=== PATIENT | female | born 1940 | race Caucasian/White ===

== ENCOUNTER → 2017-05-14 | Outpatient (CLI) | payer MEDICARE, MEDICAID ==
[~2017-05-14] MED LIST: ASPI-892 PO; ASPI-983 PO; ATEN-156 PO; CALC-760 PO; CLPD75T PO; DEXL60CA5 PO; DILT240C86 PO; DLT180CCR PO; DOCU100T7 PO; FNT25TD TD; FURO20TA4 PO; FURO40TA4 PO; FURO80TA83 PO; GLYB5TAB3 PO; HCT25T PO; HYDR-3816 PO; INSASP10V SC; INSU100V5 SQ; INSU100V6 SQ; LISI-556 PO; LISI10TA2 PO; LISI20TA PO; METF-380; METO50TA2 PO; MTF500T PO; NOVALOG SQ; OMEG-12 PO; POLY17PO23 PO; POTA10CA43 PO; PROP1TAB77; RIVA15TA PO; RIVA20TA2 PO; ROSU20TA14 PO; TRAM50TA2 PO
--- NOTE | 2017-05-14 19:10 | Diagnostic Imaging Report ---
PROCEDURE: US Thyroid. TECHNIQUE: Multiple real-time grayscale images were obtained of the thyroid in various projections. INDICATION: Follow-up nodules. COMPARISON: 07/10/2015. FINDINGS: The right lobe is 5.9 x 3.3 x 3.1 cm. The left lobe is 4.5 x 1.9 x 2.1 cm. In the thyroid isthmus there is a 1.9 x 1.8 x 1.5 cm heterogeneous nodule seen. This is similar to prior exam of 07/10/2015. There are multiple other nodules in the thyroid; some are cystic, up to 1 cm in the upper right lobe and up to 0.9 cm in the upper left lobe also similar to prior exam. IMPRESSION: Stable multiple thyroid nodules and cysts. The dominant lesion in the isthmus is 1.9 cm in size, heterogeneous and is probably solid. The stability from 2014 is suggestive of benign etiology. Dictated by: Dictated on workstation # [id number]
== END ==
LOC: RAD 11:32
PROVIDERS: ATTEND Family Medicine
DX: E04.2 Nontoxic multinodular goiter (principal)
CPT/HCPCS: 76536

== ENCOUNTER → 2017-08-25 | Outpatient (CLI) | payer MEDICARE, MEDICAID | LOC: CARD 09:46 | PROVIDERS: ATTEND Nurse Practitioner Family | DX: I35.0 Nonrheumatic aortic (valve) stenosis (principal); I48.1 Persistent atrial fibrillation; I10 Essential (primary) hypertension; I25.10 Atherosclerotic heart disease of native coronary artery without angina pectoris; I65.23 Occlusion and stenosis of bilateral carotid arteries; R06.09 Other forms of dyspnea; E78.5 Hyperlipidemia, unspecified; Z95.4 Presence of other heart-valve replacement | CPT/HCPCS: 93306 ==

== ENCOUNTER 2018-10-19 07:16 | Day surgery (SDC) | payer MEDICARE, MEDICAID ==
[2018-10-19] VITALS (9 sets, daily range): BP systolic 130–160; BP diastolic 73–86
[~2018-10-19] VITALS: Ht 167.6 cm; Wt 122.5 kg
[~2018-10-19 07:16] MED LIST changes: +HYDR-34 PO; -HYDR-3816 PO; +METO50TA15 PO; -METO50TA2 PO
[2018-10-19] MEDS ORDERED: LIDOCAINE 1% INJ 20 ML 20 ML VIAL ONE (07:33)
[2018-10-19] MEDS ORDERED: NS IV 1000 ML 1,000 ML ONE ×2 (07:33→10:04)
[2018-10-19] MEDS ORDERED: HEParin (CATH LAB) 2,000 ML IV ONE (07:33)
[2018-10-19] MEDS: NS IV 1000 ML 1,000 ML IV SCH ×2 (08:02→10:09)
[2018-10-19 08:06] LABS: MEAN PLATELET VOLUME 11.2 FL (7.4-10.4); RED BLOOD COUNT 4.08 10^6/uL (4.35-5.85); RED CELL DISTRIBUTION WIDTH 14.8 % (10.0-14.5); WHITE BLOOD COUNT 8.8 10^3/uL (4.3-11.0)
[2018-10-19 08:15] LABS: INR 1.1 (0.8-1.4); PROTHROMBIN TIME PATIENT 14.7 SEC (12.2-14.7)
[2018-10-19 08:27] LABS: ALBUMIN 4.2 GM/DL (3.2-4.5); BILIRUBIN,TOTAL 1.2 MG/DL (0.1-1.0); CALCIUM 9.9 MG/DL (8.5-10.1); CREATININE SERUM 1.2 MG/DL (0.60-1.30); POTASSIUM 4.2 MMOL/L (3.6-5.0); TOTAL PROTEIN 8.1 GM/DL (6.4-8.2)
[2018-10-19] MEDS ORDERED: METO50TA15 PO (08:50)
[2018-10-19] MEDS ORDERED: ASPI-983 PO (08:51)
[2018-10-19] MEDS ORDERED: HYDR-3812 PO (08:51)
--- NOTE | 2018-10-19 08:52 | NUR ---
SPOKE TO PATIENT SHE BROUGHT ALL MEDICATION BOTTLES IN EXCEPT FOR INSULINS AND PLAVIX. SHE STATED HOW SHE TOOK THOSE MEDICATIONS. ALSO WHEN SHE TOOK HER MEDICATIONS.
--- OUTSIDE RECORDS SUMMARY | 2018-10-19 09:06 | XMS REPORT | Continuity of Care Document ---
Author Author [facility] Organization [facility] Address Unknown Phone Unavailable Allergies Active Description Code Type Severity Reaction Onset Reported/Identified Relationship to Patient Clinical Status Yes No Known Drug Allergies [id number] Drug Allergy Unknown N/A 11/18/2012 Medications There is no data. Problems Date Dx Coded Attending Type Code Diagnosis Diagnosed By 07/13/2012 Ot 250.00 DIAB ADRIANNA WO COMPL, TYPE II OR UNSPEC TY 07/13/2012 Ot 272.4 HYPERLIPIDEMIA NEC/NOS 07/13/2012 Ot 278.00 OBESITY, NOS 07/13/2012 Ot 401.9 HYPERTENSION NOS 07/13/2012 Ot 413.9 ANGINA PECTORIS NEC/NOS 07/13/2012 Ot 414.01 CORONARY ATHEROSCLEROSIS OF [place] CORON 07/13/2012 Ot 424.1 AORTIC VALVE DISORDER 07/13/2012 Ot 530.81 ESOPHAGEAL REFLUX 07/13/2012 Ot 786.09 RESPIRATORY ABNORM NEC 07/13/2012 Ot 794.30 ABN CARDIOVASC STUDY NOS 07/13/2012 Ot V17.49 FAMILY HISTORY OF OTHER CARDIOVASCULAR D 07/13/2012 Ot V43.65 KNEE JOINT REPLACEMENT STATUS 07/13/2012 Ot V58.67 LONG-TERM ( CURRENT) USE OF INSULIN 07/13/2012 Ot V58.69 OTH MED,LT, CURRENT USE 07/13/2012 Ot V85.41 BODY MASS INDEX 40.0-44.9, ADULT 11/19/2012 Ot 250.00 DIAB ADRIANNA WO COMPL, TYPE II OR UNSPEC TY 11/19/2012 Ot 272.4 HYPERLIPIDEMIA NEC/NOS 11/19/2012 Ot 278.00 OBESITY, NOS 11/19/2012 Ot 401.9 HYPERTENSION NOS 11/19/2012 Ot 414.01 CORONARY ATHEROSCLEROSIS OF [place] CORON 11/19/2012 Ot 424.1 AORTIC VALVE DISORDER 11/19/2012 Ot 427.31 ATRIAL FIBRILLATION 11/19/2012 Ot V45.81 AORTOCORONARY BYPASS 11/19/2012 Ot V58.67 LONG-TERM ( CURRENT) USE OF INSULIN 11/19/2012 Ot V85.38 BODY MASS INDEX 38.0-38.9, ADULT 09/27/2013 WILDER RIVAS BODY FORMER Ot 327.23 OBSTRUCTIVE SLEEP APNEA (ADULT) (PEDIATR 09/27/2013 WILDER RIVAS BODY FORMER Ot 327.51 PERIODIC LIMB MOVEMENT DISORDER 09/27/2013 WILDER RIVAS BODY FORMER Ot 785.0 TACHYCARDIA NOS 11/29/2013 WILDER RIVAS BODY FORMER Ot 327.23 OBSTRUCTIVE SLEEP APNEA (ADULT) (PEDIATR 11/29/2013 WILDER RIVAS BODY FORMER Ot 785.0 TACHYCARDIA NOS 03/04/2014 JORGE LEONG MD A Ot 250.00 DIAB ADRIANNA WO COMPL, TYPE II OR UNSPEC TY 03/04/2014 JORGE LEONG MD Ot 530.81 ESOPHAGEAL REFLUX 03/04/2014 JORGE LEONG MD A Ot 564.00 UNSPEC CONSTIPATION 03/04/2014 JORGE LEONG MD Ot 719.45 JOINT PAIN-PELVIS 03/04/2014 JORGE LEONG MD Ot 724.5 BACKACHE NOS 03/04/2014 JORGE LEONG MD Ot 729.1 MYALGIA AND MYOSITIS NOS 03/04/2014 JORGE LEONG MD Ot 729.5 PAIN IN LIMB 03/04/2014 JORGE LEONG MD Ot 780.79 OTH MALAISE FATIGUE 03/04/2014 JORGE LEONG MD Ot 786.05 SHORTNESS OF BREATH 07/26/2014 AMANDA DUMONT FACC, ADALBERTO FACP CCDS Ot 250.00 DIAB ADRIANNA WO COMPL, TYPE II OR UNSPEC TY 07/26/2014 ADALBERTO PATEL MD, FACC FACP CCDS Ot 272.4 HYPERLIPIDEMIA NEC/NOS 07/26/2014 AMANDA DUMONT FACC ALI FACP CCDS Ot 278.00 OBESITY, NOS 07/26/2014 ADALBERTO PATEL MD, FACC FACP CCDS Ot 401.9 HYPERTENSION NOS 07/26/2014 ADALBERTO PATEL MD, FACC FACP CCDS Ot 414.01 CORONARY ATHEROSCLEROSIS OF [place] CORON 07/26/2014 ADALBERTO PATEL MD, FACC FACP CCDS Ot 414.02 CORON ATHEROSCLEROSIS AUTOLOG VEIN BYPAS 07/26/2014 ADALBERTO PATEL MD, FACC FACP CCDS Ot 414.2 CHRONIC TOTAL OCCLUSION OF CORONARY EMELY 07/26/2014 ADALBERTO PATEL MD, FACC FACP CCDS Ot 414.4 CORONARY ATHEROSCLEROSIS DUE TO CALCIFIE 07/26/2014 AMANDA MULLENC, ALI FACP CCDS Ot 416.8 CHR PULMON HEART DIS NEC 07/26/2014 AMANDA DUMONT FACC, ALI FACP CCDS Ot 424.1 AORTIC VALVE DISORDER 07/26/2014 AMANDA DUMONT FACC, ALI FACP CCDS Ot 427.31 ATRIAL FIBRILLATION 07/26/2014 AMANDA DUMONT FACC, ALI FACP CCDS Ot 530.81 ESOPHAGEAL REFLUX 07/26/2014 AMANDA DUMONT FACC, ALI FACP CCDS Ot 780.57 UNSPECIFIED SLEEP APNEA 07/26/2014 AMANDA DUMONT FACC, ALI FACP CCDS Ot V45.81 AORTOCORONARY BYPASS 07/26/2014 AMANDA DUMONT FACC, ALI FACP CCDS Ot V58.67 LONG-TERM (CURRENT) USE OF INSULIN 07/26/2014 AMANDA DUMONT FACC, ALI FACP CCDS Ot V58.69 OTH MED,LT,CURRENT USE 07/26/2014 AMANDA DUMONT FACC, ALI FACP CCDS Ot V85.41 BODY MASS INDEX 40.0-44.9, ADULT 10/04/2014 STEVE DUMONT, DES Bay Ot 786.05 10/31/2014 Ot 786.05 10/31/2014 Ot 786.50 10/31/2014 Ot 396.3 10/31/2014 Ot 397.0 10/31/2014 Ot 413.9 10/31/2014 Ot 429.3 10/31/2014 Ot 780.4 10/31/2014 Ot 785.2 10/31/2014 Ot 786.05 10/31/2014 Ot 794.31 10/31/2014 Ot 427.31 10/31/2014 Ot 780.79 10/31/2014 Ot 785.1 10/31/2014 AMANDA DUMONT FACC, ALI FACP CCDS Ot 433.10 10/31/2014 AMANDA DUMONT FACC, ALI FACP CCDS Ot 414.00 10/31/2014 AMANDA DUMONT FACC, ALI FACP CCDS Ot 424.1 10/31/2014 AMANDA DUMONT FACC, ALI FACP CCDS Ot 427.31 10/31/2014 AMANDA DUMONT FACC, ALI FACP CCDS Ot 786.09 10/31/2014 ASTRID STUART COSMETICS MACHINE OPERATOR Ot 396.8 10/31/2014 ASTRID STUART COSMETICS MACHINE OPERATOR Ot 397.0 10/31/2014 ASTRID STUART COSMETICS MACHINE OPERATOR Ot 416.8 10/31/2014 GELLENDER DO, LILY Mohan Ot 241.0 10/31/2014 GELLENDER DO, LILY Mohan Ot 275.49 10/31/2014 GELLENDER DO, LILY Mohan Ot 712.36 10/31/2014 GELLENDER DO, LILY Mohan Ot 715.35 10/31/2014 GELLENDER DO, LILY Mohan Ot 715.36 10/31/2014 GELLENDER DO, LILY Mohan Ot 719.45 10/31/2014 GELLENDER DO, LILY Mohan Ot 719.46 10/31/2014 GELLENDER DO, LILY Mohan Ot 241.1 10/31/2014 GELLENDER DO, LILY Mohan Ot 414.00 10/31/2014 GELLENDER DO, LILY Mohan Ot 429.3 10/31/2014 GELLENDER DO, LILY Mohan Ot 786.05 10/31/2014 GELLENDER DO, LILY Mohan Ot V45.81 10/31/2014 STEVE DUMONT, DES [place] Ot 786.05 11/28/2014 GELLENDER DO, LILY Mohan Ot 285.9 11/28/2014 GELLENDER DO, LILY Mohan Ot 490 07/31/2015 GELLENDER DO, LILY Mohan Ot E04.2 08/08/2015 GELLENDER DO, LILY Mohan Ot E04.2 10/17/2015 Ot 786.05 10/17/2015 Ot 786.50 10/17/2015 Ot 396.3 10/17/2015 Ot 397.0 10/17/2015 Ot 413.9 10/17/2015 Ot 429.3 10/17/2015 Ot 780.4 10/17/2015 Ot 785.2 10/17/2015 Ot 786.05 10/17/2015 Ot 794.31 10/17/2015 Ot 427.31 10/17/2015 Ot 780.79 10/17/2015 Ot 785.1 10/17/2015 AMANDA DUMONT FACC, ALI FACP CCDS Ot 433.10 10/17/2015 AMANDA DUMONT FACC, ALI FACP CCDS Ot 414.00 10/17/2015 AMANDA DUMONT FACC, ALI FACP CCDS Ot 424.1 10/17/2015 AMANDA DUMONT FACC, ALI FACP CCDS Ot 427.31 10/17/2015 AMANDA DUMONT FACC, ALI FACP CCDS Ot 786.09 10/17/2015 ASTRID STUART COSMETICS MACHINE OPERATOR Ot 396.8 10/17/2015 ASTRID STUART COSMETICS MACHINE OPERATOR Ot 397.0 10/17/2015 ASTRID STUART COSMETICS MACHINE OPERATOR Ot 416.8 10/17/2015 GELLENDER DO, LILY A Ot 241.0 10/17/2015 GELLENDER DO, LILY A Ot 275.49 10/17/2015 GELLENDER DO, LILY A Ot 712.36 10/17/2015 GELLENDER DO, LILY A Ot 715.35 10/17/2015 GELLENDER DO, LILY A Ot 715.36 10/17/2015 GELLENDER DO, LILY A Ot 719.45 10/17/2015 GELLENDER DO, LILY A Ot 719.46 10/17/2015 GELLENDER DO, LILY A Ot 241.1 10/17/2015 GELLENDER DO, LILY A Ot 414.00 10/17/2015 GELLENDER DO, LILY A Ot 429.3 10/17/2015 GELLENDER DO, LILY A Ot 786.05 10/17/2015 GELLENDER DO, LILY A Ot V45.81 10/17/2015 DES WILSON MD Ot 786.05 10/17/2015 AMANDA DUMONT FACC, ALI FACP CCDS Ot 272.4 10/17/2015 AMANDA DUMONT FAC, ALI FACP CCDS Ot 278.01 10/17/2015 AMANDA DUMONT FACC, ALI FACP CCDS Ot 401.9 10/17/2015 AMANDA DUMONT FACC, ALI FACP CCDS Ot 414.00 10/17/2015 AMANDA DUMONT FACC, ALI FACP CCDS Ot 424.1 10/17/2015 AMANDA DUMONT FACC, ALI FACP CCDS Ot 427.31 10/17/2015 AMANDA DUMONT FACC, ALI FACP CCDS Ot 447.9 10/17/2015 AMANDA DUMONT FACC, ALI FACP CCDS Ot 780.57 10/17/2015 GELLENDER DO, LILY A Ot 285.9 10/17/2015 GELLENDER DO, LILY A Ot 490 10/17/2015 GELLENDER DO, LILY A Ot E04.2 11/06/2015 BAIMA, ASTRID L COSMETICS MACHINE OPERATOR Ot E11.9 11/06/2015 BAIMA, ASTRID L COSMETICS MACHINE OPERATOR Ot E78.5 11/06/2015 BAIMA, ASTRID L COSMETICS MACHINE OPERATOR Ot I10 11/06/2015 BAIMA, ASTRID L COSMETICS MACHINE OPERATOR Ot I25.10 11/06/2015 BAIMA, ASTRID L COSMETICS MACHINE OPERATOR Ot I35.0 11/06/2015 BAIMA, ASTRID L COSMETICS MACHINE OPERATOR Ot I77.9 11/06/2015 BAIMA, ASTRID L COSMETICS MACHINE OPERATOR Ot Z95.4 11/16/2015 BAIMA, ASTRID L COSMETICS MACHINE OPERATOR Ot E11.9 11/16/2015 BAIMA, ASTRID L COSMETICS MACHINE OPERATOR Ot E78.5 11/16/2015 BAIMA, ASTRID L COSMETICS MACHINE OPERATOR Ot I10 11/16/2015 BAIMA, ASTRID L COSMETICS MACHINE OPERATOR Ot I25.10 11/16/2015 BAIMA, ASTRID L COSMETICS MACHINE OPERATOR Ot I35.0 11/16/2015 BAIMA, ASTRID L COSMETICS MACHINE OPERATOR Ot I77.9 11/16/2015 BAIMA, ASTRID L COSMETICS MACHINE OPERATOR Ot Z95.4 05/28/2016 BAIMA, ASTRID L COSMETICS MACHINE OPERATOR Ot E78.4 OTHER HYPERLIPIDEMIA 05/28/2016 BAIMA, ASTRID L COSMETICS MACHINE OPERATOR Ot G47.33 OBSTRUCTIVE SLEEP APNEA (ADULT) (PEDIATR 05/28/2016 BAIMA, ASTRID L COSMETICS MACHINE OPERATOR Ot I10 ESSENTIAL (PRIMARY) HYPERTENSION 05/28/2016 BAIMA, ASTRID L COSMETICS MACHINE OPERATOR Ot I25.10 ATHSCL HEART DISEASE OF [place] CORONARY 05/28/2016 BAIMA, ASRTID L COSMETICS MACHINE OPERATOR Ot R06.09 OTHER FORMS OF DYSPNEA 05/28/2016 BAIMA, ASTRID L COSMETICS MACHINE OPERATOR Ot R35.0 FREQUENCY OF MICTURITION 05/28/2016 BAIMA, ASTRID L COSMETICS MACHINE OPERATOR Ot Z95.4 PRESENCE OF OTHER HEART-VALVE REPLACEMEN 06/05/2016 Ot 786.05 SHORTNESS OF BREATH 06/05/2016 Ot 786.50 CHEST PAIN NOS 06/05/2016 Ot 396.3 MITRAL/ AORTIC HANY INSUFF 06/05/2016 Ot 397.0 TRICUSPID VALVE DISEASE 06/05/2016 Ot 413.9 ANGINA PECTORIS NEC/NOS 06/05/2016 Ot 429.3 CARDIOMEGALY 06/05/2016 Ot 780.4 DIZZINESS AND GIDDINESS 06/05/2016 Ot 785.2 CARDIAC MURMURS NEC 06/05/2016 Ot 786.05 SHORTNESS OF BREATH 06/05/2016 Ot 794.31 ABNORM ELECTROCARDIOGRAM 06/05/2016 Ot 427.31 ATRIAL FIBRILLATION 06/05/2016 Ot 780.79 OTH MALAISE FATIGUE 06/05/2016 Ot 785.1 PALPITATIONS 06/05/2016 AMANDA DUMONT FACC, ALI FACP CCDS Ot 433.10 CAROTID ARTERY OCCLUSION W O CEREBRAL IN 06/05/2016 AMANDA DUMONT FACC, ALI FACP CCDS Ot 414.00 CORON ATHEROSCLER NOS TYPE VESSEL, NATIV 06/05/2016 AMANDA DUMONT FACC, ALI FACP CCDS Ot 424.1 AORTIC VALVE DISORDER 06/05/2016 AMANDA DUMONT FACC, ALI FACP CCDS Ot 427.31 ATRIAL FIBRILLATION 06/05/2016 AMANDA DUMONT FACC, ALI FACP CCDS Ot 786.09 RESPIRATORY ABNORM NEC 06/05/2016 ATSRID STUART COSMETICS MACHINE OPERATOR Ot 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 06/05/2016 ASTRID STUART COSMETICS MACHINE OPERATOR Ot 397.0 TRICUSPID VALVE DISEASE 06/05/2016 ASTRID STUART COSMETICS MACHINE OPERATOR Ot 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3 CARDIOMEGALY 06/05/2016 LILY ROJAS DO Ot 786.05 SHORTNESS OF BREATH 06/05/2016 LILY ROJAS DO Ot V45.81 AORTOCORONARY BYPASS 06/05/2016 DES WILSON MD Ot 786.05 SHORTNESS OF BREATH 06/05/2016 AMANDA DUMONT FACC, ALI FACP CCDS Ot 272.4 HYPERLIPIDEMIA NEC/NOS 06/05/2016 AMANDA DUMONT FACC, ALI FACP CCDS Ot 278.01 MORBID OBESITY 06/05/2016 AMANDA DUMONT FACC, ALI FACP CCDS Ot 401.9 HYPERTENSION NOS 06/05/2016 AMANDA DUMONT FACC, ALI FACP CCDS Ot 414.00 CORON ATHEROSCLER NOS TYPE VESSEL, NATIV 06/05/2016 AMANDA DUMONT FACC, ALI FACP CCDS Ot 424.1 AORTIC VALVE DISORDER 06/05/2016 AMANDA DUMONT FACC, ALI FACP CCDS Ot 427.31 ATRIAL FIBRILLATION 06/05/2016 AMANDA DUMONT FACC, ALI FACP CCDS Ot 447.9 ARTERIAL DISEASE NOS 06/05/2016 AMANDA DUMONT FACC, ALI FACP CCDS Ot 780.57 UNSPECIFIED SLEEP APNEA 06/05/2016 BOB FLOWERS LILY Mohan Ot 285.9 ANEMIA NOS 06/05/2016 BOB FLOWERS LILY Mohan Ot 490 BRONCHITIS NOS 06/05/2016 LILY ROJAS DO Ot E04.2 NONTOXIC MULTINODULAR GOITER 06/05/2016 ASTRID STUART COSMETICS MACHINE OPERATOR Ot E11.9 TYPE 2 DIABETES MELLITUS WITHOUT COMPLIC 06/05/2016 ASTRID STUART COSMETICS MACHINE OPERATOR Ot E78.5 HYPERLIPIDEMIA, UNSPECIFIED 06/05/2016 ASTRID STUART COSMETICS MACHINE OPERATOR Ot I10 ESSENTIAL (PRIMARY) HYPERTENSION 06/05/2016 ASTRID STUART COSMETICS MACHINE OPERATOR Ot I25.10 ATHSCL HEART DISEASE OF [place] CORONARY 06/05/2016 ASTRID STUART COSMETICS MACHINE OPERATOR Ot I35.0 NONRHEUMATIC AORTIC (VALVE) STENOSIS 06/05/2016 ASTRID STUART COSMETICS MACHINE OPERATOR Ot I77.9 DISORDER OF ARTERIES AND ARTERIOLES, UNS 06/05/2016 ASTRID STUART COSMETICS MACHINE OPERATOR Ot Z95.4 PRESENCE OF OTHER HEART-VALVE REPLACEMEN 06/05/2016 ASTRID STUART COSMETICS MACHINE OPERATOR Ot E78.4 OTHER HYPERLIPIDEMIA 06/05/2016 ASTRID STUART L COSMETICS MACHINE OPERATOR Ot G47.33 OBSTRUCTIVE SLEEP APNEA (ADULT) (PEDIATR 06/05/2016 RAHATASTRID GUILLORY COSMETICS MACHINE OPERATOR Ot I10 ESSENTIAL (PRIMARY) HYPERTENSION 06/05/2016 RAHATASTRID GUILLORY COSMETICS MACHINE OPERATOR Ot I25.10 ATHSCL HEART DISEASE OF [place] CORONARY 06/05/2016 RAHATASTRID GUILLORY COSMETICS MACHINE OPERATOR Ot R06.09 OTHER FORMS OF DYSPNEA 06/05/2016 RAHATASTRID GUILLORY L COSMETICS MACHINE OPERATOR Ot R35.0 FREQUENCY OF MICTURITION 06/05/2016 RAHATASTRID GUILLORY L COSMETICS MACHINE OPERATOR Ot Z95.4 PRESENCE OF OTHER HEART-VALVE REPLACEMEN 06/10/2016 Ot 786.05 SHORTNESS OF BREATH 06/10/2016 Ot 786.50 CHEST PAIN NOS 06/10/2016 Ot 396.3 MITRAL/ AORTIC HANY INSUFF 06/10/2016 Ot 397.0 TRICUSPID VALVE DISEASE 06/10/2016 Ot 413.9 ANGINA PECTORIS NEC/NOS 06/10/2016 Ot 429.3 CARDIOMEGALY 06/10/2016 Ot 780.4 DIZZINESS AND GIDDINESS 06/10/2016 Ot 785.2 CARDIAC MURMURS NEC 06/10/2016 Ot 786.05 SHORTNESS OF BREATH 06/10/2016 Ot 794.31 ABNORM ELECTROCARDIOGRAM 06/10/2016 Ot 427.31 ATRIAL FIBRILLATION 06/10/2016 Ot 780.79 OTH MALAISE FATIGUE 06/10/2016 Ot 785.1 PALPITATIONS 06/10/2016 AMANDA DUMONT FACC, ADALBERTO FACP CCDS Ot 433.10 CAROTID ARTERY OCCLUSION W O CEREBRAL IN 06/10/2016 AMANDA DUMONT FACC, ADALBERTO FACP CCDS Ot 414.00 CORON ATHEROSCLER NOS TYPE VESSEL, NATIV 06/10/2016 AMANDA DUMONT FACC, ADALBERTO FACP CCDS Ot 424.1 AORTIC VALVE DISORDER 06/10/2016 AMANDA DUMONT FACC, ADALBERTO FACP CCDS Ot 427.31 ATRIAL FIBRILLATION 06/10/2016 AMANDA DUMONT FACC, ADALBERTO FACP CCDS Ot 786.09 RESPIRATORY ABNORM NEC 06/10/2016 SADE ASTRID L COSMETICS MACHINE OPERATOR Ot 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 06/10/2016 SADE ASTRID L COSMETICS MACHINE OPERATOR Ot 397.0 TRICUSPID VALVE DISEASE 06/10/2016 SADE ASTRID L COSMETICS MACHINE OPERATOR Ot 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 CHR PULMON HEART DIS NEC 06/10/2016 LILY ROJAS DO Ot 241.0 NONTOX UNINODULAR GOITER 06/10/2016 [facility] DO LILY Mohan Ot 275.49 OTH DISORD/CALCIUM METABOLISM 06/10/2016 [facility] LILY Mohan Ot 712.36 CHONDROCALCIN NOS-L/LEG 06/10/2016 [facility] LILY Mohan Ot 715.35 LOC OSTEOARTH NOS-PELVIS 06/10/2016 [facility] LILY Mohan Ot 715.36 LOC OSTEOARTH NOS-L/LEG 06/10/2016 [facility] DO LILY Mohan Ot 719.45 JOINT PAIN-PELVIS 06/10/2016 [facility] DO LILY Mohan Ot 719.46 JOINT PAIN-L/LEG 06/10/2016 [facility] DO LILY Mohan Ot 241.1 NONTOX MULTINODUL GOITER 06/10/2016 [facility] DO LILY Kimberlee Ot 414.00 CORON ATHEROSCLER NOS TYPE VESSEL, NATIV 06/10/2016 [facility] DO LILY Kimberlee Ot 429.3 CARDIOMEGALY 06/10/2016 [facility] DO LILY Kimberlee Ot 786.05 SHORTNESS OF BREATH 06/10/2016 [facility] DO LILY Mohan Ot V45.81 AORTOCORONARY BYPASS 06/10/2016 STEVE DUMONT, DES [place] Ot 786.05 SHORTNESS OF BREATH 06/10/2016 AMANDA DUMONT FACC, ADALBERTO FACP CCDS Ot 272.4 HYPERLIPIDEMIA NEC/NOS 06/10/2016 AMANDA DUMONT FACC, ADALBERTO FACP CCDS Ot 278.01 MORBID OBESITY 06/10/2016 AMANDA DUMONT FACC, ADALBERTO FACP CCDS Ot 401.9 HYPERTENSION NOS 06/10/2016 AMANDA DUMONT FACC, ADALBERTO FACP CCDS Ot 414.00 CORON ATHEROSCLER NOS TYPE VESSEL, NATIV 06/10/2016 AMANDA DUMONT FACC, ADALBERTO FACP CCDS Ot 424.1 AORTIC VALVE DISORDER 06/10/2016 AMANDA DUMONT FACC, ADALBERTO FACP CCDS Ot 427.31 ATRIAL FIBRILLATION 06/10/2016 AMANDA DUMONT FACC, ALI FACP CCDS Ot 447.9 ARTERIAL DISEASE NOS 06/10/2016 AMANDA DUMONT FACC, ADALBERTO FACP CCDS Ot 780.57 UNSPECIFIED SLEEP APNEA 06/10/2016 LILY ROJAS DO Ot 285.9 ANEMIA NOS 06/10/2016 LILY ROJAS DO Ot 490 BRONCHITIS NOS 06/10/2016 LILY ROJAS DO Ot E04.2 NONTOXIC MULTINODULAR GOITER 06/10/2016 RAHATPASTORA ASTRID L COSMETICS MACHINE OPERATOR Ot E11.9 TYPE 2 DIABETES MELLITUS WITHOUT COMPLIC 06/10/2016 RAHATPASTORA ASTRID L COSMETICS MACHINE OPERATOR Ot E78.5 HYPERLIPIDEMIA, UNSPECIFIED 06/10/2016 SADE ASTRID L COSMETICS MACHINE OPERATOR Ot I10 ESSENTIAL (PRIMARY) HYPERTENSION 06/10/2016 SADE ASTRID L COSMETICS MACHINE OPERATOR Ot I25.10 ATHSCL HEART DISEASE OF [place] CORONARY 06/10/2016 RAHATPASTORA ASTRID L COSMETICS MACHINE OPERATOR Ot I35.0 NONRHEUMATIC AORTIC (VALVE) STENOSIS 06/10/2016 SADE ASTRID L COSMETICS MACHINE OPERATOR Ot I77.9 DISORDER OF ARTERIES AND ARTERIOLES, UNS 06/10/2016 SADE ASTRID L COSMETICS MACHINE OPERATOR Ot Z95.4 PRESENCE OF OTHER HEART-VALVE REPLACEMEN 06/10/2016 SHEN STUARTHER L COSMETICS MACHINE OPERATOR Ot E78.4 OTHER HYPERLIPIDEMIA 06/10/2016 SADE ASTRID L COSMETICS MACHINE OPERATOR Ot G47.33 OBSTRUCTIVE SLEEP APNEA (ADULT) (PEDIATR 06/10/2016 RAHATMA ASTRID L COSMETICS MACHINE OPERATOR Ot I10 ESSENTIAL (PRIMARY) HYPERTENSION 06/10/2016 RAHATMA ASTRID L COSMETICS MACHINE OPERATOR Ot I25.10 ATHSCL HEART DISEASE OF [place] CORONARY 06/10/2016 RAHATPASTORA ASTRID L COSMETICS MACHINE OPERATOR Ot R06.09 OTHER FORMS OF DYSPNEA 06/10/2016 SADE ASTRID L COSMETICS MACHINE OPERATOR Ot R35.0 FREQUENCY OF MICTURITION 06/10/2016 SADE ASTRID L COSMETICS MACHINE OPERATOR Ot Z95.4 PRESENCE OF OTHER HEART-VALVE REPLACEMEN 06/11/2016 AMANDA DUMONT FACC, ADALBERTO HUGGINS CCDS Ot E11.9 TYPE 2 DIABETES MELLITUS WITHOUT COMPLIC 06/11/2016 AMANDA DUMONT FACC, ADALBERTO MULLENP CCDS Ot E66.01 MORBID (SEVERE) OBESITY DUE TO EXCESS CA 06/11/2016 AMANDA DUMONT FACC, ADALBERTO FACP CCDS Ot G47.30 SLEEP APNEA, UNSPECIFIED 06/11/2016 AMANDA DUMONT FACC, ADALBERTO FACP CCDS Ot I10 ESSENTIAL (PRIMARY) HYPERTENSION 06/11/2016 ADALBERTO PATEL MD, FACC FACP CCDS Ot I25.10 ATHSCL HEART DISEASE OF [place] CORONARY 06/11/2016 ADALBERTO PATEL MD, FACC FACP CCDS Ot I25.82 CHRONIC TOTAL OCCLUSION OF CORONARY EMELY 06/11/2016 ADALBERTO PATEL MD, FACC FACP CCDS Ot I25.84 CORONARY ATHEROSCLEROSIS DUE TO CALCIFIE 06/11/2016 ADALBERTO PATEL MD, FACC FACP CCDS Ot I27.2 OTHER SECONDARY PULMONARY HYPERTENSION 06/11/2016 ADALBERTO PATEL MD, FACC FACP CCDS Ot I48.0 PAROXYSMAL ATRIAL FIBRILLATION 06/11/2016 ADALBERTO PATEL MD, FACC FACP CCDS Ot K21.9 GASTRO-ESOPHAGEAL REFLUX DISEASE WITHOUT 06/11/2016 AMANDA DUMONT FACC ALI FACP CCDS Ot R94.39 ABNORMAL RESULT OF OTHER CARDIOVASCULAR 06/11/2016 ADALBERTO PATEL MD, FACC FACP CCDS Ot 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, INI 06/11/2016 AMANDA DUMONT FACC ALI FACP CCDS Ot Z68.41 BODY MASS INDEX (BMI) 40.0-44.9, ADULT 06/11/2016 ADALBEROT PATEL MD, FACC FACP CCDS Ot Z79.01 POULTRY HATCHERY MANAGER (CURRENT) USE OF ANTICOAGULANT 06/11/2016 ADALBERTO PATEL MD, FACC FACP CCDS Ot Z79.4 POULTRY HATCHERY MANAGER (CURRENT) USE OF INSULIN 06/11/2016 AMANDA DUMONT FACC ALI FACP CCDS Ot Z79.899 OTHER POULTRY HATCHERY MANAGER (CURRENT) DRUG THERAPY 06/11/2016 AAMNDA DUMONT FACC ALI FACP CCDS Ot Z95.1 PRESENCE OF AORTOCORONARY BYPASS GRAFT 06/11/2016 ADALBERTO PATEL MD, FACC FACP CCDS Ot Z98.89 OTHER SPECIFIED POSTPROCEDURAL STATES 06/20/2016 ASTRID STUART COSMETICS MACHINE OPERATOR Ot E78.4 OTHER HYPERLIPIDEMIA 06/20/2016 ASTRID STUART COSMETICS MACHINE OPERATOR Ot G47.33 OBSTRUCTIVE SLEEP APNEA (ADULT) (PEDIATR 06/20/2016 ASTRID STUART COSMETICS MACHINE OPERATOR Ot I10 ESSENTIAL (PRIMARY) HYPERTENSION 06/20/2016 ASTRID STUART COSMETICS MACHINE OPERATOR Ot I25.10 ATHSCL HEART DISEASE OF [place] CORONARY 06/20/2016 ASTRID STUART COSMETICS MACHINE OPERATOR Ot R06.09 OTHER FORMS OF DYSPNEA 06/20/2016 ASTRID STUART COSMETICS MACHINE OPERATOR Ot R35.0 FREQUENCY OF MICTURITION 06/20/2016 ASTRID STUART COSMETICS MACHINE OPERATOR Ot Z95.4 PRESENCE OF OTHER HEART-VALVE REPLACEMEN 07/01/2016 ASTRID STUART COSMETICS MACHINE OPERATOR Ot E78.4 OTHER HYPERLIPIDEMIA 07/01/2016 ASTRID STUART COSMETICS MACHINE OPERATOR Ot G47.33 OBSTRUCTIVE SLEEP APNEA (ADULT) (PEDIATR 07/01/2016 RAHATASTRID GUILLORY L COSMETICS MACHINE OPERATOR Ot I10 ESSENTIAL (PRIMARY) HYPERTENSION 07/01/2016 ASTRID STUART COSMETICS MACHINE OPERATOR Ot I25.10 ATHSCL HEART DISEASE OF [place] CORONARY 07/01/2016 ASTRID STUART COSMETICS MACHINE OPERATOR Ot R06.09 OTHER FORMS OF DYSPNEA 07/01/2016 ASTRID STUART COSMETICS MACHINE OPERATOR Ot R35.0 FREQUENCY OF MICTURITION 07/01/2016 ASTRID STUART COSMETICS MACHINE OPERATOR Ot Z95.4 PRESENCE OF OTHER HEART-VALVE REPLACEMEN 07/24/2016 AMANDA DUMONT FACC, ADALBERTO FACP CCDS Ot E11.9 TYPE 2 DIABETES MELLITUS WITHOUT COMPLIC 07/24/2016 ADALBERTO PATEL MD, FACC FACP CCDS Ot E66.01 MORBID (SEVERE) OBESITY DUE TO EXCESS CA 07/24/2016 AMANDA DUMONT FACC, ADALBERTO FACP CCDS Ot G47.30 SLEEP APNEA, UNSPECIFIED 07/24/2016 AMANDA DUMOTN FACC, ADALBERTO FACP CCDS Ot I10 ESSENTIAL (PRIMARY) HYPERTENSION 07/24/2016 AMANDA DUMONT FACC, ADALBERTO FACP CCDS Ot I25.10 ATHSCL HEART DISEASE OF [place] CORONARY 07/24/2016 ADALBERTO PATEL MD, FACC FACP CCDS Ot I25.82 CHRONIC TOTAL OCCLUSION OF CORONARY EMELY 07/24/2016 ADALBERTO PATEL MD, FACC FACP CCDS Ot I25.84 CORONARY ATHEROSCLEROSIS DUE TO CALCIFIE 07/24/2016 ADALBERTO PATEL MD, FACC FACP CCDS Ot I27.2 OTHER SECONDARY PULMONARY HYPERTENSION 07/24/2016 ADALBERTO PATEL MD, FACC FACP CCDS Ot I48.0 PAROXYSMAL ATRIAL FIBRILLATION 07/24/2016 ADALBERTO PATEL MD, FACC FACP CCDS Ot K21.9 GASTRO-ESOPHAGEAL REFLUX DISEASE WITHOUT 07/24/2016 AMANDA DUMONT FACC, ALI FACP CCDS Ot R94.39 ABNORMAL RESULT OF OTHER CARDIOVASCULAR 07/24/2016 ADALBERTO PATEL MD, FACC FACP CCDS Ot 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, INI 07/24/2016 ADALBERTO PATEL MD, FACC FACP CCDS Ot Z68.41 BODY MASS INDEX (BMI) 40.0-44.9, ADULT 07/24/2016 ADALBERTO PATEL MD, FACC FACP CCDS Ot Z79.01 USP (CURRENT) USE OF ANTICOAGULANT 07/24/2016 ADALBERTO PATEL MD, FACC FACP CCDS Ot Z79.4 USP (CURRENT) USE OF INSULIN 07/24/2016 ADALBERTO PATEL MD, FACC FACP CCDS Ot Z79.899 OTHER POULTRY HATCHERY MANAGER (CURRENT) DRUG THERAPY 07/24/2016 ADALBERTO PATEL MD, FACC FACP CCDS Ot Z95.1 PRESENCE OF AORTOCORONARY BYPASS GRAFT 07/24/2016 ADALBERTO PATEL MD, FACC FACP CCDS Ot Z98.89 OTHER SPECIFIED POSTPROCEDURAL STATES 05/12/2017 Ot 786.05 SHORTNESS OF BREATH 05/12/2017 Ot 786.50 CHEST PAIN NOS 05/12/2017 Ot 396.3 MITRAL/ AORTIC HANY INSUFF 05/12/2017 Ot 397.0 TRICUSPID VALVE DISEASE 05/12/2017 Ot 413.9 ANGINA PECTORIS NEC/NOS 05/12/2017 Ot 429.3 CARDIOMEGALY 05/12/2017 Ot 780.4 DIZZINESS AND GIDDINESS 05/12/2017 Ot 785.2 CARDIAC MURMURS NEC 05/12/2017 Ot 786.05 SHORTNESS OF BREATH 05/12/2017 Ot 794.31 ABNORM ELECTROCARDIOGRAM 05/12/2017 Ot 427.31 ATRIAL FIBRILLATION 05/12/2017 Ot 780.79 OTH MALAISE FATIGUE 05/12/2017 Ot 785.1 PALPITATIONS 05/12/2017 ADALBERTO PATEL MD, FACC FACP CCDS Ot 433.10 CAROTID ARTERY OCCLUSION W O CEREBRAL IN 05/12/2017 ADALBERTO PATEL MD, FACC FACP CCDS Ot 414.00 CORON ATHEROSCLER NOS TYPE VESSEL, NATIV 05/12/2017 ADALBERTO PATEL MD, FACC FACP CCDS Ot 424.1 AORTIC VALVE DISORDER 05/12/2017 ADALBERTO PATEL MD, FACC FACP CCDS Ot 427.31 ATRIAL FIBRILLATION 05/12/2017 AMANDA MD FACC, ALI FACP CCDS Ot 786.09 RESPIRATORY ABNORM NEC 05/12/2017 ASTRID STUART COSMETICS MACHINE OPERATOR Ot 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 05/12/2017 RAHATASTRID GUILLORY COSMETICS MACHINE OPERATOR Ot 397.0 TRICUSPID VALVE DISEASE 05/12/2017 ASTRID STUART COSMETICS MACHINE OPERATOR Ot 416.8 CHR PULMON HEART DIS NEC 05/12/2017 BOB FLOWERS, LILY Kimberlee Ot 241.0 NONTOX UNINODULAR GOITER 05/12/2017 [facility] , LILY Mohan Ot 275.49 OTH DISORD/CALCIUM METABOLISM 05/12/2017 [facility] DO, LILY Mohan Ot 712.36 CHONDROCALCIN NOS-L/LEG 05/12/2017 [facility] DO, LILY Mohan Ot 715.35 LOC OSTEOARTH NOS-PELVIS 05/12/2017 [facility] DO, LILY Mohan Ot 715.36 LOC OSTEOARTH NOS-L/LEG 05/12/2017 [facility] DO, LILY Mohan Ot 719.45 JOINT PAIN-PELVIS 05/12/2017 [facility], LILY Mohan Ot 719.46 JOINT PAIN-L/LEG 05/12/2017 [facility] DO, LILY Mohan Ot 241.1 NONTOX MULTINODUL GOITER 05/12/2017 [facility] DO, LILY Mohan Ot 414.00 CORON ATHEROSCLER NOS TYPE VESSEL, NATIV 05/12/2017 [facility] LILY FLOWERS Ot 429.3 CARDIOMEGALY 05/12/2017 [facility] , LILY Mohan Ot 786.05 SHORTNESS OF BREATH 05/12/2017 [facility] LILY FLOWERS Ot V45.81 AORTOCORONARY BYPASS 05/12/2017 STEVE DUMONT, DES Bay Ot 786.05 SHORTNESS OF BREATH 05/12/2017 AMANDA DUMONT FACC, ADALBERTO FACP CCDS Ot 272.4 HYPERLIPIDEMIA NEC/NOS 05/12/2017 AMANDA DUMONT FACC, ALI FACP CCDS Ot 278.01 MORBID OBESITY 05/12/2017 AMANDA DUMONT FACC, ALI FACP CCDS Ot 401.9 HYPERTENSION NOS 05/12/2017 AMANDA DUMONT FACC, ADALBERTO FACP CCDS Ot 414.00 CORON ATHEROSCLER NOS TYPE VESSEL, NATIV 05/12/2017 AMANDA DUMONT FACC, ADALBERTO FACP CCDS Ot 424.1 AORTIC VALVE DISORDER 05/12/2017 AMANDA DUMONT FACC, ADALBERTO FACP CCDS Ot 427.31 ATRIAL FIBRILLATION 05/12/2017 AMANDA DUMONT [facility], ADALBERTO HUGGINS CCDS Ot 447.9 ARTERIAL DISEASE NOS 05/12/2017 AMANDA DUMONT [facility], [facility] 780.57 UNSPECIFIED SLEEP APNEA 05/12/2017 [facility] LILY Kimberlee Ot 285.9 ANEMIA NOS 05/12/2017 [facility] DO, LILY A Ot 490 BRONCHITIS NOS 05/12/2017 [facility] DO, LILY Kimberlee Ot E04.2 NONTOXIC MULTINODULAR GOITER 05/12/2017 SADE ASTRID L COSMETICS MACHINE OPERATOR Ot E11.9 TYPE 2 DIABETES MELLITUS WITHOUT COMPLIC 05/12/2017 SADE ASTRID L COSMETICS MACHINE OPERATOR Ot E78.5 HYPERLIPIDEMIA, UNSPECIFIED 05/12/2017 SADE ASTRID L COSMETICS MACHINE OPERATOR Ot I10 ESSENTIAL (PRIMARY) HYPERTENSION 05/12/2017 SADE ASTRID L COSMETICS MACHINE OPERATOR Ot I25.10 ATHSCL HEART DISEASE OF [place] CORONARY 05/12/2017 SADE ASTRID L COSMETICS MACHINE OPERATOR Ot I35.0 NONRHEUMATIC AORTIC (VALVE) STENOSIS 05/12/2017 SADE ASTRID L COSMETICS MACHINE OPERATOR Ot I77.9 DISORDER OF ARTERIES AND ARTERIOLES, UNS 05/12/2017 SADE ASTRID L COSMETICS MACHINE OPERATOR Ot Z95.4 PRESENCE OF OTHER HEART-VALVE REPLACEMEN 05/12/2017 SADE ASTRID L COSMETICS MACHINE OPERATOR Ot E78.4 OTHER HYPERLIPIDEMIA 05/12/2017 SADE ASTRID L COSMETICS MACHINE OPERATOR Ot G47.33 OBSTRUCTIVE SLEEP APNEA (ADULT) (PEDIATR 05/12/2017 SADE ASTRID L COSMETICS MACHINE OPERATOR Ot I10 ESSENTIAL (PRIMARY) HYPERTENSION 05/12/2017 SADE ASTRID L COSMETICS MACHINE OPERATOR Ot I25.10 ATHSCL HEART DISEASE OF [place] CORONARY 05/12/2017 SADE ASTRID L COSMETICS MACHINE OPERATOR Ot R06.09 OTHER FORMS OF DYSPNEA 05/12/2017 SADE ASTRID L COSMETICS MACHINE OPERATOR Ot R35.0 FREQUENCY OF MICTURITION 05/12/2017 SADE ASTRID L COSMETICS MACHINE OPERATOR Ot Z95.4 PRESENCE OF OTHER HEART-VALVE REPLACEMEN 05/15/2017 [facility] DO LILY Kimberlee Ot E04.2 NONTOXIC MULTINODULAR GOITER 06/03/2017 GELLILY NAJERA DO Ot E04.2 NONTOXIC MULTINODULAR GOITER 06/12/2017 LILY ROJAS DO Ot E04.2 NONTOXIC MULTINODULAR GOITER 09/15/2017 BAIMA, ASTRID L COSMETICS MACHINE OPERATOR Ot E78.5 HYPERLIPIDEMIA, UNSPECIFIED 09/15/2017 BAIMA, ASTRID L COSMETICS MACHINE OPERATOR Ot I10 ESSENTIAL (PRIMARY) HYPERTENSION 09/15/2017 BAIMA, ASTRID L COSMETICS MACHINE OPERATOR Ot I25.10 ATHSCL HEART DISEASE OF [place] CORONARY 09/15/2017 BAIMA, ASTRID L COSMETICS MACHINE OPERATOR Ot I35.0 NONRHEUMATIC AORTIC (VALVE) STENOSIS 09/15/2017 BAIMA, ASTRID L COSMETICS MACHINE OPERATOR Ot I48.1 PERSISTENT ATRIAL FIBRILLATION 09/15/2017 BAIMA, ASTRID L COSMETICS MACHINE OPERATOR Ot I65.23 OCCLUSION AND STENOSIS OF BILATERAL [place] 09/15/2017 BAIMA, ASTRID L COSMETICS MACHINE OPERATOR Ot R06.09 OTHER FORMS OF DYSPNEA 09/15/2017 BAIMA, ASTRID L COSMETICS MACHINE OPERATOR Ot Z95.4 PRESENCE OF OTHER HEART-VALVE REPLACEMEN 09/29/2017 BAIMA, ASTRID L COSMETICS MACHINE OPERATOR Ot E78.5 HYPERLIPIDEMIA, UNSPECIFIED 09/29/2017 BAIMA, ASTRID L COSMETICS MACHINE OPERATOR Ot I10 ESSENTIAL (PRIMARY) HYPERTENSION 09/29/2017 BAIMA, ASTRID L COSMETICS MACHINE OPERATOR Ot I25.10 ATHSCL HEART DISEASE OF [place] CORONARY 09/29/2017 BAIMA, ASTRID L COSMETICS MACHINE OPERATOR Ot I35.0 NONRHEUMATIC AORTIC (VALVE) STENOSIS 09/29/2017 BAIMA, ASTRID L COSMETICS MACHINE OPERATOR Ot I48.1 PERSISTENT ATRIAL FIBRILLATION 09/29/2017 BAIMA, ASTRID L COSMETICS MACHINE OPERATOR Ot I65.23 OCCLUSION AND STENOSIS OF BILATERAL [place] 09/29/2017 BAIMA, ASTRID L COSMETICS MACHINE OPERATOR Ot R06.09 OTHER FORMS OF DYSPNEA 09/29/2017 BAIMA, ASTRID L COSMETICS MACHINE OPERATOR Ot Z95.4 PRESENCE OF OTHER HEART-VALVE REPLACEMEN 10/15/2018 AMANDA DUMONT FACC, ADALBERTO HUGGINS CCDS Ot 433.10 CAROTID ARTERY OCCLUSION W O CEREBRAL IN 10/15/2018 AMANDA DUMONT FACC, ADALBERTO MULLENP CCDS Ot 414.00 CORON ATHEROSCLER NOS TYPE VESSEL, NATIV 10/15/2018 AMANDA DUMONT FACC, ADALBERTO MULLENP CCDS Ot 424.1 AORTIC VALVE DISORDER 10/15/2018 AMANDA DUMONT FACC, ADALBERTO MULLENP CCDS Ot 427.31 ATRIAL FIBRILLATION 10/15/2018 AMANDA DUMONT FACC, ADALBERTO FACP CCDS Ot 786.09 RESPIRATORY ABNORM NEC 10/15/2018 RAHATASTRID GUILLORY COSMETICS MACHINE OPERATOR Ot 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 10/15/2018 SADEASTRID COSMETICS MACHINE OPERATOR Ot 397.0 TRICUSPID VALVE DISEASE 10/15/2018 RAHATASTRID GUILLORY COSMETICS MACHINE OPERATOR Ot 416.8 CHR PULMON HEART DIS NEC 10/15/2018 [facility] L[facility] Moh[facility] Ot 241.0 NONTOX UNINODULAR GOITER 10/15/2018 [facility], LILY Mohan Ot 275.49 OTH DISORD/CALCIUM METABOLISM 10/15/2018 [facility], LILY Mohan Ot 712.36 CHONDROCALCIN NOS-L/LEG 10/15/2018 [facility] LOC OSTEOARTH NOS-PELVIS 10/15/2018 [facility], LILY Mohan Ot 715.36 LOC OSTEOARTH NOS-L/LEG 10/15/2018 [facility] 719.45 JOINT PAIN-PELVIS 10/15/2018 [facility], LILY Mohan Ot 719.46 JOINT PAIN-L/LEG 10/15/2018 [facility], LILY Mohan Ot 241.1 NONTOX MULTINODUL GOITER 10/15/2018 [facility], LILY Mohan Ot 414.00 CORON ATHEROSCLER NOS TYPE VESSEL, NATIV 10/15/2018 [facility] 429.3 CARDIOMEGALY 10/15/2018 [facility] 786.05 SHORTNESS OF BREATH 10/15/2018 [facility] V45.81 AORTOCORONARY BYPASS 10/15/2018 STEVE DUMONT, DES Bay Ot 786.05 SHORTNESS OF BREATH 10/15/2018 AMANDA DUMONT FACC, ADALBERTO FACP CCDS Ot 272.4 HYPERLIPIDEMIA NEC/NOS 10/15/2018 AMANDA DUMONT FACC, ADALBERTO FACP CCDS Ot 278.01 MORBID OBESITY 10/15/2018 AMANDA DUMONT FACC, ADALBERTO FACP CCDS Ot 401.9 HYPERTENSION NOS 10/15/2018 AMANDA DUMONT FACC, ADALBERTO FACP CCDS Ot 414.00 CORON ATHEROSCLER NOS TYPE VESSEL, NATIV 10/15/2018 AMANDA DUMONT FACC, ADALBERTO FACP CCDS Ot 424.1 AORTIC VALVE DISORDER 10/15/2018 AMANDA DUMONT FACC, ADALBERTO HUGGINS CCDS Ot 427.31 ATRIAL FIBRILLATION 10/15/2018 AMANDA DUMONT FACC, ADALBERTO HUGGINS CCDS Ot 447.9 ARTERIAL DISEASE NOS 10/15/2018 AMANDA DUMONT FACC, ADALBERTO HUGGINS CCDS Ot 780.57 UNSPECIFIED SLEEP APNEA 10/15/2018 GELLENDER DO, LILY A Ot 285.9 ANEMIA NOS 10/15/2018 GELLENDER DO, LILY A Ot 490 BRONCHITIS NOS 10/15/2018 GELLENDER DO, LILY A Ot E04.2 NONTOXIC MULTINODULAR GOITER 10/15/2018 ASTRID STUART L COSMETICS MACHINE OPERATOR Ot E11.9 TYPE 2 DIABETES MELLITUS WITHOUT COMPLIC 10/15/2018 ASTRID STUART L COSMETICS MACHINE OPERATOR Ot E78.5 HYPERLIPIDEMIA, UNSPECIFIED 10/15/2018 SADE ASTRID L COSMETICS MACHINE OPERATOR Ot I10 ESSENTIAL (PRIMARY) HYPERTENSION 10/15/2018 SADE ASTRID L COSMETICS MACHINE OPERATOR Ot I25.10 ATHSCL HEART DISEASE OF [place] CORONARY 10/15/2018 SADE ASTRID L COSMETICS MACHINE OPERATOR Ot I35.0 NONRHEUMATIC AORTIC (VALVE) STENOSIS 10/15/2018 SHEN STUARTHER L COSMETICS MACHINE OPERATOR Ot I77.9 DISORDER OF ARTERIES AND ARTERIOLES, UNS 10/15/2018 ASTRID STUART L COSMETICS MACHINE OPERATOR Ot Z95.4 PRESENCE OF OTHER HEART-VALVE REPLACEMEN 10/15/2018 SADE ASTRID L COSMETICS MACHINE OPERATOR Ot E78.4 OTHER HYPERLIPIDEMIA 10/15/2018 SADE ASTRID L COSMETICS MACHINE OPERATOR Ot G47.33 OBSTRUCTIVE SLEEP APNEA (ADULT) (PEDIATR 10/15/2018 SADE ASTRID L COSMETICS MACHINE OPERATOR Ot I10 ESSENTIAL (PRIMARY) HYPERTENSION 10/15/2018 SADE ASTRID L COSMETICS MACHINE OPERATOR Ot I25.10 ATHSCL HEART DISEASE OF [place] CORONARY 10/15/2018 SADE ASTRID L COSMETICS MACHINE OPERATOR Ot R06.09 OTHER FORMS OF DYSPNEA 10/15/2018 SADE ASTRID L COSMETICS MACHINE OPERATOR Ot R35.0 FREQUENCY OF MICTURITION 10/15/2018 SADE ASTRID L COSMETICS MACHINE OPERATOR Ot Z95.4 PRESENCE OF OTHER HEART-VALVE REPLACEMEN 10/15/2018 LANALENDER DO, LILY A Ot E04.2 NONTOXIC MULTINODULAR GOITER 10/15/2018 SADE ASTRID L COSMETICS MACHINE OPERATOR Ot E78.5 HYPERLIPIDEMIA, UNSPECIFIED 10/15/2018 ASTRID STUART COSMETICS MACHINE OPERATOR Ot I10 ESSENTIAL (PRIMARY) HYPERTENSION 10/15/2018 ASTRID STUART COSMETICS MACHINE OPERATOR Ot I25.10 ATHSCL HEART DISEASE OF [place] CORONARY 10/15/2018 ASTRID STUART COSMETICS MACHINE OPERATOR Ot I35.0 NONRHEUMATIC AORTIC (VALVE) STENOSIS 10/15/2018 ASTRID STUART COSMETICS MACHINE OPERATOR Ot I48.1 PERSISTENT ATRIAL FIBRILLATION 10/15/2018 ASTRID STUART COSMETICS MACHINE OPERATOR Ot I65.23 OCCLUSION AND STENOSIS OF BILATERAL [place] 10/15/2018 ASTIRD STUART COSMETICS MACHINE OPERATOR Ot R06.09 OTHER FORMS OF DYSPNEA 10/15/2018 ASTRID STUART COSMETICS MACHINE OPERATOR Ot Z95.4 PRESENCE OF OTHER HEART-VALVE REPLACEMEN 10/18/2018 AMANDA UMLLENC, ALI FACP CCDS Ot 433.10 CAROTID ARTERY OCCLUSION W O CEREBRAL IN 10/18/2018 AMANDA DUMONT FACC, ALI FACP CCDS Ot 414.00 CORON ATHEROSCLER NOS TYPE VESSEL, NATIV 10/18/2018 AMANDA DUMONT FACC, ALI FACP CCDS Ot 424.1 AORTIC VALVE DISORDER 10/18/2018 AMANDA DUMONT FACC, ALI FACP CCDS Ot 427.31 ATRIAL FIBRILLATION 10/18/2018 AMANDA DUMONT FACC, ALI FACP CCDS Ot 786.09 RESPIRATORY ABNORM NEC 10/18/2018 RAHATASTRID GUILLORY COSMETICS MACHINE OPERATOR Ot 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 10/18/2018 RAHATASTRID GUILLORY COSMETICS MACHINE OPERATOR Ot 397.0 TRICUSPID VALVE DISEASE 10/18/2018 RAHATASTRID GUILLORY COSMETICS MACHINE OPERATOR Ot 416.8 CHR PULMON HEART DIS NEC 10/18/2018 LILY ROJAS DO Ot 241.0 NONTOX UNINODULAR GOITER 10/18/2018 LILY ROJAS DO Ot 275.49 OTH DISORD/CALCIUM METABOLISM 10/18/2018 LILY ROJAS DO Ot 712.36 CHONDROCALCIN NOS-L/LEG 10/18/2018 LILY ROJAS DO Ot 715.35 LOC OSTEOARTH NOS-PELVIS 10/18/2018 LILY ROJAS DO Ot 715.36 LOC OSTEOARTH NOS-L/LEG 10/18/2018 LILY ROJAS DO Ot 719.45 JOINT PAIN-PELVIS 10/18/2018 LILY ROJAS DO Ot 719.46 JOINT PAIN-L/LEG 10/18/2018 BOB [facility]OW[facility] LILY Mohan Ot 241.1 NONTOX MULTINODUL GOITER 10/18/2018 LILY ROJAS DO Ot 414.00 CORON ATHEROSCLER NOS TYPE VESSEL, NATIV 10/18/2018 LILY ROJAS DO Ot 429.3 CARDIOMEGALY 10/18/2018 BOB FLOWERS LILY Mohan Ot 786.05 SHORTNESS OF BREATH 10/18/2018 BOB FLOWERS LILY Mohan Ot V45.81 AORTOCORONARY BYPASS 10/18/2018 STEVE DUMONT, DES Bay Ot 786.05 SHORTNESS OF BREATH 10/18/2018 AMANDA DUMONT FACC, ALI FACP CCDS Ot 272.4 HYPERLIPIDEMIA NEC/NOS 10/18/2018 AMANDA DUMONT FACC, ALI FACP CCDS Ot 278.01 MORBID OBESITY 10/18/2018 AMANDA DUMONT FACC, ALI FACP CCDS Ot 401.9 HYPERTENSION NOS 10/18/2018 AMANDA DUMONT FACC, ALI FACP CCDS Ot 414.00 CORON ATHEROSCLER NOS TYPE VESSEL, NATIV 10/18/2018 AMANDA MULLENC, ALI FACP CCDS Ot 424.1 AORTIC VALVE DISORDER 10/18/2018 AMANDA DUMONT FACC, ALI FACP CCDS Ot 427.31 ATRIAL FIBRILLATION 10/18/2018 AMANDA DUMONT FACC, ALI FACP CCDS Ot 447.9 ARTERIAL DISEASE NOS 10/18/2018 AMANDA DUMONT FACC, ALI FACP CCDS Ot 780.57 UNSPECIFIED SLEEP APNEA 10/18/2018 [facility] LILY Mohan Ot 285.9 ANEMIA NOS 10/18/2018 BOB FLOWERS LILY Mohan Ot 490 BRONCHITIS NOS 10/18/2018 BOB FLOWRES LILY Mohan Ot E04.2 NONTOXIC MULTINODULAR GOITER 10/18/2018 ASTRID STUART COSMETICS MACHINE OPERATOR Ot E11.9 TYPE 2 DIABETES MELLITUS WITHOUT COMPLIC 10/18/2018 ASTRID STUART COSMETICS MACHINE OPERATOR Ot E78.5 HYPERLIPIDEMIA, UNSPECIFIED 10/18/2018 ASTRID STUART COSMETICS MACHINE OPERATOR Ot I10 ESSENTIAL (PRIMARY) HYPERTENSION 10/18/2018 ASTRID STUART COSMETICS MACHINE OPERATOR Ot I25.10 ATHSCL HEART DISEASE OF [place] CORONARY 10/18/2018 BAIMA, ASTRID L COSMETICS MACHINE OPERATOR Ot I35.0 NONRHEUMATIC AORTIC (VALVE) STENOSIS 10/18/2018 RAHATASTRID GUILLORY L COSMETICS MACHINE OPERATOR Ot I77.9 DISORDER OF ARTERIES AND ARTERIOLES, UNS 10/18/2018 RAHATPASTORA ASTRID L COSMETICS MACHINE OPERATOR Ot Z95.4 PRESENCE OF OTHER HEART-VALVE REPLACEMEN 10/18/2018 RAHATASTRID GUILLORY L COSMETICS MACHINE OPERATOR Ot E78.4 OTHER HYPERLIPIDEMIA 10/18/2018 RAHATPASTORA ASTRID L COSMETICS MACHINE OPERATOR Ot G47.33 OBSTRUCTIVE SLEEP APNEA (ADULT) (PEDIATR 10/18/2018 RAHATPASTORA ASTRID L COSMETICS MACHINE OPERATOR Ot I10 ESSENTIAL (PRIMARY) HYPERTENSION 10/18/2018 RAHATPASTORA ASTRID L COSMETICS MACHINE OPERATOR Ot I25.10 ATHSCL HEART DISEASE OF [place] CORONARY 10/18/2018 SADE ASTRID L COSMETICS MACHINE OPERATOR Ot R06.09 OTHER FORMS OF DYSPNEA 10/18/2018 RAHATPASTORA ASTRID L COSMETICS MACHINE OPERATOR Ot R35.0 FREQUENCY OF MICTURITION 10/18/2018 SADE ASTRID L COSMETICS MACHINE OPERATOR Ot Z95.4 PRESENCE OF OTHER HEART-VALVE REPLACEMEN 10/18/2018 LILY ROJAS DO Ot E04.2 NONTOXIC MULTINODULAR GOITER 10/18/2018 RAHATPASTORA ASTRID L COSMETICS MACHINE OPERATOR Ot E78.5 HYPERLIPIDEMIA, UNSPECIFIED 10/18/2018 RAHATPASTORA ASTRID L COSMETICS MACHINE OPERATOR Ot I10 ESSENTIAL (PRIMARY) HYPERTENSION 10/18/2018 RAHATASTRID GUILLORY L COSMETICS MACHINE OPERATOR Ot I25.10 ATHSCL HEART DISEASE OF [place] CORONARY 10/18/2018 RAHATPASTORA ASTRID L COSMETICS MACHINE OPERATOR Ot I35.0 NONRHEUMATIC AORTIC (VALVE) STENOSIS 10/18/2018 SADE ASTRID L COSMETICS MACHINE OPERATOR Ot I48.1 PERSISTENT ATRIAL FIBRILLATION 10/18/2018 RAHATPASTORA ASTRID L COSMETICS MACHINE OPERATOR Ot I65.23 OCCLUSION AND STENOSIS OF BILATERAL [place]ON 10/18/2018 RAHATPASTORA ASTRID L COSMETICS MACHINE OPERATOR Ot R06.09 OTHER FORMS OF DYSPNEA 10/18/2018 SAED ASTRID L COSMETICS MACHINE OPERATOR Ot Z95.4 PRESENCE OF OTHER HEART-VALVE REPLACEMEN Procedures There is no data. Results Test Result Range Automated blood complete blood count (hemogram) panel - 06/10/16 07:16 Blood leukocytes automated count (number/volume) 11.1 10*3/uL 4.3-11.0 Blood erythrocytes automated count (number/volume) 4.08 10*6/uL 4.35-5.85 Venous blood hemoglobin measurement (mass/volume) 12.1 g/dL 11.5-16.0 Blood hematocrit (volume fraction) 37 % 35-52 Automated erythrocyte mean corpuscular volume 91 [foz_us] 80-99 Automated erythrocyte mean corpuscular hemoglobin (mass per erythrocyte) 30 pg 25-34 Automated erythrocyte mean corpuscular hemoglobin concentration measurement ( mass/volume) 32 g/dL 32-36 Automated erythrocyte distribution width ratio 14.4 % 10.0-14.5 Automated blood platelet count (count/volume) 212 10*3/uL 130-400 Automated blood platelet mean volume measurement 10.9 [foz_us] 7.4-10.4 PT panel in platelet poor plasma by coagulation assay - 06/10/16 07:16 Prothrombin time (PT) in platelet poor plasma by coagulation assay 14.3 s 12.2-14.7 INR in platelet poor plasma or blood by coagulation assay 1.1 0.8-1.4 Activated partial thromboplastin time (aPTT) in platelet poor plasma bycoagulation assay - 06/10/16 07:16 Activated partial thromboplastin time (aPTT) in platelet poor plasma bycoagulation assay 32 s 24-35 Comprehensive metabolic panel - 06/10/16 07:16 Serum or plasma sodium measurement (moles/volume) 140 mmol/L 135-145 Serum or plasma potassium measurement (moles/volume) 4.3 mmol/L 3.6-5.0 Serum or plasma chloride measurement (moles/volume) 101 mmol/L 98-107 Carbon dioxide 21 mmol/L 21-32 Serum or plasma anion gap determination (moles/volume) 18 mmol/L 5-14 Serum or plasma urea nitrogen measurement (mass/volume) 23 mg/dL 7-18 Serum or plasma creatinine measurement (mass/volume) 1.19 mg/dL 0.60-1.30 Serum or plasma urea nitrogen/creatinine mass ratio 19 NRG Serum or plasma creatinine measurement with calculation of estimated glomerular filtration rate 44 NRG Serum or plasma glucose measurement (mass/volume) 149 mg/dL 70-105 Serum or plasma calcium measurement (mass/volume) 10.1 mg/dL 8.5-10.1 Serum or plasma total bilirubin measurement (mass/volume) 1.1 mg/dL 0.1-1.0 Serum or plasma alkaline phosphatase measurement (enzymatic activity/volume) 48 U/L 40-136 Serum or plasma aspartate aminotransferase measurement (enzymatic activity/ volume) 17 U/L 5-34 Serum or plasma alanine aminotransferase measurement (enzymatic activity/volume ) 14 U/L 0-55 Serum or plasma protein measurement (mass/volume) 8.0 g/dL 6.4-8.2 Serum or plasma albumin measurement (mass/volume) 4.4 g/dL 3.2-4.5 Lipid 1996 panel - 06/10/16 07:16 Serum or plasma triglyceride measurement (mass/volume) 127 mg/dL <150 Serum or plasma cholesterol measurement (mass/volume) 116 mg/dL < 200 Serum or plasma cholesterol in HDL measurement (mass/volume) 29 mg/ dL 40-60 Cholesterol in LDL [mass/volume] in serum or plasma by direct assay 64 mg/dL 1-129 Serum or plasma cholesterol in VLDL measurement (mass/volume) 25 mg/ dL 5-40 Methicillin resistant Staphylococcus aureus (MRSA) screening culture - 07:16 Methicillin resistant Staphylococcus aureus (MRSA) screening culture NEG NRG Activated partial thromboplastin time (aPTT) in platelet poor plasma bycoagulation assay - 06/10/16 11:20 Activated partial thromboplastin time (aPTT) in platelet poor plasma bycoagulation assay 60 s 24-35 Activated partial thromboplastin time (aPTT) in platelet poor plasma bycoagulation assay - 06/10/16 12:25 Activated partial thromboplastin time (aPTT) in platelet poor plasma bycoagulation assay 36 s 24-35 Capillary blood glucose measurement by glucometer (mass/volume) - 06/10/16 14: 55 Capillary blood glucose measurement by glucometer (mass/volume) 143 mg/dL 70-110 Automated blood complete blood count (hemogram) panel - 10/19/18 07:50 Blood leukocytes automated count (number/volume) 8.8 10*3/uL 4.3-11.0 Blood erythrocytes automated count (number/volume) 4.08 10*6/uL 4.35-5.85 Venous blood hemoglobin measurement (mass/volume) 12.0 g/dL 11.5-16.0 Blood hematocrit (volume fraction) 38 % 35-52 Automated erythrocyte mean corpuscular volume 92 [foz_us] 80-99 Automated erythrocyte mean corpuscular hemoglobin (mass per erythrocyte) 29 pg 25-34 Automated erythrocyte mean corpuscular hemoglobin concentration measurement ( mass/volume) 32 g/dL 32-36 Automated erythrocyte distribution width ratio 14.8 % 10.0-14.5 Automated blood platelet count (count/volume) 200 10*3/uL 130-400 Automated blood platelet mean volume measurement 11.2 [foz_us] 7.4-10.4 PT panel in platelet poor plasma by coagulation assay - 10/19/18 07:50 Prothrombin time (PT) in platelet poor plasma by coagulation assay 14.7 s 12.2-14.7 INR in platelet poor plasma or blood by coagulation assay 1.1 0.8-1.4 Activated partial thromboplastin time (aPTT) in platelet poor plasma bycoagulation assay - 10/19/18 07:50 Activated partial thromboplastin time (aPTT) in platelet poor plasma bycoagulation assay 28 s 24-35 Comprehensive metabolic panel - 10/19/18 07:50 Serum or plasma sodium measurement (moles/volume) 139 mmol/L 135-145 Serum or plasma potassium measurement (moles/volume) 4.2 mmol/L 3.6-5.0 Serum or plasma chloride measurement (moles/volume) 102 mmol/L 98-107 Carbon dioxide 26 mmol/L 21-32 Serum or plasma anion gap determination (moles/volume) 11 mmol/L 5-14 Serum or plasma urea nitrogen measurement (mass/volume) 28 mg/dL 7-18 Serum or plasma creatinine measurement (mass/volume) 1.20 mg/dL 0.60-1.30 Serum or plasma urea nitrogen/creatinine mass ratio 23 NRG Serum or plasma creatinine measurement with calculation of estimated glomerular filtration rate 44 NRG Serum or plasma glucose measurement (mass/volume) 137 mg/dL 70-105 Serum or plasma calcium measurement (mass/volume) 9.9 mg/dL 8.5-10.1 Serum or plasma total bilirubin measurement (mass/volume) 1.2 mg/dL 0.1-1.0 Serum or plasma alkaline phosphatase measurement (enzymatic activity/volume) 49 U/L 40-136 Serum or plasma aspartate aminotransferase measurement (enzymatic activity/ volume) 17 U/L 5-34 Serum or plasma alanine aminotransferase measurement (enzymatic activity/volume ) 13 U/L 0-55 Serum or plasma protein measurement (mass/volume) 8.1 g/dL 6.4-8.2 Serum or plasma albumin measurement (mass/volume) 4.2 g/dL 3.2-4.5 CALCIUM CORRECTED 9.7 mg/dL 8.5-10.1 Lipid 1996 panel - 10/19/18 07:50 Serum or plasma triglyceride measurement (mass/volume) 138 mg/dL <150 Serum or plasma cholesterol measurement (mass/volume) 123 mg/dL < 200 Serum or plasma cholesterol in HDL measurement (mass/volume) 28 mg/ dL 40-60 Cholesterol in LDL [mass/volume] in serum or plasma by direct assay 70 mg/dL 1-129 Serum or plasma cholesterol in VLDL measurement (mass/volume) 28 mg/ dL 5-40 Encounters ACCT No. Visit Date/Time Discharge Status Pt. Type Provider Facility Loc./Unit Complaint [id number] 08/25/2017 09:46:00 08/25/2017 23:59:59 CLS Outpatient ASTRID STUART [facility] CARD CAD I25.10 [id number] 05/14/2017 11:32:00 05/14/2017 23:59:59 CLS Outpatient LLIY ROJAS DO [facility] RAD THYROID NODULE [id number] 06/10/2016 06:45:00 06/11/2016 11:40:00 DIS Outpatient AMANDA DUMONT FACC, ADALBERTO HUGGINS CCDS [facility] CATH FATIGUE,SOB, NTH [id number] 05/27/2016 07:47:00 05/27/2016 23:59:59 CLS Outpatient ASTRID STUART [facility] CARD R06.09 [id number] 10/17/2015 12:53:00 10/17/2015 23:59:59 CLS Outpatient ASTRID STUART [facility] CARD CAD,AORTIC STENOSIS [id number] 07/10/2015 11:44:00 07/10/2015 23:59:59 CLS Outpatient LILY ROJAS DO [facility] RAD THYROID NODULE [id number] 11/10/2014 10:57:00 11/10/2014 23:59:59 CLS Outpatient AMANDA DUMONT FACC, ADALBERTO HUGGINS CCDS [facility] CARD AORTIC VALVE STENOSIS, STATUS POST TVR [id number] 10/31/2014 16:05:00 10/31/2014 23:59:59 CLS Outpatient LILY ROJAS DO [facility] RAD BRONCHITIS, COUGH FOR LAST WEEK, [id number] 09/06/2014 12:54:00 09/06/2014 23:59:59 CLS Outpatient DES WILSON MD [facility] RT SOB [id number] 07/25/2014 06:59:00 07/26/2014 12:15:00 DIS Outpatient AMANDA DUMONT FACC, ADALBERTO HUGGINS CCDS [facility] CATH CAD,HLP, SINUS NODE DSYFUNCTION [id number] 05/25/2014 10:16:00 05/25/2014 23:59:59 CLS Outpatient LILY ROJAS DO [facility] RAD SOB,CAD [id number] 04/13/2014 09:38:00 04/13/2014 23:59:59 CLS Outpatient LILY ROJAS DO [facility] RAD 6 MONTH FOLLOW UP [id number] 03/13/2014 07:41:00 03/13/2014 23:59:59 CLS Outpatient ASTRID STUART [facility] CARD AORTIC VALVE STENOSIS, PULM HTN [id number] 03/06/2014 12:40:00 03/06/2014 23:59:59 CLS Outpatient LILY ROJAS DO [facility] RAD L HIP/KNEE PAIN [id number] 03/04/2014 18:04:00 03/04/2014 21:45:00 DIS Emergency JORGE LEONG MD [facility] ER SHORTNESS OF BREATH [id number] 11/28/2013 20:30:00 11/29/2013 06:55:00 DIS Outpatient WILDER RIVAS APRN [facility] SLEEP RUBIO [id number] 10/12/2013 09:42:00 10/12/2013 23:59:59 CLS Outpatient LILY ROJAS DO [facility] RAD THYROID NODULE [id number] 09/26/2013 19:45:00 09/27/2013 06:40:00 DIS Outpatient WILDER RIVAS APRN [facility] SLEEP DAYTIME SLEEPINESS, CHOKING/GASPING DURING SLEEP [id number] 08/29/2013 08:45:00 08/29/2013 23:59:59 CLS Outpatient AMANDA DUMONT FACC, ADALBERTO FACAnand CCDS [facility] CARD CAD DYSPNEA [id number] 05/12/2013 09:32:00 05/12/2013 23:59:59 CLS Outpatient AMANDA DUMONT FACC, ADALBERTO FACP CCDS [facility] RAD CAROTID ARTERY STENOSIS [id number] 10/19/2018 07:16:00 ACT Outpatient AMANDA DUMONT FACC, ALI FACP CCDS [facility] CATH SOB,CAD [id number] 10/31/2014 16:05:00 Document Registration [id number] 12/14/2012 11:13:00 Document Registration [id number] 11/18/2012 11:20:00 Document Registration [id number] 07/13/2012 10:48:00 Document Registration [id number] 07/12/2012 12:31:00 Document Registration [id number] 07/08/2012 07:39:00 Document Registration [email or web address] 07/10/2015 15:12:24 ACT Document Registration
[2018-10-19] MEDS ORDERED: MIDAZOLAM 5 MG/5 ML (VERSED) VIAL ONE (12:22)
[2018-10-19] MEDS ORDERED: fentaNYL INJECTION 100 MCG/2 ML AMP ONE (12:22)
--- NOTE | 2018-10-19 13:23 | Cardiac Procedure Note-CS/ASA ---
Pre-Procedure Note Pre-Op Procedure Note H&P Reviewed The H&P was reviewed, patient examined and no changes noted. Date H&P Reviewed: Oct 19, 2018 Time H&P Reviewed: 12:30 Conscious Sedation Pre-Proced Time 12:30 ASA Score 3 For ASA 3 and 4: Consider anesthesia and medical clearance. Also, for patients with a history of failed moderate sedation consider anesthesia. Airway Lungs Heart ASA score ASA 1: a normal healthy patient ASA 2: a patient with a mild systemic disease (mid diabetes, controlled hypertension, obesity ASA 3: a patient with a severe systemic disease that limits activity (angina , COPD, prior Myocardial infarction) ASA 4: a patient with an incapacitating disease that is a constant threat to life (CHF, renal failure) ASA 5: a moribund patient not expected to survive 24 hrs. (ruptured aneurysm) ASA 6: a declared brain patient whose organs are being harvested. For emergent operations, add the letter E after the classification Mallampati Classification Grade 3 Sedation Plan Analgesia, Amnesia, Plan communicated to team members, Discussed options with patient/fam, Discussed risks with patient/fam The patient is an appropriate candidate to undergo the planned procedure, sedation, and anesthesia. The patient immediately re-assessed prior to indication. ADALBERTO PATEL MD FACP FAC CCDS Oct 19, 2018 13:23
[2018-10-19] MEDS ORDERED: NS IV 1000 ML 1,000 ML IV SCH (13:24)
[2018-10-19] MEDS ORDERED: PATIENT MAY USE OWN MEDS, ALL PO SCH (13:30)
--- NOTE | 2018-10-19 13:40 | Discharge Inst-Cardiology ---
Discharge Inst-Cardiac Discharge Medications Continued Medications: Aspirin (Aspirin EC) 81 Mg Tablet.dr 81 MG PO DAILY, TAB Calcium Carb/Vit D3/Minerals (Hm Calcium 600 Mg-Vit D Tab) 1 Each Tablet 1 TAB PO DAILY Dexlansoprazole (Dexilant) 60 Mg Cap.dr.mp 60 MG PO DAILY PRN for HEART BURN Diltiazem HCl (Cardizem Cd) 240 Mg Cap.er.24h 240 MG PO DAILY Furosemide (Lasix) 80 Mg Tablet 80 MG PO DAILY, TAB Hydrocodone/Acetaminophen (Hydrocodone-Acetamin 5-325 mg) 1 Each Tablet 1 EACH PO BID PRN PRN for PAIN-MODERATE, TAB Insulin Aspart (Novolog Vial) 10 Unit/0.1 Ml Susp SC AC PER SLIDING SCALE Insulin Detemir (Levemir) 100 U/Ml Vial 42 UNITS SQ AM Insulin Detemir (Levemir) 100 U/Ml Vial 58 UNITS SQ HS Lisinopril (Lisinopril) 5 Mg Tablet 5 MG PO DAILY, TAB Metoprolol Tartrate (Metoprolol Tartrate) 50 Mg Tablet 50 MG PO DAILY, TAB Davis-3/Dha/Epa/Fish Oil (Fish Oil 1,000 Mg Ec Softgel) 1 Each Capsule.dr 1000 MG PO DAILY Potassium Chloride (Potassium Chloride) 10 Meq Capsule.sa 10 MEQ PO DAILY Rivaroxaban (Xarelto) 15 Mg Tablet 15 MG PO DAILY, TAB Rosuvastatin Calcium (Crestor) 20 Mg Tablet 20 MG PO HS Discontinued Medications: Clopidogrel Bisulfate (Plavix Tablet) 75 Mg Tab 75 MG PO DAILY, #90 TAB 3 Refills ADALBERTO PATEL MD FACP FAC CCDS Oct 19, 2018 13:40
--- NOTE | 2018-10-19 13:41 | Discharge Inst-Post CATH ---
Discharge Inst-CATH/EP Post Cardiac Cath/EP D/C Inst Follow Up/Plan F/u with Dr Davis in 2 weeks CARDIAC CATH DISCHARGE INSTRUCTIONS *Hold Metformin for 48 hours post heart cath. ACTIVITY * Go Home directly and rest. * Limit activity of the leg (or wrist if it was used) for 7 days including aerobics, swimming, jogging, bicycling, etc. * Restrict stair-climbing for 7 days if possible, if not, climb up with your non -cath leg, then bring together on the same step. * Avoid lifting, pushing, pulling or excessive movement of the affected extremity for 7 days. * Customary sexual activity may be resumed after 2 days-use caution not to use a position that strains or causes pain to the affected extremity. * No driving for 24 hours. * NO SMOKING. * Avoid straining for bowel movements for 7 days. * Gentle walking on level ground is allowed. * Returning to work will depend on the type of procedure and the results. Your doctor will discuss this with you. CALL YOUR DOCTOR FOR ANY OF THE FOLLOWING: *If bleeding from the puncture site occurs- Apply gentle pressure to site with clean cloth and call your doctor or EMS. * If a knot or lump forms under the skin, increases in size, or causes pain. * If bruising appears to be worsening or moving further down your leg instead of disappearing. * Temperature above 101 F. CARE OF YOUR GROIN INCISION; * Bruising or purple discoloration of the skin near the puncture site is common. * You may shower only, no bathtub bathing for 5 days. Be careful to avoid slipping as your leg may feel stiff. * If a closure device was used on your femoral artery, please see the attached guide regarding care of the device and your leg. * Leave the dressing on, until removed by office staff. CARE OF YOUR WRIST INCISION; * Bruising or purple discoloration of the skin near the puncture site is common. * You may shower. * DO NOT submerge wrist. * Leave dressing on, until removed by office staff.. ADALBERTO DAVIS MD [facility] CCDS Oct 19, 2018 13:41
--- NOTE | 2018-10-19 13:57 | OPERATIVE REPORT ---
DATE OF SERVICE: 10/19/2018 CARDIAC CATHETERIZATION The patient is a 77-year-old lady with known coronary artery disease, coronary artery bypass surgery, aortic stenosis treated with TAVR. She has been experiencing increasing shortness of breath, similar to her previous angina equivalent. Cardiac catheterization was carried out today after having obtained an informed consent. PROCEDURE: She was brought to the cardiac catheterization laboratory in a fasting state. Right groin was prepared and draped in usual sterile fashion. Lidocaine 1% for local anesthesia. Modified Seldinger technique was used to advance a 5-Afghan sheath in the right femoral artery, 5-Afghan JL4 catheter for left coronary angiography, 5-Afghan JR4 catheter for right coronary angiography. A 5-Afghan JR4 catheter was used for angiography of the saphenous vein grafts. A 5-Afghan CARMELA catheter was used for angiography of the left internal mammary artery graft to left anterior descending artery. A 5-Afghan pigtail catheter was used for aortic root angiography. At the end of the procedure, angiography of the right femoral artery was carried out through the sheath. The site of sheath deployment did not appear suitable for device closure. She was transferred to the holding area for manual sheath removal. She tolerated the procedure well. HEMODYNAMICS: Ascending aortic pressure was 147/71 with a mean of 59 mmHg. The patient has had TAVR. We did not attempt to cross the aortic valve. AORTIC ROOT ANGIOGRAPHY: Aortic root angiography does not show any significant thoracic aortic aneurysm or dissection. There is calcification of the aortic knob. There does not appear to be significant aortic regurgitation. CORONARY ANGIOGRAPHY: Diffuse coronary calcification is present. This is moderate to severe. Left main coronary artery has approximately 50% stenosis. A ramus intermedius artery has approximately 80% to 90% ostial and proximal stenosis. Left circumflex artery has diffuse moderate disease. Left anterior descending artery has a long 80% to 90% stenosis in its proximal and mid portions. Right coronary artery is dominant and has diffuse moderate disease both multiple stenoses of 50% to 60% in its mid and distal portions. SAPHENOUS VEIN GRAFT ANGIOGRAPHY: The cephalic saphenous vein graft is to the ramus intermedius and is widely patent and does not exhibit significant disease. The caudal saphenous vein graft is to the right coronary artery and is occluded at its ostium. LEFT INTERNAL MAMMARY ARTERY GRAFT ANGIOGRAPHY: Left internal mammary artery graft is to the distal left anterior descending artery and is widely patent and free of significant disease. CONCLUSIONS: 1. [place] coronary artery disease consisting of long 80% to 90% proximal and mid vessel stenosis of the left anterior descending, 80% to 90% stenosis of the proximal portion of the ramus intermedius, and diffuse moderate disease of the right coronary artery. 2. Patent left internal mammary artery graft to distal left anterior descending artery. 3. Patent saphenous vein graft to ramus intermedius artery. 4. Occluded saphenous vein graft to right coronary (chronic occlusion). DISCUSSION AND RECOMMENDATIONS: Based on results of the study, it appears appropriate to continue a conservative approach. Risk factor modification has been reviewed. Outpatient followup is advised. Job ID: [id number] DocumentID: [id number] Dictated Date: 10/19/2018 13:19:09 Fabric Pattern Grader Date: 10/19/2018 13:56:19 Dictated By: ADALBERTO PATEL MD, MA, FACP, FACC, MTDD
== END 2018-10-19 17:20 | disposition home or self-care (01) ==
LOC: CATH 07:16 → SDC 13:50 → CATH 17:20
PROVIDERS: ATTEND Internal Medicine Cardiovascular Disease
DX: I25.10 Atherosclerotic heart disease of native coronary artery without angina pectoris (principal); I48.2 Chronic atrial fibrillation; I10 Essential (primary) hypertension; I27.20 Pulmonary hypertension, unspecified; E78.5 Hyperlipidemia, unspecified; E11.9 Type 2 diabetes mellitus without complications; K21.9 Gastro-esophageal reflux disease without esophagitis; G47.30 Sleep apnea, unspecified; E66.01 Morbid (severe) obesity due to excess calories; Z68.41 Body mass index [BMI] 40.0-44.9, adult; Z79.01 Long term (current) use of anticoagulants; Z79.02 Long term (current) use of antithrombotics/antiplatelets; Z79.4 Long term (current) use of insulin; Z79.899 Other long term (current) drug therapy; Z95.1 Presence of aortocoronary bypass graft; Z95.2 Presence of prosthetic heart valve; Z87.891 Personal history of nicotine dependence
CPT/HCPCS: 36415; 80053; 80061; 85027; 85610; 85730; 87081; 93005; 93455; 93567

== ENCOUNTER 2019-04-12 16:38 | Inpatient (IN) | payer MEDICARE, MEDICAID ==
[~2019-04-12] VITALS: Ht 167.6 cm; Wt 133.5 kg
[~2019-04-12 16:38] MED LIST changes: +HYDR-3812 PO; -RIVA15TA PO; +RIVA15TA2 PO
[2019-04-12 17:43] LABS: BASOPHILS % (AUTO) 0 % (0-10); EOSINOPHILS # (AUTO) 0.1 10^3/uL (0.0-0.3); EOSINOPHILS % (AUTO) 1 % (0-10); HEMATOCRIT 36 % (35-52); HEMOGLOBIN 11.1 G/DL (11.5-16.0); LYMPHOCYTES # (AUTO) 1.5 X 10^3 (1.0-4.0); LYMPHOCYTES % (AUTO) 18 % (12-44); MEAN CORPUSCULAR HEMOGLOBIN 28 PG (25-34); MEAN CORPUSCULAR HGB CONC 31 G/DL (32-36); MEAN CORPUSCULAR VOLUME 91 FL (80-99); MEAN PLATELET VOLUME 10.8 FL (7.4-10.4); MONOCYTES # (AUTO) 0.6 X 10^3 (0.0-1.0); MONOCYTES % (AUTO) 7 % (0-12); NEUTROPHILS % (AUTO) 74 % (42-75); PLATELET COUNT 197 10^3/uL (130-400); RED CELL DISTRIBUTION WIDTH 15.8 % (10.0-14.5); WHITE BLOOD COUNT 8.1 10^3/uL (4.3-11.0)
[2019-04-12] MEDS ORDERED: ACETAMINOPHEN 500 MG TAB (TYLENOL) PO PRN (17:45)
[2019-04-12 17:46] LABS: BILIRUBIN,URINE NEGATIVE (NEGATIVE); CLARITY,URINE SLIGHTLY CLOUDY; COLOR,URINE YELLOW; GLUCOSE, URINE (UA) NEGATIVE (NEGATIVE); KETONES,URINE NEGATIVE (NEGATIVE); LEUKOCYTE ESTERASE ,URINE 1+ (NEGATIVE); NITRITE,URINE NEGATIVE (NEGATIVE); PH,URINE 6 (5-9); PROTEIN,URINE 1+ (NEGATIVE); UROBILINOGEN,URINE NORMAL (NORMAL)
[2019-04-12 17:52] LABS: INR 1.6 (0.8-1.4); PROTHROMBIN TIME PATIENT 19.3 SEC (12.2-14.7)
[2019-04-12 17:54] LABS: BACTERIA,URINE MODERATE /HPF
[2019-04-12 18:00] LABS: ALBUMIN 4.2 GM/DL (3.2-4.5); BILIRUBIN,TOTAL 0.9 MG/DL (0.1-1.0); CALCIUM 10.1 MG/DL (8.5-10.1); CREATININE SERUM 1.47 MG/DL (0.60-1.30); POTASSIUM 4.3 MMOL/L (3.6-5.0); TOTAL PROTEIN 7.4 GM/DL (6.4-8.2)
--- NOTE | 2019-04-12 18:09 | ED General ---
General Chief Complaint: Cardiac/General Problems Stated Complaint: FLUID RETENTION Nursing Triage Note: PT STATES SHE IS RETAINING FLUID, HAS GAINED ABOUT 30 POUNDS IN THE LAST COUPLE MONTHS. Nursing Sepsis Screen: No Definite Risk Source of Information: Patient Exam Limitations: No Limitations (JARRETT SOTO MD) History of Present Illness Date Seen by Provider: Apr 12, 2019 Time Seen by Provider: 17:31 Initial Comments Here with report of retaining fluid and having 30 pound weight gain over the last couple of months but most of it over the last couple of weeks. In that timeframe she noted that she's had markedly increased swelling of her legs and a bdomen. She's also become significantly short of air and only able to walk a few steps without getting short of breath. She is not normally on oxygen but is requiring oxygen currently. She is seen at her primary care provider's office today who recommended she come to the emergency department for evaluation due to the shortness of breath and weight gain. Does have history of heart problems and had heart valve replacement in November of this year. She has previously had open-heart surgery. Denies chest pain currently. Noted to have fever on arrival but patient did not know she had a fever. Denies cough, runny nose or sore throat. Denies dysuria or diarrhea. Timing/Duration: Getting Worse, Other (2 weeks) Severity: Moderate Associated Systoms: No Chest Pain, No Cough; Fever/Chills; No Nausea/Vomiting; Shortness of Air, Weakness (JARRETT SOTO MD) Allergies and Home Medications Allergies Coded Allergies: No Known Drug Allergies (Unverified , 11/18/12) Home Medications Aspirin 81 Mg Tablet.dr, 81 MG PO DAILY, (Reported) Calcium Carb/Vit D3/Minerals 1 Each Tablet, 1 TAB PO DAILY, (Reported) Dexlansoprazole 60 Mg Cap, 60 MG PO DAILY PRN for HEART BURN, (Reported) Diltiazem HCl 240 Mg Cap.er.24h, 240 MG PO DAILY, (Reported) Furosemide 80 Mg Tablet, 80 MG PO DAILY, (Reported) Hydrocodone/Acetaminophen 1 Each Tablet, 1 EACH PO BID PRN PRN for PAIN- MODERATE, (Reported) Insulin Aspart 10 Unit/0.1 Ml Susp, SC AC, (Reported) PER SLIDING SCALE Insulin Detemir 100 U/Ml Vial, 42 UNITS SQ AM, (Reported) Insulin Detemir 100 U/Ml Vial, 58 UNITS SQ HS, (Reported) Lisinopril 5 Mg Tablet, 5 MG PO DAILY, (Reported) Metoprolol Tartrate 50 Mg Tablet, 50 MG PO DAILY, (Reported) [place]-3/Dha/Epa/Fish Oil 1 Each Capsule.dr, 1,000 MG PO DAILY, (Reported) Potassium Chloride 10 Meq Capsule.sa, 10 MEQ PO DAILY, (Reported) Rivaroxaban 15 Mg Tablet, 15 MG PO DAILY, (Reported) Rosuvastatin Calcium 20 Mg Tablet, 20 MG PO HS, (Reported) Patient Home Medication List Home Medication List Reviewed: Yes (JARRETT SOTO MD) Review of Systems Review of Systems Constitutional: see HPI; No chills; fever EENTM: no symptoms reported Respiratory: dyspnea on exertion, orthopnea, short of breath, wheezing Cardiovascular: No chest pain; edema; No palpitations Gastrointestinal: No abdominal pain, No nausea, No vomiting; other (distention) Genitourinary: no symptoms reported : No Musculoskeletal: back pain (chronic but worse recently); No muscle pain Skin: no symptoms reported (JARRETT SOTO MD) All Other Systems Reviewed Negative Unless Noted: Yes (JARRETT SOTO MD) Past Fljebah-Feqnoi-Lujpdz Hx Past Med/Social Hx: Reviewed Nursing Past Med/Soc Hx (JARRETT SOTO MD) Patient Social History Alcohol Use: Denies Use Recreational Drug Use: No Smoking Status: Former Smoker Type Used: Cigarettes Former Smoker, Quit: Oct 19, 1949 Recent Foreign Travel: No Contact w/Someone Who Travel: No Recent Infectious Disease Expo: No Recent Hopitalizations: No (JARRETT SOTO MD) Immunizations Up To Date Date of Pneumonia Vaccine: Jun 12, 2015 Date of Influenza Vaccine: Sep 02, 2018 (JARRETT SOTO MD) Seasonal Allergies Seasonal Allergies: Yes (JARRETT SOTO MD) Past Medical History Surgeries: Yes (HEART VALVE REPLACED) Cardiac, CABG, Hysterectomy, Orthopedic Respiratory: Yes Sleep Apnea Currently Using CPAP: Yes (AT NIGHT) Currently Using BIPAP: No Cardiac: Yes Coronary Artery Disease, High Cholesterol, Hypertension, Valvular Heart Disease Neurological: No Reproductive Disorders: No Genitourinary: Yes UTI-Chronic Gastrointestinal: Yes Gastroesophageal Reflux Musculoskeletal: Yes (ANKLE FX, B/L KNEE PAIN R/T PAST FRACTURE, COMPUND FX IN FEMUR) Fractures Endocrine: Yes (THYROID GROWTH) Diabetes, Insulin dep Cataract Hearing Impairment: Hard of Hearing Cancer: No Psychosocial: No Integumentary: No Blood Disorders: No Adverse Reaction/Blood Tranf: No (JARRETT SOTO MD) Family Medical History Reviewed Nursing Family Hx (JARRETT SOTO MD) Diabetes mellitus 19 MOTHER G8 BROTHER G8 BROTHER Emph FH: breast cancer 19 MOTHER FH: breast cancer 19 MOTHER FH: emphysema 19 MOTHER FH: emphysema 19 MOTHER Physical Exam-Suspected Sepsis Physical Exam Vital Signs Vital Signs - First Documented 04/12/19 04/12/19 17:01 17:15 Temp 99.3 Pulse 87 Resp 22 B/P (MAP) 163/68 (99) Pulse Ox 93 O2 Delivery Room Air O2 Flow Rate 2.00 (REZA HELTON MD) Vital Signs Capillary Refill : Less Than 3 Seconds (JARRETT SOTO MD) Blood Pressure Mean: 99 Height, Weight, BMI Height: 5'6.00" Weight: 302lbs. 0.0oz. 136.633470vw; 43.6 BMI Method:Stated General Appearance: No Apparent Distress, WD/WN HEENT: PERRL/EOMI, Pharynx Normal Neck: Non Tender, Supple Respiratory: No Accessory Muscle Use, Crackles (bilateral bases) Cardiovascular: Regular Rate, Rhythm, No Murmur, Other (difficult exam due to body habitus) Gastrointestinal: Soft, Distended Back: Normal Inspection, No CVA Tenderness, No Vertebral Tenderness Extremity: Normal Range of Motion, No Calf Tenderness, No Pedal Edema (3+ to the knees bilateral) Neurologic/Psychiatric: Alert, Oriented x3 Skin: normal color, warm/dry (JARRETT SOTO MD) Focused Exam Lactate Level 04/12/19 17:25: Lactic Acid Level 2.08*H (REZA HELTON MD) Lactic Acid Level Laboratory Tests Test 04/12/19 17:25 Lactic Acid Level 2.08 MMOL/L (0.50-2.00) *H (REZA HELTON MD) Progress/Results/Core Measures Suspected Sepsis Recent Fever Within 48 Hours: No Infection Criteria Present: None New/Unexplained Altered Menta: No Sepsis Screen: No Definite Risk SIRS Temperature:99.3 Pulse: 87 Respiratory Rate: 22 Laboratory Tests 04/12/19 17:25: White Blood Count 8.1 Blood Pressure 163 /68 Mean: 99 04/12/19 17:25: Laboratory Tests 04/12/19 17:25: INR Comment 1.6H, Platelet Count 197 (JARRETT SOTO MD) Results/Orders Lab Results Laboratory Tests Test 04/12/19 17:15 04/12/19 17:25 Range/Units Urine Color YELLOW Urine Clarity SLIGHTLY CLOUDY Urine pH 6 5-9 Urine Specific [place] 1.015 L 1.016-1.022 Urine Protein 1+ H NEGATIVE Urine Glucose (UA) NEGATIVE NEGATIVE Urine Ketones NEGATIVE NEGATIVE Urine Nitrite NEGATIVE NEGATIVE Urine Bilirubin NEGATIVE NEGATIVE Urine Urobilinogen NORMAL NORMAL MG/DL Urine Leukocyte Esterase 1+ H NEGATIVE Urine RBC (Auto) NEGATIVE NEGATIVE Urine RBC NONE /HPF Urine WBC 10-25 H /HPF Urine Squamous Epithelial Cells 5-10 /HPF Urine Crystals NONE /LPF Urine Bacteria MODERATE H /HPF Urine Casts NONE /LPF Urine Mucus NEGATIVE /LPF Urine Culture Indicated CULTURE PENDING White Blood Count 8.1 4.3-11.0 10^3/uL Red Blood Count 4.01 L 4.35-5.85 10^6/uL Hemoglobin 11.1 L 11.5-16.0 G/DL Hematocrit 36 35-52 % Mean Corpuscular Volume 91 80-99 FL Mean Corpuscular Hemoglobin 28 25-34 PG Mean Corpuscular Hemoglobin Concent 31 L 32-36 G/DL Red Cell Distribution Width 15.8 H 10.0-14.5 % Platelet Count 197 130-400 10^3/uL Mean Platelet Volume 10.8 H 7.4-10.4 FL Neutrophils (%) (Auto) 74 42-75 % Lymphocytes (%) (Auto) 18 12-44 % Monocytes (%) (Auto) 7 0-12 % Eosinophils (%) (Auto) 1 0-10 % Basophils (%) (Auto) 0 0-10 % Neutrophils # (Auto) 6.0 1.8-7.8 X 10^3 Lymphocytes # (Auto) 1.5 1.0-4.0 X 10^3 Monocytes # (Auto) 0.6 0.0-1.0 X 10^3 Eosinophils # (Auto) 0.1 0.0-0.3 10^3/uL Basophils # (Auto) 0.0 0.0-0.1 10^3/uL Prothrombin Time 19.3 H 12.2-14.7 SEC INR Comment 1.6 H 0.8-1.4 Activated Partial Thromboplast Time 28 24-35 SEC Sodium Level 142 135-145 MMOL/L Potassium Level 4.3 3.6-5.0 MMOL/L Chloride Level 103 98-107 MMOL/L Carbon Dioxide Level 27 21-32 MMOL/L Anion Gap 12 5-14 MMOL/L Blood Urea Nitrogen 29 H 7-18 MG/DL Creatinine 1.47 H 0.60-1.30 MG/DL Estimat Glomerular Filtration Rate 34 BUN/Creatinine Ratio 20 Glucose Level 192 H 70-105 MG/DL Lactic Acid Level 2.08 *H 0.50-2.00 MMOL/L Calcium Level 10.1 8.5-10.1 MG/DL Corrected Calcium 9.9 8.5-10.1 MG/DL Total Bilirubin 0.9 0.1-1.0 MG/DL Aspartate Amino Transf (AST/SGOT) 16 5-34 U/L Alanine Aminotransferase (ALT/SGPT) 10 0-55 U/L Alkaline Phosphatase 49 40-136 U/L Troponin I 0.056 H <0.028 NG/ML B-Type Natriuretic Peptide 431.8 H <100.0 PG/ML Total Protein 7.4 6.4-8.2 GM/DL Albumin 4.2 3.2-4.5 GM/DL (REZA HELTON MD) Medications Given in ED Current Medications Medications Dose Ordered Sig/Devi Route Start Time Stop Time Status Last Admin Dose Admin Acetaminophen 1,000 mg ONCE PRN PO 04/12/19 17:45 04/12/19 18:20 DC 04/12/19 18:17 1,000 MG (REZA HELTON MD) Vital Signs/I&O 04/12/19 04/12/19 04/12/19 17:01 17:15 18:17 Temp 99.3 100.4 Pulse 87 Resp 22 B/P (MAP) 163/68 (99) Pulse Ox 93 95 O2 Delivery Room Air Nasal Cannula O2 Flow Rate 2.00 (REZA HELTON MD) Vital Signs/I&O Capillary Refill : Less Than 3 Seconds (JARRETT SOTO MD) Blood Pressure Mean: 99 Progress Note : Progress Note Seen and evaluated. IV, labs, EKG, chest x-ray, UA, blood cultures and lactic acid ordered due to the fever that was noted. Patient placed on 2 L via nasal cannula due to initial O2 sat 88%. This did help with her overall oxygenation. Tylenol 1 g by mouth ordered due to fever of 100.4F. Monitor patient. (JARRETT SOTO MD) Progress Note : Time: 19:21 Progress Note Care of this patient was assumed from Dr. Soto at shift change. Report was received. Labs were reviewed. Patient was reexamined. She was found to be comfortable in the bed with no symptoms at present. Lung sounds were diminished in the bases. She has notable pitting edema of the lower extremities. Case was discussed with Dr. La who requested Lasix 80 mg IV be administered in the emergency room and twice a day. Case was discussed with Dr. Rojas. Most of her home medications were continued. (REZA HELTON MD) ECG Initial ECG Impression Date: Apr 12, 2019 Initial ECG Impression Time: 17:43 Initial ECG Rate: 86 Initial ECG Rhythm: A Fib/Flutter Comment Atrial fibrillation with occasional PVC. Left Bundle branch block noted. No evidence of ST elevation [place]. Left axis deviation. Interpreted by me. Similar to previous of 10/19/18. (JARRETT SOTO MD) Diagnostic Imaging Diagonstic Imaging: Xray Plain Films/CT/US/NM/MRI: chest Comments Chest x-ray viewed by me and report reviewed. See report below: NAME: JEREMY NUNES [facility] REC#: [id number] PT STATUS: REG ER : 1940 PHYSICIAN: JARRETT SOTO MD ADMIT DATE: 04/12/19/ER Signed Date of Exam: 04/12/19 CHEST 1 VIEW, AP/PA ONLY INDICATION: Fluid overload, shortness of air. COMPARISON STUDY: Chest from 2015. FINDINGS: Portable upright view of the chest demonstrates previous coronary artery bypass graft changes. Heart size appears a little larger. Vascularity is normal. There are no pleural effusions. IMPRESSION: Since 2014, there has been an increase of the cardiomegaly. Dictated by: Dictated on workstation # [id number] Dict: 04/12/19 1807 Trans: 04/12/191834 Interpreted by: AAMIR GALLOWAY MD Electronically signed by: AAMIR GALLOWAY MD 04/12/191834 (REZA HELTON MD) Departure Communication (Admissions) Time/Spoke to Admitting Phy: 19:05 Dr. Rojas Time/Spoke to Consulting Phy: 18:59 Dr. Davis (REZA HELTON MD) Impression Primary Impression: Acute on chronic congestive heart failure Qualified Codes: I50.9 - Heart failure, unspecified Additional Impressions: Fluid overload Qualified Codes: E87.70 - Fluid overload, unspecified Renal insufficiency Dyspnea on exertion Disposition: ADMITTED INPATIENT Condition: Stable Admissions Decision to Admit Reason: Admit from ER (General) Decision to Admit/Date: Apr 12, 2019 Time/Decision to Admit Time: 18:10 (REZA HELTON MD) Departure-Patient Inst. Referrals: LILY ROJAS DO (PCP/Family) Primary Care Physician JARRETT SOTO MD Apr 12, 2019 18:09 REZA HELTON MD Apr 12, 2019 18:53
--- NOTE | 2019-04-12 18:38 | Diagnostic Imaging Report ---
INDICATION: Fluid overload, shortness of air. COMPARISON STUDY: Chest from 2015. FINDINGS: Portable upright view of the chest demonstrates previous coronary artery bypass graft changes. Heart size appears a little larger. Vascularity is normal. There are no pleural effusions. IMPRESSION: Since 2015, there has been an increase of the cardiomegaly. Dictated by: Dictated on workstation # [id number]
[2019-04-12] MEDS ORDERED: FUROSEMIDE 40 MG/4 ML INJ (LASIX) IVP ONE (19:30)
[2019-04-12 20:24] VITALS: BP 171/60
[2019-04-12 20:30] VITALS: BP 146/58
[2019-04-12] MEDS ORDERED: FUROSEMIDE 40 MG/4 ML INJ (LASIX) IV SCH (20:30)
[2019-04-12] MEDS ORDERED: CATHETER FLUSH 10 ML SYR IV PRN (20:30)
[2019-04-12 20:35] VITALS: BP 171/60
[2019-04-12 21:00] VITALS: BP 167/68
[2019-04-12] MEDS: RIVAROXABAN 15 MG TABLET (XARELTO) PO SCH (21:32)
[2019-04-12] MEDS: meTOprolol TARTRATE 50 MG (LOPRESSOR) TAB PO SCH (21:32)
--- NOTE | 2019-04-12 21:50 | Consultation-Cardiology ---
HPI-Cardiology Cardiology Consultation: Date of Consultation 04/12/19 Time Seen by a Provider: 21:20 Date of Admission Attending Physician Luis Parkinson DO Admitting Physician Luis Parkinson DO Consulting Physician ADALBERTO PATEL MD, MA, FACP, FACC, FSCAI, CCDS Physician requesting consult: Dr Parkinson HPI: Chief Complaint: CC: Shortness of breath HPI: 78 yo woman with increasing shortness of breath and bilat leg swelling for several days No cp or palp or syncope Notes gen malaise and weakness. Tires easily Denies N/V/D Denies fever or chills Review of Systems-Cardiology Review of Systems Constitutional: As described under HPI Eyes: No vision change Ears/Nose/Throat: No ear discharge, No nasal drainage, No recent hearing loss Respiratory: As described under HPI Cardiovascular: As described under HPI Gastrointestinal: As described under HPI Genitourinary: No dysuria, No hematuria, No urine frequency changes : No Musculoskeletal: back pain (chornic), joint pain (chronic) Skin: No rash, No ulcerations Psychiatric/Neurological: No seizure, No focal weakness Hematologic: No bleeding abnormalities All Other Systems Reviewed Negative Unless Noted: Yes AOE-Iymyaq-Ugcqxc Hx Patient Social History Alcohol Use: Denies Use Recreational Drug Use: No Smoking Status: Former Smoker Type Used: Cigarettes Recent Foreign Travel: No Recent Infectious Disease Expo: No Immunizations Up To Date Date of Pneumonia Vaccine: Jun 12, 2015 Date of Influenza Vaccine: Sep 02, 2018 Past Medical History PMH As described under Assessment. Family Medical History Family History: Diabetes mellitus 19 MOTHER G8 BROTHER G8 BROTHER Emph FH: breast cancer 19 MOTHER FH: breast cancer 19 MOTHER FH: emphysema 19 MOTHER FH: emphysema 19 MOTHER Allergies and Home Medications Allergies Coded Allergies: No Known Drug Allergies (Unverified , 11/18/12) Home Medications Aspirin 81 Mg Tablet.dr, 81 MG PO DAILY, (Reported) Calcium Carb/Vit D3/Minerals 1 Each Tablet, 1 TAB PO DAILY, (Reported) Dexlansoprazole 60 Mg Cap., 60 MG PO DAILY PRN for HEART BURN, (Reported) Diltiazem HCl 240 Mg Cap.er.24h, 240 MG PO DAILY, (Reported) Furosemide 80 Mg Tablet, 80 MG PO DAILY, (Reported) Hydrocodone/Acetaminophen 1 Each Tablet, 1 EACH PO BID PRN PRN for PAIN- MODERATE, (Reported) Insulin Aspart 10 Unit/0.1 Ml Susp, SC AC, (Reported) PER SLIDING SCALE Insulin Detemir 100 U/Ml Vial, 42 UNITS SQ AM, (Reported) Insulin Detemir 100 U/Ml Vial, 58 UNITS SQ HS, (Reported) Lisinopril 5 Mg Tablet, 5 MG PO DAILY, (Reported) Metoprolol Tartrate 50 Mg Tablet, 50 MG PO DAILY, (Reported) [place]-3/Dha/Epa/Fish Oil 1 Each Capsule.dr, 1,000 MG PO DAILY, (Reported) Potassium Chloride 10 Meq Capsule.sa, 10 MEQ PO DAILY, (Reported) Rivaroxaban 15 Mg Tablet, 15 MG PO DAILY, (Reported) Rosuvastatin Calcium 20 Mg Tablet, 20 MG PO HS, (Reported) Patient Home Medication List Home Medication List Reviewed: Yes Physical Exam-Cardiology Physical Exam Vital Signs/I&O 04/12/19 04/12/19 04/12/19 04/12/19 17:01 17:15 18:17 20:10 Temp 99.3 100.4 96.9 Pulse 87 81 Resp 22 22 B/P (MAP) 163/68 (99) 143/68 (93) Pulse Ox 93 95 96 O2 Delivery Room Air Nasal Cannula Nasal Cannula O2 Flow Rate 2.00 2.00 04/12/19 04/12/19 04/12/19 04/12/19 20:24 20:35 20:37 21:35 Temp 97.9 97.9 Pulse 81 81 Resp 16 16 B/P (MAP) 171/60 (97) 171/60 Pulse Ox 98 98 98 O2 Delivery Nasal Cannula Nasal Cannula Nasal Cannula NIV CPAP O2 Flow Rate 2.00 2.00 2.00 2.00 Capillary Refill : Less Than 3 Seconds Constitutional: AAO x 3, well-developed, other HEENT: EOMI, hearing is well preserved; No xanthelasmas are seen Neck: carotid pulses are 2 + bilaterally, with good upstrokes Respiratory: other (Fair bilat air entry, diminished at the bases; bilat fine and coarse basal crackles) Cardiovascular: regular rate-rhythm, S1 and S2, systolic murmur (2/6 MSM) Gastrointestinal: No tender; distended; No guarding, No rebound; audible bowel sounds Extremities: No clubbing, No cyanosis; significant edema Neurologic/Psychiatric: oriented x 3, other (able to move all limbs equally) Skin: normal color, warm/dry; No rash on exposed areas, No ulcerations on exposed areas Data Review Labs Laboratory Tests 04/12/19 17:15: Urine Color YELLOW, Urine Clarity SLIGHTLY CLOUDY, Urine pH 6, Urine Specific [place] 1.015L, Urine Protein 1+H, Urine Glucose (UA) NEGATIVE, Urine Ketones NEGATIVE, Urine Nitrite NEGATIVE, Urine Bilirubin NEGATIVE, Urine Urobilinogen NORMAL, Urine Leukocyte Esterase 1+H, Urine RBC (Auto) NEGATIVE, Urine RBC NONE, Urine WBC 10-25H, Urine Squamous Epithelial Cells 5-10, Urine Crystals NONE, Urine Bacteria MODERATEH, Urine Casts NONE, Urine Mucus NEGATIVE, Urine Culture Indicated CULTURE PENDING 04/12/19 17:25: White Blood Count 8.1, Red Blood Count 4.01L, Hemoglobin 11.1L, Hematocrit 36, Mean Corpuscular Volume 91, Mean Corpuscular Hemoglobin 28, Mean Corpuscular Hemoglobin Concent 31L, Red Cell Distribution Width 15.8H, Platelet Count 197, Mean Platelet Volume 10.8H, Neutrophils (%) (Auto) 74, Lymphocytes (%) (Auto) 18, Monocytes (%) (Auto) 7, Eosinophils (%) (Auto) 1, Basophils (%) (Auto) 0, Neutrophils # (Auto) 6.0, Lymphocytes # (Auto) 1.5, Monocytes # (Auto) 0.6, Eosinophils # (Auto) 0.1, Basophils # (Auto) 0.0, Prothrombin Time 19.3H, INR Comment 1.6H, Activated Partial Thromboplast Time 28, Sodium Level 142, Po tassium Level 4.3, Chloride Level 103, Carbon Dioxide Level 27, Anion Gap 12, Blood Urea Nitrogen 29H, Creatinine 1.47H, Estimat Glomerular Filtration Rate 34 , BUN/Creatinine Ratio 20, Glucose Level 192H, Lactic Acid Level 2.08*H, Calcium Level 10.1, Corrected Calcium 9.9, Total Bilirubin 0.9, Aspartate Amino Transf (AST/SGOT) 16, Alanine Aminotransferase (ALT/SGPT) 10, Alkaline Phosphatase 49, Troponin I 0.056H, B-Type Natriuretic Peptide 431.8H, Total Protein 7.4, Albumin 4.2 04/12/19 19:22: Lactic Acid Level 0.78 7/9/19 20:34: Glucometer 175H Laboratory Tests 04/12/19 17:25 A/P-Cardiology Assessment/Admission Diagnosis Ac on chronic systolic and diastolic CHF Paroxysmal atrial fibrillation which now seems to have become chronic permanent atrial fibrillation Multivessel coronary artery disease for which the patient underwent coronary artery bypass surgery 07/14/2012. This consisted of left internal mammary artery graft to left anterior descending, saphenous vein graft to posterior descending and sequential saphenous vein to ramus intermedius and obtuse marginal. This wa s carried out at [facility] in [place], [place] by Dr. Juarez. Cardiac cath of 10-19-18 showed [place] CAD consisting of long 80-90% prox and mid vessel stenosis of the LAD, 80-90% stenosis of the prox portion of the RI, and diffuse mod disease of the RCA. Patent left internal mammary artery graft to distal LAD. Patent saphenous vein graft to RI. Chronically occluded saphenous vein graft to RCA. MPI of 05-27-16 is indicative of basal inferior infarction with a mod amount of aguila-infarct ischemia. Inferolateral hypokinesis. LVEF approx 46% Maturity onset diabetes mellitus, insulin requiring. Aortic stenosis, for which he has undergone TAVR at [facility] in [place], [place], on 10/10/14, mod dilated LA, mod conc LVH, mod MAC, mild to mod MR, bioprosthetic AoV working adequately, PASP 50-55 mmHg. According to a card that she carries this is an Baird bovine transcatheter valve, 26 mm, model 9300 TFX, in the aortic position Echo of 08/25/17 showed global LV systolic function mildly impaired with LVEF 45-50%. S/P bioprosthetic aortic valve which appears to be functioning normally. Mild to mod TR. Mild MR and PASP 45mmHg Chronic rivaroxaban anticoag for stroke prophylaxis Pulmonary HTN, with an estimated PASP of 75mmHg per echo of March 2014. Cardiac cath from July 25, 2014 showed moderate pulmonary HTN with mean pulmonary artery pressure of 33 mmHg and pulmonary vascular resistance of 5.4 Wood units. Echo of November 2014 shows PASP of approximately 45-50mmHg. Echo of 08/25/17 showed PASP 50-55 mmHg Hypertension CKD stage III Hyperlipidemia currently on statin therapy - followed by Dr. Iggy Zhang with a body index of 49. Gastroesophageal reflux. Chronic right ankle swelling following ankle fracture several years ago. History of knee replacement surgery in 2000. History of surgery of the femur several years ago. Carotid arterial disease, consisting of 60% stenosis of the right internal carotid and 50% stenosis of the left internal carotid per CT angiography of 05/12/2013. 60-79% bilat stenosis of carotids per u/s of Oct 15, 2018 Incidentally diagnosed 7 mm right thyroid nodule on a CT scan of the carotid. This is being followed by Dr. Parkinson Sleep apnea syndrome - CPAP therapy Discussion and Recomendations * Diuretics for CHF * Rivaroxaban for stroke prophylaxis * Continue previous card regimen * Monitor labs * Dr Parson covering Card Svce beginning tomorrow Clinical Quality Measures DVT/VTE Risk/Contraindication: Risk Factor Score Per Nursin RFS Level Per Nursing on Admit: 4+=Very High ADALBERTO PATEL MD FACP FAC CCDS Apr 12, 2019 21:50
[2019-04-12] MEDS: CATHETER FLUSH 10 ML SYR IV SCH (22:04)
[2019-04-13 00:18] VITALS: BP 125/62
[2019-04-13 03:52] VITALS: BP 127/65
[2019-04-13 04:00] LABS: BASOPHILS % (AUTO) 0 % (0-10); EOSINOPHILS # (AUTO) 0.1 10^3/uL (0.0-0.3); EOSINOPHILS % (AUTO) 2 % (0-10); HEMATOCRIT 34 % (35-52); HEMOGLOBIN 10.2 G/DL (11.5-16.0); LYMPHOCYTES # (AUTO) 1.1 X 10^3 (1.0-4.0); LYMPHOCYTES % (AUTO) 20 % (12-44); MEAN CORPUSCULAR HEMOGLOBIN 28 PG (25-34); MEAN CORPUSCULAR HGB CONC 30 G/DL (32-36); MEAN CORPUSCULAR VOLUME 91 FL (80-99); MEAN PLATELET VOLUME 10.8 FL (7.4-10.4); MONOCYTES # (AUTO) 0.5 X 10^3 (0.0-1.0); MONOCYTES % (AUTO) 9 % (0-12); NEUTROPHILS % (AUTO) 69 % (42-75); PLATELET COUNT 179 10^3/uL (130-400); RED CELL DISTRIBUTION WIDTH 16.2 % (10.0-14.5); WHITE BLOOD COUNT 5.7 10^3/uL (4.3-11.0)
[2019-04-13 04:17] LABS: CREATININE SERUM 1.29 MG/DL (0.60-1.30); POTASSIUM 3.9 MMOL/L (3.6-5.0)
[2019-04-13] MEDS: CATHETER FLUSH 10 ML SYR IV SCH ×3 (06:03→20:57)
[2019-04-13] MEDS: KCL 10 MEQ TAB (MICRO K) PO SCH ×2 (06:08→16:44)
[2019-04-13] MEDS: FUROSEMIDE 40 MG/4 ML INJ (LASIX) IV SCH ×2 (06:09→16:44)
[2019-04-13 08:00] VITALS: BP 141/79
--- NOTE | 2019-04-13 08:08 | History & Physicial ---
History of Present Illness History of Present Illness Reason for visit/HPI Patient came to the office yesterday. Patient short of breath. Patient had swelling of legs and abdomen. Patient getting 30 pounds. Patient short of breath with exertion. Patient had a heart valve replacement. Patient presented open heart surgery. Troponin elevated minimally [place] type II probably. Patient is diabetic. Patient obese. Date of Admission Apr 12, 2019 at 19:10 Time Seen by a Provider: 08:02 I consulted on this patient on 04/13/19 08:02 Attending Physician Luis Rojas DO Admitting Physician Luis Rojas DO Consult Allergies and Home Medications Allergies Coded Allergies: No Known Drug Allergies (Unverified , 11/18/12) Home Medications Aspirin 81 Mg Tablet.dr, 81 MG PO DAILY, (Reported) Calcium Carb/Vit D3/Minerals 1 Each Tablet, 1 TAB PO DAILY, (Reported) Dexlansoprazole 60 Mg Cap.drDavidmp, 60 MG PO DAILY PRN for HEART BURN, (Reported) Diltiazem HCl 240 Mg Cap.er.24h, 240 MG PO DAILY, (Reported) Furosemide 80 Mg Tablet, 80 MG PO DAILY, (Reported) Hydrocodone/Acetaminophen 1 Each Tablet, 1 EACH PO BID PRN PRN for PAIN- MODERATE, (Reported) Insulin Aspart 10 Unit/0.1 Ml Susp, SC AC, (Reported) PER SLIDING SCALE Insulin Detemir 100 U/Ml Vial, 42 UNITS SQ AM, (Reported) Insulin Detemir 100 U/Ml Vial, 58 UNITS SQ HS, (Reported) Lisinopril 5 Mg Tablet, 5 MG PO DAILY, (Reported) Metoprolol Tartrate 50 Mg Tablet, 50 MG PO DAILY, (Reported) [place]-3/Dha/Epa/Fish Oil 1 Each Capsule.dr, 1,000 MG PO DAILY, (Reported) Potassium Chloride 10 Meq Capsule.sa, 10 MEQ PO DAILY, (Reported) Rivaroxaban 15 Mg Tablet, 15 MG PO DAILY, (Reported) Rosuvastatin Calcium 20 Mg Tablet, 20 MG PO HS, (Reported) Patient Home Medication List Home Medication List Reviewed: No Past Fgnigra-Vbistj-Yyghqj Hx Patient Social History Marrital Status: Employed/Student: retired Alcohol Use: Denies Use Recreational Drug Use: No Smoking Status: Former Smoker Former Smoker, Quit: Oct 19, 1949 Type Used: Cigarettes Recent Foreign Travel: No Contact w/other who traveled: No Recent Hopitalizations: No Recent Infectious Disease Expo: No Immunizations Up To Date Date of Pneumonia Vaccine: Jun 12, 2015 Date of Influenza Vaccine: Sep 02, 2018 Seasonal Allergies Seasonal Allergies: Yes Surgeries Yes (HEART VALVE REPLACED) Cardiac, CABG, Hysterectomy, Orthopedic Respiratory Yes Currently Using CPAP: Yes (AT NIGHT) Currently Using BIPAP: No Cardiovascular Yes Coronary Artery Disease, High Cholesterol, Hypertension, Valvular Heart Disease Neurological No Reproductive System Hx Reproductive Disorders: No Genitourinary Yes UTI-Chronic Gastrointestinal Yes Gastroesophageal Reflux Musculoskeletal Yes (ANKLE FX, B/L KNEE PAIN R/T PAST FRACTURE, COMPUND FX IN FEMUR) Fractures Endocrine History of Endocrine Disorders: Yes (THYROID GROWTH) Endocrine Disorders: Diabetes, Insulin dep HEENT HEENT Disorders: Cataract Hearing Impairment: Hard of Hearing Cancer No Psychosocial History of Psychiatric Problem: No Integumentary History of Skin or Integumenta: No Blood Transfusions History of Blood Disorders: No Adverse Reaction to a Blood Tr: No Family Medical History Family Hx: Diabetes mellitus 19 MOTHER G8 BROTHER G8 BROTHER Emph FH: breast cancer 19 MOTHER FH: breast cancer 19 MOTHER FH: emphysema 19 MOTHER FH: emphysema 19 MOTHER Review of Systems Constitutional: weakness, weight gain EENTM: no symptoms reported Respiratory: dyspnea on exertion, short of breath Cardiovascular: vascular heart diseas, other (Atrial fibrillation) Gastrointestinal: no symptoms reported, other (Swelling and abdomen) Genitourinary: no symptoms reported : No Physical Exam Vital Signs Vital Signs - First Documented 04/12/19 04/12/19 17:01 17:15 Temp 99.3 Pulse 87 Resp 22 B/P (MAP) 163/68 (99) Pulse Ox 93 O2 Delivery Room Air O2 Flow Rate 2.00 Capillary Refill : Less Than 3 Seconds Height, Weight, BMI Height: 5'6.00" Weight: 307lbs. 5.0oz. [id number]; 49.7 BMI Method:Stated General Appearance: No Apparent Distress, WD/WN, Obese Eyes: Bilateral Eye Normal Inspection HEENT: Normal ENT Inspection Neck: Full Range of Motion, Normal Inspection Respiratory: No Accessory Muscle Use, No Respiratory Distress, Decreased Breath Sounds Cardiovascular: Irregularly Irregular Gastrointestinal: Non Tender, Soft Assessment/Plan Assessment and Plan Acute and chronic congestive heart failure. Fluid overdose. Sleep apnea. Renal insufficiency. A. fib. Aortic stenosis. Hyperlipidemia. Obesity. GERD.. Elevated troponin [place] type II Admission Diagnosis Admission Status: Inpatient Order (span 2 midnights) Reason for Inpatient Admission: CHF. Short of breath. Weight gain of 30 pounds. Coronary artery disease. Elevated troponin minimal Clinical Quality Measures DVT/VTE Risk/Contraindication: Risk Factor Score Per Nursin RFS Level Per Nursing on Admit: 4+=Very High LUIS ROJAS DO Apr 13, 2019 08:08
[2019-04-13] MEDS ORDERED: FURO80TA3 PO (08:42)
[2019-04-13] MEDS ORDERED: INSU100V5 SQ (08:42)
[2019-04-13] MEDS ORDERED: DILT240C PO (08:42)
[2019-04-13] MEDS ORDERED: CALC-6 PO (08:42)
[2019-04-13] MEDS ORDERED: OMG1KC PO (08:42)
[2019-04-13] MEDS ORDERED: POTA10TA36 PO (08:42)
[2019-04-13] MEDS ORDERED: INSU100I14 SC (08:42)
[2019-04-13] MEDS ORDERED: INSU100V5 SC (08:42)
[2019-04-13] MEDS ORDERED: DEXL60CA PO (08:49)
[2019-04-13] MEDS ORDERED: ROSU20TA31 PO (08:49)
[2019-04-13] MEDS ORDERED: DILTIAZEM 240 MG (CARDIZEM CD) CAP PO SCH (09:00)
[2019-04-13] MEDS: lisINopril 5 MG (PRINIVIL) TABLET PO SCH (09:02)
[2019-04-13] MEDS: meTOprolol TARTRATE 50 MG (LOPRESSOR) TAB PO SCH ×2 (09:03→20:55)
[2019-04-13] MEDS: ASPIRIN 81 MG CHEW (CHILDREN'S ASA) PO SCH (09:03)
[2019-04-13 12:00] VITALS: BP 125/59
[2019-04-13 15:15] VITALS: BP 140/61
[2019-04-13] MEDS: RIVAROXABAN 15 MG TABLET (XARELTO) PO SCH (16:44)
[2019-04-13 20:00] VITALS: BP 140/66
--- NOTE | 2019-04-13 23:00 | Cardiology Progress Note ---
Cardiology SOAP Progress Note Subjective: improved shortness of breath. Objective: I&O/Vital Signs 04/14/19 04/14/19 04/14/19 04/14/19 04:00 04:16 04:17 06:45 Temp 97.6 Pulse 58 65 Resp 17 20 B/P (MAP) 134/55 (81) 135/69 (91) Pulse Ox 89 91 O2 Delivery Nasal Cannula NIV CPAP Nasal Cannula O2 Flow Rate 5.00 5.00 5.00 04/14/19 04/14/19 04/14/19 04/14/19 07:00 08:00 08:00 08:40 Temp 97.6 Pulse 61 68 Resp 20 B/P (MAP) 135/69 (91) Pulse Ox 94 93 O2 Delivery Nasal Cannula Nasal Cannula Nasal Cannula O2 Flow Rate 3.00 3.00 2.00 04/14/19 09:00 O2 Delivery Nasal Cannula O2 Flow Rate 3.00 04/14/19 00:00 Intake Total 700 ml Output Total 1825 ml Balance -1125 ml Weight (Pounds): 307 Weight (Ounces): 5.0 Weight (Calculated Kilograms): 139.416692 Constitutional: AAO x 3, well-developed, other Respiratory: other (Fair bilat air entry, diminished at the bases; bilat fine and coarse basal crackles) Cardiovascular: regular rate-rhythm, S1 and S2, systolic murmur (2/6 MSM) Gastrointestional: No tender; distended; No guarding, No rebound; audible bowel sounds Extremities: No clubbing, No cyanosis; significant edema Neurologic/Psychiatric: oriented x 3, other (able to move all limbs equally) Skin: normal color, warm/dry; No rash on exposed areas, No ulcerations on exposed areas Results/Procedures: Labs Laboratory Tests 04/13/19 19:33: Glucometer 243H 04/14/19 03:10: White Blood Count 6.4, Red Blood Count 3.92L, Hemoglobin 10.8L, Hematocrit 36, Mean Corpuscular Volume 91, Mean Corpuscular Hemoglobin 28, Mean Corpuscular Hemoglobin Concent 30L, Red Cell Distribution Width 15.8H, Platelet Count 170, Mean Platelet Volume 10.8H, Sodium Level 142, Potassium Level 3.9, Chloride Level 102, Carbon Dioxide Level 30, Anion Gap 10, Blood Urea Nitrogen 26H, C reatinine 1.22, Estimat Glomerular Filtration Rate 43, BUN/Creatinine Ratio 21, Glucose Level 131H, Calcium Level 9.3, Corrected Calcium 9.4, Total Bilirubin 1.0, Aspartate Amino Transf (AST/SGOT) 16, Alanine Aminotransferase (ALT/SGPT) 10, Alkaline Phosphatase 47, Total Protein 7.0, Albumin 3.9 04/14/19 05:27: Glucometer 111H 04/14/19 10:46: Glucometer 160H Microbiology 04/12/19 Blood Culture - Preliminary, Resulted Probable Coag Negative Staph 04/12/19 Urine Culture - Final, Complete Klebsiella pneumoniae A/P: Assessment/Dx: Ac on chronic systolic and diastolic CHF Paroxysmal atrial fibrillation which now seems to have become chronic permanent atrial fibrillation Multivessel coronary artery disease for which the patient underwent coronary artery bypass surgery 07/14/2012. This consisted of left internal mammary artery graft to left anterior descending, saphenous vein graft to posterior descending and sequential saphenous vein to ramus intermedius and obtuse marginal. This was carried out at [facility] in [place], [place] by Dr. Juarez. Cardiac cath of 10-19-18 showed [place] CAD consisting of long 80-90% prox and mid vessel stenosis of the LAD, 80-90% stenosis of the prox portion of the RI, and diffuse mod disease of the RCA. Patent left internal mammary artery graft to distal LAD. Patent saphenous vein graft to RI. Chronically occluded saphenous vein graft to RCA. MPI of 8-23-16 is indicative of basal inferior infarction with a mod amount of aguila-infarct ischemia. Inferolateral hypokinesis. LVEF approx 46% Maturity onset diabetes mellitus, insulin requiring. Aortic stenosis, for which he has undergone TAVR at [facility] in [place], [place], on 10/10/14, mod dilated LA, mod conc LVH, mod MAC, mild to mod MR, bioprosthetic AoV working adequately, PASP 50-55 mmHg. According to a card that she carries this is an Baird bovine transcatheter valve, 26 mm, model 9300 TFX, in the aortic position Echo of 08/25/17 showed global LV systolic function mildly impaired with LVEF 45-50%. S/P bioprosthetic aortic valve which appears to be functioning normally. Mild to mod TR. Mild MR and PASP 45mmHg Chronic rivaroxaban anticoag for stroke prophylaxis Pulmonary HTN, with an estimated PASP of 75mmHg per echo of March 2014. Cardiac cath from July 25, 2014 showed moderate pulmonary HTN with mean pulmonary artery pressure of 33 mmHg and pulmonary vascular resistance of 5.4 Wood units. Echo of November 2014 shows PASP of approximately 45-50mmHg. Echo of 08/25/17 showed PASP 50-55 mmHg Hypertension CKD stage III Hyperlipidemia currently on statin therapy - followed by Dr. Parkinson Obesity with a body index of 49. Gastroesophageal reflux. Chronic right ankle swelling following ankle fracture several years ago. History of knee replacement surgery in 1999. History of surgery of the femur several years ago. Carotid arterial disease, consisting of 60% stenosis of the right internal carotid and 50% stenosis of the left internal carotid per CT angiography of 05/12/2013. 60-79% bilat stenosis of carotids per u/s of Oct 15, 2018 Incidentally diagnosed 7 mm right thyroid nodule on a CT scan of the carotid. This is being followed by Dr. Parkinson Sleep apnea syndrome - CPAP therapy Plan: * Diuretics for CHF * Rivaroxaban for stroke prophylaxis * Continue previous card regimen * Monitor labs Thank you for your consultation. Please call me if you have any questions. Naveen Parson MD, FACP, FACC, FSCAI, FHRS, CCDS Interventional Cardiology Cardiac Electrophysiology Vascular Medicine and Endovascular Interventions Focused Exam Lactate Level 04/12/19 17:25: Lactic Acid Level 2.08*H 04/12/19 19:22: Lactic Acid Level 0.78 Sana PARSON MD Apr 13, 2019 23:00
[2019-04-14] VITALS (7 sets, daily range): BP systolic 134–156; BP diastolic 55–81
[2019-04-14 03:49] LABS: HEMOGLOBIN 10.8 G/DL (11.5-16.0); MEAN PLATELET VOLUME 10.8 FL (7.4-10.4); RED CELL DISTRIBUTION WIDTH 15.8 % (10.0-14.5); WHITE BLOOD COUNT 6.4 10^3/uL (4.3-11.0)
[2019-04-14 04:08] LABS: ALBUMIN 3.9 GM/DL (3.2-4.5); CALCIUM 9.3 MG/DL (8.5-10.1); CREATININE SERUM 1.22 MG/DL (0.60-1.30); POTASSIUM 3.9 MMOL/L (3.6-5.0)
[2019-04-14] MEDS: CATHETER FLUSH 10 ML SYR IV SCH ×2 (05:30→14:43)
[2019-04-14] MEDS: FUROSEMIDE 40 MG/4 ML INJ (LASIX) IV SCH ×2 (05:31→17:52)
--- NOTE | 2019-04-14 07:47 | Progress Note ---
Subjective Time Seen by a Provider: 07:45 Subjective/Events-last exam Patient feeling 50 percent better. Patient lost 11 pounds since yesterday. GFR 43 today on admission was 34. UTI gram-negative leoncio put on antibiotic Focused Exam Lactate Level 04/12/19 17:25: Lactic Acid Level 2.08*H 04/12/19 19:22: Lactic Acid Level 0.78 Objective Exam Vital Signs Date Time Temp Pulse Resp B/P (MAP) Pulse Ox O2 Delivery O2 Flow Rate FiO2 04/14/19 04:17 NIV CPAP 5.00 04/14/19 04:16 97.6 04/14/19 04:00 58 17 134/55 (81) 89 Nasal Cannula 5.00 04/14/19 01:00 51 04/14/19 00:40 NIV CPAP 5.00 04/14/19 00:00 60 12 140/62 (88) 98 Nasal Cannula 5.00 04/13/19 21:56 NIV CPAP 5.00 04/13/19 20:20 NIV CPAP 5.00 04/13/19 20:00 97.6 63 12 140/66 (90) 94 Nasal Cannula 5.00 04/13/19 19:00 64 04/13/19 18:00 71 11 91 Nasal Cannula 5.00 04/13/19 17:00 66 23 98 Nasal Cannula 5.00 04/13/19 16:00 Nasal Cannula 5.00 04/13/19 16:00 67 20 91 Nasal Cannula 5.00 04/13/19 16:00 97.6 04/13/19 15:15 140/61 (87) 04/13/19 15:00 68 17 87 Nasal Cannula 5.00 04/13/19 14:00 66 17 93 Nasal Cannula 5.00 04/13/19 13:00 67 04/13/19 13:00 67 24 94 Nasal Cannula 5.00 04/13/19 12:00 70 21 125/59 (81) 98 Nasal Cannula 5.00 04/13/19 12:00 Nasal Cannula 5.00 04/13/19 12:00 96.9 04/13/19 09:00 Nasal Cannula 5.00 04/13/19 08:10 97 Nasal Cannula 1.00 04/13/19 08:00 75 18 141/79 (99) 98 Nasal Cannula 5.00 04/13/19 08:00 95.3 04/13/19 08:00 Nasal Cannula 5.00 I & O 04/14/19 07:00 Intake Total 700 ml Output Total 4425 ml Balance -3725 ml Capillary Refill : Less Than 3 Seconds General Appearance: No Apparent Distress, WD/WN HEENT: Normal ENT Inspection Neck: Full Range of Motion, Normal Inspection Respiratory: No Accessory Muscle Use, No Respiratory Distress, Decreased Breath Sounds Cardiovascular: Irregularly Irregular Gastrointestinal: non tender, soft Results Lab Laboratory Tests 04/14/19 03:10 Laboratory Tests 04/13/19 08:59: Glucometer 128H 04/13/19 14:33: Glucometer 192H 04/13/19 19:33: Glucometer 243H 04/14/19 03:10: White Blood Count 6.4, Red Blood Count 3.92L, Hemoglobin 10.8L, Hematocrit 36, Mean Corpuscular Volume 91, Mean Corpuscular Hemoglobin 28, Mean Corpuscular Hemoglobin Concent 30L, Red Cell Distribution Width 15.8H, Platelet Count 170, Mean Platelet Volume 10.8H, Sodium Level 142, Potassium Level 3.9, Chloride Level 102, Carbon Dioxide Level 30, Anion Gap 10, Blood Urea Nitrogen 26H, Creatinine 1.22, Estimat Glomerular Filtration Rate 43, BUN/Creatinine Ratio 21, Glucose Level 131H, Calcium Level 9.3, Corrected Calcium 9.4, Total Bilirubin 1.0, Aspartate Amino Transf (AST/SGOT) 16, Alanine Aminotransferase (ALT/SGPT) 10, Alkaline Phosphatase 47, Total Protein 7.0, Albumin 3.9 04/14/19 05:27: Glucometer 111H Microbiology 04/12/19 Blood Culture - Preliminary, Resulted Probable Coag Negative Staph 04/12/19 Urine Culture - Preliminary, Resulted Gram Negative Leoncio Assessment/Plan Assessment/Plan Assess & Plan/Chief Complaint CHF. Fluid overload. A. fib. Diabetes. Coronary artery disease. Clinical Quality Measures Admission Status Admission Dx Acute and chronic congestive heart failure. Fluid overdose. Sleep apnea. Renal insufficiency. A. fib. Aortic stenosis. Hyperlipidemia. Obesity. GERD.. Elevated troponin [place] type II DVT/VTE Risk/Contraindication: Risk Factor Score Per Nursin RFS Level Per Nursing on Admit: 4+=Very High Contraindications-Pharm: Other *list below* LILY ROJAS DO Apr 14, 2019 07:47
[2019-04-14] MEDS: meTOprolol TARTRATE 50 MG (LOPRESSOR) TAB PO SCH ×3 (08:46→20:15)
[2019-04-14] MEDS: lisINopril 5 MG (PRINIVIL) TABLET PO SCH (08:46)
[2019-04-14] MEDS: ASPIRIN 81 MG CHEW (CHILDREN'S ASA) PO SCH (08:47)
[2019-04-14] MEDS: KCL 10 MEQ TAB (MICRO K) PO SCH ×2 (08:47→17:52)
[2019-04-14] MEDS: DILTIAZEM 240 MG (CARDIZEM CD) CAP PO SCH (08:47)
[2019-04-14] MEDS: OMEGA 3 (FISH OIL) 1000 MG CAP PO SCH (08:49)
[2019-04-14] MEDS: AUGMENTIN 875 MG TAB (AMOXICILLIN/CLAVULANATE) PO SCH ×2 (08:49→17:52)
[2019-04-14] MEDS ORDERED: ASPIRIN E.C. 81 MG (ECOTRIN) TAB PO SCH (09:00)
--- NOTE | 2019-04-14 09:42 | Diagnostic Imaging Report ---
EXAM: Portable erect AP chest at 3:42 a.m. INDICATION: Fluid overload FINDINGS: The heart is enlarged and both the heart and the central pulmonary vascularity do seem slightly more prominent than noted on the prior exam of 04/12/2019. The combination of these findings does suggest that there may be early/mild pulmonary congestion. The lung peripheries are generally clear. There is no significant pleural effusion identified. The mediastinum is not widened. The osseous structures are intact. The sternotomy wires and surgical clips noted previously are again evident and no different. IMPRESSION: The slightly increased prominence of the heart and the central pulmonary vascularity when compared with the prior exam suggested that there is now early/mild pulmonary congestion. A followup exam would would be recommend for continued evaluation. Dictated by: Dictated on workstation # [id number]
--- NOTE | 2019-04-14 14:47 | Cardiology Progress Note ---
Cardiology SOAP Progress Note Subjective: improved shortness of breath. Objective: I&O/Vital Signs 04/14/19 04/14/19 04/14/19 04/14/19 04:00 04:16 04:17 06:45 Temp 97.6 Pulse 58 65 Resp 17 20 B/P (MAP) 134/55 (81) 135/69 (91) Pulse Ox 89 91 O2 Delivery Nasal Cannula NIV CPAP Nasal Cannula O2 Flow Rate 5.00 5.00 5.00 04/14/19 04/14/19 04/14/19 04/14/19 07:00 08:00 08:00 08:40 Temp 97.6 Pulse 61 68 Resp 20 B/P (MAP) 135/69 (91) Pulse Ox 94 93 O2 Delivery Nasal Cannula Nasal Cannula Nasal Cannula O2 Flow Rate 3.00 3.00 2.00 04/14/19 09:00 O2 Delivery Nasal Cannula O2 Flow Rate 3.00 04/14/19 00:00 Intake Total 700 ml Output Total 1825 ml Balance -1125 ml Weight (Pounds): 296 Weight (Ounces): 1.0 Weight (Calculated Kilograms): 134.164509 Constitutional: AAO x 3, well-developed, other Respiratory: other (Fair bilat air entry, diminished at the bases; bilat fine and coarse basal crackles) Cardiovascular: regular rate-rhythm, S1 and S2, systolic murmur (2/6 MSM) Gastrointestional: No tender; distended; No guarding, No rebound; audible bowel sounds Extremities: No clubbing, No cyanosis; significant edema Neurologic/Psychiatric: oriented x 3, other (able to move all limbs equally) Skin: normal color, warm/dry; No rash on exposed areas, No ulcerations on exposed areas Results/Procedures: Labs Laboratory Tests 04/13/19 19:33: Glucometer 243H 04/14/19 03:10: White Blood Count 6.4, Red Blood Count 3.92L, Hemoglobin 10.8L, Hematocrit 36, Mean Corpuscular Volume 91, Mean Corpuscular Hemoglobin 28, Mean Corpuscular Hemoglobin Concent 30L, Red Cell Distribution Width 15.8H, Platelet Count 170, Mean Platelet Volume 10.8H, Sodium Level 142, Potassium Level 3.9, Chloride Level 102, Carbon Dioxide Level 30, Anion Gap 10, Blood Urea Nitrogen 26H, C reatinine 1.22, Estimat Glomerular Filtration Rate 43, BUN/Creatinine Ratio 21, Glucose Level 131H, Calcium Level 9.3, Corrected Calcium 9.4, Total Bilirubin 1.0, Aspartate Amino Transf (AST/SGOT) 16, Alanine Aminotransferase (ALT/SGPT) 10, Alkaline Phosphatase 47, Total Protein 7.0, Albumin 3.9 04/14/19 05:27: Glucometer 111H 04/14/19 10:46: Glucometer 160H Microbiology 04/12/19 Blood Culture - Preliminary, Resulted Probable Coag Negative Staph 04/12/19 Urine Culture - Final, Complete Klebsiella pneumoniae A/P: Assessment/Dx: Ac on chronic systolic and diastolic CHF Paroxysmal atrial fibrillation which now seems to have become chronic permanent atrial fibrillation Multivessel coronary artery disease for which the patient underwent coronary artery bypass surgery 07/14/2012. This consisted of left internal mammary artery graft to left anterior descending, saphenous vein graft to posterior descending and sequential saphenous vein to ramus intermedius and obtuse marginal. This was carried out at [facility] in [place], [place] by Dr. Juarez. Cardiac cath of 10-19-18 showed [place] CAD consisting of long 80-90% prox and mid vessel stenosis of the LAD, 80-90% stenosis of the prox portion of the RI, and diffuse mod disease of the RCA. Patent left internal mammary artery graft to distal LAD. Patent saphenous vein graft to RI. Chronically occluded saphenous vein graft to RCA. MPI of 8-23-16 is indicative of basal inferior infarction with a mod amount of aguila-infarct ischemia. Inferolateral hypokinesis. LVEF approx 46% Maturity onset diabetes mellitus, insulin requiring. Aortic stenosis, for which he has undergone TAVR at [facility] in [place], [place], on 10/10/14, mod dilated LA, mod conc LVH, mod MAC, mild to mod MR, bioprosthetic AoV working adequately, PASP 50-55 mmHg. According to a card that she carries this is an Baird bovine transcatheter valve, 26 mm, model 9300 TFX, in the aortic position Echo of 08/25/17 showed global LV systolic function mildly impaired with LVEF 45-50%. S/P bioprosthetic aortic valve which appears to be functioning normally. Mild to mod TR. Mild MR and PASP 45mmHg Chronic rivaroxaban anticoag for stroke prophylaxis Pulmonary HTN, with an estimated PASP of 75mmHg per echo of March 2014. Cardiac cath from July 25, 2014 showed moderate pulmonary HTN with mean pulmonary artery pressure of 33 mmHg and pulmonary vascular resistance of 5.4 Wood units. Echo of November 2014 shows PASP of approximately 45-50mmHg. Echo of 08/25/17 showed PASP 50-55 mmHg Hypertension CKD stage III Hyperlipidemia currently on statin therapy - followed by Dr. Parkinson Obesity with a body index of 49. Gastroesophageal reflux. Chronic right ankle swelling following ankle fracture several years ago. History of knee replacement surgery in 1999. History of surgery of the femur several years ago. Carotid arterial disease, consisting of 60% stenosis of the right internal carotid and 50% stenosis of the left internal carotid per CT angiography of 05/12/2013. 60-79% bilat stenosis of carotids per u/s of Oct 15, 2018 Incidentally diagnosed 7 mm right thyroid nodule on a CT scan of the carotid. This is being followed by Dr. Parkinson Sleep apnea syndrome - CPAP therapy Plan: * Diuretics for CHF * Rivaroxaban for stroke prophylaxis * Continue previous card regimen * Monitor labs Thank you for your consultation. Please call me if you have any questions. Naveen Parson MD, FACP, FACC, FSCAI, FHRS, CCDS Interventional Cardiology Cardiac Electrophysiology Vascular Medicine and Endovascular Interventions Focused Exam Lactate Level 04/12/19 17:25: Lactic Acid Level 2.08*H 04/12/19 19:22: Lactic Acid Level 0.78 Sana PARSON MD Apr 14, 2019 14:47
[2019-04-14] MEDS: RIVAROXABAN 15 MG TABLET (XARELTO) PO SCH (17:52)
[2019-04-14] MEDS: ROSUVASTATIN 20 MG (CRESTOR) TABLET PO SCH (20:15)
[2019-04-15] VITALS (8 sets, daily range): BP systolic 119–156; BP diastolic 48–78
[2019-04-15 03:26] LABS: HEMOGLOBIN 9.9 G/DL (11.5-16.0); MEAN PLATELET VOLUME 10.7 FL (7.4-10.4); RED CELL DISTRIBUTION WIDTH 15.9 % (10.0-14.5); WHITE BLOOD COUNT 6.8 10^3/uL (4.3-11.0)
[2019-04-15 04:01] LABS: ALBUMIN 3.6 GM/DL (3.2-4.5); BILIRUBIN,TOTAL 0.8 MG/DL (0.1-1.0); CALCIUM 9.3 MG/DL (8.5-10.1); CREATININE SERUM 1.25 MG/DL (0.60-1.30); POTASSIUM 4.6 MMOL/L (3.6-5.0); TOTAL PROTEIN 6.5 GM/DL (6.4-8.2)
[2019-04-15] MEDS: FUROSEMIDE 40 MG/4 ML INJ (LASIX) IV SCH ×2 (06:13→18:16)
[2019-04-15] MEDS: inSUlin ASPART (NovoLOG) 1 UNIT/0.01 ML (CHARGE PER UNIT) SC SCH ×5 (07:35→21:29)
[2019-04-15] MEDS: CATHETER FLUSH 10 ML SYR IV SCH ×3 (07:36→21:30)
--- NOTE | 2019-04-15 08:08 | Progress Note ---
Subjective Time Seen by a Provider: 08:04 Subjective/Events-last exam Patient weak. Takes 2 people to get her out of bed. Patient noncompliant as outpatient. 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 Patient missed appointment with me previously. Has renal insufficiency. Augmentable take care of the UTI due to Klebsiella pneumonia. Feet still swelling but legs improved with swelling Focused Exam Lactate Level 04/12/19 17:25: Lactic Acid Level 2.08*H 04/12/19 19:22: Lactic Acid Level 0.78 Objective Exam Vital Signs Date Time Temp Pulse Resp B/P (MAP) Pulse Ox O2 Delivery O2 Flow Rate FiO2 04/15/19 06:20 98.0 60 23 135/78 (97) NIV CPAP 9.00 04/15/19 06:18 98.0 60 23 135/78 (97) NIV CPAP 9.00 04/15/19 04:20 Nasal Cannula 3.00 04/15/19 04:00 98.0 60 23 135/78 (97) NIV CPAP 9.00 04/15/19 01:00 59 04/15/19 00:30 59 19 138/67 (90) Nasal Cannula 3.00 04/15/19 00:21 Nasal Cannula 3.00 04/15/19 00:20 98.0 04/14/19 21:21 Nasal Cannula 3.00 04/14/19 20:21 67 22 156/81 (106) 99 Nasal Cannula 3.00 04/14/19 20:20 Nasal Cannula 3.00 04/14/19 20:08 97.9 04/14/19 19:00 68 04/14/19 16:00 98.2 64 20 143/68 (93) 94 Nasal Cannula 3.00 04/14/19 16:00 Nasal Cannula 3.00 04/14/19 13:00 69 04/14/19 12:00 Nasal Cannula 3.00 04/14/19 12:00 97.9 70 16 145/70 (95) 96 Nasal Cannula 3.00 04/14/19 09:00 Nasal Cannula 3.00 04/14/19 08:40 93 Nasal Cannula 2.00 I & O 04/15/19 07:00 Intake Total 1460 ml Output Total 4600 ml Balance -3140 ml Capillary Refill : Less Than 3 Seconds General Appearance: No Apparent Distress, WD/WN, Obese HEENT: Normal ENT Inspection Neck: Normal Inspection, Non Tender Respiratory: No Accessory Muscle Use, No Respiratory Distress, Decreased Breath Sounds Cardiovascular: Irregularly Irregular Gastrointestinal: non tender, soft Results Lab Laboratory Tests 04/15/19 03:03 Laboratory Tests 04/14/19 10:46: Glucometer 160H 04/14/19 14:47: Glucometer 186H 04/14/19 22:39: Glucometer 177H 04/15/19 03:03: White Blood Count 6.8, Red Blood Count 3.58L, Hemoglobin 9.9L, Hematocrit 33L, Mean Corpuscular Volume 93, Mean Corpuscular Hemoglobin 28, Mean Corpuscular Hemoglobin Concent 30L, Red Cell Distribution Width 15.9H, Platelet Count 171, Mean Platelet Volume 10.7H, Sodium Level 142, Potassium Level 4.6, Chloride Level 100, Carbon Dioxide Level 31, Anion Gap 11, Blood Urea Nitrogen 27H, Creatinine 1.25, Estimat Glomerular Filtration Rate 41, BUN/Creatinine Ratio 22, Glucose Level 122H, Calcium Level 9.3, Corrected Calcium 9.6, Total Bilirubin 0.8, Aspartate Amino Transf (AST/SGOT) 17, Alanine Aminotransferase (ALT/SGPT) 12, Alkaline Phosphatase 41, Total Protein 6.5, Albumin 3.6 04/15/19 06:07: Glucometer 94 Microbiology 04/12/19 Blood Culture - Preliminary, Resulted No growth 04/12/19 Urine Culture - Final, Complete Klebsiella pneumoniae Assessment/Plan Assessment/Plan Assess & Plan/Chief Complaint CHF. Fluid overload. A. fib. Diabetes. Coronary artery disease.. . 04/15/19. CHF. Fluid overload. A. fib. Renal insufficiency. Atrial fibrillation. Coronary artery disease. Hyperlipidemia. Dyspnea. Patient on oxygen the first time. Patient at home did not need oxygen previously Clinical Quality Measures Admission Status Admission Dx Acute and chronic congestive heart failure. Fluid overdose. Sleep apnea. Renal insufficiency. A. fib. Aortic stenosis. Hyperlipidemia. Obesity. GERD.. Elevated troponin RI type II DVT/VTE Risk/Contraindication: Risk Factor Score Per Nursin RFS Level Per Nursing on Admit: 4+=Very High Contraindications-Pharm: Other *list below* LILY ROJAS DO Apr 15, 2019 08:08
--- NOTE | 2019-04-15 08:10 | Diagnostic Imaging Report ---
INDICATION: Dyspnea. COMPARISON: 04/14/2019. FINDINGS: Stable unchanged enlargement of cardiac silhouette with central vascular congestion. No new airspace opacities. No pleural effusion or pneumothorax. IMPRESSION: Stable cardiomegaly with central vascular congestion. Dictated by: Dictated on workstation # [id number]
[2019-04-15] MEDS: ASPIRIN 81 MG CHEW (CHILDREN'S ASA) PO SCH (08:42)
[2019-04-15] MEDS: AUGMENTIN 875 MG TAB (AMOXICILLIN/CLAVULANATE) PO SCH ×2 (08:42→18:16)
[2019-04-15] MEDS: OMEGA 3 (FISH OIL) 1000 MG CAP PO SCH (08:42)
[2019-04-15] MEDS: DILTIAZEM 240 MG (CARDIZEM CD) CAP PO SCH (08:42)
[2019-04-15] MEDS: KCL 10 MEQ TAB (MICRO K) PO SCH ×2 (08:42→18:16)
[2019-04-15] MEDS: lisINopril 5 MG (PRINIVIL) TABLET PO SCH (08:43)
[2019-04-15] MEDS: meTOprolol TARTRATE 50 MG (LOPRESSOR) TAB PO SCH ×4 (08:43→21:29)
[2019-04-15 10:58] LABS: BILIRUBIN,URINE NEGATIVE (NEGATIVE); CLARITY,URINE CLEAR; COLOR,URINE YELLOW; GLUCOSE, URINE (UA) NEGATIVE (NEGATIVE); KETONES,URINE NEGATIVE (NEGATIVE); LEUKOCYTE ESTERASE ,URINE 2+ (NEGATIVE); NITRITE,URINE NEGATIVE (NEGATIVE); PH,URINE 5 (5-9); PROTEIN,URINE NEGATIVE (NEGATIVE); UROBILINOGEN,URINE NORMAL (NORMAL)
[2019-04-15 11:14] LABS: BACTERIA,URINE FEW /HPF; HYALINE CASTS, URINE 25-50 /LPF; SQUAMOUS EPITHELIAL CELL,UR 0-2 /HPF
--- NOTE | 2019-04-15 12:13 | Cardiology Progress Note ---
Cardiology SOAP Progress Note Subjective: Improved shortness of breath. Objective: I&O/Vital Signs 04/15/19 04/15/19 04/15/19 04/15/19 00:20 00:21 00:30 01:00 Temp 98.0 Pulse 59 59 Resp 19 B/P (MAP) 138/67 (90) O2 Delivery Nasal Cannula Nasal Cannula O2 Flow Rate 3.00 3.00 04/15/19 04/15/19 04/15/19 04/15/19 04:00 04:20 06:18 06:20 Temp 98.0 98.0 98.0 Pulse 60 60 60 Resp 23 23 23 B/P (MAP) 135/78 (97) 135/78 (97) 135/78 (97) O2 Delivery NIV CPAP Nasal Cannula NIV CPAP NIV CPAP O2 Flow Rate 9.00 3.00 9.00 9.00 04/15/19 04/15/19 04/15/19 04/15/19 07:00 08:00 08:45 09:00 Pulse 64 80 Resp 18 B/P (MAP) 156/69 (98) O2 Delivery Nasal Cannula NIV CPAP Nasal Cannula O2 Flow Rate 3.00 9.00 3.00 04/14/19 23:59 Intake Total 1010 ml Output Total 2200 ml Balance -1190 ml Weight (Pounds): 294 Weight (Ounces): 1.0 Weight (Calculated Kilograms): 133.098885 Constitutional: AAO x 3, well-developed, other Respiratory: other (Fair bilat air entry, diminished at the bases; bilat fine and coarse basal crackles) Cardiovascular: regular rate-rhythm, S1 and S2, systolic murmur (2/6 MSM) Gastrointestional: No tender; distended; No guarding, No rebound; audible bowel sounds Extremities: No clubbing, No cyanosis; significant edema Neurologic/Psychiatric: oriented x 3, other (able to move all limbs equally) Skin: normal color, warm/dry; No rash on exposed areas, No ulcerations on exposed areas Results/Procedures: Labs Laboratory Tests 04/14/19 14:47: Glucometer 186H 04/14/19 22:39: Glucometer 177H 04/15/19 03:03: White Blood Count 6.8, Red Blood Count 3.58L, Hemoglobin 9.9L, Hematocrit 33L, Mean Corpuscular Volume 93, Mean Corpuscular Hemoglobin 28, Mean Corpuscular Hemoglobin Concent 30L, Red Cell Distribution Width 15.9H, Platelet Count 171, Mean Platelet Volume 10.7H, Sodium Level 142, Potassium Level 4.6, Chloride Level 100, Carbon Dioxide Level 31, Anion Gap 11, Blood Urea Nitrogen 27H, Creatinine 1.25, Estimat Glomerular Filtration Rate 41, BUN/Creatinine Ratio 22, Glucose Level 122H, Calcium Level 9.3, Corrected Calcium 9.6, Total Bilirubin 0.8, Aspartate Amino Transf (AST/SGOT) 17, Alanine Aminotransferase (ALT/SGPT) 12, Alkaline Phosphatase 41, Total Protein 6.5, Albumin 3.6 04/15/19 06:07: Glucometer 94 04/15/19 10:28: Glucometer 187H 04/15/19 10:33: Urine Color YELLOW, Urine Clarity CLEAR, Urine pH 5, Urine Specific [place] 1.015L, Urine Protein NEGATIVE, Urine Glucose (UA) NEGATIVE, Urine Ketones NEGATIVE, Urine Nitrite NEGATIVE, Urine Bilirubin NEGATIVE, Urine Urobilinogen NORMAL, Urine Leukocyte Esterase 2+H, Urine RBC (Auto) 4+H, Urine RBC 10-25H, Urine WBC 5-10H, Urine Squamous Epithelial Cells 0-2, Urine Renal Epithelial Cells NONE, Urine Crystals NONE, Urine Bacteria FEWH, Urine Casts PRESENT, Urine Hyaline Casts 25-50H, Urine Mucus NEGATIVE, Urine Culture Indicated YES Microbiology 04/12/19 Blood Culture - Preliminary, Resulted No growth 04/12/19 Urine Culture - Final, Complete Klebsiella pneumoniae A/P: Assessment/Dx: Ac on chronic systolic and diastolic CHF Paroxysmal atrial fibrillation which now seems to have become chronic permanent atrial fibrillation Multivessel coronary artery disease for which the patient underwent coronary artery bypass surgery 07/14/2012. This consisted of left internal mammary artery graft to left anterior descending, saphenous vein graft to posterior descending and sequential saphenous vein to ramus intermedius and obtuse marginal. This was carried out at [facility] in [place], [place] by Dr. Juarez. Cardiac cath of 10-19-18 showed [place] CAD consisting of long 80-90% prox and mid vessel stenosis of the LAD, 80-90% stenosis of the prox portion of the RI, and diffuse mod disease of the RCA. Patent left internal mammary artery graft to distal LAD. Patent saphenous vein graft to RI. Chronically occluded saphenous vein graft to RCA. MPI of 8-23-16 is indicative of basal inferior infarction with a mod amount of aguila-infarct ischemia. Inferolateral hypokinesis. LVEF approx 46% Maturity onset diabetes mellitus, insulin requiring. Aortic stenosis, for which he has undergone TAVR at [facility] in [place], [place], on 10/10/14, mod dilated LA, mod conc LVH, mod MAC, mild to mod MR, bioprosthetic AoV working adequately, PASP 50-55 mmHg. According to a card that she carries this is an Baird bovine transcatheter valve, 26 mm, model 9300 TFX, in the aortic position Echo of 08/25/17 showed global LV systolic function mildly impaired with LVEF 45-50%. S/P bioprosthetic aortic valve which appears to be functioning normally. Mild to mod TR. Mild MR and PASP 45mmHg Chronic rivaroxaban anticoag for stroke prophylaxis Pulmonary HTN, with an estimated PASP of 75mmHg per echo of March 2014. Cardiac cath from July 25, 2014 showed moderate pulmonary HTN with mean pulmonary artery pressure of 33 mmHg and pulmonary vascular resistance of 5.4 Wood units. Echo of November 2014 shows PASP of approximately 45-50mmHg. Echo of 08/25/17 showed PASP 50-55 mmHg Hypertension CKD stage III Hyperlipidemia currently on statin therapy - followed by Dr. Parkinson Obesity with a body index of 49. Gastroesophageal reflux. Chronic right ankle swelling following ankle fracture several years ago. History of knee replacement surgery in 1999. History of surgery of the femur several years ago. Carotid arterial disease, consisting of 60% stenosis of the right internal carotid and 50% stenosis of the left internal carotid per CT angiography of 05/12/2013. 60-79% bilat stenosis of carotids per u/s of Oct 15, 2018 Incidentally diagnosed 7 mm right thyroid nodule on a CT scan of the carotid. This is being followed by Dr. Parkinson Sleep apnea syndrome - CPAP therapy Plan: * Diuretics for CHF * Rivaroxaban for stroke prophylaxis * Continue previous card regimen * Monitor labs Thank you for your consultation. Please call me if you have any questions. Naveen Parson MD, FACP, FACC, FSCAI, FHRS, CCDS Interventional Cardiology Cardiac Electrophysiology Vascular Medicine and Endovascular Interventions Focused Exam Lactate Level 04/12/19 17:25: Lactic Acid Level 2.08*H 04/12/19 19:22: Lactic Acid Level 0.78 Sana PARSON MD Apr 15, 2019 12:13
[2019-04-15] MEDS: RIVAROXABAN 15 MG TABLET (XARELTO) PO SCH (18:16)
[2019-04-15] MEDS: ROSUVASTATIN 20 MG (CRESTOR) TABLET PO SCH (21:29)
[2019-04-16 03:27] VITALS: BP 129/50
[2019-04-16 03:31] LABS: HEMOGLOBIN 9.7 G/DL (11.5-16.0); MEAN PLATELET VOLUME 10.9 FL (7.4-10.4); RED CELL DISTRIBUTION WIDTH 15.7 % (10.0-14.5); WHITE BLOOD COUNT 7.5 10^3/uL (4.3-11.0)
[2019-04-16 03:44] LABS: CALCIUM 9.3 MG/DL (8.5-10.1); CREATININE SERUM 1.12 MG/DL (0.60-1.30); POTASSIUM 4.6 MMOL/L (3.6-5.0)
[2019-04-16] MEDS: inSUlin ASPART (NovoLOG) 1 UNIT/0.01 ML (CHARGE PER UNIT) SC SCH ×4 (05:49→20:20)
[2019-04-16] MEDS ORDERED: MAGNESIUM 1 GM/100 ML IVPB 100 ML IV SCH (06:00)
[2019-04-16] MEDS ORDERED: KCL 20 MEQ TAB (K-DUR) PO SCH (06:00)
[2019-04-16] MEDS ORDERED: POTASSIUM CL 10MEQ/50ML IVPB 50 ML IV SCH (06:00)
[2019-04-16] MEDS: KCL 10 MEQ TAB (MICRO K) PO SCH ×2 (06:13→17:06)
[2019-04-16] MEDS: OMEGA 3 (FISH OIL) 1000 MG CAP PO SCH (06:13)
[2019-04-16] MEDS: FUROSEMIDE 40 MG/4 ML INJ (LASIX) IV SCH ×2 (06:13→17:06)
[2019-04-16] MEDS: AUGMENTIN 875 MG TAB (AMOXICILLIN/CLAVULANATE) PO SCH ×2 (06:13→17:06)
[2019-04-16] MEDS: CATHETER FLUSH 10 ML SYR IV SCH ×3 (06:14→21:51)
[2019-04-16 08:00] VITALS: BP 122/52
[2019-04-16] MEDS: meTOprolol TARTRATE 50 MG (LOPRESSOR) TAB PO SCH ×2 (09:01→21:00)
[2019-04-16] MEDS: ASPIRIN 81 MG CHEW (CHILDREN'S ASA) PO SCH (09:02)
[2019-04-16] MEDS: lisINopril 5 MG (PRINIVIL) TABLET PO SCH (09:02)
[2019-04-16] MEDS: DILTIAZEM 240 MG (CARDIZEM CD) CAP PO SCH (09:02)
--- NOTE | 2019-04-16 09:03 | Physical Therapy Evaluation ---
PT Evaluation-General Medical Diagnosis Admission Date Apr 12, 2019 at 19:10 Medical Diagnosis: CHF/fluid overload Onset Date: Apr 12, 2019 Therapy Diagnosis Therapy Diagnosis: debility Height/Weight Height (Feet): 5 Height (Inches): 6.00 Weight (Pounds): 296 Weight (Ounces): 1.0 Precautions Precautions/Isolations: Standard Precautions Weight Bear Status Right Lower Extremity: Right Weight Bearing/Tolerated Left Lower Extremity: Left Weight Bearing/Tolerated Referral Physician: Iggy Reason for Referral: Evaluation/Treatment Medical History Pertinent Medical History: Atrial Fib, CABG, CAD, DM, HTN, Renal Insufficiency Current History ER secondary to 30# weight gain/noncompliant patient per physician report Reviewed History: Yes Social History Home: Single Level Current Living Status: Children Entry Into Home: Stairs With Railing PT Steps Into Home: 4 Prior/Core FIM Prior Level of Function Therapy Code Descriptions/Definitions Functional [place] Measure: 0=Not Assessed/NA 4=Minimal Assistance 1=Total Assistance 5=Supervision or Setup 2=Maximal Assistance 6=Modified [place] 3=Moderate Assistance 7=Complete [place] Therapy Quality Codes: 6 Independent with activity with or without an assistive device 5 Patient requires set up or clean up by helper. Patient completes activity by themselves 4 Supervision or touching assist (CGA). [place] provide cues , steadying assist 3 The helper provides less than half the effort to complete the activity 2 The helper provides more than half the effort to complete the activity 1 Dependent. The helper does all the effort to complete an activity 7 Patient refused to complete or attempt activity 9 The patient did not perform the activity before the current illness or injury 88 Not attempted due to Medical conditions or safety concerns Functional Abilities and Goals: Independent: Patient completed the activities by him/herself, with or without an assistive device, with no assistance from a helper. Needed Some Help: Patient needed partial assistance from another person to com plete activities. Dependent: A helper completed the activities for the patient. Unknown: Not Applicable: Bed Mobility: 6 Transfers (B,C,W/C) (FIM): 6 Gait: 2 Stairs: 5 Indoor Mobility (Ambulation): Independent Stairs: Independent Prior Devices Use: Walker PT Evaluation-Current Subjective Patient agrees to PT. She report her feet hurt, however, does not rate pain. Objective Patient Orientation: Normal For Age Problem Solving: Fair Attachments: Oxygen, IV ROM/Strength ROM Lower Extremities WFL/noted edema Strength Lower Extremities 4-/5 grossly bilaterally Integumentary/Posture Integumentary refer to nursing notes Bowel Incontinence: No Posture WFL Neuromuscular (Tone, Coordination, Reflexes) grossly intact Sensory Vision: Functional Hearing: Functional Sensation Right Lower Extremit: Impaired Sensation Left Lower Extremity: Impaired Transfers Therapy Code Descriptions/Definitions Functional [place] Measure: 0=Not Assessed/NA 4=Minimal Assistance 1=Total Assistance 5=Supervision or Setup 2=Maximal Assistance 6=Modified [place] 3=Moderate Assistance 7=Complete [place] Transfers (B, C, W/C) (FIM): 4 Scootin Supine to/from Sit: 4 Sit to/from Stand: 4 Gait Mode of Locomotion: Walk Anticipated Mode of Locomotion: Walk Gait (FIM): 1 Distance (FIM): 1=up to 49 ft Distance: 15' x 2 Gait Level of Assist: 4 Gait Persons Needed: 1 Gait Assistive Device: FWW Comments/Gait Description WBOS/slow Balance Sitting Static: Normal Sitting Dynamic: Normal Standing Static: Good Standing Dynamic: Good Assessment/Needs 78 y.o. female, will be seen short term by skilled PT to address functional strength and mobility to improve current LOF to safely return to home with family. Rehab Potential: Fair Post Rehab Potential-Barriers: noncompliant PT Short Term Goals Short Term Goals Time Frame: Apr 23, 2019 Transfers (B,C,W/C) (FIM): 6 Gait (FIM): 2 Distance (FIM): 8=799-90 ft Gait Distance Comment: 100' Gait Level of Assist: 5 Gait Assistive Device: FWW PT Plan Problem List Problem List: Activity Tolerance, Safety, Gait, Transfer, Bed Mobility Treatment/Plan Treatment Plan: Continue Plan of Care Treatment Plan: Bed Mobility, Education, Functional Activity Cris, Functional Strength, Gait, Safety, Therapeutic Exercise, Transfers Treatment Duration: Apr 23, 2019 Frequency: 6 times per week Estimated Hrs Per Day: .25 hour per day Patient and/or Family Agrees t: Yes Discharge Recommendations Therapy D/C Recommendations: Home w/ Family Support, Longterm Placement, Correction (TCU/NH) Time/GCodes Time In: 710 Time Out: 727 Total Billed Treatment Time: 17 Total Billed Treatment 1 visit EVMod 17 min SHARON JERONIMO PT Apr 16, 2019 09:03
[2019-04-16 12:00] VITALS: BP 129/69
--- NOTE | 2019-04-16 12:07 | Progress Note - Hospitalist ---
Subjective HPI/CC On Admission Date Seen by Provider: Apr 16, 2019 Time Seen by Provider: 09:45 Subjective/Events-last exam Patient reports still feeling fatigued denies chest pain shortness of breath cough or dysuria with Dinero catheter to dependent drainage. Objective Exam Vital Signs Vital Signs Date Time Temp Pulse Resp B/P (MAP) Pulse Ox O2 Delivery O2 Flow Rate FiO2 04/16/19 09:00 99 Nasal Cannula 3.00 04/16/19 08:00 98.6 78 34 122/52 (75) Capillary Refill : Less Than 3 Seconds General Appearance: No Apparent Distress, WD/WN, Obese HEENT: Normal ENT Inspection Neck: Normal Inspection, Non Tender Respiratory: No Accessory Muscle Use, No Respiratory Distress, Decreased Breath Sounds Cardiovascular: Systolic Murmur (1-2/6 noted best at the apex holosystolic.), Irregularly Irregular Gastrointestinal: Non Tender, Soft Back: Normal Inspection, No CVA Tenderness, No Vertebral Tenderness Extremity: Normal Range of Motion, No Calf Tenderness, No Pedal Edema (3+ to the knees bilateral) Neurologic/Psychiatric: Alert, Oriented x3 Results/Procedures Lab Laboratory Tests 04/16/19 03:00 Patient resulted labs reviewed. Assessment/Plan Assessment and Plan Assess & Plan/Chief Complaint A/P 1. Acute on chronic diastolic and systolic heart failure compensating continue current medications transfer to the floor. 2. Type II diabetes mellitus on insulin continue current basal bolus therapy reasonable control. 3. Hypertension with stage III chronic renal disease stable. 4. History of pulmonary hypertension secondary to number 1. Clinical Quality Measures DVT/VTE Risk/Contraindication: Risk Factor Score Per Nursin RFS Level Per Nursing on Admit: 4+=Very High Contraindications-Pharm: Other *list below* WAQAS RAPP MD Apr 16, 2019 12:07
--- NOTE | 2019-04-16 13:49 | Cardiology Progress Note ---
Cardiology SOAP Progress Note Subjective: no significant cardiac symptoms. Objective: I&O/Vital Signs 04/16/19 04/16/19 04/16/19 04/16/19 03:27 04:00 07:00 08:00 Temp 97.8 98.6 Pulse 61 73 78 Resp 13 34 B/P (MAP) 129/50 (76) 122/52 (75) Pulse Ox 95 98 O2 Delivery NIV CPAP Nasal Cannula Nasal Cannula O2 Flow Rate 8.00 3.00 3.00 04/16/19 04/16/19 04/16/19 04/16/19 08:00 08:32 09:00 12:00 Temp 100.0 Pulse 71 Resp 18 B/P (MAP) 129/69 (89) Pulse Ox 99 99 98 O2 Delivery Nasal Cannula Nasal Cannula Nasal Cannula Nasal Cannula O2 Flow Rate 3.00 3.00 3.00 3.00 04/16/19 04/16/19 12:15 12:30 Pulse 68 Pulse Ox 98 O2 Delivery Nasal Cannula O2 Flow Rate 3.00 04/16/19 00:00 Intake Total 320 ml Output Total 1800 ml Balance -1480 ml Weight (Pounds): 296 Weight (Ounces): 1.0 Weight (Calculated Kilograms): 134.498864 Constitutional: AAO x 3, well-developed, other Respiratory: other (Fair bilat air entry, diminished at the bases; bilat fine and coarse basal crackles) Cardiovascular: regular rate-rhythm, S1 and S2, systolic murmur (2/6 MSM) Gastrointestional: No tender; distended; No guarding, No rebound; audible bowel sounds Extremities: No clubbing, No cyanosis; significant edema Neurologic/Psychiatric: oriented x 3, other (able to move all limbs equally) Skin: normal color, warm/dry; No rash on exposed areas, No ulcerations on exposed areas Results/Procedures: Labs Laboratory Tests 04/15/19 15:00: Glucometer 202H 04/15/19 21:23: Glucometer 226H 04/16/19 03:00: White Blood Count 7.5, Red Blood Count 3.45L, Hemoglobin 9.7L, Hematocrit 32L, Mean Corpuscular Volume 92, Mean Corpuscular Hemoglobin 28, Mean Corpuscular Hemoglobin Concent 31L, Red Cell Distribution Width 15.7H, Platelet Count 155, Mean Platelet Volume 10.9H, Sodium Level 139, Potassium Level 4.6, Chloride Level 99, Carbon Dioxide Level 29, Anion Gap 11, Blood Urea Nitrogen 32H, Creatinine 1.12, Estimat Glomerular Filtration Rate 47, BUN/Creatinine Ratio 29, Glucose Level 136H, Calcium Level 9.3 04/16/19 09:06: Glucometer 194H Microbiology 04/12/19 Blood Culture - Preliminary, Resulted No growth 04/12/19 Urine Culture - Final, Complete Klebsiella pneumoniae A/P: Assessment/Dx: Ac on chronic systolic and diastolic CHF Paroxysmal atrial fibrillation which now seems to have become chronic permanent atrial fibrillation Multivessel coronary artery disease for which the patient underwent coronary artery bypass surgery 07/14/2012. This consisted of left internal mammary artery graft to left anterior descending, saphenous vein graft to posterior descending and sequential saphenous vein to ramus intermedius and obtuse marginal. This was carried out at [facility] in [place], [place] by Dr. Juarez. Cardiac cath of 10-19-18 showed [place] CAD consisting of long 80-90% prox and mid vessel stenosis of the LAD, 80-90% stenosis of the prox portion of the RI, and diffuse mod disease of the RCA. Patent left internal mammary artery graft to distal LAD. Patent saphenous vein graft to RI. Chronically occluded saphenous vein graft to RCA. MPI of 823-16 is indicative of basal inferior infarction with a mod amount of aguila-infarct ischemia. Inferolateral hypokinesis. LVEF approx 46% Maturity onset diabetes mellitus, insulin requiring. Aortic stenosis, for which he has undergone TAVR at [facility] in [place], [place], on 10/10/14, mod dilated LA, mod conc LVH, mod MAC, mild to mod MR, bioprosthetic AoV working adequately, PASP 50-55 mmHg. According to a card that she carries this is an Baird bovine transcatheter valve, 26 mm, model 9300 TFX, in the aortic position Echo of 08/25/17 showed global LV systolic function mildly impaired with LVEF 45-50%. S/P bioprosthetic aortic valve which appears to be functioning normally. Mild to mod TR. Mild MR and PASP 45mmHg Chronic rivaroxaban anticoag for stroke prophylaxis Pulmonary HTN, with an estimated PASP of 75mmHg per echo of March 2014. Cardiac cath from July 25, 2014 showed moderate pulmonary HTN with mean pulmonary artery pressure of 33 mmHg and pulmonary vascular resistance of 5.4 Wood units. Echo of November 2014 shows PASP of approximately 45-50mmHg. Echo of 08/25/17 showed PASP 50-55 mmHg Hypertension CKD stage III Hyperlipidemia currently on statin therapy - followed by Dr. Parkinson Obesity with a body index of 49. Gastroesophageal reflux. Chronic right ankle swelling following ankle fracture several years ago. History of knee replacement surgery in 1999. History of surgery of the femur several years ago. Carotid arterial disease, consisting of 60% stenosis of the right internal carotid and 50% stenosis of the left internal carotid per CT angiography of 05/12/2013. 60-79% bilat stenosis of carotids per u/s of Oct 15, 2018 Incidentally diagnosed 7 mm right thyroid nodule on a CT scan of the carotid. This is being followed by Dr. Parkinson Sleep apnea syndrome - CPAP therapy Plan: * Diuretics for CHF * Rivaroxaban for stroke prophylaxis * Continue previous card regimen * Monitor labs Thank you for your consultation. Please call me if you have any questions. Naveen Parson MD, FACP, FACC, FSCAI, FHRS, CCDS Interventional Cardiology Cardiac Electrophysiology Vascular Medicine and Endovascular Interventions Sana PARSON MD Apr 16, 2019 13:49
[2019-04-16 16:02] VITALS: BP 124/69
[2019-04-16] MEDS: RIVAROXABAN 15 MG TABLET (XARELTO) PO SCH (17:06)
[2019-04-16 19:33] VITALS: BP 131/62
[2019-04-16 20:06] LABS: BILIRUBIN,URINE NEGATIVE (NEGATIVE); CLARITY,URINE SLIGHTLY CLOUDY; COLOR,URINE YELLOW; GLUCOSE, URINE (UA) NEGATIVE (NEGATIVE); KETONES,URINE NEGATIVE (NEGATIVE); LEUKOCYTE ESTERASE ,URINE 3+ (NEGATIVE); NITRITE,URINE NEGATIVE (NEGATIVE); PH,URINE 5 (5-9); PROTEIN,URINE NEGATIVE (NEGATIVE); UROBILINOGEN,URINE NORMAL (NORMAL)
[2019-04-16 20:13] LABS: BACTERIA,URINE TRACE /HPF; YEAST,URINE FEW /HPF
[2019-04-16] MEDS ORDERED: ACETAMINOPHEN 325 MG TABLET PO PRN (20:15)
[2019-04-16 20:18] LABS: BASOPHILS % (AUTO) 0 % (0-10); EOSINOPHILS # (AUTO) 0.1 10^3/uL (0.0-0.3); EOSINOPHILS % (AUTO) 1 % (0-10); HEMATOCRIT 31 % (35-52); HEMOGLOBIN 9.5 G/DL (11.5-16.0); LYMPHOCYTES # (AUTO) 1.3 X 10^3 (1.0-4.0); LYMPHOCYTES % (AUTO) 17 % (12-44); MEAN CORPUSCULAR HEMOGLOBIN 28 PG (25-34); MEAN CORPUSCULAR HGB CONC 30 G/DL (32-36); MEAN CORPUSCULAR VOLUME 92 FL (80-99); MEAN PLATELET VOLUME 10.4 FL (7.4-10.4); MONOCYTES # (AUTO) 0.7 X 10^3 (0.0-1.0); MONOCYTES % (AUTO) 9 % (0-12); NEUTROPHILS # (AUTO) 5.5 X 10^3 (1.8-7.8); NEUTROPHILS % (AUTO) 72 % (42-75); PLATELET COUNT 158 10^3/uL (130-400); RED CELL DISTRIBUTION WIDTH 16.1 % (10.0-14.5); WHITE BLOOD COUNT 7.5 10^3/uL (4.3-11.0)
[2019-04-16 20:29] LABS: ANISOCYTOSIS SLIGHT; BAND NEUTROPHILS 1 %; BASOPHILS % (MANUAL) 0 %; ELLIPT/OVALOCYTES SLIGHT; EOSINOPHILS % (MANUAL) 0 %; HYPOCHROMASIA MODERATE; LYMPHOCYTES % (MANUAL) 15 %; MONOCYTES % (MANUAL) 4 %; NEUTROPHILS % (MANUAL) 80 %; POLYCHROMASIA SLIGHT; TARGET CELLS SLIGHT
[2019-04-16 20:30] LABS: ROULEAUX SLIGHT
[2019-04-16] MEDS: ROSUVASTATIN 20 MG (CRESTOR) TABLET PO SCH (21:00)
--- NOTE | 2019-04-16 21:27 | Diagnostic Imaging Report ---
INDICATION: Fever. EXAMINATION: Chest, 04/16/2019. COMPARISON: 04/15/2019. FINDINGS: Heart is enlarged. There is pulmonary vascular congestion. Findings of edema throughout both lungs. No focal infiltrates and no pneumothorax. Sternotomy wires noted. Rounded density in the right upper quadrant, nonspecific. Cholelithiasis is possible. There is a nonspecific linear density left of midline in the lower chest, likely overlying the patient. Please correlate clinically. IMPRESSION: 1. Pulmonary vascular congestion with other chronic findings, as above. 2. Nonspecific but possible findings of cholelithiasis right upper quadrant. Dictated by: Dictated on workstation # [id number]
[2019-04-17 00:49] VITALS: BP 102/62
[2019-04-17 04:00] VITALS: BP 107/54
[2019-04-17] MEDS: CATHETER FLUSH 10 ML SYR IV SCH ×3 (06:27→21:34)
[2019-04-17] MEDS: inSUlin ASPART (NovoLOG) 1 UNIT/0.01 ML (CHARGE PER UNIT) SC SCH ×4 (06:27→20:53)
[2019-04-17] MEDS: AUGMENTIN 875 MG TAB (AMOXICILLIN/CLAVULANATE) PO SCH ×2 (06:28→16:18)
[2019-04-17] MEDS: OMEGA 3 (FISH OIL) 1000 MG CAP PO SCH (06:28)
[2019-04-17] MEDS: KCL 10 MEQ TAB (MICRO K) PO SCH ×2 (06:28→16:18)
[2019-04-17] MEDS: FUROSEMIDE 40 MG/4 ML INJ (LASIX) IV SCH ×2 (06:28→16:17)
[2019-04-17 08:00] VITALS: BP 123/75
[2019-04-17] MEDS: DILTIAZEM 240 MG (CARDIZEM CD) CAP PO SCH (08:36)
[2019-04-17] MEDS: lisINopril 5 MG (PRINIVIL) TABLET PO SCH (08:36)
[2019-04-17] MEDS: meTOprolol TARTRATE 50 MG (LOPRESSOR) TAB PO SCH ×2 (08:36→20:52)
[2019-04-17] MEDS: ASPIRIN 81 MG CHEW (CHILDREN'S ASA) PO SCH (08:37)
--- NOTE | 2019-04-17 10:55 | Progress Note - Hospitalist ---
Subjective HPI/CC On Admission Date Seen by Provider: Apr 17, 2019 Time Seen by Provider: 10:00 Patient reports she's feeling better voices no complaints other than fatigue. Denies chest pain palpitations with no dyspnea at rest. Objective Exam Vital Signs Vital Signs Date Time Temp Pulse Resp B/P (MAP) Pulse Ox O2 Delivery O2 Flow Rate FiO2 04/17/19 09:01 Nasal Cannula 3.00 04/17/19 08:00 99.1 74 20 123/75 (91) 97 Capillary Refill : Less Than 3 Seconds General Appearance: No Apparent Distress, WD/WN, Obese HEENT: Normal ENT Inspection Neck: Normal Inspection, Non Tender Respiratory: No Accessory Muscle Use, No Respiratory Distress, Decreased Breath Sounds Cardiovascular: Systolic Murmur (1-2/6 noted best at the apex holosystolic.), Irregularly Irregular Gastrointestinal: Non Tender, Soft Back: Normal Inspection, No CVA Tenderness, No Vertebral Tenderness Extremity: Normal Range of Motion, No Calf Tenderness, Other (Trace to 1+ symmetrical pedal edema in the mid tibia unchanged despite the fact that the patient has been sitting up more with legs down in the last 24 hours.) Neurologic/Psychiatric: Alert, Oriented x3 Results/Procedures Lab Laboratory Tests 04/16/19 20:13 Patient resulted labs reviewed. Assessment/Plan Assessment and Plan Assess & Plan/Chief Complaint A/P 1. Acute on chronic diastolic and systolic heart failure compensating continue current medications. 2. Type II diabetes mellitus on insulin continue current basal bolus therapy reasonable control. 3. Hypertension with stage III chronic renal disease stable. Repeat basic metabolic panel in the morning. 4. History of pulmonary hypertension secondary to number 1. 5. Anemia likely chronic disease may be a component of renal disease as well repeat CBC in the morning. Clinical Quality Measures DVT/VTE Risk/Contraindication: Risk Factor Score Per Nursin RFS Level Per Nursing on Admit: 4+=Very High Contraindications-Pharm: Other *list below* WAQAS RAPP MD Apr 17, 2019 10:55
[2019-04-17 12:00] VITALS: BP 118/67
[2019-04-17] MEDS ORDERED: POLYETHYLENE GLYCOL 17 GM (MIRALAX) PACK PO NR (14:30)
--- NOTE | 2019-04-17 15:20 | Cardiology Progress Note ---
Cardiology SOAP Progress Note Subjective: No cardiac symptoms. Objective: I&O/Vital Signs 04/17/19 04/17/19 04/17/19 04/17/19 04:00 04:11 07:00 08:00 Temp 99.7 99.1 Pulse 66 73 74 Resp 22 20 B/P (MAP) 107/54 (71) 123/75 (91) Pulse Ox 97 97 97 O2 Delivery Nasal Cannula Nasal Cannula Nasal Cannula O2 Flow Rate 3.00 3.00 3.00 04/17/19 04/17/19 04/17/19 04/17/19 08:49 09:01 12:00 13:32 Temp 98.8 Pulse 63 66 Resp 20 B/P (MAP) 118/67 (84) Pulse Ox 98 O2 Delivery Nasal Cannula Nasal Cannula Nasal Cannula O2 Flow Rate 3.00 3.00 3.00 04/17/19 00:00 Intake Total 1030 ml Output Total 625 ml Balance 405 ml Weight (Pounds): 296 Weight (Ounces): 1.0 Weight (Calculated Kilograms): 134.521591 Constitutional: AAO x 3, well-developed, other Respiratory: other (Fair bilat air entry, diminished at the bases; bilat fine and coarse basal crackles) Cardiovascular: regular rate-rhythm, S1 and S2, systolic murmur (2/6 MSM) Gastrointestional: No tender; distended; No guarding, No rebound; audible bowel sounds Extremities: No clubbing, No cyanosis; significant edema Neurologic/Psychiatric: oriented x 3, other (able to move all limbs equally) Skin: normal color, warm/dry; No rash on exposed areas, No ulcerations on exposed areas Results/Procedures: Labs Laboratory Tests 04/16/19 19:50: Urine Color YELLOW, Urine Clarity SLIGHTLY CLOUDY, Urine pH 5, Urine Specific [place] 1.015L, Urine Protein NEGATIVE, Urine Glucose (UA) NEGATIVE, Urine Ketones NEGATIVE, Urine Nitrite NEGATIVE, Urine Bilirubin NEGATIVE, Urine Urobilinogen NORMAL, Urine Leukocyte Esterase 3+H, Urine RBC (Auto) 3+H, Urine RBC 2-5H, Urine WBC 10-25H, Urine Squamous Epithelial Cells NONE, Urine Crystals NONE, Urine Bacteria TRACE, Urine Casts PRESENT, Urine Hyaline Casts 10-25H, Urine Mucus SMALLH, Urine Yeast FEWH, Urine Culture Indicated YES 04/16/19 20:12: Glucometer 236H 04/16/19 20:13: White Blood Count 7.5, Red Blood Count 3.38L, Hemoglobin 9.5L, Hematocrit 31L, Mean Corpuscular Volume 92, Mean Corpuscular Hemoglobin 28, Mean Corpuscular Hemoglobin Concent 30L, Red Cell Distribution Width 16.1H, Platelet Count 158, Mean Platelet Volume 10.4, Neutrophils (%) (Auto) 72, Lymphocytes (%) (Auto) 17, Monocytes (%) (Auto) 9, Eosinophils (%) (Auto) 1, Basophils (%) (Auto) 0, Neutrophils # (Auto) 5.5, Lymphocytes # (Auto) 1.3, Monocytes # (Auto) 0.7, Eosinophils # (Auto) 0.1, Basophils # (Auto) 0.0, Neutrophils % (Manual) 80, Lymphocytes % (Manual) 15, Monocytes % (Manual) 4, Eosinophils % (Manual) 0, Basophils % (Manual) 0, Band Neutrophils 1, Polychromasia SLIGHT, Hypochromasia MODERATE, Anisocytosis SLIGHT, Target Cells SLIGHT, Elliptocytes SLIGHT, Rouleau SLIGHT 04/17/19 06:04: Glucometer 86 04/17/19 10:20: Glucometer 197H 04/17/19 14:10: Glucometer 198H Microbiology 04/12/19 Blood Culture - Preliminary, Resulted No growth 04/15/19 Urine Culture - Final, Complete NO GROWTH A/P: Assessment/Dx: Ac on chronic systolic and diastolic CHF Paroxysmal atrial fibrillation which now seems to have become chronic permanent atrial fibrillation Multivessel coronary artery disease for which the patient underwent coronary artery bypass surgery 07/14/2012. This consisted of left internal mammary artery graft to left anterior descending, saphenous vein graft to posterior descending and sequential saphenous vein to ramus intermedius and obtuse marginal. This was carried out at [facility] in [place], [place] by Dr. Juarez. Cardiac cath of 10-19-18 showed [place] CAD consisting of long 80-90% prox and mid vessel stenosis of the LAD, 80-90% stenosis of the prox portion of the RI, and diffuse mod disease of the RCA. Patent left internal mammary artery graft to distal LAD. Patent saphenous vein graft to RI. Chronically occluded saphenous vein graft to RCA. MPI of 05-27-16 is indicative of basal inferior infarction with a mod amount of aguila-infarct ischemia. Inferolateral hypokinesis. LVEF approx 46% Maturity onset diabetes mellitus, insulin requiring. Aortic stenosis, for which he has undergone TAVR at [facility] in [place], [place], on 10/10/14, mod dilated LA, mod conc LVH, mod MAC, mild to mod MR, bioprosthetic AoV working adequately, PASP 50-55 mmHg. According to a card that she carries this is an Baird bovine transcatheter valve, 26 mm, model 9300 TFX, in the aortic position Echo of 08/25/17 showed global LV systolic function mildly impaired with LVEF 45-50%. S/P bioprosthetic aortic valve which appears to be functioning normally. Mild to mod TR. Mild MR and PASP 45mmHg Chronic rivaroxaban anticoag for stroke prophylaxis Pulmonary HTN, with an estimated PASP of 75mmHg per echo of March 2014. Cardiac cath from July 25, 2014 showed moderate pulmonary HTN with mean pulmonary artery pressure of 33 mmHg and pulmonary vascular resistance of 5.4 Wood units. Echo of November 2014 shows PASP of approximately 45-50mmHg. Echo of 08/25/17 showed PASP 50-55 mmHg Hypertension CKD stage III Hyperlipidemia currently on statin therapy - followed by Dr. Parkinson Obesity with a body index of 49. Gastroesophageal reflux. Chronic right ankle swelling following ankle fracture several years ago. History of knee replacement surgery in 1999. History of surgery of the femur several years ago. Carotid arterial disease, consisting of 60% stenosis of the right internal carotid and 50% stenosis of the left internal carotid per CT angiography of 05/12/2013. 60-79% bilat stenosis of carotids per u/s of Oct 15, 2018 Incidentally diagnosed 7 mm right thyroid nodule on a CT scan of the carotid. This is being followed by Dr. Parkinson Sleep apnea syndrome - CPAP therapy Plan: * Diuretics for CHF * Rivaroxaban for stroke prophylaxis * Continue previous card regimen * Monitor labs Thank you for your consultation. Please call me if you have any questions. Naveen Parson MD, FACP, FACC, FSCAI, FHRS, CCDS Interventional Cardiology Cardiac Electrophysiology Vascular Medicine and Endovascular Interventions Sana PARSON MD Apr 17, 2019 3:20 pm
[2019-04-17 16:00] VITALS: BP 120/61
[2019-04-17] MEDS: RIVAROXABAN 15 MG TABLET (XARELTO) PO SCH (16:17)
[2019-04-17 20:00] VITALS: BP 146/71
[2019-04-17] MEDS: POLYETHYLENE GLYCOL 17 GM (MIRALAX) PACK PO SCH (20:52)
[2019-04-17] MEDS: ROSUVASTATIN 20 MG (CRESTOR) TABLET PO SCH (20:52)
[2019-04-18 00:55] VITALS: BP 133/60
[2019-04-18 04:30] VITALS: BP 142/67
[2019-04-18 05:49] LABS: BASOPHILS % (AUTO) 0 % (0-10); EOSINOPHILS # (AUTO) 0.1 10^3/uL (0.0-0.3); EOSINOPHILS % (AUTO) 1 % (0-10); HEMATOCRIT 32 % (35-52); HEMOGLOBIN 9.7 G/DL (11.5-16.0); LYMPHOCYTES # (AUTO) 1.7 X 10^3 (1.0-4.0); LYMPHOCYTES % (AUTO) 19 % (12-44); MEAN CORPUSCULAR HEMOGLOBIN 28 PG (25-34); MEAN CORPUSCULAR HGB CONC 30 G/DL (32-36); MEAN CORPUSCULAR VOLUME 91 FL (80-99); MEAN PLATELET VOLUME 11.4 FL (7.4-10.4); MONOCYTES # (AUTO) 0.7 X 10^3 (0.0-1.0); MONOCYTES % (AUTO) 8 % (0-12); NEUTROPHILS # (AUTO) 6.1 X 10^3 (1.8-7.8); NEUTROPHILS % (AUTO) 71 % (42-75); PLATELET COUNT 165 10^3/uL (130-400); RED CELL DISTRIBUTION WIDTH 15.7 % (10.0-14.5); WHITE BLOOD COUNT 8.5 10^3/uL (4.3-11.0)
[2019-04-18] MEDS: inSUlin ASPART (NovoLOG) 1 UNIT/0.01 ML (CHARGE PER UNIT) SC SCH ×4 (06:08→20:37)
[2019-04-18] MEDS: OMEGA 3 (FISH OIL) 1000 MG CAP PO SCH (06:09)
[2019-04-18] MEDS: FUROSEMIDE 40 MG/4 ML INJ (LASIX) IV SCH (06:09)
[2019-04-18] MEDS: CATHETER FLUSH 10 ML SYR IV SCH ×3 (06:09→20:41)
[2019-04-18] MEDS: AUGMENTIN 875 MG TAB (AMOXICILLIN/CLAVULANATE) PO SCH ×2 (06:09→17:04)
[2019-04-18] MEDS: KCL 10 MEQ TAB (MICRO K) PO SCH (06:09)
[2019-04-18 06:13] LABS: CALCIUM 9.4 MG/DL (8.5-10.1); CREATININE SERUM 1.68 MG/DL (0.60-1.30); POTASSIUM 5.3 MMOL/L (3.6-5.0)
[2019-04-18 08:00] VITALS: BP 131/61
--- NOTE | 2019-04-18 08:03 | Progress Note ---
Subjective Time Seen by a Provider: 08:00 Subjective/Events-last exam Patient feeling a little better. Patient still has pretibial edema but less. To stop Lasix IV due to renal insufficiency. Potassium 5.3 to hold KCl. Plan to discharge patient tomorrow Objective Exam Vital Signs Date Time Temp Pulse Resp B/P (MAP) Pulse Ox O2 Delivery O2 Flow Rate FiO2 04/18/19 04:30 98.9 71 22 142/67 (92) 94 Nasal Cannula 3.00 04/18/19 01:00 63 04/18/19 00:55 98.8 67 22 133/60 (84) 93 Nasal Cannula 3.00 04/17/19 21:00 Nasal Cannula 3.00 04/17/19 20:00 98.5 66 20 146/71 (96) 98 Nasal Cannula 3.00 04/17/19 19:00 77 04/17/19 16:00 99.6 65 22 120/61 (80) 98 Nasal Cannula 3.00 04/17/19 13:32 66 04/17/19 12:00 98.8 63 20 118/67 (84) 98 Nasal Cannula 3.00 04/17/19 09:01 Nasal Cannula 3.00 04/17/19 08:49 Nasal Cannula 3.00 I & O 04/18/19 06:59 Intake Total 3300 ml Output Total 1550 ml Balance 1750 ml Capillary Refill : Less Than 3 Seconds General Appearance: No Apparent Distress, WD/WN HEENT: Normal ENT Inspection Neck: Full Range of Motion, Normal Inspection Respiratory: No Accessory Muscle Use, No Respiratory Distress, Decreased Breath Sounds Cardiovascular: Irregularly Irregular Gastrointestinal: non tender, soft Extremity: Other (Swelling of legs less) Results Lab Laboratory Tests 04/17/19 10:20: Glucometer 197H 04/17/19 14:10: Glucometer 198H 04/17/19 19:24: Glucometer 194H 04/18/19 04:55: White Blood Count 8.5, Red Blood Count 3.49L, Hemoglobin 9.7L, Hematocrit 32L, Mean Corpuscular Volume 91, Mean Corpuscular Hemoglobin 28, Mean Corpuscular Hemoglobin Concent 30L, Red Cell Distribution Width 15.7H, Platelet Count 165, Mean Platelet Volume 11.4H, Neutrophils (%) (Auto) 71, Lymphocytes (%) (Auto) 19, Monocytes (%) (Auto) 8, Eosinophils (%) (Auto) 1, Basophils (%) (Auto) 0, Neutrophils # (Auto) 6.1, Lymphocytes # (Auto) 1.7, Monocytes # (Auto) 0.7, Eosinophils # (Auto) 0.1, Basophils # (Auto) 0.0, Sodium Level 135, Potassium Level 5.3H, Chloride Level 93L, Carbon Dioxide Level 30, Anion Gap 12, Blood Urea Nitrogen 53H, Creatinine 1.68H, Estimat Glomerular Filtration Rate 29, BUN/Creatinine Ratio 32, Glucose Level 98, Calcium Level 9.4 04/18/19 05:05: Glucometer 116H Microbiology 04/12/19 Blood Culture - Preliminary, Resulted No growth 04/16/19 Urine Culture - Preliminary, Resulted Culture In Progress Assessment/Plan Assessment/Plan Assess & Plan/Chief Complaint CHF. Fluid overload. A. fib. Diabetes. Coronary artery disease.. . 04/15/19. CHF. Fluid overload. A. fib. Renal insufficiency. Atrial fibrillation. Coronary artery disease. Hyperlipidemia. Dyspnea. Patient on oxygen the first time. Patient at home did not need oxygen previously. . 08/19/19. CHF. Fluid overload. A. fib Renal insufficiency Atrial fibrillation. Coronary artery disease. Hyperlipidemia. Dyspnea Clinical Quality Measures Admission Status Admission Dx Acute and chronic congestive heart failure. Fluid overdose. Sleep apnea. Renal insufficiency. A. fib. Aortic stenosis. Hyperlipidemia. Obesity. GERD.. Elevated troponin AL type II DVT/VTE Risk/Contraindication: Risk Factor Score Per Nursin RFS Level Per Nursing on Admit: 4+=Very High Contraindications-Pharm: Other *list below* LILY ROJAS DO Apr 18, 2019 08:03
[2019-04-18] MEDS: ASPIRIN 81 MG CHEW (CHILDREN'S ASA) PO SCH (08:25)
[2019-04-18] MEDS: lisINopril 5 MG (PRINIVIL) TABLET PO SCH (08:25)
[2019-04-18] MEDS: BISACODYL 5 MG (DULCOLAX) TABLET PO SCH ×2 (08:25→20:40)
[2019-04-18] MEDS: meTOprolol TARTRATE 50 MG (LOPRESSOR) TAB PO SCH ×2 (08:25→20:39)
[2019-04-18] MEDS: DILTIAZEM 240 MG (CARDIZEM CD) CAP PO SCH (08:26)
--- NOTE | 2019-04-18 10:18 | Physical Therapy Daily Note ---
PT Daily Note-Current Subjective Patient agrees to PT. No c/o. She reports she is going home tomorrow. Mental Status Patient Orientation: Normal For Age Attachments: Oxygen Transfers Therapy Code Descriptions/Definitions Functional Bucks Measure: 0=Not Assessed/NA 4=Minimal Assistance 1=Total Assistance 5=Supervision or Setup 2=Maximal Assistance 6=Modified Bucks 3=Moderate Assistance 7=Complete Bucks Therapy Quality Codes: 6 Independent with activity with or without an assistive device 5 Patient requires set up or clean up by helper. Patient completes activity by themselves 4 Supervision or touching assist (CGA). [place] provide cues , steadying assist 3 The helper provides less than half the effort to complete the activity 2 The helper provides more than half the effort to complete the activity 1 Dependent. The helper does all the effort to complete an activity 7 Patient refused to complete or attempt activity 9 The patient did not perform the activity before the current illness or injury 88 Not attempted due to Medical conditions or safety concerns Transfers (B, C, W/C) (FIM): 6 Scootin Rollin Supine to/from Sit: 6 Sit to/from Stand: 6 Bed to/from Chair: 6 Weight Bearing Right Lower Extremity: Right Weight Bearing/Tolerated Left Lower Extremity: Left Weight Bearing/Tolerated Gait Training Gait (FIM): 2 Distance (FIM): 3=946-77 ft Distance: 120' Gait Level of Assist: 6 Gait Assistive Device: FWW Patient ambulates short distances only PLOF. Assessment Patient is currently at PLOF with all gross motor skills and will dismiss to home tomorrow with family. PT Short Term Goals Short Term Goals Time Frame: Apr 23, 2019 Transfers (B,C,W/C) (FIM): 6 Gait (FIM): 2 Distance (FIM): 3=388-98 ft Gait Distance Comment: 100' Gait Level of Assist: 5 Gait Assistive Device: FWW PT Plan Treatment/Plan Treatment Plan: Continue Plan of Care Treatment Plan: Bed Mobility, Education, Functional Activity Cris, Functional Strength, Gait, Safety, Therapeutic Exercise, Transfers Treatment Duration: Apr 23, 2019 Frequency: 6 times per week Estimated Hrs Per Day: .25 hour per day Patient and/or Family Agrees t: Yes Time/GCodes Time In: 911 Time Out: 924 Total Billed Treatment Time: 13 Total Billed Treatment 1 visit FA 13 min SHARON JERONIMO PT Apr 18, 2019 10:17
--- NOTE | 2019-04-18 11:22 | Occupational Therapy Eval ---
OT Evaluation-General/PLF Medical Diagnosis Admission Date Apr 12, 2019 at 19:10 Medical Diagnosis: CHF/fluid overload Onset Date: Apr 12, 2019 Therapy Diagnosis Therapy Diagnosis: impaired ADLs and mobility Height/Weight Height (Feet): 5 Height (Inches): 6.00 Weight (Pounds): 295 Weight (Ounces): 2.0 Precautions Precautions/Isolations: Fall Prevention, Standard Precautions Safety Interventions: Bed Exit Alarm Weight Bear Status Weight Bearing Restriction: Weight Bearing/Tolerated Referral Physician: Iggy Referral Reason: Activity Tolerance, Self Care, Evaluation/Treatment, Strengthening/ROM Medical History Pertinent Medical History: Atrial Fib, CABG, CAD, DM, HTN, Renal Insufficiency Current History ER secondary to 30# weight gain/noncompliant patient per physician report Reviewed History: Yes Social History Home: Single Level Current Living Status: Children Entry Into Home: Stairs With Railing Steps Into Home: 4 ADL-Prior Level of Function Therapy Code Descriptions/Definitions Functional [place] Measure: 0=Not Assessed/NA 4=Minimal Assistance 1=Total Assistance 5=Supervision or Setup 2=Maximal Assistance 6=Modified [place] 3=Moderate Assistance 7=Complete [place] Therapy Quality Codes: 6 Independent with activity with or without an assistive device 5 Patient requires set up or clean up by helper. Patient completes activity by themselves 4 Supervision or touching assist (CGA). [place] provide cues , steadying assist 3 The helper provides less than half the effort to complete the activity 2 The helper provides more than half the effort to complete the activity 1 Dependent. The helper does all the effort to complete an activity 7 Patient refused to complete or attempt activity 9 The patient did not perform the activity before the current illness or injury 88 Not attempted due to Medical conditions or safety concerns Functional Abilities and Goals: Independent: Patient completed the activities by him/herself, with or without an assistive device, with no assistance from a helper. Needed Some Help: Patient needed partial assistance from another person to complete activities. Dependent: A helper completed the activities for the patient. Unknown: Not Applicable: ADL PLOF Comments per pt: pt children assist her with her ADLs. pt required SPV when performing functional transfers, and [place] complete donning/ doffing footwear. Functional Cognition: Independent DME/Equipment: Bath Chair, Grab Bars, Tub/Shower Drive Self: No OT Current Status Subjective pt sitting in recliner chair upon OT arrival. pt agreed to OT eval session. pt reports 2/10 pain josh josh LE Mental Status/Objective Patient Orientation: Person, Place, Time, Situation Current Glasses/Contacts: Yes Hearing Aids: No Dentures/Partials: No Hand Dominance: Right Upper Extremity ROM WNL Upper Extremity Coordination finger to nose test: WFL opposition: WFL Upper Extremity Sensation josh UE WFL Josh feet no sensation Upper Extremity Strength 4-/5 MMT ADL-Treatment Therapy Code Descriptions/Definitions Functional [place] Measure: 0=Not Assessed/NA 4=Minimal Assistance 1=Total Assistance 5=Supervision or Setup 2=Maximal Assistance 6=Modified [place] 3=Moderate Assistance 7=Complete [place] Therapy Quality Codes: 6 Independent with activity with or without an assistive device 5 Patient requires set up or clean up by helper. Patient completes activity by themselves 4 Supervision or touching assist (CGA). [place] provide cues , steadying assist 3 The helper provides less than half the effort to complete the activity 2 The helper provides more than half the effort to complete the activity 1 Dependent. The helper does all the effort to complete an activity 7 Patient refused to complete or attempt activity 9 The patient did not perform the activity before the current illness or injury 88 Not attempted due to Medical conditions or safety concerns OT Short Term Goals Short Term Goals Time Frame: Apr 28, 2019 Bathing(FIM): 5 Upper Body Dressing(FIM): 5 Toileting(FIM): 5 Transfers (B,C,W/C) (FIM): 6 Toilet/Commode Transfer(FIM): 5 1=Demonstrate adherence to instructed precautions during ADL tasks. 2=Patient will verbalize/demonstrate understanding of assistive devices/modifi cations for ADL. 3=Patient will improve strength/tolerance for activity to enable patient to perform ADL's. OT Shift Supervisor Rn Goals Nursing Home Goals Time Frame: May 02, 2019 Grooming(FIM): 6 Toileting(FIM): 6 Transfers (B,C,W/C) (FIM): 6 Toilet/Commode Transfer(FIM): 6 Additional Goals: 1-Demonstrate ADL Tasks, 2-Verbalize Understanding, 3-ImproveStrength/Cris 1=Demonstrate adherence to instructed precautions during ADL tasks. 2=Patient will verbalize/demonstrate understanding of assistive devices/modifications for ADL. 3=Patient will improve strength/tolerance for activity to enable patient to perform ADL's. OT Education/Plan Problem List/Assessment Assessment: Decreased Activ Tolerance, Decreased Safety Aware, Decreased UE Strength, Impaired Funct Balance, Impaired I ADL's, Impaired Self-Care Skills pt presents with functional limitations affecting areas of ADLs and functional transfers with the above mention deficits. would benefit from OT services to increase independence with ADLs and functional transfers. recommended OT HH when d/c Discharge Recommendations Plan/Recommendations: Continue POC Therapy D/C Recommendations: 24 hr Supervision, Home w/ Family Support, Occupational Therapy Home Care Treatment Plan/Plan of Care Treatment,Training & Education: Yes Patient would benefit from OT for education, treatment and training to promote independence in ADL's, mobility, safety and/or upper extremity function for ADL's. Plan of Care: ADL Retraining, Caregiver Training, Functional Mobility, Group Exercise/Act as Ind, UE Funct Exercise/Act Treatment Duration: May 02, 2019 Frequency: 5 times per week Estimated Hrs Per Day: .25 hour per day Agreement: Yes Rehab Potential: Fair Time/GCodes Start Time: 11:05 Stop Time: 11:20 Billed Treatment Time EVM 15 minutes TORY VILLALTA OT Apr 18, 2019 11:22
[2019-04-18 12:00] VITALS: BP 108/55
[2019-04-18 16:00] VITALS: BP 142/63
[2019-04-18] MEDS: RIVAROXABAN 15 MG TABLET (XARELTO) PO SCH (17:04)
--- NOTE | 2019-04-18 18:03 | Cardiology Progress Note ---
Cardiology SOAP Progress Note Subjective: Improved symptoms. Objective: I&O/Vital Signs 04/18/19 04/18/19 04/18/19 04/18/19 07:00 08:00 09:00 09:37 Temp 98.8 Pulse 72 74 Resp 24 B/P (MAP) 131/61 (84) Pulse Ox 98 O2 Delivery Nasal Cannula Nasal Cannula Nasal Cannula O2 Flow Rate 3.00 3.00 3.00 04/18/19 04/18/19 04/18/19 12:00 13:00 16:00 Temp 98.0 99.5 Pulse 68 84 76 Resp 22 20 B/P (MAP) 108/55 (72) 142/63 (89) Pulse Ox 88 98 O2 Delivery Room Air Nasal Cannula O2 Flow Rate 3.00 04/18/19 00:00 Intake Total 2350 ml Output Total 1050 ml Balance 1300 ml Weight (Pounds): 295 Weight (Ounces): 2.0 Weight (Calculated Kilograms): 133.809491 Constitutional: AAO x 3, well-developed, other Respiratory: other (Fair bilat air entry, diminished at the bases; bilat fine and coarse basal crackles) Cardiovascular: regular rate-rhythm, S1 and S2, systolic murmur (2/6 MSM) Gastrointestional: No tender; distended; No guarding, No rebound; audible bowel sounds Extremities: No clubbing, No cyanosis; significant edema Neurologic/Psychiatric: oriented x 3, other (able to move all limbs equally) Skin: normal color, warm/dry; No rash on exposed areas, No ulcerations on exposed areas Results/Procedures: Labs Laboratory Tests 04/17/19 19:24: Glucometer 194H 04/18/19 04:55: White Blood Count 8.5, Red Blood Count 3.49L, Hemoglobin 9.7L, Hematocrit 32L, Mean Corpuscular Volume 91, Mean Corpuscular Hemoglobin 28, Mean Corpuscular Hemoglobin Concent 30L, Red Cell Distribution Width 15.7H, Platelet Count 165, Mean Platelet Volume 11.4H, Neutrophils (%) (Auto) 71, Lymphocytes (%) (Auto) 19, Monocytes (%) (Auto) 8, Eosinophils (%) (Auto) 1, Basophils (%) (Auto) 0, Neutrophils # (Auto) 6.1, Lymphocytes # (Auto) 1.7, Monocytes # (Auto) 0.7, Eosinophils # (Auto) 0.1, Basophils # (Auto) 0.0, Sodium Level 135, Potassium Level 5.3H, Chloride Level 93L, Carbon Dioxide Level 30, Anion Gap 12, Blood Urea Nitrogen 53H, Creatinine 1.68H, Estimat Glomerular Filtration Rate 29, BUN/Creatinine Ratio 32, Glucose Level 98, Calcium Level 9.4 04/18/19 05:05: Glucometer 116H 04/18/19 10:34: Glucometer 170H 04/18/19 15:04: Glucometer 198H Microbiology 04/12/19 Blood Culture - Final, Complete No growth 04/16/19 Urine Culture - Preliminary, Resulted Klebsiella pneumoniae A/P: Assessment/Dx: Ac on chronic systolic and diastolic CHF Paroxysmal atrial fibrillation which now seems to have become chronic permanent atrial fibrillation Multivessel coronary artery disease for which the patient underwent coronary artery bypass surgery 07/14/2012. This consisted of left internal mammary artery graft to left anterior descending, saphenous vein graft to posterior descending and sequential saphenous vein to ramus intermedius and obtuse marginal. This was carried out at [facility] in [place], [place] by Dr. Juarez. Cardiac cath of 10-19-18 showed habematolel CAD consisting of long 80-90% prox and mid vessel stenosis of the LAD, 80-90% stenosis of the prox portion of the RI, and diffuse mod disease of the RCA. Patent left internal mammary artery graft to distal LAD. Patent saphenous vein graft to RI. Chronically occluded saphenous vein graft to RCA. MPI of 8-23-16 is indicative of basal inferior infarction with a mod amount of aguila-infarct ischemia. Inferolateral hypokinesis. LVEF approx 46% Maturity onset diabetes mellitus, insulin requiring. Aortic stenosis, for which he has undergone TAVR at [facility] in [place], [place], on 10/10/14, mod dilated LA, mod conc LVH, mod MAC, mild to mod MR, bioprosthetic AoV working adequately, PASP 50-55 mmHg. According to a card that she carries this is an Baird bovine transcatheter valve, 26 mm, model 9300 TFX, in the aortic position Echo of 08/25/17 showed global LV systolic function mildly impaired with LVEF 45-50%. S/P bioprosthetic aortic valve which appears to be functioning normally. Mild to mod TR. Mild MR and PASP 45mmHg Chronic rivaroxaban anticoag for stroke prophylaxis Pulmonary HTN, with an estimated PASP of 75mmHg per echo of March 2014. Cardiac cath from July 25, 2014 showed moderate pulmonary HTN with mean pulmonary artery pressure of 33 mmHg and pulmonary vascular resistance of 5.4 Wood units. Echo of November 2014 shows PASP of approximately 45-50mmHg. Echo of 08/25/17 showed PASP 50-55 mmHg Hypertension CKD stage III Hyperlipidemia currently on statin therapy - followed by Dr. Parkinson Obesity with a body index of 49. Gastroesophageal reflux. Chronic right ankle swelling following ankle fracture several years ago. History of knee replacement surgery in 1999. History of surgery of the femur several years ago. Carotid arterial disease, consisting of 60% stenosis of the right internal carotid and 50% stenosis of the left internal carotid per CT angiography of 05/12/2013. 60-79% bilat stenosis of carotids per u/s of Oct 15, 2018 Incidentally diagnosed 7 mm right thyroid nodule on a CT scan of the carotid. This is being followed by Dr. Parkinson Sleep apnea syndrome - CPAP therapy Plan: * Diuretics for CHF * Rivaroxaban for stroke prophylaxis * Continue previous card regimen * Monitor labs Thank you for your consultation. Please call me if you have any questions. Naveen Parson MD, FACP, FACC, FSCAI, FHRS, CCDS Interventional Cardiology Cardiac Electrophysiology Vascular Medicine and Endovascular Interventions Sana PARSON MD Apr 18, 2019 6:03 pm
[2019-04-18 20:00] VITALS: BP 160/69
[2019-04-18] MEDS: ROSUVASTATIN 20 MG (CRESTOR) TABLET PO SCH (20:39)
[2019-04-18] MEDS: POLYETHYLENE GLYCOL 17 GM (MIRALAX) PACK PO SCH (20:40)
[2019-04-19 00:12] VITALS: BP 116/55
[2019-04-19 04:00] VITALS: BP 112/56
[2019-04-19 05:50] LABS: HEMOGLOBIN 9.3 G/DL (11.5-16.0); RED CELL DISTRIBUTION WIDTH 15.9 % (10.0-14.5); WHITE BLOOD COUNT 6.5 10^3/uL (4.3-11.0)
[2019-04-19 06:04] LABS: CALCIUM 9.1 MG/DL (8.5-10.1); CREATININE SERUM 1.59 MG/DL (0.60-1.30); POTASSIUM 5.1 MMOL/L (3.6-5.0)
[2019-04-19] MEDS: OMEGA 3 (FISH OIL) 1000 MG CAP PO SCH (06:27)
[2019-04-19] MEDS: AUGMENTIN 875 MG TAB (AMOXICILLIN/CLAVULANATE) PO SCH (06:27)
[2019-04-19] MEDS: CATHETER FLUSH 10 ML SYR IV SCH (06:27)
[2019-04-19] MEDS: inSUlin ASPART (NovoLOG) 1 UNIT/0.01 ML (CHARGE PER UNIT) SC SCH ×2 (06:28→10:03)
--- NOTE | 2019-04-19 07:54 | Progress Note ---
Subjective Time Seen by a Provider: 07:50 Subjective/Events-last exam Patient feeling better today. Patient wants to go home. GFR 31 improving. Put back on Lasix by mouth. Patient still has extremity swelling of feet and legs but better. Patient told about no salt Objective Exam Vital Signs Date Time Temp Pulse Resp B/P (MAP) Pulse Ox O2 Delivery O2 Flow Rate FiO2 04/19/19 04:00 98.7 58 20 112/56 (74) 94 Nasal Cannula 3.50 04/19/19 01:00 73 04/19/19 00:12 98.9 64 19 116/55 (75) 94 Nasal Cannula 3.50 04/18/19 21:59 99 Nasal Cannula 3.50 04/18/19 20:00 99.6 75 22 160/69 (99) 99 Nasal Cannula 3.50 04/18/19 20:00 99 Nasal Cannula 3.50 04/18/19 19:00 86 04/18/19 16:00 99.5 76 20 142/63 (89) 98 Nasal Cannula 3.00 04/18/19 13:00 84 04/18/19 12:00 98.0 68 22 108/55 (72) 88 Room Air 04/18/19 09:37 Nasal Cannula 3.00 04/18/19 09:00 Nasal Cannula 3.00 04/18/19 08:00 98.8 74 24 131/61 (84) 98 Nasal Cannula 3.00 I & O 04/19/19 06:59 Intake Total 1656 ml Output Total 2300 ml Balance -644 ml Capillary Refill : Less Than 3 Seconds General Appearance: No Apparent Distress, WD/WN HEENT: Normal ENT Inspection Neck: Full Range of Motion, Normal Inspection Respiratory: No Accessory Muscle Use, No Respiratory Distress, Decreased Breath Sounds Cardiovascular: Irregularly Irregular Results Lab Laboratory Tests 04/19/19 05:30 Laboratory Tests 04/18/19 10:34: Glucometer 170H 04/18/19 15:04: Glucometer 198H 04/18/19 20:07: Glucometer 241H 04/19/19 05:30: White Blood Count 6.5, Red Blood Count 3.38L, Hemoglobin 9.3L, Hematocrit 30L, Mean Corpuscular Volume 90, Mean Corpuscular Hemoglobin 28, Mean Corpuscular Hemoglobin Concent 31L, Red Cell Distribution Width 15.9H, Platelet Count 163, Mean Platelet Volume 11.0H, Sodium Level 134L, Potassium Level 5.1H, Chloride Level 95L, Carbon Dioxide Level 31, Anion Gap 8, Blood Urea Nitrogen 58H, Creatinine 1.59H, Estimat Glomerular Filtration Rate 31, BUN/Creatinine Ratio 36, Glucose Level 84, Calcium Level 9.1 Microbiology 04/12/19 Blood Culture - Final, Complete No growth 04/16/19 Urine Culture - Preliminary, Resulted Klebsiella pneumoniae Assessment/Plan Assessment/Plan Assess & Plan/Chief Complaint CHF. Fluid overload. A. fib. Diabetes. Coronary artery disease.. . 04/15/19. CHF. Fluid overload. A. fib. Renal insufficiency. Atrial fibrillation. Coronary artery disease. Hyperlipidemia. Dyspnea. Patient on oxygen the first time. Patient at home did not need oxygen previously. . 08/19/19. CHF. Fluid overload. A. fib Renal insufficiency Atrial fibrillation. Coronary artery disease. Hyperlipidemia. Dyspnea. .. . CHF. Fluid overload. A. fib. Renal insufficiency. Coronary artery disease. Diabetes. Dyspnea. Patient getting around without oxygen. Patient feeling better and wants to go home. History of thyroid nodule. Patient to get ultrasound of thyroid today. Patient missed her previous appointment to get ultrasound Clinical Quality Measures Admission Status Admission Dx Acute and chronic congestive heart failure. Fluid overdose. Sleep apnea. Renal insufficiency. A. fib. Aortic stenosis. Hyperlipidemia. Obesity. GERD.. Elevated troponin TX type II DVT/VTE Risk/Contraindication: Risk Factor Score Per Nursin RFS Level Per Nursing on Admit: 4+=Very High Contraindications-Pharm: Other *list below* LILY ROJAS DO Apr 19, 2019 07:54
[2019-04-19 08:00] VITALS: BP 135/64
[2019-04-19] MEDS: DILTIAZEM 240 MG (CARDIZEM CD) CAP PO SCH (08:26)
[2019-04-19] MEDS: lisINopril 5 MG (PRINIVIL) TABLET PO SCH (08:26)
[2019-04-19] MEDS: BISACODYL 5 MG (DULCOLAX) TABLET PO SCH (08:26)
[2019-04-19] MEDS: ASPIRIN 81 MG CHEW (CHILDREN'S ASA) PO SCH (08:26)
[2019-04-19] MEDS: meTOprolol TARTRATE 50 MG (LOPRESSOR) TAB PO SCH (08:26)
[2019-04-19] MEDS ORDERED: FUROSEMIDE 40 MG (LASIX) TAB PO SCH (09:00)
--- NOTE | 2019-04-19 10:32 | Diagnostic Imaging Report ---
PROCEDURE: US Thyroid. TECHNIQUE: Multiple real-time grayscale images were obtained of the thyroid in various projections. INDICATION: Thyroid nodules Findings: Comparison is a 07/24/2017. The right lobe of the thyroid measures 6.0 x 2.5 x 2.8 cm. There are multiple cysts in the right lobe of the thyroid. No suspicious nodules are seen. The left lower the thyroid measures 4.2 x 2.4 x 1.9 cm. Cysts are seen in the left lobe of the thyroid without suspicious nodules. There is a 2.1 x 1.4 x 1.5 cm nodule in the isthmus of the thyroid, unchanged given differences in technique dating back to 2013. This is solid, isoechoic and has microcalcifications. This qualifies as a TI-RADS 4 lesion. Impression: 1. TIRADS 4 nodule in the isthmus has been stable for 5 years. This indicates it is a benign nodule and no further followup is required. Dictated by: Dictated on workstation # [id number]
--- NOTE | 2019-04-19 11:29 | Physical Therapy Daily Note ---
PT Daily Note-Current Subjective Patient agrees to PT. No c/o. Mental Status Patient Orientation: Normal For Age Transfers Therapy Code Descriptions/Definitions Functional [place] Measure: 0=Not Assessed/NA 4=Minimal Assistance 1=Total Assistance 5=Supervision or Setup 2=Maximal Assistance 6=Modified [place] 3=Moderate Assistance 7=Complete [place] Therapy Quality Codes: 6 Independent with activity with or without an assistive device 5 Patient requires set up or clean up by helper. Patient completes activity by themselves 4 Supervision or touching assist (CGA). [place] provide cues , steadying assist 3 The helper provides less than half the effort to complete the activity 2 The helper provides more than half the effort to complete the activity 1 Dependent. The helper does all the effort to complete an activity 7 Patient refused to complete or attempt activity 9 The patient did not perform the activity before the current illness or injury 88 Not attempted due to Medical conditions or safety concerns Transfers (B, C, W/C) (FIM): 6 Scootin Sit to/from Stand: 6 Weight Bearing Right Lower Extremity: Right Weight Bearing/Tolerated Left Lower Extremity: Left Weight Bearing/Tolerated Gait Training Gait (FIM): 6 Distance (FIM): 3=150 ft Distance: 275' Gait Level of Assist: 6 Gait Assistive Device: FWW steady, functional gait sequence Assessment Patient tolerated treatment well and returned to recliner. Plan dismissal today to home with family per RN report. PT Short Term Goals Short Term Goals Time Frame: Apr 23, 2019 Transfers (B,C,W/C) (FIM): 6 Gait (FIM): 2 Distance (FIM): 6=874-28 ft Gait Distance Comment: 100' Gait Level of Assist: 5 Gait Assistive Device: FWW PT Plan Treatment/Plan Treatment Plan: Continue Plan of Care Treatment Plan: Bed Mobility, Education, Functional Activity Cris, Functional Strength, Gait, Safety, Therapeutic Exercise, Transfers Treatment Duration: Apr 23, 2019 Frequency: 6 times per week Estimated Hrs Per Day: .25 hour per day Patient and/or Family Agrees t: Yes Time/GCodes Time In: 1032 Time Out: 1043 Total Billed Treatment Time: 11 Total Billed Treatment 1 visit FA 11 min SHARON JERONIMO PT Apr 19, 2019 11:29
--- NOTE | 2019-04-19 11:38 | Occupational Ther Daily Note ---
OT Current Status-Daily Note Subjective PT SITTING IN RECLINER CHAIR UPON ot ARRIVAL. PT AGREED TO ot tx SESSION WITH FOCUS ON INCREASING INDEPENDENCE WITH ADLS AND FUNCTIONAL TRANSFERS. Appearance noted edema in josh feet and slightly red and warm. pt stated redness is new. NSG is made aware. Mental Status/Objective Patient Orientation: Normal For Age Therapy Code Descriptions/Definitions Functional [place] Measure: 0=Not Assessed/NA 4=Minimal Assistance 1=Total Assistance 5=Supervision or Setup 2=Maximal Assistance 6=Modified [place] 3=Moderate Assistance 7=Complete [place] ADL-Treatment Eating (FIM): 7 Grooming (FIM): 5 (standing at sink. safety concerns for limited activity tolernace. ) Bathing (FIM): 4 (required assist with josh LE ) Bathing Location: L Arm, R Arm, L Upper Leg, R Upper Leg, Chest, Abdomen, Perineal Area Toileting (FIM): 5 (SBA for safety/ balance. 3/3 toileting task ) Transfers (B, C, W/C) (FIM): 6 (use of RW and GB ) Toilet/Commode Transfer (FIM): 6 pt education on energy conservation techniques while performing ADLs. pt re quired encouragement to complete task without assist. noted limited activities tolerance requiring rest breaks. pt education on purse lip breathing. pt demo understanding. O2 saturation decrease to 88% during task on room air and increase back to 92% with rest breaks. NSG is aware. pt sitting in recliner chair post OT Session, call light within reach. Education OT Patient Education: Modified ADL techniques, Progress toward Goal/Update tx plan, Purpose of tx/functional activities, Safety issues, Transfer techniques Teaching Recipient: Patient Teaching Methods: Demonstration, Discussion Response to Teaching: Verbalize Understanding, Return Demonstration OT Short Term Goals Short Term Goals Time Frame: Apr 28, 2019 Bathing(FIM): 5 Upper Body Dressing(FIM): 5 Toileting(FIM): 5 Transfers (B,C,W/C) (FIM): 6 Toilet/Commode Transfer(FIM): 5 1=Demonstrate adherence to instructed precautions during ADL tasks. 2=Patient will verbalize/demonstrate understanding of assistive devices/modifications for ADL. 3=Patient will improve strength/tolerance for activity to enable patient to perform ADL's. OT Vending Stand Supervisor Goals Jail Goals Time Frame: May 02, 2019 Grooming(FIM): 6 Bathing(FIM): 5 Toileting(FIM): 6 Transfers (B,C,W/C) (FIM): 6 (MET) Toilet/Commode Transfer(FIM): 6 (MET) Additional Goals: 1-Demonstrate ADL Tasks, 2-Verbalize Understanding, 3-Im proveStrength/Cris 1=Demonstrate adherence to instructed precautions during ADL tasks. 2=Patient will verbalize/demonstrate understanding of assistive devices/modifications for ADL. 3=Patient will improve strength/tolerance for activity to enable patient to perform ADL's. OT Education/Plan Problem List/Assessment Assessment: Decreased Activ Tolerance, Impaired I ADL's, Impaired Self-Care Skills pt presents with functional limitations affecting areas of ADLs and functional transfers with the above mention deficits. would benefit from OT services to increase independence with ADLs and functional transfers. recommended OT HH when d/c to continue address deficits and for safe transition in to home. Discharge Recommendations Plan/Recommendations: Continue POC Therapy D/C Recommendations: Occupational Therapy Home Care Barriers to Progress limited activity tolerance, SOB with activities. Treatment Plan/Plan of Care Treatment,Training & Education: Yes Patient would benefit from OT for education, treatment and training to promote independence in ADL's, mobility, safety and/or upper extremity function for ADL's. Plan of Care: ADL Retraining, Caregiver Training, Functional Mobility, Group Exercise/Act as Ind, UE Funct Exercise/Act Treatment Duration: May 02, 2019 Frequency: 5 times per week Estimated Hrs Per Day: .25 hour per day Agreement: Yes Rehab Potential: Fair Time/GCodes Start Time: 11:25 Stop Time: 11:50 Billed Treatment Time ADL 25 minutes, 2 units TORY VILLALTA OT Apr 19, 2019 11:37
[2019-04-19 11:57] VITALS: BP 134/60
[2019-04-19 13:07] VITALS: BP 134/60
--- NOTE | 2019-04-19 15:51 | Cardiology Progress Note ---
Cardiology SOAP Progress Note Subjective: Significantly improved cardiac corona. Objective: I&O/Vital Signs 04/19/19 04/19/19 04/19/19 04/19/19 04:00 07:00 07:45 08:00 Temp 98.7 Pulse 58 66 Resp 20 B/P (MAP) 112/56 (74) Pulse Ox 94 O2 Delivery Nasal Cannula Nasal Cannula Nasal Cannula O2 Flow Rate 3.50 4.00 3.50 04/19/19 04/19/19 04/19/19 08:00 11:57 13:07 Temp 98.2 97.1 Pulse 68 73 73 Resp 18 18 18 B/P (MAP) 135/64 (87) 134/60 (84) 134/60 Pulse Ox 99 90 90 O2 Delivery Nasal Cannula Nasal Cannula Room Air O2 Flow Rate 3.50 3.50 04/19/19 00:00 Intake Total 1456 ml Output Total 1600 ml Balance -144 ml Weight (Pounds): 294 Weight (Ounces): 4.0 Weight (Calculated Kilograms): [phone] Constitutional: AAO x 3, well-developed, other Respiratory: other (Fair bilat air entry, diminished at the bases; bilat fine and coarse basal crackles) Cardiovascular: regular rate-rhythm, S1 and S2, systolic murmur (2/6 MSM) Gastrointestional: No tender; distended; No guarding, No rebound; audible bowel sounds Extremities: No clubbing, No cyanosis; significant edema Neurologic/Psychiatric: oriented x 3, other (able to move all limbs equally) Skin: normal color, warm/dry; No rash on exposed areas, No ulcerations on exposed areas Results/Procedures: Labs Laboratory Tests 04/18/19 20:07: Glucometer 241H 04/19/19 05:30: White Blood Count 6.5, Red Blood Count 3.38L, Hemoglobin 9.3L, Hematocrit 30L, Mean Corpuscular Volume 90, Mean Corpuscular Hemoglobin 28, Mean Corpuscular Hemoglobin Concent 31L, Red Cell Distribution Width 15.9H, Platelet Count 163, Mean Platelet Volume 11.0H, Sodium Level 134L, Potassium Level 5.1H, Chloride Level 95L, Carbon Dioxide Level 31, Anion Gap 8, Blood Urea Nitrogen 58H, Creatinine 1.59H, Estimat Glomerular Filtration Rate 31, BUN/Creatinine Ratio 36, Glucose Level 84, Calcium Level 9.1 04/19/19 09:17: Glucometer 183H Microbiology 04/12/19 Blood Culture - Final, Complete No growth 04/16/19 Urine Culture - Final, Complete Klebsiella pneumoniae A/P: Assessment/Dx: Ac on chronic systolic and diastolic CHF Paroxysmal atrial fibrillation which now seems to have become chronic permanent atrial fibrillation Multivessel coronary artery disease for which the patient underwent coronary artery bypass surgery 07/14/2012. This consisted of left internal mammary artery graft to left anterior descending, saphenous vein graft to posterior descending and sequential saphenous vein to ramus intermedius and obtuse marginal. This was carried out at [facility] in [place], [place] by Dr. Juarez. Cardiac cath of 10-19-18 showed cheesh-na CAD consisting of long 80-90% prox and mid vessel stenosis of the LAD, 80-90% stenosis of the prox portion of the RI, and diffuse mod disease of the RCA. Patent left internal mammary artery graft to distal LAD. Patent saphenous vein graft to RI. Chronically occluded saphenous vein graft to RCA. MPI of 05-27-16 is indicative of basal inferior infarction with a mod amount of aguila-infarct ischemia. Inferolateral hypokinesis. LVEF approx 46% Maturity onset diabetes mellitus, insulin requiring. Aortic stenosis, for which he has undergone TAVR at [facility] in [place], [place], on 10/10/14, mod dilated LA, mod conc LVH, mod MAC, mild to mod MR, bioprosthetic AoV working adequately, PASP 50-55 mmHg. According to a card that she carries this is an Baird bovine transcatheter valve, 26 mm, model 9300 TFX, in the aortic position Echo of 08/25/17 showed global LV systolic function mildly impaired with LVEF 45-50%. S/P bioprosthetic aortic valve which appears to be functioning normally. Mild to mod TR. Mild MR and PASP 45mmHg Chronic rivaroxaban anticoag for stroke prophylaxis Pulmonary HTN, with an estimated PASP of 75mmHg per echo of March 2014. Cardiac cath from July 25, 2014 showed moderate pulmonary HTN with mean pulmonary artery pressure of 33 mmHg and pulmonary vascular resistance of 5.4 Wood units. Echo of November 2014 shows PASP of approximately 45-50mmHg. Echo of 08/25/17 showed PASP 50-55 mmHg Hypertension CKD stage III Hyperlipidemia currently on statin therapy - followed by Dr. Parkinson Obesity with a body index of 49. Gastroesophageal reflux. Chronic right ankle swelling following ankle fracture several years ago. History of knee replacement surgery in 1999. History of surgery of the femur several years ago. Carotid arterial disease, consisting of 60% stenosis of the right internal carotid and 50% stenosis of the left internal carotid per CT angiography of 05/12/2013. 60-79% bilat stenosis of carotids per u/s of Oct 15, 2018 Incidentally diagnosed 7 mm right thyroid nodule on a CT scan of the carotid. This is being followed by Dr. Parkinson Sleep apnea syndrome - CPAP therapy Plan: * Diuretics for CHF * Rivaroxaban for stroke prophylaxis * Continue previous card regimen * Monitor labs * Follow with Dr. Davis as an outpatient. Thank you for your consultation. Please call me if you have any questions. Naveen Cervantes MD, FACP, FACC, FSCAI, FHRS, CCDS Interventional Cardiology Cardiac Electrophysiology Vascular Medicine and Endovascular Interventions Sana CERVANTES MD Apr 19, 2019 15:51
--- NOTE | 2019-04-20 07:37 | Discharge Summary ---
Diagnosis/Chief Complaint Date of Admission Apr 12, 2019 at 19:10 Date of Discharge Apr 19, 2019 at 13:05 Discharge Time: 07:34 Discharge Diagnosis Acute on chronic combined systolic and diastolic congestive heart failure. Coronary artery disease. Obesity. BMI 49. Chronic atrial fibrillation. CK D stage III. GERD. Long-term use of anticoagulants. Myocardial infarction type II. Fluid overload. Dyspnea on exertion. Diabetes. Aortic stenosis history. Hypertension. Hyperlipidemia. Sleep apnea.. Urinary tract infection Reason Hospital Visit Patient came to the office yesterday. Patient short of breath. Patient had swelling of legs and abdomen. Patient getting 30 pounds. Patient short of breath with exertion. Patient had a heart valve replacement. Patient presented open heart surgery. Troponin elevated minimally PA type II probably. Patient is diabetic. Patient obese. Discharge Summary Consultations Cardiology Discharge Physical Examination Allergies: Coded Allergies: No Known Drug Allergies (Unverified , 11/18/12) Vitals & I&Os Vital Signs Date Time Temp Pulse Resp B/P (MAP) Pulse Ox O2 Delivery O2 Flow Rate FiO2 04/19/19 13:07 73 18 134/60 90 Room Air 04/19/19 11:57 97.1 3.50 Hospital Course Patient did better. Patient able to walk without oxygen. Labs (last 24 hrs) Laboratory Tests 04/12/19 17:15: Urine Color YELLOW, Urine Clarity SLIGHTLY CLOUDY, Urine pH 6, Urine Specific [place] 1.015L, Urine Protein 1+H, Urine Glucose (UA) NEGATIVE, Urine Ketones NEGATIVE, Urine Nitrite NEGATIVE, Urine Bilirubin NEGATIVE, Urine Urobilinogen NORMAL, Urine Leukocyte Esterase 1+H, Urine RBC (Auto) NEGATIVE, Urine RBC NONE, Urine WBC 10-25H, Urine Squamous Epithelial Cells 5-10, Urine Crystals NONE, Urine Bacteria MODERATEH, Urine Casts NONE, Urine Mucus NEGATIVE, Urine Culture Indicated CULTURE PENDING 04/12/19 17:25: White Blood Count 8.1, Red Blood Count 4.01L, Hemoglobin 11.1L, Hematocrit 36, Mean Corpuscular Volume 91, Mean Corpuscular Hemoglobin 28, Mean Corpuscular Hemoglobin Concent 31L, Red Cell Distribution Width 15.8H, Platelet Count 197, Mean Platelet Volume 10.8H, Neutrophils (%) (Auto) 74, Lymphocytes (%) (Auto) 18, Monocytes (%) (Auto) 7, Eosinophils (%) (Auto) 1, Basophils (%) (Auto) 0, Neutrophils # (Auto) 6.0, Lymphocytes # (Auto) 1.5, Monocytes # (Auto) 0.6, Eosinophils # (Auto) 0.1, Basophils # (Auto) 0.0, Prothrombin Time 19.3H, INR Comment 1.6H, Activated Partial Thromboplast Time 28, Sodium Level 142, Potass ium Level 4.3, Chloride Level 103, Carbon Dioxide Level 27, Anion Gap 12, Blood Urea Nitrogen 29H, Creatinine 1.47H, Estimat Glomerular Filtration Rate 34, BU N/Creatinine Ratio 20, Glucose Level 192H, Lactic Acid Level 2.08*H, Calcium Level 10.1, Corrected Calcium 9.9, Total Bilirubin 0.9, Aspartate Amino Transf (AST/SGOT) 16, Alanine Aminotransferase (ALT/SGPT) 10, Alkaline Phosphatase 49, Troponin I 0.056H, B-Type Natriuretic Peptide 431.8H, Total Protein 7.4, Albumin 4.2 04/12/19 19:10: Lab Scanned Report Referred Lab Report 04/12/19 19:22: Lactic Acid Level 0.78 04/12/19 20:34: Glucometer 175H 04/13/19 03:35: White Blood Count 5.7, Red Blood Count 3.69L, Hemoglobin 10.2L, Hematocrit 34L, Mean Corpuscular Volume 91, Mean Corpuscular Hemoglobin 28, Mean Corpuscular Hemoglobin Concent 30L, Red Cell Distribution Width 16.2H, Platelet Count 179, Mean Platelet Volume 10.8H, Neutrophils (%) (Auto) 69, Lymphocytes (%) (Auto) 20, Monocytes (%) (Auto) 9, Eosinophils (%) (Auto) 2, Basophils (%) (Auto) 0, Neutrophils # (Auto) 4.0, Lymphocytes # (Auto) 1.1, Monocytes # (Auto) 0.5, Eo sinophils # (Auto) 0.1, Basophils # (Auto) 0.0, Sodium Level 142, Potassium Level 3.9, Chloride Level 106, Carbon Dioxide Level 24, Anion Gap 12, Blood Urea Nitrogen 28H, Creatinine 1.29, Estimat Glomerular Filtration Rate 40, BUN/Creatinine Ratio 22, Glucose Level 161H, Calcium Level 9.0, B-Type Natriuretic Peptide 355.0H 04/13/19 03:55: Troponin I < 0.028 04/13/19 08:59: Glucometer 128H 04/13/19 14:33: Glucometer 192H 04/13/19 19:33: Glucometer 243H 04/14/19 03:10: White Blood Count 6.4, Red Blood Count 3.92L, Hemoglobin 10.8L, Hematocrit 36, Mean Corpuscular Volume 91, Mean Corpuscular Hemoglobin 28, Mean Corpuscular Hemoglobin Concent 30L, Red Cell Distribution Width 15.8H, Platelet Count 170, Mean Platelet Volume 10.8H, Sodium Level 142, Potassium Level 3.9, Chloride Level 102, Carbon Dioxide Level 30, Anion Gap 10, Blood Urea Nitrogen 26H, Creatinine 1.22, Estimat Glomerular Filtration Rate 43, BUN/Creatinine Ratio 21, Glucose Level 131H, Calcium Level 9.3, Corrected Calcium 9.4, Total Bilirubin 1.0, Aspartate Amino Transf (AST/SGOT) 16, Alanine Aminotransferase (ALT/SGPT) 10, Alkaline Phosphatase 47, Total Protein 7.0, Albumin 3.9 04/14/19 05:27: Glucometer 111H 04/14/19 10:46: Glucometer 160H 04/14/19 14:47: Glucometer 186H 04/14/19 22:39: Glucometer 177H 04/15/19 03:03: White Blood Count 6.8, Red Blood Count 3.58L, Hemoglobin 9.9L, Hematocrit 33L, Mean Corpuscular Volume 93, Mean Corpuscular Hemoglobin 28, Mean Corpuscular Hemoglobin Concent 30L, Red Cell Distribution Width 15.9H, Platelet Count 171, Mean Platelet Volume 10.7H, Sodium Level 142, Potassium Level 4.6, Chloride Level 100, Carbon Dioxide Level 31, Anion Gap 11, Blood Urea Nitrogen 27H, Creatinine 1.25, Estimat Glomerular Filtration Rate 41, BUN/Creatinine Ratio 22, Glucose Level 122H, Calcium Level 9.3, Corrected Calcium 9.6, Total Bilirubin 0.8, Aspartate Amino Transf (AST/SGOT) 17, Alanine Aminotransferase (ALT/SGPT) 12, Alkaline Phosphatase 41, Total Protein 6.5, Albumin 3.6 04/15/19 06:07: Glucometer 94 04/15/19 10:28: Glucometer 187H 04/15/19 10:33: Urine Color YELLOW, Urine Clarity CLEAR, Urine pH 5, Urine Specific [place] 1.015L, Urine Protein NEGATIVE, Urine Glucose (UA) NEGATIVE, Urine Ketones NEGATIVE, Urine Nitrite NEGATIVE, Urine Bilirubin NEGATIVE, Urine Urobilinogen NORMAL, Urine Leukocyte Esterase 2+H, Urine RBC (Auto) 4+H, Urine RBC 10-25H, Urine WBC 5-10H, Urine Squamous Epithelial Cells 0-2, Urine Renal Epithelial Cells NONE, Urine Crystals NONE, Urine Bacteria FEWH, Urine Casts PRESENT, Urine Hyaline Casts 25-50H, Urine Mucus NEGATIVE, Urine Culture Indicated YES 04/15/19 15:00: Glucometer 202H 04/15/19 21:23: Glucometer 226H 04/16/19 03:00: White Blood Count 7.5, Red Blood Count 3.45L, Hemoglobin 9.7L, Hematocrit 32L, Mean Corpuscular Volume 92, Mean Corpuscular Hemoglobin 28, Mean Corpuscular Hemoglobin Concent 31L, Red Cell Distribution Width 15.7H, Platelet Count 155, Mean Platelet Volume 10.9H, Sodium Level 139, Potassium Level 4.6, Chloride Level 99, Carbon Dioxide Level 29, Anion Gap 11, Blood Urea Nitrogen 32H, Creatinine 1.12, Estimat Glomerular Filtration Rate 47, BUN/Creatinine Ratio 29, Glucose Level 136H, Calcium Level 9.3 04/16/19 09:06: Glucometer 194H 04/16/19 14:25: Glucometer 190H 04/16/19 19:50: Urine Color YELLOW, Urine Clarity SLIGHTLY CLOUDY, Urine pH 5, Urine Specific [place] 1.015L, Urine Protein NEGATIVE, Urine Glucose (UA) NEGATIVE, Urine Ketones NEGATIVE, Urine Nitrite NEGATIVE, Urine Bilirubin NEGATIVE, Urine Urobilinogen NORMAL, Urine Leukocyte Esterase 3+H, Urine RBC (Auto) 3+H, Urine RBC 2-5H, Urine WBC 10-25H, Urine Squamous Epithelial Cells NONE, Urine Crystals NONE, Urine Bacteria TRACE, Urine Casts PRESENT, Urine Hyaline Casts 10-25H, Urine Mucus SMALLH, Urine Yeast FEWH, Urine Culture Indicated YES 04/16/19 20:12: Glucometer 236H 04/16/19 20:13: White Blood Count 7.5, Red Blood Count 3.38L, Hemoglobin 9.5L, Hematocrit 31L, Mean Corpuscular Volume 92, Mean Corpuscular Hemoglobin 28, Mean Corpuscular Hemoglobin Concent 30L, Red Cell Distribution Width 16.1H, Platelet Count 158, Mean Platelet Volume 10.4, Neutrophils (%) (Auto) 72, Lymphocytes (%) (Auto) 17, Monocytes (%) (Auto) 9, Eosinophils (%) (Auto) 1, Basophils (%) (Auto) 0, Neutrophils # (Auto) 5.5, Lymphocytes # (Auto) 1.3, Monocytes # (Auto) 0.7, Eosinophils # (Auto) 0.1, Basophils # (Auto) 0.0, Neutrophils % (Manual) 80, Lymphocytes % (Manual) 15, Monocytes % (Manual) 4, Eosinophils % (Manual) 0, Basophils % (Manual) 0, Band Neutrophils 1, Polychromasia SLIGHT, Hypochromasia MODERATE, Anisocytosis SLIGHT, Target Cells SLIGHT, Elliptocytes SLIGHT, Rouleau SLIGHT 04/17/19 06:04: Glucometer 86 04/17/19 10:20: Glucometer 197H 04/17/19 14:10: Glucometer 198H 04/17/19 19:24: Glucometer 194H 04/18/19 04:55: White Blood Count 8.5, Red Blood Count 3.49L, Hemoglobin 9.7L, Hematocrit 32L, Mean Corpuscular Volume 91, Mean Corpuscular Hemoglobin 28, Mean Corpuscular Hemoglobin Concent 30L, Red Cell Distribution Width 15.7H, Platelet Count 165, Mean Platelet Volume 11.4H, Neutrophils (%) (Auto) 71, Lymphocytes (%) (Auto) 19, Monocytes (%) (Auto) 8, Eosinophils (%) (Auto) 1, Basophils (%) (Auto) 0, Neutrophils # (Auto) 6.1, Lymphocytes # (Auto) 1.7, Monocytes # (Auto) 0.7, Eosinophils # (Auto) 0.1, Basophils # (Auto) 0.0, Sodium Level 135, Potassium Level 5.3H, Chloride Level 93L, Carbon Dioxide Level 30, Anion Gap 12, Blood Urea Nitrogen 53H, Creatinine 1.68H, Estimat Glomerular Filtration Rate 29, BUN/Creatinine Ratio 32, Glucose Level 98, Calcium Level 9.4 04/18/19 05:05: Glucometer 116H 04/18/19 10:34: Glucometer 170H 04/18/19 15:04: Glucometer 198H 04/18/19 20:07: Glucometer 241H 04/19/19 05:30: White Blood Count 6.5, Red Blood Count 3.38L, Hemoglobin 9.3L, Hematocrit 30L, Mean Corpuscular Volume 90, Mean Corpuscular Hemoglobin 28, Mean Corpuscular Hemoglobin Concent 31L, Red Cell Distribution Width 15.9H, Platelet Count 163, Mean Platelet Volume 11.0H, Sodium Level 134L, Potassium Level 5.1H, Chloride Level 95L, Carbon Dioxide Level 31, Anion Gap 8, Blood Urea Nitrogen 58H, Creatinine 1.59H, Estimat Glomerular Filtration Rate 31, BUN/Creatinine Ratio 36, Glucose Level 84, Calcium Level 9.1 04/19/19 09:17: Glucometer 183H Microbiology 04/12/19 Blood Culture - Final, Complete No growth 04/16/19 Urine Culture - Final, Complete Klebsiella pneumoniae Laboratory Tests 04/12/19 17:25 04/13/19 03:35 04/14/19 03:10 04/15/19 03:03 04/16/19 03:00 04/16/19 20:13 04/18/19 04:55 04/19/19 05:30 Pending Labs Microbiology Date/Time Source Procedure Growth Status 04/12/19 17:55 Peripheral Rt Ac Blood Culture - Final No growth Complete 04/12/19 17:25 Peripheral Lt Ac Blood Culture - Final Staph, Coag Neg (DENTAL COORDINATOR) Complete 04/16/19 19:50 Urine Indwelling Cath (Fdc) Urine Culture - Final Klebsiella pneumoniae Complete 04/15/19 10:33 Urine Not Otherwise Specified Urine Culture - Final NO GROWTH Complete 04/12/19 17:15 Urine Dinero Cath Urine Culture - Final Klebsiella pneumoniae Complete Laboratory Tests 04/12/19 17:15: Urine Color YELLOW, Urine Clarity SLIGHTLY CLOUDY, Urine pH 6, Urine Specific [place] 1.015, Urine Protein 1+, Urine Glucose (UA) NEGATIVE, Urine Ketones NEGA TIVE, Urine Nitrite NEGATIVE, Urine Bilirubin NEGATIVE, Urine Urobilinogen NORMAL, Urine Leukocyte Esterase 1+, Urine RBC (Auto) NEGATIVE, Urine RBC NONE, Urine WBC 10-25, Urine Squamous Epithelial Cells 5-10, Urine Crystals NONE, Urine Bacteria MODERATE, Urine Casts NONE, Urine Mucus NEGATIVE, Urine Culture Indicated CULTURE PENDING 04/12/19 17:25: White Blood Count 8.1, Red Blood Count 4.01, Hemoglobin 11.1, Hematocrit 36, Mean Corpuscular Volume 91, Mean Corpuscular Hemoglobin 28, Mean Corpuscular Hemoglobin Concent 31, Red Cell Distribution Width 15.8, Platelet Count 197, Mean Platelet Volume 10.8, Neutrophils (%) (Auto) 74, Lymphocytes (%) (Auto) 18, Monocytes (%) (Auto) 7, Eosinophils (%) (Auto) 1, Basophils (%) (Auto) 0, Neutrophils # (Auto) 6.0, Lymphocytes # (Auto) 1.5, Monocytes # (Auto) 0.6, Eosinophils # (Auto) 0.1, Basophils # (Auto) 0.0, Prothrombin Time 19.3, INR Comment 1.6, Activated Partial Thromboplast Time 28, Sodium Level 142, Potassium Level 4.3, Chloride Level 103, Carbon Dioxide Level 27, Anion Gap 12, Blood Urea Nitrogen 29, Creatinine 1.47, Estimat Glomerular Filtration Rate 34, BUN/Creatinine Ratio 20, Glucose Level 192, Lactic Acid Level 2.08, Calcium Level 10.1, Corrected Calcium 9.9, Total Bilirubin 0.9, Aspartate Amino Transf (AST/SGOT) 16, Alanine Aminotransferase (ALT/SGPT) 10, Alkaline Phosphatase 49, Troponin I 0.056, B-Type Natriuretic Peptide 431.8, Total Protein 7.4, Albumin 4.2 04/12/19 19:10: Lab Scanned Report Referred Lab Report 04/12/19 19:22: Lactic Acid Level 0.78 04/12/19 20:34: Glucometer 175 04/13/19 03:35: White Blood Count 5.7, Red Blood Count 3.69, Hemoglobin 10.2, Hematocrit 34, Mean Corpuscular Volume 91, Mean Corpuscular Hemoglobin 28, Mean Corpuscular Hemoglobin Concent 30, Red Cell Distribution Width 16.2, Platelet Count 179, Mean Platelet Volume 10.8, Neutrophils (%) (Auto) 69, Lymphocytes (%) (Auto) 20, Monocytes (%) (Auto) 9, Eosinophils (%) (Auto) 2, Basophils (%) (Auto) 0, Neutrophils # (Auto) 4.0, Lymphocytes # (Auto) 1.1, Monocytes # (Auto) 0.5, Eosinophils # (Auto) 0.1, Basophils # (Auto) 0.0, Sodium Level 142, Potassium Level 3.9, Chloride Level 106, Carbon Dioxide Level 24, Anion Gap 12, Blood Urea Nitrogen 28, Creatinine 1.29, Estimat Glomerular Filtration Rate 40, BUN/Creatinine Ratio 22, Glucose Level 161, Calcium Level 9.0, B-Type Natriuretic Peptide 355.0 04/13/19 03:55: Troponin I < 0.028 04/13/19 08:59: Glucometer 128 04/13/19 14:33: Glucometer 192 04/13/19 19:33: Glucometer 243 04/14/19 03:10: White Blood Count 6.4, Red Blood Count 3.92, Hemoglobin 10.8, Hematocrit 36, Mean Corpuscular Volume 91, Mean Corpuscular Hemoglobin 28, Mean Corpuscular Hemoglobin Concent 30, Red Cell Distribution Width 15.8, Platelet Count 170, Mean Platelet Volume 10.8, Sodium Level 142, Potassium Level 3.9, Chloride Level 102, Carbon Dioxide Level 30, Anion Gap 10, Blood Urea Nitrogen 26, Creatinine 1.22, Estimat Glomerular Filtration Rate 43, BUN/Creatinine Ratio 21, Glucose Level 131, Calcium Level 9.3, Corrected Calcium 9.4, Total Bilirubin 1.0, Aspartate Amino Transf (AST/SGOT) 16, Alanine Aminotransferase (ALT/SGPT) 10, Alkaline Phosphatase 47, Total Protein 7.0, Albumin 3.9 04/14/19 05:27: Glucometer 111 04/14/19 10:46: Glucometer 160 04/14/19 14:47: Glucometer 186 04/14/19 22:39: Glucometer 177 04/15/19 03:03: White Blood Count 6.8, Red Blood Count 3.58, Hemoglobin 9.9, Hematocrit 33, Mean Corpuscular Volume 93, Mean Corpuscular Hemoglobin 28, Mean Corpuscular Hemoglobin Concent 30, Red Cell Distribution Width 15.9, Platelet Count 171, Mean Platelet Volume 10.7, Sodium Level 142, Potassium Level 4.6, Chloride Level 100, Carbon Dioxide Level 31, Anion Gap 11, Blood Urea Nitrogen 27, Creatinine 1.25, Estimat Glomerular Filtration Rate 41, BUN/Creatinine Ratio 22, Glucose Level 122, Calcium Level 9.3, Corrected Calcium 9.6, Total Bilirubin 0.8, Aspartate Amino Transf (AST/SGOT) 17, Alanine Aminotransferase (ALT/SGPT) 12, Alkaline Phosphatase 41, Total Protein 6.5, Albumin 3.6 04/15/19 06:07: Glucometer 94 04/15/19 10:28: Glucometer 187 04/15/19 10:33: Urine Color YELLOW, Urine Clarity CLEAR, Urine pH 5, Urine Specific [place] 1.015, Urine Protein NEGATIVE, Urine Glucose (UA) NEGATIVE, Urine Ketones NEGATIVE, Urine Nitrite NEGATIVE, Urine Bilirubin NEGATIVE, Urine Urobilinogen NORMAL, Urine Leukocyte Esterase 2+, Urine RBC (Auto) 4+, Urine RBC 10-25, Urine WBC 5-10, Urine Squamous Epithelial Cells 0-2, Urine Renal Epithelial Cells NONE, Urine Crystals NONE, Urine Bacteria FEW, Urine Casts PRESENT, Urine Hyaline Casts 25-50, Urine Mucus NEGATIVE, Urine Culture Indicated YES 04/15/19 15:00: Glucometer 202 04/15/19 21:23: Glucometer 226 04/16/19 03:00: White Blood Count 7.5, Red Blood Count 3.45, Hemoglobin 9.7, Hematocrit 32, Mean Corpuscular Volume 92, Mean Corpuscular Hemoglobin 28, Mean Corpuscular Hemoglobin Concent 31, Red Cell Distribution Width 15.7, Platelet Count 155, Mean Platelet Volume 10.9, Sodium Level 139, Potassium Level 4.6, Chloride Level 99, Carbon Dioxide Level 29, Anion Gap 11, Blood Urea Nitrogen 32, Creatinine 1.12, Estimat Glomerular Filtration Rate 47, BUN/Creatinine Ratio 29, Glucose Level 136, Calcium Level 9.3 04/16/19 09:06: Glucometer 194 04/16/19 14:25: Glucometer 190 04/16/19 19:50: Urine Color YELLOW, Urine Clarity SLIGHTLY CLOUDY, Urine pH 5, Urine Specific [place] 1.015, Urine Protein NEGATIVE, Urine Glucose (UA) NEGATIVE, Urine K etones NEGATIVE, Urine Nitrite NEGATIVE, Urine Bilirubin NEGATIVE, Urine Urobilinogen NORMAL, Urine Leukocyte Esterase 3+, Urine RBC (Auto) 3+, Urine RBC 2-5, Urine WBC 10-25, Urine Squamous Epithelial Cells NONE, Urine Crystals NONE, Urine Bacteria TRACE, Urine Casts PRESENT, Urine Hyaline Casts 10-25, Urine Mucus SMALL, Urine Yeast FEW, Urine Culture Indicated YES 04/16/19 20:12: Glucometer 236 04/16/19 20:13: White Blood Count 7.5, Red Blood Count 3.38, Hemoglobin 9.5, Hematocrit 31, Mean Corpuscular Volume 92, Mean Corpuscular Hemoglobin 28, Mean Corpuscular Hemoglobin Concent 30, Red Cell Distribution Width 16.1, Platelet Count 158, Mean Platelet Volume 10.4, Neutrophils (%) (Auto) 72, Lymphocytes (%) (Auto) 17, Monocytes (%) (Auto) 9, Eosinophils (%) (Auto) 1, Basophils (%) (Auto) 0, Neutrophils # (Auto) 5.5, Lymphocytes # (Auto) 1.3, Monocytes # (Auto) 0.7, Eosinophils # (Auto) 0.1, Basophils # (Auto) 0.0, Neutrophils % (Manual) 80, Lymphocytes % (Manual) 15, Monocytes % (Manual) 4, Eosinophils % (Manual) 0, Basophils % (Manual) 0, Band Neutrophils 1, Polychromasia SLIGHT, Hypochromasia MODERATE, Anisocytosis SLIGHT, Target Cells SLIGHT, Elliptocytes SLIGHT, Rouleau SLIGHT 04/17/19 06:04: Glucometer 86 04/17/19 10:20: Glucometer 197 04/17/19 14:10: Glucometer 198 04/17/19 19:24: Glucometer 194 04/18/19 04:55: White Blood Count 8.5, Red Blood Count 3.49, Hemoglobin 9.7, Hematocrit 32, Mean Corpuscular Volume 91, Mean Corpuscular Hemoglobin 28, Mean Corpuscular Hemoglobin Concent 30, Red Cell Distribution Width 15.7, Platelet Count 165, Mean Platelet Volume 11.4, Neutrophils (%) (Auto) 71, Lymphocytes (%) (Auto) 19, Monocytes (%) (Auto) 8, Eosinophils (%) (Auto) 1, Basophils (%) (Auto) 0, Neutrophils # (Auto) 6.1, Lymphocytes # (Auto) 1.7, Monocytes # (Auto) 0.7, Eosinophils # (Auto) 0.1, Basophils # (Auto) 0.0, Sodium Level 135, Potassium Level 5.3, Chloride Level 93, Carbon Dioxide Level 30, Anion Gap 12, Blood Urea Nitrogen 53, Creatinine 1.68, Estimat Glomerular Filtration Rate 29, BUN/Creatinine Ratio 32, Glucose Level 98, Calcium Level 9.4 04/18/19 05:05: Glucometer 116 04/18/19 10:34: Glucometer 170 04/18/19 15:04: Glucometer 198 04/18/19 20:07: Glucometer 241 04/19/19 05:30: White Blood Count 6.5, Red Blood Count 3.38, Hemoglobin 9.3, Hematocrit 30, Mean Corpuscular Volume 90, Mean Corpuscular Hemoglobin 28, Mean Corpuscular Hemoglobin Concent 31, Red Cell Distribution Width 15.9, Platelet Count 163, Mean Platelet Volume 11.0, Sodium Level 134, Potassium Level 5.1, Chloride Level 95, Carbon Dioxide Level 31, Anion Gap 8, Blood Urea Nitrogen 58, Creatinine 1.59, Estimat Glomerular Filtration Rate 31, BUN/Creatinine Ratio 36, Glucose Level 84, Calcium Level 9.1 04/19/19 09:17: Glucometer 183 Discharge Home Medications: Active Scripts Active Reported Rosuvastatin Calcium 20 Mg Tablet 20 Mg PO HS Dexilant (Dexlansoprazole) 60 Mg Cap.dr.bp 60 Mg PO DAILY PRN Diltiazem 24Hr ER (Diltiazem HCl) 240 Mg Cap.er.24h 240 Mg PO DAILY Furosemide 80 Mg Tablet 80 Mg PO DAILY Novolog Flexpen (Insulin Aspart) 300 Units/3 Ml Solution 11-17 SC AC Levemir (Insulin Determir) 1,000 Units/10 Ml Soln 58 Units SQ HS Levemir (Insulin Determir) 1,000 Units/10 Ml Soln 42 Units SC DAILY Calcium 600 + Vit D 200 Tablet (Calcium Carbonate/Vitamin D3) 1 Each Tablet 1 Tab PO DAILY Fish Oil 1,000 mg Capsule ([place] 3 Polyunsat Fatty Acids) 1,000 Mg Cap 1,000 Mg PO DAILY Aspirin EC (Aspirin) 81 Mg Tablet.dr 81 Mg PO DAILY Metoprolol Tartrate 50 Mg Tablet 50 Mg PO BID Lisinopril 5 Mg Tablet 5 Mg PO DAILY Xarelto Tablet (Rivaroxaban) 15 Mg Tablet 15 Mg PO HS Instructions to patient/family Please see electronic discharge instructions given to patient. Clinical Quality Measures DVT/VTE Risk/Contraindication: Risk Factor Score Per Nursin RFS Level Per Nursing on Admit: 4+=Very High Contraindications-Pharm: Other *list below* LILY ROJAS DO Apr 20, 2019 07:37
== END 2019-04-19 13:05 | disposition home or self-care (01) | DRG 280 ==
LOC: EDUNIT# 16:38 → ER 16:39 → ICU 19:10 → 4TH 04-16 10:54
PROVIDERS: ADMIT Family Medicine; ATTEND Family Medicine
DX: I13.0 Hypertensive heart and chronic kidney disease with heart failure and stage 1 through stage 4 chronic kidney disease, or unspecified chronic kidney disease (principal); I50.43 Acute on chronic combined systolic (congestive) and diastolic (congestive) heart failure; N18.3 Chronic kidney disease, stage 3 (moderate); I21.A1 Myocardial infarction type 2; I25.810 Atherosclerosis of coronary artery bypass graft(s) without angina pectoris; E66.9 Obesity, unspecified; Z68.42 Body mass index [BMI] 45.0-49.9, adult; I25.10 Atherosclerotic heart disease of native coronary artery without angina pectoris; N39.0 Urinary tract infection, site not specified; I27.20 Pulmonary hypertension, unspecified; E11.9 Type 2 diabetes mellitus without complications; I48.2 Chronic atrial fibrillation; D63.8 Anemia in other chronic diseases classified elsewhere; D63.1 Anemia in chronic kidney disease; E78.00 Pure hypercholesterolemia, unspecified; K21.9 Gastro-esophageal reflux disease without esophagitis; G47.30 Sleep apnea, unspecified; E04.1 Nontoxic single thyroid nodule; I65.23 Occlusion and stenosis of bilateral carotid arteries; J30.2 Other seasonal allergic rhinitis; B96.1 Klebsiella pneumoniae [K. pneumoniae] as the cause of diseases classified elsewhere; Z95.2 Presence of prosthetic heart valve; Z79.01 Long term (current) use of anticoagulants; Z79.4 Long term (current) use of insulin; Z87.891 Personal history of nicotine dependence; Z95.1 Presence of aortocoronary bypass graft; Z91.19 Patient's noncompliance with other medical treatment and regimen
CPT/HCPCS: 36415; 51702; 71045; 76536; 80048; 80053; 81000; 82962; 83605; 83880; 84484; 85007; 85025; 85027; 85610; 85730; 87040; 87077; 87088; 87186; 93005; 96374

== ENCOUNTER 2019-07-05 14:35 | Inpatient (IN) | payer MEDICARE, MEDICAID ==
[~2019-07-05] VITALS: Ht 165 cm; Wt 134.6 kg
[~2019-07-05 14:35] MED LIST changes: +CALC-6 PO; +DEXL60CA PO; +DILT240C PO; +FURO80TA3 PO; +INSU100I14 SC; +INSU100V5 SC; +OMG1KC PO; +POTA10TA36 PO; +ROSU20TA32 PO
[2019-07-05] MEDS ORDERED: FUROSEMIDE 40 MG/4 ML INJ (LASIX) IV STA (14:47)
--- NOTE | 2019-07-05 14:47 | ED Chest Pain ---
General Chief Complaint: Chest Pain Stated Complaint: CP;SOA Source: patient Exam Limitations: no limitations (BRENT FRIEND APRN) History of Present Illness Date Seen by Provider: Jul 05, 2019 Time Seen by Provider: 14:44 Initial Comments To ER per EMS from home with reports of chest pain and shortness of breath while taking a shower. EMS arrived and gave 324 mg of aspirin and 1 sublingual nitroglycerin. Nitroglycerin reduced her blood pressure to 80 systolic and she was given IV fluids but it did completely resolve her chest pain. She has a history of heart failure and was admitted fairly recently for that. She's had progressive dyspnea on exertion worse than usual for the past 3 days. She's had increased swelling in her lower extremities for the past few days. She is on Lasix 80 mg daily. Primary care is Dr. Rice, cardiology Dr. Davis. Also reports increasing abdominal distention for the past few days Timing/Duration: 4-5 days Severity/Quality: moderate Location: central ASA po PRESCRIPTIONIST: Yes NTG SL PRESCRIPTIONIST: Yes Associated Symptoms: shortness of breath (BRENT FRIEND APRN) Allergies and Home Medications Allergies Coded Allergies: No Known Drug Allergies (Unverified , 11/18/12) Home Medications Aspirin 81 Mg Tablet., 81 MG PO DAILY, (Reported) Calcium Carbonate/Vitamin D3 1 Each Tablet, 1 TAB PO DAILY, (Reported) Dexlansoprazole 60 Mg Cap.bp, 60 MG PO DAILY PRN for ACID REFLUX, (Reported) Diltiazem HCl 240 Mg Cap.er.24h, 240 MG PO DAILY, (Reported) Furosemide 80 Mg Tablet, 80 MG PO DAILY, (Reported) Insulin Aspart 300 Units/3 Ml Solution, 11-17 SC AC, (Reported) Insulin Determir 1,000 Units/10 Ml Soln, 42 UNITS SC DAILY, (Reported) Insulin Determir 1,000 Units/10 Ml Soln, 58 UNITS SQ HS, (Reported) Lisinopril 5 Mg Tablet, 5 MG PO DAILY, (Reported) Metoprolol Tartrate 50 Mg Tablet, 50 MG PO BID, (Reported) [place] 3 Polyunsat Fatty Acids 1,000 Mg Cap, 1,000 MG PO DAILY, (Reported) Rivaroxaban 15 Mg Tablet, 15 MG PO HS, (Reported) Rosuvastatin Calcium 20 Mg Tablet, 20 MG PO HS, (Reported) Patient Home Medication List Home Medication List Reviewed: Yes (BRENT FRIEND APRN) Home Medication List Reviewed: Yes (JARRETT SOTO MD) Review of Systems Review of Systems Constitutional: see HPI EENTM: No Symptoms Reported Respiratory: Shortness of Air, SOA With Exertion Cardiovascular: See HPI, Chest Pain Gastrointestinal: See HPI; Denies Abdominal Pain; Other (distended but no pain, normal bowel movements) Genitourinary: No Symptoms Reported Musculoskeletal: no symptoms reported Skin: no symptoms reported Psychiatric/Neurological: No Symptoms Reported Endocrine: No Symptoms Reported Hematologic/Lymphatic: No Symptoms Reported (BRENT FRIEND APRN) Respiratory: SOA at Rest Cardiovascular: Edema (JARRETT SOTO MD) All Other Systems Reviewed Negative Unless Noted: Yes (JARRETT SOTO MD) Past Ravifyq-Paznvg-Elqluv Hx Past Med/Social Hx: Reviewed Nursing Past Med/Soc Hx (JARRETT SOTO MD) Patient Social History Type Used: Cigarettes Former Smoker, Quit: Oct 19, 1949 Recent Hopitalizations: No (BRENT FRIEND APRN) Immunizations Up To Date Date of Pneumonia Vaccine: Jun 12, 2015 Date of Influenza Vaccine: Sep 02, 2018 (BRENT FRIEND APRN) Seasonal Allergies Seasonal Allergies: Yes (BRENT FRIEND APRN) Past Medical History Surgeries: Yes (HEART VALVE REPLACED) Cardiac, CABG, Hysterectomy, Orthopedic Respiratory: Yes Sleep Apnea Currently Using CPAP: Yes (AT NIGHT) Currently Using BIPAP: No Cardiac: Yes Coronary Artery Disease, High Cholesterol, Hypertension, Valvular Heart Disease Neurological: No Reproductive Disorders: No Genitourinary: Yes UTI-Chronic Gastrointestinal: Yes Gastroesophageal Reflux Musculoskeletal: Yes (ANKLE FX, B/L KNEE PAIN R/T PAST FRACTURE, COMPUND FX IN FEMUR) Fractures Endocrine: Yes (THYROID GROWTH) Diabetes, Insulin dep Cataract Hearing Impairment: Hard of Hearing Cancer: No Psychosocial: No Integumentary: No Blood Disorders: No Adverse Reaction/Blood Tranf: No (BRENT FRIEND APRN) Family Medical History Reviewed Nursing Family Hx (JARRETT SOTO MD) Diabetes mellitus 19 MOTHER G8 BROTHER G8 BROTHER Emph FH: breast cancer 19 MOTHER FH: breast cancer 19 MOTHER FH: emphysema 19 MOTHER FH: emphysema 19 MOTHER Physical Exam Vital Signs Vital Signs - First Documented 07/05/19 14:36 Temp 37.3 Pulse 96 Resp 19 B/P (MAP) 144/67 (92) Pulse Ox 97 O2 Delivery Nasal Cannula (JARRETT SOTO MD) Vital Signs Capillary Refill : (BRENT FRIEND APRN) Height, Weight, BMI Height: 5'6.00" Weight: 294lbs. 4.0oz. [id number]; 49.7 BMI Method:Stated General Appearance: No Apparent Distress, WD/WN Neck: Full Range of Motion, Normal Inspection Respiratory: No Accessory Muscle Use, No Respiratory Distress Cardiovascular: Normal Peripheral Pulses, Irregularly Irregular Gastrointestinal: Non Tender, Soft, Other (distended, bedside ultrasound shows free fluid in the right infrahepatic region, suspect ascites from CHF) Extremity: Normal Capillary Refill, Normal Inspection Neurologic/Psychiatric: Alert, Oriented x3 Skin: Normal Color, Warm/Dry (BRENT FRIEND APRN) Respiratory: No Crackles Gastrointestinal: Distended, Other (distended, bedside ultrasound shows free fluid in the right infrahepatic region, suspect ascites from CHF) Extremity: Pedal Edema (3+ to [id number] bilateral) (JARRETT SOTO MD) Progress/Results/Core Measures Results/Orders Lab Results Laboratory Tests Test 07/05/19 14:40 07/05/19 15:06 Range/Units White Blood Count 8.5 4.3-11.0 10^3/uL Red Blood Count 3.55 L 4.35-5.85 10^6/uL Hemoglobin 9.7 L 11.5-16.0 G/DL Hematocrit 32 L 35-52 % Mean Corpuscular Volume 91 80-99 FL Mean Corpuscular Hemoglobin 27 25-34 PG Mean Corpuscular Hemoglobin Concent 30 L 32-36 G/DL Red Cell Distribution Width 18.2 H 10.0-14.5 % Platelet Count 190 130-400 10^3/uL Mean Platelet Volume 10.8 H 7.4-10.4 FL Neutrophils (%) (Auto) 76 H 42-75 % Lymphocytes (%) (Auto) 15 12-44 % Monocytes (%) (Auto) 8 0-12 % Eosinophils (%) (Auto) 1 0-10 % Basophils (%) (Auto) 0 0-10 % Neutrophils # (Auto) 6.5 1.8-7.8 X 10^3 Lymphocytes # (Auto) 1.3 1.0-4.0 X 10^3 Monocytes # (Auto) 0.7 0.0-1.0 X 10^3 Eosinophils # (Auto) 0.1 0.0-0.3 10^3/uL Basophils # (Auto) 0.0 0.0-0.1 10^3/uL Prothrombin Time 21.3 H 12.2-14.7 SEC INR Comment 1.8 H 0.8-1.4 Activated Partial Thromboplast Time 32 24-35 SEC Sodium Level 137 135-145 MMOL/L Potassium Level 4.3 3.6-5.0 MMOL/L Chloride Level 102 98-107 MMOL/L Carbon Dioxide Level 28 21-32 MMOL/L Anion Gap 7 5-14 MMOL/L Blood Urea Nitrogen 25 H 7-18 MG/DL Creatinine 1.73 H 0.60-1.30 MG/DL Estimat Glomerular Filtration Rate 28 BUN/Creatinine Ratio 14 Glucose Level 216 H 70-105 MG/DL Calcium Level 8.6 8.5-10.1 MG/DL Corrected Calcium 8.6 8.5-10.1 MG/DL Magnesium Level 2.3 1.6-2.4 MG/DL Total Bilirubin 1.0 0.1-1.0 MG/DL Aspartate Amino Transf (AST/SGOT) 13 5-34 U/L Alanine Aminotransferase (ALT/SGPT) 11 0-55 U/L Alkaline Phosphatase 49 40-136 U/L Myoglobin 139.6 H 10.0-92.0 NG/ML Troponin I < 0.028 <0.028 NG/ML B-Type Natriuretic Peptide 439.7 H <100.0 PG/ML Total Protein 6.9 6.4-8.2 GM/DL Albumin 4.0 3.2-4.5 GM/DL Lipase 43 8-78 U/L Urine Color YELLOW Urine Clarity CLEAR Urine pH 6 5-9 Urine Specific [place] 1.015 L 1.016-1.022 Urine Protein 2+ H NEGATIVE Urine Glucose (UA) NEGATIVE NEGATIVE Urine Ketones NEGATIVE NEGATIVE Urine Nitrite NEGATIVE NEGATIVE Urine Bilirubin NEGATIVE NEGATIVE Urine Urobilinogen NORMAL NORMAL MG/DL Urine Leukocyte Esterase 1+ H NEGATIVE Urine RBC (Auto) NEGATIVE NEGATIVE Urine RBC NONE /HPF Urine WBC 2-5 /HPF Urine Squamous Epithelial Cells 0-2 /HPF Urine Crystals PRESENT H /LPF Urine Amorphous Sediment FEW DOMINGUEZ URATES H /LPF Urine Bacteria FEW H /HPF Urine Casts PRESENT /LPF Urine Hyaline Casts 5-10 H /LPF Urine Mucus NEGATIVE /LPF Urine Culture Indicated YES (JARRETT SOTO MD) My Orders Orders - JARRETT SOTO MD O2 (07/05/19 14:47) Ed Iv/Invasive Line Start (07/05/19 14:47) Catheter(Urinary) Insert & Ass 03,15 (07/05/19 14:47) Furosemide Injection (Lasix Injection) (07/05/19 14:47) Ua Culture If Indicated (07/05/19 14:47) Urine Culture (07/05/19 15:06) (JARRETT SOTO MD) Vital Signs/I&O 07/05/19 14:36 Temp 37.3 Pulse 96 Resp 19 B/P (MAP) 144/67 (92) Pulse Ox 97 O2 Delivery Nasal Cannula (JARRETT SOTO MD) Progress Progress Note : Progress Note Patient seen and evaluated with Brent Friend APRN. I agree with above except as indicated. IV by EMS. Labs, EKG, chest x-ray, Lasix 80 mg IV, Dinero catheter and UA ordered. Continuing O2 to keep sats greater than 92%. Monitor patient. 1555: I did discuss the case with Dr. Davis. Lasix 80 mg IV given. He accepts patient in consult for the findings of heart failure and volume overload. 1600: I did discuss the case with Dr. Rojas and he accepts patient for admission, inpatient status for the same. Orders for CXR in the a.m. as well as sliding scale insulin. Discussed with patient who agrees with plan. Admit, inpatient status. (JARRETT SOTO MD) Initial ECG Impression Date: Jul 05, 2019 Initial ECG Impression Time: 14:39 Initial ECG Rate: 75 Initial ECG Rhythm: A Fib/Flutter Initial ECG Impression: Atrial Fibrillation Comment Atrial fibrillation with left bundle branch block. Leftward axis. No evidence of ST elevation ND. Similar to previous of April 12, 2019. Interpreted by me. (JARRETT SOTO MD) Diagnostic Imaging Diagonstic Imaging: Xray Plain Films/CT/US/NM/MRI: chest Comments [facility], [facility]. [place], [place] NAME: JEREMY NUNES [facility] REC#: [id number] PT STATUS: REG ER : 1940 PHYSICIAN: BRENT FRIEND APRN ADMIT DATE: 07/05/19/ER Draft Date of Exam:07/05/19 CHEST 1 VIEW, AP/PA ONLY PATIENT HISTORY: Chest pain, shortness of breath. TECHNIQUE: Single frontal view of the chest COMPARISON: 04/16/2019 FINDINGS: There is stable moderate cardiomegaly with central vascular congestion. Lung volumes are mildly low. No focal consolidation is seen. There is no pleural effusion or pneumothorax. Sternotomy wires and post-CABG changes are seen. IMPRESSION: Stable cardiomegaly and central vascular congestion. Dictated on workstation # [id number] Dict: 07/05/19 1528 Trans: 07/05/19 1532 CVB [id number] Interpreted by: FERNANDO BETTS MD Electronically signed by: (JARRETT SOTO MD) Departure Communication (Admissions) Time/Spoke to Admitting Phy: 16:00 Time/Spoke to Consulting Phy: 15:55 (JARRETT SOTO MD) Impression Primary Impression: Acute on chronic heart failure Qualified Codes: I50.9 - Heart failure, unspecified Additional Impressions: Volume overload Qualified Codes: E87.70 - Fluid overload, unspecified Dyspnea Qualified Codes: R06.09 - Other forms of dyspnea Disposition: ADMITTED INPATIENT Condition: Stable Admissions Decision to Admit Reason: Admit from ER (General) Decision to Admit/Date: Jul 05, 2019 Time/Decision to Admit Time: 15:55 (JARRETT SOTO MD) Departure-Patient Inst. Referrals: LILY ROJAS DO (PCP/Family) Primary Care Physician BRENT FRIEND APRN Jul 05, 2019 14:47 JARRETT SOTO MD Jul 05, 2019 15:21
[2019-07-05 14:55] LABS: BASOPHILS % (AUTO) 0 % (0-10); EOSINOPHILS # (AUTO) 0.1 10^3/uL (0.0-0.3); EOSINOPHILS % (AUTO) 1 % (0-10); HEMATOCRIT 32 % (35-52); HEMOGLOBIN 9.7 G/DL (11.5-16.0); LYMPHOCYTES # (AUTO) 1.3 X 10^3 (1.0-4.0); LYMPHOCYTES % (AUTO) 15 % (12-44); MEAN CORPUSCULAR HEMOGLOBIN 27 PG (25-34); MEAN CORPUSCULAR HGB CONC 30 G/DL (32-36); MEAN CORPUSCULAR VOLUME 91 FL (80-99); MEAN PLATELET VOLUME 10.8 FL (7.4-10.4); MONOCYTES # (AUTO) 0.7 X 10^3 (0.0-1.0); MONOCYTES % (AUTO) 8 % (0-12); NEUTROPHILS # (AUTO) 6.5 X 10^3 (1.8-7.8); NEUTROPHILS % (AUTO) 76 % (42-75); PLATELET COUNT 190 10^3/uL (130-400); RED CELL DISTRIBUTION WIDTH 18.2 % (10.0-14.5); WHITE BLOOD COUNT 8.5 10^3/uL (4.3-11.0)
[2019-07-05 15:08] LABS: INR 1.8 (0.8-1.4); PROTHROMBIN TIME PATIENT 21.3 SEC (12.2-14.7)
[2019-07-05 15:12] LABS: BILIRUBIN,URINE NEGATIVE (NEGATIVE); CLARITY,URINE CLEAR; COLOR,URINE YELLOW; GLUCOSE, URINE (UA) NEGATIVE (NEGATIVE); KETONES,URINE NEGATIVE (NEGATIVE); LEUKOCYTE ESTERASE ,URINE 1+ (NEGATIVE); NITRITE,URINE NEGATIVE (NEGATIVE); PH,URINE 6 (5-9); PROTEIN,URINE 2+ (NEGATIVE); UROBILINOGEN,URINE NORMAL (NORMAL)
[2019-07-05 15:14] LABS: ALANINE AMINOTRANSFERASE 11 U/L (0-55); ALKALINE PHOSPHATASE 49 U/L (40-136); BUN/CREATININE RATIO 14; CALCIUM 8.6 MG/DL (8.5-10.1); CARBON DIOXIDE 28 MMOL/L (21-32); CHLORIDE 102 MMOL/L (98-107); CREATININE SERUM 1.73 MG/DL (0.60-1.30); GFR ESTIMATED 28; GLUCOSE 216 MG/DL (70-105); LIPASE 43 U/L (8-78); MAGNESIUM 2.3 MG/DL (1.6-2.4); POTASSIUM 4.3 MMOL/L (3.6-5.0); SODIUM 137 MMOL/L (135-145); TOTAL PROTEIN 6.9 GM/DL (6.4-8.2)
[2019-07-05 15:26] LABS: AMORPHOUS SEDIMENT,UR FEW AMOR URATES /LPF; BACTERIA,URINE FEW /HPF; SQUAMOUS EPITHELIAL CELL,UR 0-2 /HPF
--- NOTE | 2019-07-05 15:33 | Diagnostic Imaging Report ---
PATIENT HISTORY: Chest pain, shortness of breath. TECHNIQUE: Single frontal view of the chest COMPARISON: 04/16/2019 FINDINGS: There is stable moderate cardiomegaly with central vascular congestion. Lung volumes are mildly low. No focal consolidation is seen. There is no pleural effusion or pneumothorax. Sternotomy wires and post-CABG changes are seen. IMPRESSION: Stable cardiomegaly and central vascular congestion. Dictated by: Dictated on workstation # [id number]
--- NOTE | 2019-07-05 16:08 | Consultation-Cardiology ---
HPI-Cardiology Cardiology Consultation: Date of Consultation 07/05/19 Time Seen by a Provider: 16:25 Date of Admission 07-05-19 Attending Physician Admitting Physician Luis Parkinson DO Consulting Physician Emily Davis MD HPI: Chief Complaint: CHF Ms. Arias is a 78 year old female admitted to [facility] from the ED. She reports she has had increasing SOB, lower extremity swelling and abdominal distension over the course of the last 4- 5 days. She states she got into the shower this morning and d/t SOB and weakness she had to have her son help her. She denies any c/o CP, palpitations, syncope, or near syncope. She continues to feel SOB at this time. She denies any n/v/d. She denies any fever or chills. She reports progressive gen weakness with unsteady gait causing her to fall into a table at home and a fall back into a chair. Review of Systems-Cardiology Review of Systems Constitutional: No chills, No fever; tiredness Eyes: No vision change Ears/Nose/Throat: No epistaxis, No recent hearing loss Respiratory: As described under HPI Cardiovascular: As described under HPI Gastrointestinal: No constipation, No diarrhea, No nausea, No vomiting Genitourinary: No hematuria Musculoskeletal: joint pain (chronic) Skin: other (bruising to right hip and left); No rash on exposed areas, No ulcerations on exposed areas Psychiatric/Neurological: No seizure, No focal weakness, No syncope Hematologic: easy bruising; No bleeding abnormalities All Other Systems Reviewed Negative Unless Noted: Yes RGT-Nbgjkq-Lkjafq Hx Patient Social History Alcohol Use: Denies Use Recreational Drug Use: No Smoking Status: Former Smoker Type Used: Cigarettes Recent Foreign Travel: No Recent Infectious Disease Expo: No Hospitalization with Isolation: Denies Immunizations Up To Date Date of Pneumonia Vaccine: Jun 12, 2015 Date of Influenza Vaccine: Sep 02, 2018 Past Medical History PMH As described under Assessment. Family Medical History Family History: Diabetes mellitus 19 MOTHER G8 BROTHER G8 BROTHER Emph FH: breast cancer 19 MOTHER FH: breast cancer 19 MOTHER FH: emphysema 19 MOTHER FH: emphysema 19 MOTHER Allergies and Home Medications Allergies Coded Allergies: No Known Drug Allergies (Unverified , 11/18/12) Home Medications Aspirin 81 Mg Tablet.dr, 81 MG PO DAILY, (Reported) Calcium Carbonate/Vitamin D3 1 Each Tablet, 1 TAB PO DAILY, (Reported) Dexlansoprazole 60 Mg Cap.drDavidbp, 60 MG PO DAILY PRN for ACID REFLUX, (Reported) Diltiazem HCl 240 Mg Cap.er.24h, 240 MG PO DAILY, (Reported) Furosemide 80 Mg Tablet, 80 MG PO DAILY, (Reported) Insulin Aspart 300 Units/3 Ml Solution, 11-17 SC AC, (Reported) Insulin Determir 1,000 Units/10 Ml Soln, 42 UNITS SC DAILY, (Reported) Insulin Determir 1,000 Units/10 Ml Soln, 58 UNITS SQ HS, (Reported) Lisinopril 5 Mg Tablet, 5 MG PO DAILY, (Reported) Metoprolol Tartrate 50 Mg Tablet, 50 MG PO BID, (Reported) [place] 3 Polyunsat Fatty Acids 1,000 Mg Cap, 1,000 MG PO DAILY, (Reported) Rivaroxaban 15 Mg Tablet, 15 MG PO HS, (Reported) Rosuvastatin Calcium 20 Mg Tablet, 20 MG PO HS, (Reported) Physical Exam-Cardiology Physical Exam Vital Signs/I&O 07/05/19 07/05/19 07/05/19 07/06/19 21:00 23:21 23:30 01:00 Temp 36.5 Pulse 75 70 Resp 20 B/P (MAP) 99/57 (71) Pulse Ox 98 91 91 O2 Delivery Nasal Cannula NIV CPAP NIV CPAP O2 Flow Rate 2.00 2.00 2.00 07/06/19 07/06/19 07/06/19 03:56 03:57 07:00 Temp 36.4 Pulse 76 72 Resp 18 B/P (MAP) 137/74 (95) Pulse Ox 90 90 O2 Delivery NIV CPAP NIV CPAP O2 Flow Rate 3.00 3.00 07/06/19 00:00 Intake Total 450 ml Output Total 2390 ml Balance -1940 ml Capillary Refill : Less Than 3 Seconds Constitutional: AAO x 3, well-developed, well-nourished HEENT: PERRL, hearing is well preserved, oral hygience is good Neck: carotid bruit, carotid pulses are 2 + bilaterally Respiratory: No accessory muscle use, No respiratory distress; chest expansion is symmetric, chest is bilaterally symmetric, other (fair air entry) Cardiovascular: irregularly irregular; No JVD; S1 and S2, systolic murmur Gastrointestinal: soft, distended, audible bowel sounds Rectal: deferred Extremities: significant edema (mod bilat LE swelling) Neurologic/Psychiatric: grossly intact Skin: No rash on exposed areas, No ulcerations on exposed areas; other (bruising to right lateral hip and right lateral thigh) Data Review Labs Laboratory Tests 07/05/19 14:40: White Blood Count 8.5, Red Blood Count 3.55L, Hemoglobin 9.7L, Hematocrit 32L, Mean Corpuscular Volume 91, Mean Corpuscular Hemoglobin 27, Mean Corpuscular Hemoglobin Concent 30L, Red Cell Distribution Width 18.2H, Platelet Count 190, Mean Platelet Volume 10.8H, Neutrophils (%) (Auto) 76H, Lymphocytes (%) (Auto) 15, Monocytes (%) (Auto) 8, Eosinophils (%) (Auto) 1, Basophils (%) (Auto) 0, Neutrophils # (Auto) 6.5, Lymphocytes # (Auto) 1.3, Monocytes # (Auto) 0.7, Eosinophils # (Auto) 0.1, Basophils # (Auto) 0.0, Prothrombin Time 21.3H, INR Comment 1.8H, Activated Partial Thromboplast Time 32, Sodium Level 137, Potassium Level 4.3, Chloride Level 102, Carbon Dioxide Level 28, Anion Gap 7, Blood Urea Nitrogen 25H, Creatinine 1.73H, Estimat Glomerular Filtration Rate 28, BUN/Creatinine Ratio 14, Glucose Level 216H, Calcium Level 8.6, Corrected Calcium 8.6, Magnesium Level 2.3, Total Bilirubin 1.0, Aspartate Amino Transf (AST/SGOT) 13, Alanine Aminotransferase (ALT/SGPT) 11, Alkaline Phosphatase 49, Myoglobin 139.6H, Troponin I < 0.028, B-Type Natriuretic Peptide 439.7H, Total Protein 6.9, Albumin 4.0, Lipase 43 07/05/19 15:06: Urine Color YELLOW, Urine Clarity CLEAR, Urine pH 6, Urine Specific [place] 1.015L, Urine Protein 2+H, Urine Glucose (UA) NEGATIVE, Urine Ketones NEGATIVE, Urine Nitrite NEGATIVE, Urine Bilirubin NEGATIVE, Urine Urobilinogen NORMAL, Urine Leukocyte Esterase 1+H, Urine RBC (Auto) NEGATIVE, Urine RBC NONE, Urine WBC 2-5, Urine Squamous Epithelial Cells 0-2, Urine Crystals PRESENTH, Urine Amorphous Sediment FEW DOMINGUEZ URATESH, Urine Bacteria FEWH, Urine Casts PRESENT, Urine Hyaline Casts 5-10H, Urine Mucus NEGATIVE, Urine Culture Indicated YES 07/05/19 19:16: Glucometer 208H 07/05/19 22:47: Troponin I < 0.028 07/06/19 03:20: White Blood Count 6.7, Red Blood Count 3.29L, Hemoglobin 9.0L, Hematocrit 30L, Mean Corpuscular Volume 91, Mean Corpuscular Hemoglobin 27, Mean Corpuscular Hemoglobin Concent 30L, Red Cell Distribution Width 18.4H, Platelet Count 178, Mean Platelet Volume 10.4, Neutrophils (%) (Auto) 72, Lymphocytes (%) (Auto) 15, Monocytes (%) (Auto) 11, Eosinophils (%) (Auto) 2, Basophils (%) (Auto) 0, Neutrophils # (Auto) 4.9, Lymphocytes # (Auto) 1.0, Monocytes # (Auto) 0.7, Eosinophils # (Auto) 0.1, Basophils # (Auto) 0.0, Sodium Level 143, Potassium Level 3.9, Chloride Level 106, Carbon Dioxide Level 28, Anion Gap 9, Blood Urea Nitrogen 32H, Creatinine 1.54H, Estimat Glomerular Filtration Rate 33, BUN/Creatinine Ratio 21, Glucose Level 144H, Calcium Level 8.7, Corrected Calcium 9.2, Magnesium Level 2.1, Total Bilirubin 0.8, Aspartate Amino Transf (AST/SGOT) 12, Alanine Aminotransferase (ALT/SGPT) 13, Alkaline Phosphatase 41, B-Type Natriuretic Peptide 425.7H, Total Protein 6.4, Albumin 3.4, Triglycerides Level 65, Cholesterol Level 76, LDL Cholesterol Direct 36, VLDL Cholesterol 13, HDL Cholesterol 22L, Thyroid Stimulating Hormone (TSH) 0.44 Radiology NAME: JEREMY ARIAS [facility] REC#: [id number] PT STATUS: REG ER : 1940 PHYSICIAN: BRENT LUNDY APRN ADMIT DATE: 07/05/19/ER Draft Date of Exam:07/05/19 CHEST 1 VIEW, AP/PA ONLY PATIENT HISTORY: Chest pain, shortness of breath. TECHNIQUE: Single frontal view of the chest COMPARISON: 04/16/2019 FINDINGS: There is stable moderate cardiomegaly with central vascular congestion. Lung volumes are mildly low. No focal consolidation is seen. There is no pleural effusion or pneumothorax. Sternotomy wires and post-CABG changes are seen. IMPRESSION: Stable cardiomegaly and central vascular congestion. Dictated on workstation # [id number] Dict: 07/05/19 1528 Trans: 07/05/19 1532 [id number] [id number] Interpreted by: FERNANDO BETTS MD Electronically signed by: ECG Impression ECG Initial ECG Impression: Atrial Fibrillation A/P-Cardiology Assessment/Admission Diagnosis Acute on chronic systolic/diastolic CHF UTI - management per medical services Mild anemia of undetermined etiology Paroxysmal atrial fibrillation which now seems to have become chronic permanent atrial fibrillation Multivessel coronary artery disease for which the patient underwent coronary artery bypass surgery 07/14/2012. This consisted of left internal mammary artery graft to left anterior descending, saphenous vein graft to posterior descending and sequential saphenous vein to ramus intermedius and obtuse marginal. This was carried out at [facility] in [place], [place] by Dr. Juarez. Cardiac cath of 10-19-18 showed [place] CAD consisting of long 80-90% prox and mid vessel stenosis of the LAD, 80-90% stenosis of the prox portion of the RI, and diffuse mod disease of the RCA. Patent left internal mammary artery graft to distal LAD. Patent saphenous vein graft to RI. Chronically occluded saphenous vein graft to RCA. MPI of 8-23-16 is indicative of basal inferior infarction with a mod amount of aguila-infarct ischemia. Inferolateral hypokinesis. LVEF approx 46% Maturity onset diabetes mellitus, insulin requiring. Aortic stenosis, for which he has undergone TAVR at [facility] in [place], [place], on 10/10/14, mod dilated LA, mod conc LVH, mod MAC, mild to mod MR, bioprosthetic AoV working adequately, PASP 50-55 mmHg. According to a card that she carries this is an Baird bovine transcatheter valve, 26 mm, model 9300 TFX, in the aortic position Echocardiogram of Jun 2019 showed concentric hypertrophy. LVEF 55-60%. LA mod dilated. Mild to mod calcified annulus with mild regurg. Mod TR. RVSP approx 53 mmHg. Known TAVR: Adequate function, max gradient 26 mmHg, mean gradient 16 mmHg. Chronic rivaroxaban anticoag for stroke prophylaxis Pulmonary HTN, with an estimated PASP of 75mmHg per echo of March 2014. Cardiac cath from July 25, 2014 showed moderate pulmonary HTN with mean pulmonary artery pressure of 33 mmHg and pulmonary vascular resistance of 5.4 Wood units. Echo of November 2014 shows PASP of approximately 45-50mmHg. Echo of 08/25/17 showed PASP 50-55 mmHg Hypertension CKD stage III Hyperlipidemia currently on statin therapy - followed by Dr. Parkinson Obesity with a body index of 41. Gastroesophageal reflux. Chronic right ankle swelling following ankle fracture several years ago. History of knee replacement surgery in 1999. History of surgery of the femur several years ago. Carotid arterial disease, consisting of 60% stenosis of the right internal carotid and 50% stenosis of the left internal carotid per CT angiography of 05/12/2013. 60-79% bilat stenosis of carotids per u/s of Jun, Incidentally diagnosed 7 mm right thyroid nodule on a CT scan of the carotid. This is being followed by Dr. Parkinson Sleep apnea syndrome - CPAP therapy Discussion and Recomendations Acute on chronic systolic/diastolic CHF - give diuretics Monitor lab UTI - management per medical services Chronic a-fib - rate controlled Continue OAC with Xarelto for stroke prophylaxis Continue BB, calcium channel bee for rate control Monitor lab closely Further recs will be based on her hospital course We would like to thank medical services for this consult Clinical Quality Measures AMI/AHF: ASA po Prior to arrival: Yes ASTRID STUART Jul 05, 2019 16:08
[2019-07-05 16:30] VITALS: BP 161/81
[2019-07-05] MEDS: FUROSEMIDE 40 MG (LASIX) TAB PO SCH (17:02)
[2019-07-05] MEDS: RIVAROXABAN 15 MG TABLET (XARELTO) PO SCH (17:02)
[2019-07-05] MEDS: NS IV 1000 ML 1,000 ML IV SCH (17:02)
[2019-07-05 17:10] VITALS: BP 144/67
[2019-07-05] MEDS ORDERED: RT-ALBUTEROL/IPRATROPIUM 3 ML (DUONEB) VIAL INH PRN (17:30)
[2019-07-05] MEDS ORDERED: FLU QUADRIvalent (5+ YOA) 2019-2020 (AFLURIA) 0.5 ML IM ONE (18:00)
--- NOTE | 2019-07-05 18:01 | Consultation-Cardiology ---
HPI-Cardiology Cardiology Consultation: Date of Consultation 07/05/19 Time Seen by a Provider: 17:45 Date of Admission Attending Physician Luis Parkinson DO Admitting Physician Luis Parkinson DO Consulting Physician ADALBERTO PATEL MD, MA, FACP, FACC, [facility], CCDS Physician requesting consult: Dr Parkinson HPI: Chief Complaint: CC: Increasing shortness of breath HPI Ms. Arias is a 78 year old female admitted to [facility] from the ED. She reports she has had increasing SOB, lower extremity swelling and abdominal distension over the course of the last 4- 5 days. She states she got into the shower this morning and d/t SOB and weakness she had to have her son help her. She denies any c/o CP, palpitations, syncope, or near syncope. She continues to feel SOB at this time. She denies any n/v/d. She denies any fever or chills. She reports progressive gen weakness with unsteady gait causing her to fall into a table at home and a fall back into a chair. Review of Systems-Cardiology Review of Systems Constitutional: No chills, No fever; malaise, tiredness Eyes: No vision change Ears/Nose/Throat: No epistaxis, No recent hearing loss Respiratory: As described under HPI Cardiovascular: As described under HPI Gastrointestinal: No constipation, No diarrhea, No nausea, No vomiting Genitourinary: No hematuria Musculoskeletal: joint pain (chronic) Skin: other (bruising to right hip and left); No rash on exposed areas, No ulcerations on exposed areas Psychiatric/Neurological: No seizure, No focal weakness, No syncope Hematologic: easy bruising; No bleeding abnormalities All Other Systems Reviewed Negative Unless Noted: Yes [id number]-Bajwwa Hx Patient Social History Alcohol Use: Denies Use Recreational Drug Use: No Smoking Status: Never a Smoker 2nd Hand Smoke Exposure: No Recent Foreign Travel: No Recent Infectious Disease Expo: No Hospitalization with Isolation: Denies Immunizations Up To Date Date of Pneumonia Vaccine: Jun 12, 2015 Date of Influenza Vaccine: Sep 02, 2018 Past Medical History PMH As described under Assessment. Family Medical History Family History: Diabetes mellitus 19 MOTHER G8 BROTHER G8 BROTHER Emph FH: breast cancer 19 MOTHER FH: breast cancer 19 MOTHER FH: emphysema 19 MOTHER FH: emphysema 19 MOTHER Allergies and Home Medications Allergies Coded Allergies: No Known Drug Allergies (Unverified , 11/18/12) Home Medications Aspirin 81 Mg Tablet.dr, 81 MG PO DAILY, (Reported) Calcium Carbonate/Vitamin D3 1 Each Tablet, 1 TAB PO DAILY, (Reported) Dexlansoprazole 60 Mg Cap.drDavidbp, 60 MG PO DAILY PRN for ACID REFLUX, (Reported) Diltiazem HCl 240 Mg Cap.er.24h, 240 MG PO DAILY, (Reported) Furosemide 80 Mg Tablet, 80 MG PO DAILY, (Reported) Insulin Aspart 300 Units/3 Ml Solution, 11-17 SC AC, (Reported) Insulin Determir 1,000 Units/10 Ml Soln, 42 UNITS SC DAILY, (Reported) Insulin Determir 1,000 Units/10 Ml Soln, 58 UNITS SQ HS, (Reported) Lisinopril 5 Mg Tablet, 5 MG PO DAILY, (Reported) Metoprolol Tartrate 50 Mg Tablet, 50 MG PO BID, (Reported) [place] 3 Polyunsat Fatty Acids 1,000 Mg Cap, 1,000 MG PO DAILY, (Reported) Rivaroxaban 15 Mg Tablet, 15 MG PO HS, (Reported) Rosuvastatin Calcium 20 Mg Tablet, 20 MG PO HS, (Reported) Patient Home Medication List Home Medication List Reviewed: Yes Physical Exam-Cardiology Physical Exam Vital Signs/I&O 07/05/19 07/05/19 07/05/19 07/05/19 14:36 14:58 16:30 16:30 Temp 37.3 36.7 Pulse 96 70 Resp 19 22 B/P (MAP) 144/67 (92) 161/81 (107) Pulse Ox 97 98 96 O2 Delivery Nasal Cannula Nasal Cannula Nasal Cannula NIV Bilevel O2 Flow Rate 2.00 2.00 2.00 FiO2 98 07/05/19 07/05/19 07/05/19 16:41 16:55 17:10 Temp 37.3 37.3 Pulse 96 71 71 Resp 19 B/P (MAP) 144/67 (92) Pulse Ox 98 98 O2 Delivery Nasal Cannula O2 Flow Rate 2.00 FiO2 98 Capillary Refill : Less Than 3 Seconds Constitutional: AAO x 3, well-developed, well-nourished HEENT: PERRL, hearing is well preserved, oral hygience is good Neck: carotid bruit, carotid pulses are 2 + bilaterally Respiratory: No accessory muscle use, No respiratory distress; chest expansion is symmetric, chest is bilaterally symmetric, other (fair air entry; coarse and fine basa crackles) Cardiovascular: irregularly irregular; No JVD; S1 and S2, systolic murmur Gastrointestinal: soft, distended, audible bowel sounds Rectal: deferred Extremities: significant edema (mod bilat LE swelling) Neurologic/Psychiatric: grossly intact Skin: No rash on exposed areas, No ulcerations on exposed areas; other (bruis ing to right lateral hip and right lateral thigh) Data Review Labs Laboratory Tests 07/05/19 14:40: White Blood Count 8.5, Red Blood Count 3.55L, Hemoglobin 9.7L, Hematocrit 32L, Mean Corpuscular Volume 91, Mean Corpuscular Hemoglobin 27, Mean Corpuscular Hemoglobin Concent 30L, Red Cell Distribution Width 18.2H, Platelet Count 190, Mean Platelet Volume 10.8H, Neutrophils (%) (Auto) 76H, Lymphocytes (%) (Auto) 15, Monocytes (%) (Auto) 8, Eosinophils (%) (Auto) 1, Basophils (%) (Auto) 0, Neutrophils # (Auto) 6.5, Lymphocytes # (Auto) 1.3, Monocytes # (Auto) 0.7, Eosinophils # (Auto) 0.1, Basophils # (Auto) 0.0, Prothrombin Time 21.3H, INR Comment 1.8H, Activated Partial Thromboplast Time 32, Sodium Level 137, Potassium Level 4.3, Chloride Level 102, Carbon Dioxide Level 28, Anion Gap 7, Blood Urea Nitrogen 25H, Creatinine 1.73H, Estimat Glomerular Filtration Rate 28, BUN/Creatinine Ratio 14, Glucose Level 216H, Calcium Level 8.6, Corrected Calcium 8.6, Magnesium Level 2.3, Total Bilirubin 1.0, Aspartate Amino Transf (AST/SGOT) 13, Alanine Aminotransferase (ALT/SGPT) 11, Alkaline Phosphatase 49, Myoglobin 139.6H, Troponin I < 0.028, B-Type Natriuretic Peptide 439.7H, Total Protein 6.9, Albumin 4.0, Lipase 43 07/05/19 15:06: Urine Color YELLOW, Urine Clarity CLEAR, Urine pH 6, Urine Specific [place] 1.015L, Urine Protein 2+H, Urine Glucose (UA) NEGATIVE, Urine Ketones NEGATIVE, Urine Nitrite NEGATIVE, Urine Bilirubin NEGATIVE, Urine Urobilinogen NORMAL, Urine Leukocyte Esterase 1+H, Urine RBC (Auto) NEGATIVE, Urine RBC NONE, Urine WBC 2-5, Urine Squamous Epithelial Cells 0-2, Urine Crystals PRESENTH, Urine Amorphous Sediment FEW DOMINGUEZ URATESH, Urine Bacteria FEWH, Urine Casts PRESENT, Urine Hyaline Casts 5-10H, Urine Mucus NEGATIVE, Urine Culture Indicated YES Laboratory Tests 07/05/19 14:40 A/P-Cardiology Assessment/Admission Diagnosis Acute on chronic systolic and diastolic CHF UTI - management per Medical Services Mild anemia of undetermined etiology, managed by PCP Paroxysmal atrial fibrillation which now seems to have become chronic permanent atrial fibrillation Multivessel coronary artery disease for which the patient underwent coronary artery bypass surgery 07/14/2012. This consisted of left internal mammary artery graft to left anterior descending, saphenous vein graft to posterior descending and sequential saphenous vein to ramus intermedius and obtuse marginal. This was carried out at [facility] in [place], [place] by Dr. Juarez. Cardiac cath of 10-19-18 showed [place] CAD consisting of long 80-90% prox and mid vessel stenosis of the LAD, 80-90% stenosis of the prox portion of the RI, and diffuse mod disease of the RCA. Patent left internal mammary artery graft to distal LAD. Patent saphenous vein graft to RI. Chronically occluded saphenous vein graft to RCA. MPI of 823-16 is indicative of basal inferior infarction with a mod amount of aguila-infarct ischemia. Inferolateral hypokinesis. LVEF approx 46% Maturity onset diabetes mellitus, insulin requiring. Aortic stenosis, for which he has undergone TAVR at [facility] in [place], [place], on 10/10/14, mod dilated LA, mod conc LVH, mod MAC, mild to mod MR, bioprosthetic AoV working adequately, PASP 50-55 mmHg. According to a card that she carries this is an Baird bovine transcatheter valve, 26 mm, model 9300 TFX, in the aortic position Echocardiogram of Jun 2019 showed concentric hypertrophy. LVEF 55-60%. LA mod dilated. Mild to mod calcified annulus with mild regurg. Mod TR. RVSP approx 53 mmHg. Known TAVR: Adequate function, max gradient 26 mmHg, mean gradient 16 mmHg. Chronic rivaroxaban anticoag for stroke prophylaxis Pulmonary HTN, with an estimated PASP of 75mmHg per echo of March 2014. Cardiac cath from July 25, 2014 showed moderate pulmonary HTN with mean pulmonary artery pressure of 33 mmHg and pulmonary vascular resistance of 5.4 Wood units. Echo of November 2014 shows PASP of approximately 45-50mmHg. Echo of 08/25/17 showed PASP 50-55 mmHg Hypertension CKD stage III Hyperlipidemia currently on statin therapy - followed by Dr. Parkinson Obesity with a body index of 41. Gastroesophageal reflux. Chronic right ankle swelling following ankle fracture several years ago. History of knee replacement surgery in 1999. History of surgery of the femur several years ago. Carotid arterial disease, consisting of 60% stenosis of the right internal carotid and 50% stenosis of the left internal carotid per CT angiography of 05/12/2013. 60-79% bilat stenosis of carotids per u/s of Jun, Incidentally diagnosed 7 mm right thyroid nodule on a CT scan of the carotid. This is being followed by Dr. Parkinson Sleep apnea syndrome - CPAP therapy Discussion and Recomendations * iv diuretics for decompensated CHF * Monitor lab * UTI - management per medical services * Chronic a-fib - rate controlled * Continue OAC with Xarelto for stroke prophylaxis * Continue BB, calcium channel bee for rate control * Further recs will be based on her hospital course * We would like to thank Medical Services for this consult Clinical Quality Measures AMI/AHF: ASA po Prior to arrival: Yes DVT/VTE Risk/Contraindication: Risk Factor Score Per Nursin RFS Level Per Nursing on Admit: 4+=Very High ADALBERTO PATEL MD FACP FAC CCDS Jul 05, 2019 18:01
--- NOTE | 2019-07-05 19:41 | History & Physicial ---
History of Present Illness History of Present Illness Reason for visit/HPI Chest pain and short of the air while taken a shower. As 4 days patient feeling up with fluid with legs and going into the abdomen. Family called EMS and patient given an aspirin and sublingual nitroglycerin. Patient brought out to the emergency room Surgeries open heart, aortic valve, complete hysterectomy, fracture right ankle and knee and femur. Patient has a history of atrial fibrillation, coronary artery disease, open heart surgery, diabetes, renal insufficiency, atrial fibrillation, obesity. Volume overload area Acute and chronic heart failure, obesity, hyperlipidemia Date of Admission Jul 05, 2019 at 16:05 Time Seen by a Provider: 19:36 I consulted on this patient on 07/05/19 19:35 Attending Physician Lius Rojas DO Admitting Physician Luis Rojas DO Consult Allergies and Home Medications Allergies Coded Allergies: No Known Drug Allergies (Unverified , 11/18/12) Home Medications Aspirin 81 Mg Tablet.dr, 81 MG PO DAILY, (Reported) Calcium Carbonate/Vitamin D3 1 Each Tablet, 1 TAB PO DAILY, (Reported) Dexlansoprazole 60 Mg Cap.dr.bp, 60 MG PO DAILY PRN for ACID REFLUX, (Reported) Diltiazem HCl 240 Mg Cap.er.24h, 240 MG PO DAILY, (Reported) Furosemide 80 Mg Tablet, 80 MG PO DAILY, (Reported) Insulin Aspart 300 Units/3 Ml Solution, 11-17 SC AC, (Reported) Insulin Determir 1,000 Units/10 Ml Soln, 42 UNITS SC DAILY, (Reported) Insulin Determir 1,000 Units/10 Ml Soln, 58 UNITS SQ HS, (Reported) Lisinopril 5 Mg Tablet, 5 MG PO DAILY, (Reported) Metoprolol Tartrate 50 Mg Tablet, 50 MG PO BID, (Reported) [place] 3 Polyunsat Fatty Acids 1,000 Mg Cap, 1,000 MG PO DAILY, (Reported) Rivaroxaban 15 Mg Tablet, 15 MG PO HS, (Reported) Rosuvastatin Calcium 20 Mg Tablet, 20 MG PO HS, (Reported) Patient Home Medication List Home Medication List Reviewed: No Past Wbjrzkh-Ttlxwf-Yfzocd Hx Patient Social History Marrital Status: Employed/Student: retired Alcohol Use: Denies Use Recreational Drug Use: No Smoking Status: Never a Smoker 2nd Hand Smoke Exposure: No Recent Foreign Travel: No Contact w/other who traveled: No Recent Hopitalizations: No Recent Infectious Disease Expo: No Immunizations Up To Date Date of Pneumonia Vaccine: Jun 12, 2015 Date of Influenza Vaccine: Sep 02, 2018 Seasonal Allergies Seasonal Allergies: Yes Surgeries Yes (HEART VALVE REPLACED) Cardiac, CABG, Hysterectomy, Orthopedic Respiratory Yes Currently Using CPAP: Yes (AT NIGHT) Currently Using BIPAP: No Cardiovascular Yes Coronary Artery Disease, High Cholesterol, Hypertension, Valvular Heart Disease Neurological No Reproductive System Hx Reproductive Disorders: No Genitourinary Yes UTI-Chronic Gastrointestinal Yes Gastroesophageal Reflux Musculoskeletal Yes (ANKLE FX, B/L KNEE PAIN R/T PAST FRACTURE, COMPUND FX IN FEMUR) Fractures Endocrine History of Endocrine Disorders: Yes (THYROID GROWTH) Endocrine Disorders: Diabetes, Insulin dep HEENT HEENT Disorders: Cataract Hearing Impairment: Hard of Hearing Cancer No Psychosocial History of Psychiatric Problem: No Integumentary History of Skin or Integumenta: No Blood Transfusions History of Blood Disorders: No Adverse Reaction to a Blood Tr: No Family Medical History Family Hx: Diabetes mellitus 19 MOTHER G8 BROTHER G8 BROTHER Emph FH: breast cancer 19 MOTHER FH: breast cancer 19 MOTHER FH: emphysema 19 MOTHER FH: emphysema 19 MOTHER Review of Systems Constitutional: weakness EENTM: no symptoms reported Respiratory: short of breath Cardiovascular: chest pain, other (Short of breath, chest pain) Gastrointestinal: no symptoms reported, other ([place] and abdomen) Genitourinary: no symptoms reported Physical Exam Vital Signs Vital Signs - First Documented 07/05/19 07/05/19 14:36 14:58 Temp 37.3 Pulse 96 Resp 19 B/P (MAP) 144/67 (92) Pulse Ox 97 O2 Delivery Nasal Cannula O2 Flow Rate 2.00 FiO2 98 Capillary Refill : Less Than 3 Seconds Height, Weight, BMI Height: 5'6.00" Weight: 294lbs. 4.0oz. [id number]; 49.58 BMI Method:Stated General Appearance: No Apparent Distress, WD/WN, Obese Eyes: Bilateral Eye Normal Inspection HEENT: Normal ENT Inspection Neck: Full Range of Motion, Normal Inspection Respiratory: No Accessory Muscle Use, No Respiratory Distress, Decreased Breath Sounds Cardiovascular: Irregularly Irregular Gastrointestinal: Non Tender, Soft, Distended Assessment/Plan Assessment and Plan Chest pain. Shortness of breath. Acute and chronic heart failure. Volume overload. CK D3. Diabetes. CAD. UTI waiting for culture and sensitivity. Atrial fibrillation. Hyperlipidemia. Obesity Admission Diagnosis Admission Status: Inpatient Order (span 2 midnights) Reason for Inpatient Admission: CHF. Chest pain. CK D3. Diabetes. Clinical Quality Measures AMI/AHF: ASA po Prior to arrival: Yes DVT/VTE Risk/Contraindication: Risk Factor Score Per Nursin RFS Level Per Nursing on Admit: 4+=Very High LUIS ROJAS DO Jul 05, 2019 19:40
[2019-07-05 20:00] VITALS: BP 151/92
[2019-07-05] MEDS: meTOprolol TARTRATE 50 MG (LOPRESSOR) TAB PO SCH (21:06)
[2019-07-05] MEDS: inSUlin ASPART (NovoLOG) 1 UNIT/0.01 ML (CHARGE PER UNIT) SC SCH (21:06)
[2019-07-05 23:21] VITALS: BP 99/57
[2019-07-06 03:36] LABS: BASOPHILS % (AUTO) 0 % (0-10); EOSINOPHILS # (AUTO) 0.1 10^3/uL (0.0-0.3); EOSINOPHILS % (AUTO) 2 % (0-10); HEMATOCRIT 30 % (35-52); LYMPHOCYTES % (AUTO) 15 % (12-44); MEAN CORPUSCULAR HEMOGLOBIN 27 PG (25-34); MEAN CORPUSCULAR HGB CONC 30 G/DL (32-36); MEAN CORPUSCULAR VOLUME 91 FL (80-99); MEAN PLATELET VOLUME 10.4 FL (7.4-10.4); MONOCYTES # (AUTO) 0.7 X 10^3 (0.0-1.0); MONOCYTES % (AUTO) 11 % (0-12); NEUTROPHILS # (AUTO) 4.9 X 10^3 (1.8-7.8); NEUTROPHILS % (AUTO) 72 % (42-75); PLATELET COUNT 178 10^3/uL (130-400); RED CELL DISTRIBUTION WIDTH 18.4 % (10.0-14.5); WHITE BLOOD COUNT 6.7 10^3/uL (4.3-11.0)
[2019-07-06 03:56] VITALS: BP 137/74
[2019-07-06 04:00] LABS: ALBUMIN 3.4 GM/DL (3.2-4.5); BILIRUBIN,TOTAL 0.8 MG/DL (0.1-1.0); CALCIUM 8.7 MG/DL (8.5-10.1); CREATININE SERUM 1.54 MG/DL (0.60-1.30); MAGNESIUM 2.1 MG/DL (1.6-2.4); POTASSIUM 3.9 MMOL/L (3.6-5.0); TOTAL PROTEIN 6.4 GM/DL (6.4-8.2)
[2019-07-06] MEDS: inSUlin ASPART (NovoLOG) 1 UNIT/0.01 ML (CHARGE PER UNIT) SC SCH ×4 (05:10→20:20)
[2019-07-06] MEDS: FUROSEMIDE 40 MG (LASIX) TAB PO SCH ×2 (06:01→16:20)
[2019-07-06] MEDS: KCL 10 MEQ TAB (MICRO K) PO SCH (06:02)
--- NOTE | 2019-07-06 07:45 | Progress Note ---
Subjective Time Seen by a Provider: 07:43 Subjective/Events-last exam Patient feeling better today. GFR improved now 33 from 28. No chest pain this morning. Shortness of breath better Objective Exam Vital Signs Date Time Temp Pulse Resp B/P (MAP) Pulse Ox O2 Delivery O2 Flow Rate FiO2 07/06/19 03:57 90 NIV CPAP 3.00 07/06/19 03:56 36.4 76 18 137/74 (95) 90 NIV CPAP 3.00 07/06/19 01:00 70 07/05/19 23:30 91 NIV CPAP 2.00 07/05/19 23:21 36.5 75 20 99/57 (71) 91 NIV CPAP 2.00 07/05/19 21:00 98 Nasal Cannula 2.00 07/05/19 20:00 Nasal Cannula 2.00 07/05/19 20:00 36.5 75 20 151/92 (111) 98 Nasal Cannula 2.00 07/05/19 19:44 98 Nasal Cannula 2.00 07/05/19 19:00 70 07/05/19 17:10 37.3 71 98 98 07/05/19 16:55 71 07/05/19 16:41 37.3 96 19 144/67 (92) 98 Nasal Cannula 2.00 07/05/19 16:30 36.7 70 22 161/81 (107) 96 NIV Bilevel 2.00 07/05/19 16:30 Nasal Cannula 2.00 07/05/19 14:58 98 Nasal Cannula 2.00 98 07/05/19 14:36 37.3 96 19 144/67 (92) 97 Nasal Cannula I & O 07/06/19 07:00 Intake Total 550 ml Output Total 3390 ml Balance -2840 ml Capillary Refill : Less Than 3 Seconds General Appearance: No Apparent Distress, WD/WN HEENT: Normal ENT Inspection Neck: Normal Inspection Respiratory: No Accessory Muscle Use, No Respiratory Distress, Decreased Breath Sounds Cardiovascular: Irregularly Irregular Gastrointestinal: non tender, soft Extremity: Other (Less pretibial edema) Results Lab Laboratory Tests 07/05/19 14:40 07/06/19 03:20 Laboratory Tests 07/05/19 14:40: White Blood Count 8.5, Red Blood Count 3.55L, Hemoglobin 9.7L, Hematocrit 32L, Mean Corpuscular Volume 91, Mean Corpuscular Hemoglobin 27, Mean Corpuscular Hemoglobin Concent 30L, Red Cell Distribution Width 18.2H, Platelet Count 190, Mean Platelet Volume 10.8H, Neutrophils (%) (Auto) 76H, Lymphocytes (%) (Auto) 15, Monocytes (%) (Auto) 8, Eosinophils (%) (Auto) 1, Basophils (%) (Auto) 0, Neutrophils # (Auto) 6.5, Lymphocytes # (Auto) 1.3, Monocytes # (Auto) 0.7, Eosinophils # (Auto) 0.1, Basophils # (Auto) 0.0, Prothrombin Time 21.3H, INR Comment 1.8H, Activated Partial Thromboplast Time 32, Sodium Level 137, Potassium Level 4.3, Chloride Level 102, Carbon Dioxide Level 28, Anion Gap 7, Blood Urea Nitrogen 25H, Creatinine 1.73H, Estimat Glomerular Filtration Rate 28, BUN/Creatinine Ratio 14, Glucose Level 216H, Calcium Level 8.6, Corrected Calcium 8.6, Magnesium Level 2.3, Total Bilirubin 1.0, Aspartate Amino Transf (AST/SGOT) 13, Alanine Aminotransferase (ALT/SGPT) 11, Alkaline Phosphatase 49, Myoglobin 139.6H, Troponin I < 0.028, B-Type Natriuretic Peptide 439.7H, Total Protein 6.9, Albumin 4.0, Lipase 43 07/05/19 15:06: Urine Color YELLOW, Urine Clarity CLEAR, Urine pH 6, Urine Specific [place] 1.015L, Urine Protein 2+H, Urine Glucose (UA) NEGATIVE, Urine Ketones NEGATIVE, Urine Nitrite NEGATIVE, Urine Bilirubin NEGATIVE, Urine Urobilinogen NORMAL, Urine Leukocyte Esterase 1+H, Urine RBC (Auto) NEGATIVE, Urine RBC NONE, Urine WBC 2-5, Urine Squamous Epithelial Cells 0-2, Urine Crystals PRESENTH, Urine Amorphous Sediment FEW DOMINGUEZ URATESH, Urine Bacteria FEWH, Urine Casts PRESENT, Urine Hyaline Casts 5-10H, Urine Mucus NEGATIVE, Urine Culture Indicated YES 07/05/19 19:16: Glucometer 208H 07/05/19 22:47: Troponin I < 0.028 07/06/19 03:20: White Blood Count 6.7, Red Blood Count 3.29L, Hemoglobin 9.0L, Hematocrit 30L, Mean Corpuscular Volume 91, Mean Corpuscular Hemoglobin 27, Mean Corpuscular Hemoglobin Concent 30L, Red Cell Distribution Width 18.4H, Platelet Count 178, Mean Platelet Volume 10.4, Neutrophils (%) (Auto) 72, Lymphocytes (%) (Auto) 15, Monocytes (%) (Auto) 11, Eosinophils (%) (Auto) 2, Basophils (%) (Auto) 0, Neutrophils # (Auto) 4.9, Lymphocytes # (Auto) 1.0, Monocytes # (Auto) 0.7, Eosinophils # (Auto) 0.1, Basophils # (Auto) 0.0, Sodium Level 143, Potassium Level 3.9, Chloride Level 106, Carbon Dioxide Level 28, Anion Gap 9, Blood Urea Nitrogen 32H, Creatinine 1.54H, Estimat Glomerular Filtration Rate 33, BUN/Creatinine Ratio 21, Glucose Level 144H, Calcium Level 8.7, Corrected Calcium 9.2, Magnesium Level 2.1, Total Bilirubin 0.8, Aspartate Amino Transf (AST/SGOT) 12, Alanine Aminotransferase (ALT/SGPT) 13, Alkaline Phosphatase 41, B-Type Natriuretic Peptide 425.7H, Total Protein 6.4, Albumin 3.4, Triglycerides Level 65, Cholesterol Level 76, LDL Cholesterol Direct 36, VLDL Cholesterol 13, HDL Cholesterol 22L, Thyroid Stimulating Hormone (TSH) 0.44 Assessment/Plan Assessment/Plan Assess & Plan/Chief Complaint CHF. Chest pain. Renal insufficiency. Diabetes. Coronary artery disease. Obesity Clinical Quality Measures Admission Status Admission Dx Chest pain. Shortness of breath. Acute and chronic heart failure. Volume overload. CK D3. Diabetes. CAD. UTI waiting for culture and sensitivity. Atrial fibrillation. Hyperlipidemia. Obesity AMI/AHF: ASA po Prior to arrival: Yes DVT/VTE Risk/Contraindication: Risk Factor Score Per Nursin RFS Level Per Nursing on Admit: 4+=Very High LILY ROJAS DO Jul 06, 2019 07:45
[2019-07-06 08:00] VITALS: BP 158/78
--- NOTE | 2019-07-06 08:20 | Progress Note - Cardiology ---
Cardiology SOAP Progress Note Subjective: In bed. CPAP in place. She states she feels her breathing is better than yesterday. She feels her abdominal distension is better. No c/o CP, palpitations. Objective: I&O/Vital Signs 07/06/19 07/06/19 07/06/19 07/06/19 03:56 03:57 07:00 08:00 Temp 36.4 Pulse 76 72 Resp 18 B/P (MAP) 137/74 (95) Pulse Ox 90 90 97 O2 Delivery NIV CPAP NIV CPAP Nasal Cannula O2 Flow Rate 3.00 3.00 2.00 07/06/19 07/06/19 07/06/19 07/06/19 08:00 09:00 12:00 12:00 Temp 36.4 35.3 Pulse 77 67 Resp 18 18 B/P (MAP) 158/78 (104) 121/81 (94) Pulse Ox 90 98 90 97 O2 Delivery Nasal Cannula Nasal Cannula Nasal Cannula Nasal Cannula O2 Flow Rate 2.00 2.00 2.00 2.00 07/06/19 13:00 Pulse 62 07/06/19 00:00 Intake Total 450 ml Output Total 2390 ml Balance -1940 ml Weight (Pounds): 294 Weight (Ounces): 4.0 Weight (Calculated Kilograms): 133.884021 Constitutional: AAO x 3, well-developed, well-nourished Respiratory: No accessory muscle use, No respiratory distress; chest expansion is symmetric, chest is bilaterally symmetric, other (fair air entry; coarse and fine basa crackles) Cardiovascular: irregularly irregular; No JVD; S1 and S2, systolic murmur Gastrointestional: soft, distended, audible bowel sounds Extremities: significant edema (mild bilat pedal edema) Neurologic/Psychiatric: grossly intact Skin: No rash on exposed areas, No ulcerations on exposed areas; other (bruising to right lateral hip and right lateral thigh) Results/Procedures: Labs Laboratory Tests 07/05/19 14:40: White Blood Count 8.5, Red Blood Count 3.55L, Hemoglobin 9.7L, Hematocrit 32L, Mean Corpuscular Volume 91, Mean Corpuscular Hemoglobin 27, Mean Corpuscular Hemoglobin Concent 30L, Red Cell Distribution Width 18.2H, Platelet Count 190, Mean Platelet Volume 10.8H, Neutrophils (%) (Auto) 76H, Lymphocytes (%) (Auto) 15, Monocytes (%) (Auto) 8, Eosinophils (%) (Auto) 1, Basophils (%) (Auto) 0, Neutrophils # (Auto) 6.5, Lymphocytes # (Auto) 1.3, Monocytes # (Auto) 0.7, Eosinophils # (Auto) 0.1, Basophils # (Auto) 0.0, Prothrombin Time 21.3H, INR Comment 1.8H, Activated Partial Thromboplast Time 32, Sodium Level 137, Potassium Level 4.3, Chloride Level 102, Carbon Dioxide Level 28, Anion Gap 7, Blood Urea Nitrogen 25H, Creatinine 1.73H, Estimat Glomerular Filtration Rate 28, BUN/Creatinine Ratio 14, Glucose Level 216H, Calcium Level 8.6, Corrected Calcium 8.6, Magnesium Level 2.3, Total Bilirubin 1.0, Aspartate Amino Transf (AST/SGOT) 13, Alanine Aminotransferase (ALT/SGPT) 11, Alkaline Phosphatase 49, Myoglobin 139.6H, Troponin I < 0.028, B-Type Natriuretic Peptide 439.7H, Total Protein 6.9, Albumin 4.0, Lipase 43 07/05/19 15:06: Urine Color YELLOW, Urine Clarity CLEAR, Urine pH 6, Urine Specific [place] 1.015L, Urine Protein 2+H, Urine Glucose (UA) NEGATIVE, Urine Ketones NEGATIVE, Urine Nitrite NEGATIVE, Urine Bilirubin NEGATIVE, Urine Urobilinogen NORMAL, Urine Leukocyte Esterase 1+H, Urine RBC (Auto) NEGATIVE, Urine RBC NONE, Urine WBC 2-5, Urine Squamous Epithelial Cells 0-2, Urine Crystals PRESENTH, Urine Amorphous Sediment FEW DOMINGUEZ URATESH, Urine Bacteria FEWH, Urine Casts PRESENT, Urine Hyaline Casts 5-10H, Urine Mucus NEGATIVE, Urine Culture Indicated YES 07/05/19 19:16: Glucometer 208H 07/05/19 22:47: Troponin I < 0.028 07/06/19 03:20: White Blood Count 6.7, Red Blood Count 3.29L, Hemoglobin 9.0L, Hematocrit 30L, Mean Corpuscular Volume 91, Mean Corpuscular Hemoglobin 27, Mean Corpuscular Hemoglobin Concent 30L, Red Cell Distribution Width 18.4H, Platelet Count 178, Mean Platelet Volume 10.4, Neutrophils (%) (Auto) 72, Lymphocytes (%) (Auto) 15, Monocytes (%) (Auto) 11, Eosinophils (%) (Auto) 2, Basophils (%) (Auto) 0, Neutrophils # (Auto) 4.9, Lymphocytes # (Auto) 1.0, Monocytes # (Auto) 0.7, Eosinophils # (Auto) 0.1, Basophils # (Auto) 0.0, Sodium Level 143, Potassium Level 3.9, Chloride Level 106, Carbon Dioxide Level 28, Anion Gap 9, Blood Urea Nitrogen 32H, Creatinine 1.54H, Estimat Glomerular Filtration Rate 33, BUN/Creatinine Ratio 21, Glucose Level 144H, Calcium Level 8.7, Corrected Calcium 9.2, Magnesium Level 2.1, Total Bilirubin 0.8, Aspartate Amino Transf (AST/SGOT) 12, Alanine Aminotransferase (ALT/SGPT) 13, Alkaline Phosphatase 41, B-Type Natriuretic Peptide 425.7H, Total Protein 6.4, Albumin 3.4, Triglycerides Level 65, Cholesterol Level 76, LDL Cholesterol Direct 36, VLDL Cholesterol 13, HDL Cholesterol 22L, Thyroid Stimulating Hormone (TSH) 0.44 07/06/19 08:59: Glucometer 128H 07/06/19 11:29: Glucometer 238H 07/06/19 13:33: Glucometer 215H Microbiology 07/05/19 Urine Culture - Final, Complete NO GROWTH A/P: Assessment: Acute on chronic systolic and diastolic CHF - clinically improving UTI - management per Medical Services Mild anemia of undetermined etiology, managed by PCP - H/H worse today Paroxysmal atrial fibrillation which now seems to have become chronic permanent atrial fibrillation - rate controlled Multivessel coronary artery disease for which the patient underwent coronary artery bypass surgery 07/14/2012. This consisted of left internal mammary artery graft to left anterior descending, saphenous vein graft to posterior descending and sequential saphenous vein to ramus intermedius and obtuse marginal. This was carried out at [facility] in [place], [place] by Dr. Juarez. Cardiac cath of 10-19-18 showed [place] CAD consisting of long 80-90% prox and mid vessel stenosis of the LAD, 80-90% stenosis of the prox portion of the RI, and diffuse mod disease of the RCA. Patent left internal mammary artery graft to distal LAD. Patent saphenous vein graft to RI. Chronically occluded saphenous vein graft to RCA. MPI of 8-23-16 is indicative of basal inferior infarction with a mod amount of aguila-infarct ischemia. Inferolateral hypokinesis. LVEF approx 46% Maturity onset diabetes mellitus, insulin requiring. Aortic stenosis, for which he has undergone TAVR at [facility] in [place], [place], on 10/10/14, mod dilated LA, mod conc LVH, mod MAC, mild to mod MR, bioprosthetic AoV working adequately, PASP 50-55 mmHg. According to a card that she carries this is an Baird bovine transcatheter valve, 26 mm, model 9300 TFX, in the aortic position Echocardiogram of Jun 2019 showed concentric hypertrophy. LVEF 55-60%. LA mod dilated. Mild to mod calcified annulus with mild regurg. Mod TR. RVSP approx 53 mmHg. Known TAVR: Adequate function, max gradient 26 mmHg, mean gradient 16 mmHg. Chronic rivaroxaban anticoag for stroke prophylaxis Pulmonary HTN, with an estimated PASP of 75mmHg per echo of March 2014. Cardiac cath from July 25, 2014 showed moderate pulmonary HTN with mean pulmonary artery pressure of 33 mmHg and pulmonary vascular resistance of 5.4 Wood units. Echo of November 2014 shows PASP of approximately 45-50mmHg. Echo of 08/25/17 showed PASP 50-55 mmHg Hypertension CKD stage III Hyperlipidemia currently on statin therapy - followed by Dr. Parkinson Obesity with a body index of 41. Gastroesophageal reflux. Chronic right ankle swelling following ankle fracture several years ago. History of knee replacement surgery in 1999. History of surgery of the femur several years ago. Carotid arterial disease, consisting of 60% stenosis of the right internal carotid and 50% stenosis of the left internal carotid per CT angiography of 05/12/2013. 60-79% bilat stenosis of carotids per u/s of Jun, Incidentally diagnosed 7 mm right thyroid nodule on a CT scan of the carotid. This is being followed by Dr. Parkinson Sleep apnea syndrome - CPAP therapy Plan: * Continue diuretics for decompensated CHF * Monitor lab * UTI - management per medical services * Chronic a-fib - rate controlled * Continue OAC with Xarelto for stroke prophylaxis * Anemia (H/H worse today) - management per medical services * Renal function improved Physician Assessment Physician Assessment Feels less short of breath, but not back to baseline No cp or palp or syncope Less abdominal distention Lungs: dec bs at bases Cor: reg, 2/6 MSM Ext: mild edema A&R * As documented in our note above that I updated (italics) and as noted below * Continue iv diuretics * Replace lytes as needed * Monitor labs Clinical Quality Measures AMI/AHF: ASA po Prior to arrival: Yes ASTRID STUART [facility] Jul 06, 2019 08:20 ADALBERTO PATEL MD [facility] Jul 06, 2019 14:12
--- NOTE | 2019-07-06 08:31 | Diagnostic Imaging Report ---
EXAMINATION: Chest 1 view HISTORY: Heart failure FINDINGS: Comparison is 07/05/2019. Median sternotomy wires are aligned. There are coronary artery bypass graft markers. There is unchanged mild enlargement of the heart. There is slightly worsening mild pulmonary edema. No pleural effusion or pneumothorax. IMPRESSION: 1. Slightly worsening mild pulmonary edema. Dictated by: Dictated on workstation # [id number]
[2019-07-06] MEDS: DILTIAZEM 240 MG (CARDIZEM CD) CAP PO SCH (09:07)
[2019-07-06] MEDS: meTOprolol TARTRATE 50 MG (LOPRESSOR) TAB PO SCH ×2 (09:07→20:19)
[2019-07-06] MEDS: cefTRIAXone FOR IV USE 1,000 MG in WATER (STERILE) FOR INJECTION 10 ML IV SCH (09:07)
[2019-07-06] MEDS: lisINopril 5 MG (PRINIVIL) TABLET PO SCH (09:07)
[2019-07-06] MEDS: ASPIRIN 81 MG CHEW (CHILDREN'S ASA) PO SCH (09:07)
[2019-07-06 12:00] VITALS: BP 121/81
--- NOTE | 2019-07-06 12:23 | NUR ---
RD ASSESSMENT PMHx: DM, CAD, HTN, HLD, Hypercholesterolemia, GERD PT INTERACTION: Pt was awake and pleasant during nutrition assessment. Pt states current appetite is pretty good, and has been for the past few weeks. Note pt has poor dentition, and pt states having some difficulty chewing. Pt states no current issues with n/v at this time. Pt states some recent issues with constipation, though mentions last BM was yesterday. Pt states some recent weight gain, attributing it to water retention. Note unable to determine recent wt hx, per chart review. Pt states current management of DM is pretty good. "I have low blood sugars in the morning and may not even need shots at lunch." ABNORMAL NUTRITION-RELATED LAB VALUES: BUN 32 (H); cr 1.54 (H); glu 144 (H); Hgb 9.0 (L); Hct 30 (L); HDL 22 (L) Est. kcal needs: 2819-1859 kcal (15-18 kcal/kg) Est. Pro needs: 81-108 g Pro (0.6-0.8 g Pro/kg) PES STATEMENT: Altered GI Function related to changes in gastric motility as evidenced by pt interview | constipation INTERVENTION: Continue with current diet order of Sodium 2g. Pt may require bowel regimen if constipation persists. MONITOR/EVALUATE: PO Intake, Weight Status, Hydration Status, Stool Output, Lab Values Lori Syed, MS, RD [phone]
[2019-07-06 16:00] VITALS: BP 113/68
[2019-07-06] MEDS: RIVAROXABAN 15 MG TABLET (XARELTO) PO SCH (16:20)
[2019-07-06 16:26] VITALS: BP 113/68
[2019-07-06] MEDS: NS IV 1000 ML 1,000 ML IV SCH (16:52)
[2019-07-06 19:34] VITALS: BP 146/79
[2019-07-07 00:08] VITALS: BP 133/87
[2019-07-07 03:07] LABS: HEMOGLOBIN 9.2 G/DL (11.5-16.0); MEAN PLATELET VOLUME 10.2 FL (7.4-10.4); RED CELL DISTRIBUTION WIDTH 17.9 % (10.0-14.5); WHITE BLOOD COUNT 7.4 10^3/uL (4.3-11.0)
[2019-07-07 03:27] LABS: ALBUMIN 3.5 GM/DL (3.2-4.5); BILIRUBIN,TOTAL 0.7 MG/DL (0.1-1.0); CALCIUM 8.6 MG/DL (8.5-10.1); CREATININE SERUM 1.57 MG/DL (0.60-1.30); POTASSIUM 4.1 MMOL/L (3.6-5.0); TOTAL PROTEIN 6.3 GM/DL (6.4-8.2)
[2019-07-07 04:05] VITALS: BP 132/55
[2019-07-07] MEDS: inSUlin ASPART (NovoLOG) 1 UNIT/0.01 ML (CHARGE PER UNIT) SC SCH ×2 (05:12→09:45)
[2019-07-07] MEDS: KCL 10 MEQ TAB (MICRO K) PO SCH (05:35)
[2019-07-07] MEDS: FUROSEMIDE 40 MG (LASIX) TAB PO SCH (05:36)
--- NOTE | 2019-07-07 07:36 | Diagnostic Imaging Report ---
CHEST 1 VIEW, AP/PA ONLY INDICATION: Dyspnea, congestive heart failure. COMPARISON: 07/06/2019 FINDINGS: Stable marked enlargement of cardiac silhouette. Central vascular congestion has mildly improved, but persists. No pneumothorax. No appreciable pleural effusions. IMPRESSION: 1. Cardiomegaly with improving but persistent central vascular congestion. Dictated by: Dictated on workstation # [id number]
--- NOTE | 2019-07-07 07:55 | Progress Note ---
Subjective Time Seen by a Provider: 07:49 Subjective/Events-last exam Patient feels 75 percent better. Patient states she's not short of breath. Patient states she can breathe. Patient having no chest pain. Culture of urine negative no growth. Patient complaining of pains in the knees in the joints and stopping her from sleeping Objective Exam Vital Signs Date Time Temp Pulse Resp B/P (MAP) Pulse Ox O2 Delivery O2 Flow Rate FiO2 07/07/19 04:05 36.0 70 18 132/55 (80) 90 NIV CPAP 2.00 07/07/19 04:00 90 NIV CPAP 2.00 07/07/19 01:56 68 07/07/19 00:08 36.2 69 16 133/87 (102) 92 NIV CPAP 2.00 07/07/19 00:00 92 NIV CPAP 2.00 07/06/19 21:04 NIV CPAP 2.00 07/06/19 20:23 98 Nasal Cannula 2.00 07/06/19 20:00 98 Nasal Cannula 2.00 07/06/19 19:34 35.2 78 20 146/79 (101) 98 Nasal Cannula 2.00 07/06/19 19:00 72 07/06/19 16:26 37.2 79 26 113/68 (83) 98 Room Air 07/06/19 16:17 97 Nasal Cannula 2.00 07/06/19 16:00 37.2 79 18 113/68 (83) 90 Nasal Cannula 2.00 07/06/19 16:00 97 Nasal Cannula 2.00 07/06/19 13:00 62 07/06/19 12:00 97 Nasal Cannula 2.00 07/06/19 12:00 35.3 67 18 121/81 (94) 90 Nasal Cannula 2.00 07/06/19 09:00 98 Nasal Cannula 2.00 07/06/19 08:00 36.4 77 18 158/78 (104) 90 Nasal Cannula 2.00 07/06/19 08:00 97 Nasal Cannula 2.00 I & O 07/07/19 07:00 Intake Total 1140 ml Output Total 3775 ml Balance -2635 ml Capillary Refill : Less Than 3 Seconds General Appearance: No Apparent Distress, WD/WN HEENT: Normal ENT Inspection Neck: Full Range of Motion, Normal Inspection Respiratory: No Accessory Muscle Use, No Respiratory Distress, Decreased Breath Sounds Cardiovascular: Irregularly Irregular Gastrointestinal: non tender, soft Results Lab Laboratory Tests 07/07/19 02:59 Laboratory Tests 07/06/19 08:59: Glucometer 128H 07/06/19 11:29: Glucometer 238H 07/06/19 13:33: Glucometer 215H 07/06/19 19:34: Glucometer 239H 07/07/19 02:59: White Blood Count 7.4, Red Blood Count 3.37L, Hemoglobin 9.2L, Hematocrit 31L, Mean Corpuscular Volume 92, Mean Corpuscular Hemoglobin 27, Mean Corpuscular Hemoglobin Concent 30L, Red Cell Distribution Width 17.9H, Platelet Count 177, Mean Platelet Volume 10.2, Sodium Level 144, Potassium Level 4.1, Chloride Level 106, Carbon Dioxide Level 32, Anion Gap 6, Blood Urea Nitrogen 32H, Creatinine 1.57H, Estimat Glomerular Filtration Rate 32, BUN/Creatinine Ratio 20, Glucose Level 174H, Calcium Level 8.6, Corrected Calcium 9.0, Total Bilirubin 0.7, Asp artate Amino Transf (AST/SGOT) 12, Alanine Aminotransferase (ALT/SGPT) 10, Alkaline Phosphatase 44, Total Protein 6.3L, Albumin 3.5 Microbiology 07/05/19 Urine Culture - Final, Complete NO GROWTH Assessment/Plan Assessment/Plan Assess & Plan/Chief Complaint CHF. Chest pain. Renal insufficiency. Diabetes. Coronary artery disease. Obesity. . 07/07/19. Congestive heart failure. Chest pain resolved. Chronic renal insufficiency. Diabetes. Coronary artery disease. Obesity. Patient feeling better today Clinical Quality Measures Admission Status Admission Dx Chest pain. Shortness of breath. Acute and chronic heart failure. Volume overload. CK D3. Diabetes. CAD. UTI waiting for culture and sensitivity. Atrial fibrillation. Hyperlipidemia. Obesity AMI/AHF: ASA po Prior to arrival: Yes DVT/VTE Risk/Contraindication: Risk Factor Score Per Nursin RFS Level Per Nursing on Admit: 4+=Very High Contraindications-Pharm: Other *list below* Contraindications-Mechi: Other *list below* LILY ROJAS DO Jul 07, 2019 07:55
[2019-07-07] MEDS: meTOprolol TARTRATE 50 MG (LOPRESSOR) TAB PO SCH (07:56)
[2019-07-07] MEDS: NS IV 1000 ML 1,000 ML IV SCH (07:56)
[2019-07-07] MEDS: ASPIRIN 81 MG CHEW (CHILDREN'S ASA) PO SCH (07:56)
[2019-07-07] MEDS: DILTIAZEM 240 MG (CARDIZEM CD) CAP PO SCH (07:56)
[2019-07-07] MEDS: lisINopril 5 MG (PRINIVIL) TABLET PO SCH (07:57)
[2019-07-07] MEDS: cefTRIAXone FOR IV USE 1,000 MG in WATER (STERILE) FOR INJECTION 10 ML IV SCH (07:57)
[2019-07-07 08:00] VITALS: BP 139/60
--- NOTE | 2019-07-07 08:26 | Progress Note - Cardiology ---
Cardiology SOAP Progress Note Subjective: Sitting up in recliner at the bedside. States she is feeling better. No c/o CP or palpitations. Feels breathing is better. Objective: I&O/Vital Signs 07/07/19 07/07/19 07/07/19 07/07/19 01:56 04:00 04:05 07:00 Temp 36.0 Pulse 68 70 73 Resp 18 B/P (MAP) 132/55 (80) Pulse Ox 90 90 O2 Delivery NIV CPAP NIV CPAP O2 Flow Rate 2.00 2.00 07/07/19 07/07/19 07/07/19 07/07/19 08:00 08:00 09:00 11:54 Temp 36.8 37.1 Pulse 80 77 Resp 18 16 B/P (MAP) 139/60 (86) 121/61 (81) Pulse Ox 90 97 98 97 O2 Delivery Nasal Cannula Nasal Cannula Nasal Cannula Nasal Cannula O2 Flow Rate 2.00 2.00 2.00 2.00 07/07/19 11:55 Pulse Ox 90 O2 Delivery Nasal Cannula O2 Flow Rate 2.00 07/07/19 00:00 Intake Total 1140 ml Output Total 2725 ml Balance -1585 ml Weight (Pounds): 294 Weight (Ounces): 4.0 Weight (Calculated Kilograms): 133.301169 Constitutional: AAO x 3, well-developed, well-nourished Respiratory: No accessory muscle use, No respiratory distress; chest expansion is symmetric, chest is bilaterally symmetric, other (fair air entry; coarse and fine basa crackles) Cardiovascular: irregularly irregular; No JVD; S1 and S2, systolic murmur Gastrointestional: soft, audible bowel sounds Extremities: significant edema (mild bilat pedal edema) Neurologic/Psychiatric: grossly intact Skin: No rash on exposed areas, No ulcerations on exposed areas; other (bruising to right lateral hip and right lateral thigh) Results/Procedures: Labs Laboratory Tests 07/06/19 13:33: Glucometer 215H 07/06/19 19:34: Glucometer 239H 07/07/19 02:59: White Blood Count 7.4, Red Blood Count 3.37L, Hemoglobin 9.2L, Hematocrit 31L, Mean Corpuscular Volume 92, Mean Corpuscular Hemoglobin 27, Mean Corpuscular Hemoglobin Concent 30L, Red Cell Distribution Width 17.9H, Platelet Count 177, Mean Platelet Volume 10.2, Sodium Level 144, Potassium Level 4.1, Chloride Level 106, Carbon Dioxide Level 32, Anion Gap 6, Blood Urea Nitrogen 32H, Creatinine 1.57H, Estimat Glomerular Filtration Rate 32, BUN/Creatinine Ratio 20, Glucose Level 174H, Calcium Level 8.6, Corrected Calcium 9.0, Total Bilirubin 0.7, Aspartate Amino Transf (AST/SGOT) 12, Alanine Aminotransferase (ALT/SGPT) 10, Alkaline Phosphatase 44, Total Protein 6.3L, Albumin 3.5 07/07/19 09:01: Glucometer 145H Microbiology 07/05/19 Urine Culture - Final, Complete NO GROWTH Procedures NAME: JEREMY NUNES MED REC#: [id number] PT STATUS: ADM IN : 1940 PHYSICIAN: LILY ROJAS DO ADMIT DATE: 07/05/19/[facility] Draft Date of Exam:07/07/19 CHEST 1 VIEW, AP/PA ONLY CHEST 1 VIEW, AP/PA ONLY INDICATION: Dyspnea, congestive heart failure. COMPARISON: 07/06/2019 FINDINGS: Stable marked enlargement of cardiac silhouette. Central vascular congestion has mildly improved, but persists. No pneumothorax. No appreciable pleural effusions. IMPRESSION: 1. Cardiomegaly with improving but persistent central vascular congestion. Dictated on workstation # [id number] Dict: 07/07/19 0731 Trans: 07/07/19 0734 [id number] Interpreted by: RICK GENAO MD Electronically signed by: A/P: Assessment: Acute on chronic systolic and diastolic CHF - clinically improving UTI - management per Medical Services Mild anemia of undetermined etiology, managed by PCP - H/H worse today Paroxysmal atrial fibrillation which now seems to have become chronic permanent atrial fibrillation - rate controlled Multivessel coronary artery disease for which the patient underwent coronary artery bypass surgery 07/14/2012. This consisted of left internal mammary artery graft to left anterior descending, saphenous vein graft to posterior descending and sequential saphenous vein to ramus intermedius and obtuse marginal. This was carried out at [facility] in [place], [place] by Dr. Juarez. Cardiac cath of 10-19-18 showed [place] CAD consisting of long 80-90% prox and mid vessel stenosis of the LAD, 80-90% stenosis of the prox portion of the RI, and diffuse mod disease of the RCA. Patent left internal mammary artery graft to distal LAD. Patent saphenous vein graft to RI. Chronically occluded saphenous vein graft to RCA. MPI of 23-16 is indicative of basal inferior infarction with a mod amount of aguila-infarct ischemia. Inferolateral hypokinesis. LVEF approx 46% Maturity onset diabetes mellitus, insulin requiring. Aortic stenosis, for which he has undergone TAVR at [facility] in [place], [place], on 10/10/14, mod dilated LA, mod conc LVH, mod MAC, mild to mod MR, bioprosthetic AoV working adequately, PASP 50-55 mmHg. According to a card that she carries this is an Baird bovine transcatheter valve, 26 mm, model 9300 TFX, in the aortic position Echocardiogram of Jun 2019 showed concentric hypertrophy. LVEF 55-60%. LA mod dilated. Mild to mod calcified annulus with mild regurg. Mod TR. RVSP approx 53 mmHg. Known TAVR: Adequate function, max gradient 26 mmHg, mean gradient 16 mmHg. Chronic rivaroxaban anticoag for stroke prophylaxis Pulmonary HTN, with an estimated PASP of 75mmHg per echo of March 2014. Cardiac cath from July 25, 2014 showed moderate pulmonary HTN with mean pulmonary artery pressure of 33 mmHg and pulmonary vascular resistance of 5.4 Wood units. Echo of November 2014 shows PASP of approximately 45-50mmHg. Echo of 08/25/17 showed PASP 50-55 mmHg Hypertension CKD stage III Hyperlipidemia currently on statin therapy - followed by Dr. Rojas Obesity with a body index of 41. Gastroesophageal reflux. Chronic right ankle swelling following ankle fracture several years ago. History of knee replacement surgery in 1999. History of surgery of the femur several years ago. Carotid arterial disease, consisting of 60% stenosis of the right internal carotid and 50% stenosis of the left internal carotid per CT angiography of 05/12/2013. 60-79% bilat stenosis of carotids per u/s of Jun, Incidentally diagnosed 7 mm right thyroid nodule on a CT scan of the carotid. This is being followed by Dr. Rojas Sleep apnea syndrome - CPAP therapy Plan: * Continue diuretics for decompensated CHF * Monitor lab * UTI - management per medical services * Chronic a-fib - rate controlled * Continue OAC with Xarelto for stroke prophylaxis * Anemia - management per medical services * DC IVF Physician Assessment Physician Assessment Feels better. Much less short of breath. No cp or palp or syncope Wishes to go home Lungs: fair to good air entry Cor: reg, 2/6 MSM Ext: mild to mod edema A&R * As documented in our note above that I updated (italics) and as noted below * I reviewed rhythm strips that the quality assurance monitor final had flagged as abnormal. These show artifact; no VT/VF * Ok to d/c from card standpoint * I answered her questions in detail Clinical Quality Measures AMI/AHF: ASA po Prior to arrival: Yes ASTRID STUART [employer] Jul 07, 2019 08:26 ADALBERTO PATEL MD [facility] Jul 07, 2019 13:19
[2019-07-07] MEDS ORDERED: HYDROcodone/APAP 5 MG/325 MG (LORTAB) TAB PO PRN (08:30)
[2019-07-07] MEDS ORDERED: FURO80TA83 PO (09:04)
--- NOTE | 2019-07-07 11:02 | NUR ---
Pt is [employer]ri[employer]. Anointed to day by Fr Noel Valerio.
[2019-07-07 11:54] VITALS: BP 121/61
[2019-07-07 13:37] VITALS: BP 121/61
--- NOTE | 2019-07-08 07:43 | Discharge Summary ---
Diagnosis/Chief Complaint Date of Admission Jul 05, 2019 at 16:05 Date of Discharge Jul 07, 2019 at 13:30 Discharge Date: Jul 07, 2019 Discharge Time: 07:40 Discharge Diagnosis Acute on chronic combined systolic and diastolic heart failure, Anemia. Coronary artery disease. Body mass index 45-49. Atrial fibrillation. Chest pain. Chronic kidney disease. GERD. Atrial fibrillation. Obesity. Pulmonary hypertension. Diabetes. Sleep apnea. History of falling. Reason Hospital Visit Chest pain and short of the air while taken a shower. As 4 days patient feeling up with fluid with legs and going into the abdomen. Family called EMS and patient given an aspirin and sublingual nitroglycerin. Patient brought out to the emergency room Surgeries open heart, aortic valve, complete hysterectomy, fracture right ankle and knee and femur. Patient has a history of atrial fibrillation, coronary artery disease, open heart surgery, diabetes, renal insufficiency, atrial fibrillation, obesity. Volume overload area Acute and chronic heart failure, obesity, hyperlipidemia Discharge Summary Consultations Cardiology. Discharge Physical Examination Allergies: Coded Allergies: No Known Drug Allergies (Unverified , 11/18/12) Vitals & I&Os Vital Signs Date Time Temp Pulse Resp B/P (MAP) Pulse Ox O2 Delivery O2 Flow Rate FiO2 07/07/19 13:37 37.1 77 16 121/61 90 Nasal Cannula 2.00 98 Hospital Course Patient felt better. No chest pain. Not short of breath. Patient wanted to go home. Patient to come to office next week Labs (last 24 hrs) Laboratory Tests 07/05/19 14:40: White Blood Count 8.5, Red Blood Count 3.55L, Hemoglobin 9.7L, Hematocrit 32L, Mean Corpuscular Volume 91, Mean Corpuscular Hemoglobin 27, Mean Corpuscular Hemoglobin Concent 30L, Red Cell Distribution Width 18.2H, Platelet Count 190, Mean Platelet Volume 10.8H, Neutrophils (%) (Auto) 76H, Lymphocytes (%) (Auto) 15, Monocytes (%) (Auto) 8, Eosinophils (%) (Auto) 1, Basophils (%) (Auto) 0, Neutrophils # (Auto) 6.5, Lymphocytes # (Auto) 1.3, Monocytes # (Auto) 0.7, Eosinophils # (Auto) 0.1, Basophils # (Auto) 0.0, Prothrombin Time 21.3H, INR Comment 1.8H, Activated Partial Thromboplast Time 32, Sodium Level 137, Potassium Level 4.3, Chloride Level 102, Carbon Dioxide Level 28, Anion Gap 7, Blood Urea Nitrogen 25H, Creatinine 1.73H, Estimat Glomerular Filtration Rate 28, BUN/Creatinine Ratio 14, Glucose Level 216H, Calcium Level 8.6, Corrected Calcium 8.6, Magnesium Level 2.3, Total Bilirubin 1.0, Aspartate Amino Transf (AST/SGOT) 13, Alanine Aminotransferase (ALT/SGPT) 11, Alkaline Phosphatase 49, Myoglobin 139.6H, Troponin I < 0.028, B-Type Natriuretic Peptide 439.7H, Total Protein 6.9, Albumin 4.0, Lipase 43 07/05/19 15:06: Urine Color YELLOW, Urine Clarity CLEAR, Urine pH 6, Urine Specific [place] 1.015L, Urine Protein 2+H, Urine Glucose (UA) NEGATIVE, Urine Ketones NEGATIVE, Urine Nitrite NEGATIVE, Urine Bilirubin NEGATIVE, Urine Urobilinogen NORMAL, Urine Leukocyte Esterase 1+H, Urine RBC (Auto) NEGATIVE, Urine RBC NONE, Urine WBC 2-5, Urine Squamous Epithelial Cells 0-2, Urine Crystals PRESENTH, Urine Amorphous Sediment FEW DOMINGUEZ URATESH, Urine Bacteria FEWH, Urine Casts PRESENT, Urine Hyaline Casts 5-10H, Urine Mucus NEGATIVE, Urine Culture Indicated YES 07/05/19 19:16: Glucometer 208H 07/05/19 22:47: Troponin I < 0.028 07/06/19 03:20: White Blood Count 6.7, Red Blood Count 3.29L, Hemoglobin 9.0L, Hematocrit 30L, Mean Corpuscular Volume 91, Mean Corpuscular Hemoglobin 27, Mean Corpuscular Hemoglobin Concent 30L, Red Cell Distribution Width 18.4H, Platelet Count 178, Mean Platelet Volume 10.4, Neutrophils (%) (Auto) 72, Lymphocytes (%) (Auto) 15, Monocytes (%) (Auto) 11, Eosinophils (%) (Auto) 2, Basophils (%) (Auto) 0, Neutrophils # (Auto) 4.9, Lymphocytes # (Auto) 1.0, Monocytes # (Auto) 0.7, Eosinophils # (Auto) 0.1, Basophils # (Auto) 0.0, Sodium Level 143, Potassium Level 3.9, Chloride Level 106, Carbon Dioxide Level 28, Anion Gap 9, Blood Urea Nitrogen 32H, Creatinine 1.54H, Estimat Glomerular Filtration Rate 33, BUN/Creatinine Ratio 21, Glucose Level 144H, Calcium Level 8.7, Corrected Calcium 9.2, Magnesium Level 2.1, Total Bilirubin 0.8, Aspartate Amino Transf (AST/SGOT) 12, Alanine Aminotransferase (ALT/SGPT) 13, Alkaline Phosphatase 41, B-Type Natriuretic Peptide 425.7H, Total Protein 6.4, Albumin 3.4, Triglycerides Level 65, Cholesterol Level 76, LDL Cholesterol Direct 36, VLDL Cholesterol 13, HDL Cholesterol 22L, Thyroid Stimulating Hormone (TSH) 0.44 07/06/19 08:59: Glucometer 128H 07/06/19 11:29: Glucometer 238H 07/06/19 13:33: Glucometer 215H 07/06/19 19:34: Glucometer 239H 07/07/19 02:59: White Blood Count 7.4, Red Blood Count 3.37L, Hemoglobin 9.2L, Hematocrit 31L, Mean Corpuscular Volume 92, Mean Corpuscular Hemoglobin 27, Mean Corpuscular Hemoglobin Concent 30L, Red Cell Distribution Width 17.9H, Platelet Count 177, Mean Platelet Volume 10.2, Sodium Level 144, Potassium Level 4.1, Chloride Level 106, Carbon Dioxide Level 32, Anion Gap 6, Blood Urea Nitrogen 32H, Creatinine 1.57H, Estimat Glomerular Filtration Rate 32, BUN/Creatinine Ratio 20, Glucose Level 174H, Calcium Level 8.6, Corrected Calcium 9.0, Total Bilirubin 0.7, Aspartate Amino Transf (AST/SGOT) 12, Alanine Aminotransferase (ALT/SGPT) 10, Alkaline Phosphatase 44, Total Protein 6.3L, Albumin 3.5 07/07/19 09:01: Glucometer 145H Microbiology 07/05/19 Urine Culture - Final, Complete NO GROWTH Laboratory Tests 07/05/19 14:40 07/06/19 03:20 07/07/19 02:59 Pending Labs Microbiology Date/Time Source Procedure Growth Status 07/05/19 15:06 Urine Dinero Cath Urine Culture - Final NO GROWTH Complete Laboratory Tests 07/05/19 14:40: White Blood Count 8.5, Red Blood Count 3.55, Hemoglobin 9.7, Hematocrit 32, Mean Corpuscular Volume 91, Mean Corpuscular Hemoglobin 27, Mean Corpuscular Hemoglobin Concent 30, Red Cell Distribution Width 18.2, Platelet Count 190, Mean Platelet Volume 10.8, Neutrophils (%) (Auto) 76, Lymphocytes (%) (Auto) 15, Monocytes (%) (Auto) 8, Eosinophils (%) (Auto) 1, Basophils (%) (Auto) 0, Neutrophils # (Auto) 6.5, Lymphocytes # (Auto) 1.3, Monocytes # (Auto) 0.7, Eosinophils # (Auto) 0.1, Basophils # (Auto) 0.0, Prothrombin Time 21.3, INR Comment 1.8, Activated Partial Thromboplast Time 32, Sodium Level 137, Potassium Level 4.3, Chloride Level 102, Carbon Dioxide Level 28, Anion Gap 7, Blood Urea Nitrogen 25, Creatinine 1.73, Estimat Glomerular Filtration Rate 28, BUN/Creatinine Ratio 14, Glucose Level 216, Calcium Level 8.6, Corrected Calcium 8.6, Magnesium Level 2.3, Total Bilirubin 1.0, Aspartate Amino Transf (AST/SGOT) 13, Alanine Aminotransferase (ALT/SGPT) 11, Alkaline Phosphatase 49, Myoglobin 139.6, Troponin I < 0.028, B-Type Natriuretic Peptide 439.7, Total Protein 6.9, Albumin 4.0, Lipase 43 07/05/19 15:06: Urine Color YELLOW, Urine Clarity CLEAR, Urine pH 6, Urine Specific [place] 1.015, Urine Protein 2+, Urine Glucose (UA) NEGATIVE, Urine Ketones NEGATIVE, Urine Nitrite NEGATIVE, Urine Bilirubin NEGATIVE, Urine Urobilinogen NORMAL, Urine Leukocyte Esterase 1+, Urine RBC (Auto) NEGATIVE, Urine RBC NONE, Urine WBC 2-5, Urine Squamous Epithelial Cells 0-2, Urine Crystals PRESENT, Urine A morphous Sediment FEW DOMINGUEZ URATES, Urine Bacteria FEW, Urine Casts PRESENT, Urine Hyaline Casts 5-10, Urine Mucus NEGATIVE, Urine Culture Indicated YES 07/05/19 19:16: Glucometer 208 07/05/19 22:47: Troponin I < 0.028 07/06/19 03:20: White Blood Count 6.7, Red Blood Count 3.29, Hemoglobin 9.0, Hematocrit 30, Mean Corpuscular Volume 91, Mean Corpuscular Hemoglobin 27, Mean Corpuscular Hemoglobin Concent 30, Red Cell Distribution Width 18.4, Platelet Count 178, Mean Platelet Volume 10.4, Neutrophils (%) (Auto) 72, Lymphocytes (%) (Auto) 15, Monocytes (%) (Auto) 11, Eosinophils (%) (Auto) 2, Basophils (%) (Auto) 0, Neutrophils # (Auto) 4.9, Lymphocytes # (Auto) 1.0, Monocytes # (Auto) 0.7, Eosinophils # (Auto) 0.1, Basophils # (Auto) 0.0, Sodium Level 143, Potassium Level 3.9, Chloride Level 106, Carbon Dioxide Level 28, Anion Gap 9, Blood Urea Nitrogen 32, Creatinine 1.54, Estimat Glomerular Filtration Rate 33, BUN/Creatinine Ratio 21, Glucose Level 144, Calcium Level 8.7, Corrected Calcium 9.2, Magnesium Level 2.1, Total Bilirubin 0.8, Aspartate Amino Transf (AST/SGOT) 12, Alanine Aminotransferase (ALT/SGPT) 13, Alkaline Phosphatase 41, B-Type Natriuretic Peptide 425.7, Total Protein 6.4, Albumin 3.4, Triglycerides Level 65, Cholesterol Level 76, LDL Cholesterol Direct 36, VLDL Cholesterol 13, HDL Cholesterol 22, Thyroid Stimulating Hormone (TSH) 0.44 07/06/19 08:59: Glucometer 128 07/06/19 11:29: Glucometer 238 07/06/19 13:33: Glucometer 215 07/06/19 19:34: Glucometer 239 07/07/19 02:59: White Blood Count 7.4, Red Blood Count 3.37, Hemoglobin 9.2, Hematocrit 31, Mean Corpuscular Volume 92, Mean Corpuscular Hemoglobin 27, Mean Corpuscular Hemoglobin Concent 30, Red Cell Distribution Width 17.9, Platelet Count 177, Mean Platelet Volume 10.2, Sodium Level 144, Potassium Level 4.1, Chloride Level 106, Carbon Dioxide Level 32, Anion Gap 6, Blood Urea Nitrogen 32, Creatinine 1.57, Estimat Glomerular Filtration Rate 32, BUN/Creatinine Ratio 20, Glucose Level 174, Calcium Level 8.6, Corrected Calcium 9.0, Total Bilirubin 0.7, Aspartate Amino Transf (AST/SGOT) 12, Alanine Aminotransferase (ALT/SGPT) 10, Alkaline Phosphatase 44, Total Protein 6.3, Albumin 3.5 07/07/19 09:01: Glucometer 145 Discharge Home Medications: Active Scripts Active Lasix (Furosemide) 80 Mg Tablet 80 Mg PO BID Reported Rosuvastatin Calcium 20 Mg Tablet 20 Mg PO HS Dexilant (Dexlansoprazole) 60 Mg Cap.drDavidbp 60 Mg PO DAILY PRN Diltiazem 24Hr ER (Diltiazem HCl) 240 Mg Cap.er.24h 240 Mg PO DAILY Novolog Flexpen (Insulin Aspart) 300 Units/3 Ml Solution 11-17 SC AC Levemir (Insulin Determir) 1,000 Units/10 Ml Soln 58 Units SQ HS Levemir (Insulin Determir) 1,000 Units/10 Ml Soln 42 Units SC DAILY Calcium 600 + Vit D 200 Tablet (Calcium Carbonate/Vitamin D3) 1 Each Tablet 1 Tab PO DAILY Fish Oil 1,000 mg Capsule ([place] 3 Polyunsat Fatty Acids) 1,000 Mg Cap 1,000 Mg PO DAILY Aspirin EC (Aspirin) 81 Mg Tablet.dr 81 Mg PO DAILY Metoprolol Tartrate 50 Mg Tablet 50 Mg PO BID Lisinopril 5 Mg Tablet 5 Mg PO DAILY Xarelto Tablet (Rivaroxaban) 15 Mg Tablet 15 Mg PO 1700 Instructions to patient/family Please see electronic discharge instructions given to patient. Clinical Quality Measures AMI/AHF: ASA po Prior to arrival: Yes DVT/VTE Risk/Contraindication: Risk Factor Score Per Nursin RFS Level Per Nursing on Admit: 4+=Very High Contraindications-Pharm: Other *list below* Contraindications-Mechi: Other *list below* LILY ROJAS DO Jul 08, 2019 07:43
== END 2019-07-07 13:30 | disposition home or self-care (01) | DRG 291 ==
LOC: EDUNIT# 14:35 → ER 14:36 → CSD 16:05
PROVIDERS: ADMIT Family Medicine; ATTEND Family Medicine
DX: I13.0 Hypertensive heart and chronic kidney disease with heart failure and stage 1 through stage 4 chronic kidney disease, or unspecified chronic kidney disease (principal); I50.43 Acute on chronic combined systolic (congestive) and diastolic (congestive) heart failure; N18.3 Chronic kidney disease, stage 3 (moderate); I48.21 Permanent atrial fibrillation; N39.0 Urinary tract infection, site not specified; Z68.42 Body mass index [BMI] 45.0-49.9, adult; R07.9 Chest pain, unspecified; I25.10 Atherosclerotic heart disease of native coronary artery without angina pectoris; E87.70 Fluid overload, unspecified; E11.9 Type 2 diabetes mellitus without complications; I27.20 Pulmonary hypertension, unspecified; D64.9 Anemia, unspecified; E78.5 Hyperlipidemia, unspecified; G47.30 Sleep apnea, unspecified; E66.9 Obesity, unspecified; K21.9 Gastro-esophageal reflux disease without esophagitis; I08.1 Rheumatic disorders of both mitral and tricuspid valves; E04.1 Nontoxic single thyroid nodule; R26.81 Unsteadiness on feet; I65.23 Occlusion and stenosis of bilateral carotid arteries; J30.2 Other seasonal allergic rhinitis; Z95.2 Presence of prosthetic heart valve; Z95.1 Presence of aortocoronary bypass graft; Z79.4 Long term (current) use of insulin; Z79.01 Long term (current) use of anticoagulants; Z91.81 History of falling; Z90.710 Acquired absence of both cervix and uterus; Z23 Encounter for immunization
CPT/HCPCS: 36415; 71045; 80053; 80061; 81000; 82962; 83690; 83735; 83874; 83880; 84443; 84484; 85025; 85027; 85610; 85730; 87088; 93005; 94760; 96374

== ENCOUNTER 2019-08-15 08:56 | Emergency (ER) | payer MEDICARE, MEDICAID ==
[~2019-08-15] VITALS: Ht 167 cm; Wt 136.0 kg
[2019-08-15] MEDS ORDERED: RT-ALBUTEROL/IPRATROPIUM 3 ML (DUONEB) VIAL INH ONE (09:30)
[2019-08-15] MEDS ORDERED: methylPREDNISolone 125 MG (Solu-MEDROL) VIAL IV STA (09:30)
[2019-08-15] MEDS ORDERED: DEXAMETHASONE 4 MG/ML SDV (DECADRON) IH ONE (09:30)
[2019-08-15 09:42] LABS: BASOPHILS % (AUTO) 0 % (0-10); EOSINOPHILS # (AUTO) 0.1 10^3/uL (0.0-0.3); EOSINOPHILS % (AUTO) 2 % (0-10); HEMATOCRIT 28 % (35-52); HEMOGLOBIN 8.9 G/DL (11.5-16.0); LYMPHOCYTES # (AUTO) 0.9 X 10^3 (1.0-4.0); LYMPHOCYTES % (AUTO) 13 % (12-44); MEAN CORPUSCULAR HGB CONC 31 G/DL (32-36); MEAN CORPUSCULAR VOLUME 88 FL (80-99); MEAN PLATELET VOLUME 10.9 FL (7.4-10.4); MONOCYTES # (AUTO) 0.6 X 10^3 (0.0-1.0); MONOCYTES % (AUTO) 8 % (0-12); NEUTROPHILS # (AUTO) 5.5 X 10^3 (1.8-7.8); NEUTROPHILS % (AUTO) 77 % (42-75); PLATELET COUNT 193 10^3/uL (130-400); RED CELL DISTRIBUTION WIDTH 18.7 % (10.0-14.5); WHITE BLOOD COUNT 7.1 10^3/uL (4.3-11.0)
[2019-08-15 09:45] LABS: MEAN CORPUSCULAR HEMOGLOBIN 27 PG (25-34)
[2019-08-15 09:46] LABS: INR 2.4 (0.8-1.4); PROTHROMBIN TIME PATIENT 27.3 SEC (12.2-14.7)
[2019-08-15 09:52] LABS: ABG BASE EXCESS 1.7 MMOL/L (-2.5-2.5); ABG OXYGEN SATURATION 97 % (94-100); ABG PCO2 50 MMHG (35-45); ABG PH 7.35 (7.37-7.43); ABG PO2 92 MMHG (79-93); ABG TCO2 28.4 MMOL/L (21.0-31.0)
[2019-08-15 09:53] LABS: ALLENS TEST YES-POS; INSPIRED O2 2 L; PATIENT TEMP 36.6; VENTILATOR NO
[2019-08-15 09:54] LABS: ALANINE AMINOTRANSFERASE 11 U/L (0-55); ALBUMIN 3.6 GM/DL (3.2-4.5); ALKALINE PHOSPHATASE 39 U/L (40-136); BILIRUBIN,TOTAL 0.7 MG/DL (0.1-1.0); BUN/CREATININE RATIO 38; CALCIUM 8.8 MG/DL (8.5-10.1); CARBON DIOXIDE 24 MMOL/L (21-32); CHLORIDE 94 MMOL/L (98-107); GFR ESTIMATED 14; GLUCOSE 180 MG/DL (70-105); MAGNESIUM 2.3 MG/DL (1.6-2.4); POTASSIUM 4.5 MMOL/L (3.6-5.0); SODIUM 133 MMOL/L (135-145); TOTAL PROTEIN 6.6 GM/DL (6.4-8.2)
[2019-08-15 10:16] LABS: CREATINE KINASE MB 3.1 NG/ML (<6.6); TSH (THYROID ANALYZER) 1.46 UIU/ML (0.35-4.94)
--- NOTE | 2019-08-15 10:20 | Diagnostic Imaging Report ---
INDICATION: Shortness of breath. TECHNIQUE/COMPARISON: A frontal chest was obtained at 0947 hours and compared to 07/07/2019. FINDINGS: There is prominent cardiomegaly. There is post sternotomy change. There is central vascular prominence with chronic appearing increased interstitial markings. There is no acute consolidation, pneumothorax, or pleural fluid. IMPRESSION: Prominent cardiomegaly with mild central vascular prominence. Chronic appearing increased interstitial markings with no acute consolidation, pneumothorax, or pleural fluid. Dictated by: Dictated on workstation # [id number]
[2019-08-15 11:11] LABS: CREATINE KINASE 90 U/L (29-168)
[2019-08-15] MEDS ORDERED: FUROSEMIDE 40 MG/4 ML INJ (LASIX) IVP ONE (11:30)
[2019-08-15 12:02] LABS: BILIRUBIN,URINE NEGATIVE (NEGATIVE); CLARITY,URINE CLEAR; COLOR,URINE YELLOW; GLUCOSE, URINE (UA) NEGATIVE (NEGATIVE); KETONES,URINE NEGATIVE (NEGATIVE); LEUKOCYTE ESTERASE ,URINE NEGATIVE (NEGATIVE); NITRITE,URINE NEGATIVE (NEGATIVE); PROTEIN,URINE TRACE (NEGATIVE)
[2019-08-15 12:12] LABS: BACTERIA,URINE NEGATIVE /HPF; RBC,URINE RARE /HPF; WBC,URINE RARE /HPF
[2019-08-15 15:13] VITALS: BP 139/74
--- NOTE | 2019-08-15 15:18 | NUR ---
1300 drained out from kothari at this time prior to transport
--- NOTE | 2019-08-15 20:18 | ED Respiratory ---
General Chief Complaint: Respiratory Problems Stated Complaint: SOA Nursing Triage Note: pt presents to ed from home via ems for soa. pt reports abdominal and lower extremity swelling for a few months but reports recently she has become more soa especially when walking or any exertion. Source: patient, EMS History of Present Illness Date Seen by Provider: Aug 15, 2019 Time Seen by Provider: 08:55 Initial Comments PT ARRIVES VIA EMS FROM HOME C/O SHORTNESS OF BREATH, WITH MINIMAL EXERTION FOR 2 WEEKS STATES IT FEELS LIKE SHE IS GOING TO PASS OUT WITH ANY EXERTION SYMPTOMS NO DIFFERENT TODAY HAS NOT SOUGHT CARE UNTIL TODAY. HAS AN APPOINTMENT WITH DR. PATEL TODAY, BUT CAME HERE INSTEAD HAS HISTORY OF CHRONIC ATRIAL FIBRILLATION, AND CHF PT HAS HAD CABG AND TAVR PT IS ON ASPIRIN, PLAVIX AND XARELTO. NO NAUSEA/VOMITING C/O GENERALIZED WEAKNESS NO CHEST PAIN HAS CHRONIC SWELLING IN LEGS, WORSE FOR THE LAST 2 WEEKS. ALSO HAVING SWELLING IN LOWER ABDOMEN WELL. PCP: DR. ROJAS EXTRACTOR AND WRINGER OPERATOR: DR. PATEL Allergies and Home Medications Allergies Coded Allergies: No Known Drug Allergies (Unverified , 11/18/12) Home Medications Aspirin 81 Mg Tablet.dr, 81 MG PO DAILY, (Reported) Calcium Carbonate/Vitamin D3 1 Each Tablet, 1 TAB PO DAILY, (Reported) Dexlansoprazole 60 Mg Cap.drDavidbp, 60 MG PO DAILY PRN for ACID REFLUX, (Reported) Diltiazem HCl 240 Mg Cap.er.24h, 240 MG PO DAILY, (Reported) Furosemide 80 Mg Tablet, 80 MG PO BID Prescribed by: ASTRID STUART on 07/07/19 0904 Insulin Aspart 300 Units/3 Ml Solution, 11-17 SC AC, (Reported) Insulin Determir 1,000 Units/10 Ml Soln, 42 UNITS SC DAILY, (Reported) Insulin Determir 1,000 Units/10 Ml Soln, 58 UNITS SQ HS, (Reported) Lisinopril 5 Mg Tablet, 5 MG PO DAILY, (Reported) Metoprolol Tartrate 50 Mg Tablet, 50 MG PO BID, (Reported) [place] 3 Polyunsat Fatty Acids 1,000 Mg Cap, 1,000 MG PO DAILY, (Reported) Rivaroxaban 15 Mg Tablet, 15 MG PO 1700, (Reported) Rosuvastatin Calcium 20 Mg Tablet, 20 MG PO HS, (Reported) Patient Home Medication List Home Medication List Reviewed: Yes Review of Systems Review of Systems Constitutional: see HPI, dizziness Respiratory: see HPI; No cough; dyspnea on exertion, short of breath Cardiovascular: see HPI; No chest pain; edema; No palpitations Gastrointestinal: see HPI; No abdominal pain, No nausea, No vomiting Genitourinary: no symptoms reported Musculoskeletal: see HPI Skin: no symptoms reported Psychiatric/Neurological: No Symptoms Reported Hematologic/Lymphatic: No Symptoms Reported Immunological/Allergic: no symptoms reported Past Gdfwshj-Awuqaq-Vzvyjt Hx Patient Social History Alcohol Use: Denies Use Recreational Drug Use: No Smoking Status: Former Smoker Type Used: Cigarettes Former Smoker, Quit: Oct 19, 1949 2nd Hand Smoke Exposure: No Recent Foreign Travel: No Contact w/Someone Who Travel: No Recent Infectious Disease Expo: No Recent Hopitalizations: No Physical Abuse: No Sexual Abuse: No Mistreated: No Fear: No Immunizations Up To Date Date of Pneumonia Vaccine: Jun 12, 2015 Date of Influenza Vaccine: Sep 02, 2018 Seasonal Allergies Seasonal Allergies: Yes Past Medical History Surgeries: Yes (4 VESSEL CABG; CARDIAC CATHS --LAST ONE 10/2018; AORTIC VALVE REPLACEMENT--TAVR; RIGHT KNEE REPLACEMENT; FEMUR FX/ORIF) Cardiac, CABG, Hysterectomy, Orthopedic Respiratory: Yes (DYSPNEA ON EXERTION) Sleep Apnea Currently Using CPAP: Yes (AT NIGHT) Currently Using BIPAP: No Cardiac: Yes (CHF; 4 VESSEL CABG 2011; TAVR FOR AORTIC VALVE STENOSIS; CAROTID DISEASE; PULMONARY HTN; CARDIAC CATHS WITH ANGIOPLASTIES; LAST CARDIAC CATH 10/2018--CAD WITH OCCLUDED SAPHENOUS VEIN GRAFT TO RCA AND PATENT SAPHENOUS VEIN GRAFT TO RAMUS INTERMEDIUS, AND PATENT LEFT INTERNAL MAMMARY GRAFT TO LAD--NO INTERVENTION AT THAT TIME. ; LBBB) Atrial Fibrillation, Chronic Edema/Swelling, Coronary Artery Disease, High Cholesterol, Hypertension, Valvular Heart Disease Neurological: No Reproductive Disorders: No Genitourinary: Yes Renal Failure, UTI-Chronic Gastrointestinal: Yes Gastroesophageal Reflux Musculoskeletal: Yes (ANKLE FX, B/L KNEE PAIN R/T PAST FRACTURE, COMPUND FX IN FEMUR) Fractures Endocrine: Yes (THYROID NODULE; MORBID OBESITY) Diabetes, Insulin dep Cataract Hearing Impairment: Hard of Hearing Cancer: No Psychosocial: No Integumentary: No Blood Disorders: No Adverse Reaction/Blood Tranf: No Family Medical History Diabetes mellitus 19 MOTHER G8 BROTHER G8 BROTHER Emph FH: breast cancer 19 MOTHER FH: breast cancer 19 MOTHER FH: emphysema 19 MOTHER FH: emphysema 19 MOTHER Physical Exam Vital Signs - First Documented 08/15/19 08/15/19 08:56 09:00 Temp 36.6 Pulse 68 Resp 24 B/P (MAP) 120/47 (71) Pulse Ox 95 O2 Delivery Nasal Cannula O2 Flow Rate 4.00 Capillary Refill : Less Than 3 Seconds Height: 5'6.00" Weight: 294lbs. 4.0oz. 133.434140gs; 48.00 BMI Method:Stated General Appearance: no apparent distress, obese (MORBIDLY ) Neck: normal inspection Respiratory: no accessory muscle use, wheezing (DIFFUES EXPIRATORY WHEEZING HIMA ATERALLY) Cardiovascular: normal peripheral pulses, no JVD, systolic murmur (FAINT), irregularly irregular Gastrointestinal: non tender, soft Extremities: normal capillary refill, pedal edema (2+ EDEMA BILATERALLY) Skin: normal color, warm/dry, other (EXTENSIVE SORES, SCABS, SCARS TO CHEST, BREAST, ABDOMEN, ARMS AND LEGS. NO SIGNS OF SECONDARY INFECTIONL EXTENSIVE CANDIDIASIS TO INGUINAL AREAS AND PANNUS FOLDS) Focused Exam Lactate Level 08/15/19 10:10: Lactic Acid Level 0.80 Lactic Acid Level Laboratory Tests Test 08/15/19 10:10 Lactic Acid Level 0.80 MMOL/L (0.50-2.00) Progress/Results/Core Measures Suspected Sepsis Recent Fever Within 48 Hours: No Infection Criteria Present: None New/Unexplained Altered Menta: No Sepsis Screen: No Definite Risk SIRS Temperature: Pulse: 89 Respiratory Rate: 16 Laboratory Tests 08/15/19 09:24: White Blood Count 7.1 Blood Pressure 139 /74 Mean: 71 08/15/19 10:10: Lactic Acid Level 0.80 Laboratory Tests 08/15/19 09:24: Creatinine 3.20H, INR Comment 2.4H, Platelet Count 193, Total Bilirubin 0.7 Results/Orders Lab Results Laboratory Tests Test 08/15/19 09:24 08/15/19 09:46 08/15/19 10:10 08/15/19 11:53 Range/Units White Blood Count 7.1 4.3-11.0 10^3/uL Red Blood Count 3.24 L 4.35-5.85 10^6/uL Hemoglobin 8.9 L 11.5-16.0 G/DL Hematocrit 28 L 35-52 % Mean Corpuscular Volume 88 80-99 FL Mean Corpuscular Hemoglobin 27 25-34 PG Mean Corpuscular Hemoglobin Concent 31 L 32-36 G/DL Red Cell Distribution Width 18.7 H 10.0-14.5 % Platelet Count 193 130-400 10^3/uL Mean Platelet Volume 10.9 H 7.4-10.4 FL Neutrophils (%) (Auto) 77 H 42-75 % Lymphocytes (%) (Auto) 13 12-44 % Monocytes (%) (Auto) 8 0-12 % Eosinophils (%) (Auto) 2 0-10 % Basophils (%) (Auto) 0 0-10 % Neutrophils # (Auto) 5.5 1.8-7.8 X 10^3 Lymphocytes # (Auto) 0.9 L 1.0-4.0 X 10^3 Monocytes # (Auto) 0.6 0.0-1.0 X 10^3 Eosinophils # (Auto) 0.1 0.0-0.3 10^3/uL Basophils # (Auto) 0.0 0.0-0.1 10^3/uL Prothrombin Time 27.3 H 12.2-14.7 SEC INR Comment 2.4 H 0.8-1.4 Activated Partial Thromboplast Time 34 24-35 SEC Sodium Level 133 L 135-145 MMOL/L Potassium Level 4.5 3.6-5.0 MMOL/L Chloride Level 94 L 98-107 MMOL/L Carbon Dioxide Level 24 21-32 MMOL/L Anion Gap 15 H 5-14 MMOL/L Blood Urea Nitrogen 121 *H 7-18 MG/DL Creatinine 3.20 H 0.60-1.30 MG/DL Estimat Glomerular Filtration Rate 14 BUN/Creatinine Ratio 38 Glucose Level 180 H 70-105 MG/DL Calcium Level 8.8 8.5-10.1 MG/DL Corrected Calcium 9.1 8.5-10.1 MG/DL Magnesium Level 2.3 1.6-2.4 MG/DL Total Bilirubin 0.7 0.1-1.0 MG/DL Aspartate Amino Transf (AST/SGOT) 12 5-34 U/L Alanine Aminotransferase (ALT/SGPT) 11 0-55 U/L Alkaline Phosphatase 39 L 40-136 U/L Total Creatine Kinase 90 29-168 U/L Creatine Kinase MB 3.1 <6.6 NG/ML Myoglobin 203.9 H 10.0-92.0 NG/ML Troponin I < 0.028 <0.028 NG/ML B-Type Natriuretic Peptide 460.7 H <100.0 PG/ML Total Protein 6.6 6.4-8.2 GM/DL Albumin 3.6 3.2-4.5 GM/DL TSH [place] Testing 1.46 0.35-4.94 UIU/ML Blood Gas Puncture Site RT BRACH Blood Gas Patient Temperature 36.6 Arterial Blood pH 7.35 L 7.37-7.43 Arterial Blood Partial Pressure CO2 50 H 35-45 MMHG Arterial Blood Partial Pressure O2 92 79-93 MMHG Arterial Blood HCO3 27 23-27 MMOL/L Arterial Blood Total CO2 28.4 21.0-31.0 MMOL/L Arterial Blood Oxygen Saturation 97 94-100 % Arterial Blood Base Excess 1.7 -2.5-2.5 MMOL/L Jered Test YES-POS Blood Gas Ventilator Setting NO Blood Gas Inspired Oxygen 2 L Lactic Acid Level 0.80 0.50-2.00 MMOL/L Urine Color YELLOW Urine Clarity CLEAR Urine pH 6.0 5-9 Urine Specific [place] <=1.005 1.016-1.022 Urine Protein TRACE NEGATIVE Urine Glucose (UA) NEGATIVE NEGATIVE Urine Ketones NEGATIVE NEGATIVE Urine Nitrite NEGATIVE NEGATIVE Urine Bilirubin NEGATIVE NEGATIVE Urine Urobilinogen 0.2 < = 1.0 MG/DL Urine Leukocyte Esterase NEGATIVE NEGATIVE Urine RBC (Auto) TRACE-L NEGATIVE Urine RBC RARE /HPF Urine WBC RARE /HPF Urine Squamous Epithelial Cells NONE /HPF Urine Crystals NONE /LPF Urine Bacteria NEGATIVE /HPF Urine Casts NONE /LPF Urine Mucus NEGATIVE /LPF Urine Culture Indicated NO My Orders Orders - NELI GRANDE DO Ed Iv/Invasive Line Start (08/15/19 09:30) Ekg Tracing (08/15/19 09:30) Catheter(Urinary) Insert & Ass 03,15 (08/15/19 09:30) O2 (08/15/19 09:30) Monitor-Rhythm Ecg Trace Only (08/15/19:30) Chest 1 View, Ap/Pa Only (08/15/19 09:30) Arterial Blood Gas (08/15/19 09:46) BNP (08/15/19:30) Cbc With Automated Diff (08/15/19:30) Comprehensive Metabolic Panel (08/15/19:30) Creatine Kinase (08/15/19:) Creatine Kinase Mb (08/15/19) Lactic Acid Analyzer (08/15/19:) Magnesium (08/15/19) Protime With Inr (08/15/19:) Partial Thromboplastin Time (08/15/19:) Thyroid Analyzer (08/15/19) Ua Culture If Indicated (08/15/19) Myoglobin Serum (08/15/19:) Troponin I (08/15/19:) Albuterol/Ipra Inhalation Soln (Duoneb I (08/15/19) Dexamethasone Injection (Decadron Inject (08/15/19:) Rt Request For Service (08/15/19:) Methylprednisolone Sod Succ (Solu-Medrol (08/15/19:) Svn Small Volume Nebulizer (08/15/19:30) Furosemide Injection (Lasix Injection) (08/15/19:30) Catheter(Urinary) Insert & Ass 03,15 (08/15/19 11:26) Arterial Blood Draw (08/15/19 ) Medications Given in ED Vital Signs/I&O 08/15/19 08/15/19 08/15/19 08/15/19 08:56 09:00 09:54 15:13 Temp 36.6 Pulse 68 89 Resp 24 16 B/P (MAP) 120/47 (71) 139/74 Pulse Ox 95 85 97 97 O2 Delivery Nasal Cannula Nasal Cannula Nasal Cannula O2 Flow Rate 4.00 2.00 3.00 Capillary Refill : Less Than 3 Seconds Blood Pressure Mean: 71 POS Progress Note : Progress Note O2 SAT 92% ON ROOM AIR--UP TO 99% ON O2 AT 3L/NC GIVEN NEB TREATMENT WITH INCREASED AERATION AND DECREASED WHEEZING UNEVENTFUL ER STAY N DETERIORATION IN PT'S CONDITION DURING ER STAY ECG Initial ECG Impression Date: Aug 15, 2019 Initial ECG Impression Time: 09:50 Initial ECG Rate: 60 Initial ECG Rhythm: A Fib/Flutter (AFIB, LBBB, BIGEMINY) Initial ECG Comparisson: Unchanged Diagnostic Imaging Comments CXR--CHF/CARDIOMEGALY WITH CENTRAL VASCULAR CONGESTION--PER RADIOLOGIST REPORT AT 1125 Reviewed: Reviewed by Me Departure Communication (Admissions) NO BEDS AVAILABLE HERE--HOSPITAL IS ON COMPLETE DIVERSION 1139--CALLED [facility], PT PREFERENCE [id number]--SPOKE WITH DR. HERNANDEZ, HOSPITALIST, ACCEPTS PT FOR ADMIT/TRANSFER. NO ADDITIONAL RECOMMENDATIONS AT THIS TIME. Impression Primary Impression: CHF (congestive heart failure) Additional Impressions: CAD WITH HX OF 4 VESSEL CABG Acute on chronic renal failure IDDM (insulin dependent diabetes mellitus) S/P TAVR (transcatheter aortic valve replacement) Anemia Disposition: XFER SHT-TRM HOSP Condition: Improved Transfer Transfer Reason: Diversion Transfer Facility: [facility] Method of Transfer: EMS Departure-Patient Inst. Referrals: LILY ROJAS DO (PCP) Primary Care Physician NELI GRANDE DO Aug 15, 2019 20:18 POS
== END 2019-08-15 15:12 | disposition short-term general hospital (02) ==
LOC: EDUNIT# 08:56 → ER 08:57
DX: I13.0 Hypertensive heart and chronic kidney disease with heart failure and stage 1 through stage 4 chronic kidney disease, or unspecified chronic kidney disease (principal); I50.9 Heart failure, unspecified; E11.22 Type 2 diabetes mellitus with diabetic chronic kidney disease; N17.9 Acute kidney failure, unspecified; N18.9 Chronic kidney disease, unspecified; I25.10 Atherosclerotic heart disease of native coronary artery without angina pectoris; D64.9 Anemia, unspecified; E78.00 Pure hypercholesterolemia, unspecified; I48.91 Unspecified atrial fibrillation; K21.9 Gastro-esophageal reflux disease without esophagitis; Z87.440 Personal history of urinary (tract) infections; Z98.890 Other specified postprocedural states; Z79.82 Long term (current) use of aspirin; Z79.4 Long term (current) use of insulin; Z79.01 Long term (current) use of anticoagulants; Z87.891 Personal history of nicotine dependence; Z90.710 Acquired absence of both cervix and uterus; Z95.1 Presence of aortocoronary bypass graft; Z80.3 Family history of malignant neoplasm of breast
CPT/HCPCS: 36415; 36600; 51702; 71045; 80053; 81000; 82550; 82553; 82805; 83605; 83735; 83874; 83880; 84443; 84484; 85025; 85610; 85730; 93005; 93041; 94640; 96374; 96375

== ENCOUNTER 2019-09-19 11:47 | Inpatient (IN) | payer MEDICARE, MEDICAID ==
[~2019-09-19] VITALS: Ht 160 cm; Wt 143.1 kg
--- NOTE | 2019-09-19 12:28 | ED Fall/Injury ---
General Chief Complaint: Trauma-Non Activation Stated Complaint: FALL Nursing Triage Note: pt verbalized fall x1 week. verbalized leg pain josh. with increased weakness Source: patient Exam Limitations: no limitations (DEEJAY REDDY MED STUDENT) History of Present Illness Date Seen by Provider: Sep 19, 2019 Time Seen by Provider: 12:04 Initial Comments Pt presents to ED via EMS with CC of fall 1 week ago. She states she was getting out of bed in the middle of the night to pee and fell onto her left side and her butt. She localizes pain to left elbow, knee, lateral aspects of L ribs, thoracic spine and coccyx. States before the fall she was able to ambulate with a walker but has not been able to get up and walk as she has had weakness in her R LE diffusely. Denies any stool incontinence but has ongoing bladder incontinence. Denies sensory deficits, changes in vision, difficulties with speech or swallowing. Occurred: last week Severity: mild Injuries/Pain Location: neck, back, pelvis, lower extremity Context: tripped Loss of Consciousness: no loss of consciousness Modifying Factors: Improves With Rest Associated Symptoms (Fall): No Abdominal Pain, No Chest Pain, No Confusion, No Dizziness, No Headache, No Muscle Spasms, No Nausea/Vomiting; Neck Pain, Trouble Walking (DEEJAY REDDY,MED STUDENT) Allergies and Home Medications Allergies Coded Allergies: No Known Drug Allergies (Unverified , 11/18/12) Home Medications Aspirin 81 Mg Tablet.dr, 81 MG PO DAILY, (Reported) Calcium Carbonate/Vitamin D3 1 Each Tablet, 1 TAB PO DAILY, (Reported) Dexlansoprazole 60 Mg Cap.drDavidbp, 60 MG PO DAILY PRN for ACID REFLUX, (Reported) Diltiazem HCl 240 Mg Cap.er.24h, 240 MG PO DAILY, (Reported) Furosemide 80 Mg Tablet, 80 MG PO BID Prescribed by: ASTRID STUART on 07/07/19 0904 Insulin Aspart 300 Units/3 Ml Solution, 11-17 SC AC, (Reported) Insulin Determir 1,000 Units/10 Ml Soln, 42 UNITS SC DAILY, (Reported) Insulin Determir 1,000 Units/10 Ml Soln, 58 UNITS SQ HS, (Reported) Lisinopril 5 Mg Tablet, 5 MG PO DAILY, (Reported) Metoprolol Tartrate 50 Mg Tablet, 50 MG PO BID, (Reported) [place] 3 Polyunsat Fatty Acids 1,000 Mg Cap, 1,000 MG PO DAILY, (Reported) Rivaroxaban 15 Mg Tablet, 15 MG PO 1700, (Reported) Rosuvastatin Calcium 20 Mg Tablet, 20 MG PO HS, (Reported) Patient Home Medication List Home Medication List Reviewed: Yes (DEEJAY REDDY MED STUDENT) Home Medication List Reviewed: Yes (JARRETT SOTO MD) Review of Systems Review of Systems Constitutional: No chills, No fever, No malaise; weight gain (CHF related ) Eyes: Denies Blurred Vision, Denies Decreased Acuity, Denies Pain Ears, Nose, Mouth, Throat: denies ear pain, denies nose pain, denies mouth pain, denies throat pain Respiratory: cough, dyspnea on exertion, orthopnea, short of breath Cardiovascular: No chest pain; edema, Hx of Intervention; No palpitations Gastrointestinal: No abdominal pain, No constipation, No diarrhea, No dysphagia, No melena, No nausea, No vomiting Genitourinary: frequency, incontinence (chronic, stable ); No pain Musculoskeletal: back pain, joint pain, neck pain Skin: No lesions, No lumps, No rash; other (bruises) Psychiatric/Neurological: Denies Headache, Denies Numbness, Denies Tingling; Weakness (R LE ) (DEEJAY REDDY MED STUDENT) All Other Systems Reviewed Negative Unless Noted: Yes (JARRETT SOTO MD) Past Cwuewqx-Saumfx-Ozwnin Hx Past Med/Social Hx: Reviewed Nursing Past Med/Soc Hx (JARRETT SOTO MD) Patient Social History Alcohol Use: Denies Use Recreational Drug Use: No Type Used: Cigarettes Former Smoker, Quit: Oct 19, 1949 2nd Hand Smoke Exposure: No Recent Foreign Travel: No Contact w/Someone Who Travel: No Recent Infectious Disease Expo: No Recent Hopitalizations: No Physical Abuse: No Sexual Abuse: No Mistreated: No Fear: No (DEEJAY REDDY MED STUDENT) Immunizations Up To Date Tetanus Booster (TDap): Unknown Date of Pneumonia Vaccine: Jun 12, 2015 Date of Influenza Vaccine: Sep 02, 2018 (DEEJAY REDDY MED STUDENT) Seasonal Allergies Seasonal Allergies: Yes (DEEJAY REDDY MED STUDENT) Past Medical History Surgeries: Yes Cardiac, CABG, Hysterectomy, Orthopedic Respiratory: Yes (DYSPNEA ON EXERTION) Sleep Apnea Currently Using CPAP: Yes (AT NIGHT) Currently Using BIPAP: No Cardiac: Yes Atrial Fibrillation, Chronic Edema/Swelling, Coronary Artery Disease, High Cholesterol, Hypertension, Valvular Heart Disease Neurological: No Reproductive Disorders: No Genitourinary: Yes Renal Failure, UTI-Chronic Gastrointestinal: Yes Gastroesophageal Reflux Musculoskeletal: Yes (ANKLE FX, B/L KNEE PAIN R/T PAST FRACTURE, COMPUND FX IN FEMUR) Fractures Endocrine: Yes (THYROID NODULE; MORBID OBESITY) Diabetes, Insulin dep Cataract Hearing Impairment: Hard of Hearing Cancer: No Psychosocial: No Integumentary: No Blood Disorders: No Adverse Reaction/Blood Tranf: No (DEEJAY REDDY,MED STUDENT) Family Medical History Reviewed Nursing Family Hx (JARRETT SOTO MD) Diabetes mellitus 19 MOTHER G8 BROTHER G8 BROTHER Emph FH: breast cancer 19 MOTHER FH: breast cancer 19 MOTHER FH: emphysema 19 MOTHER FH: emphysema 19 MOTHER Cancer (DEEJAY REDDY,SHANDRA STUDENT) Physical Exam Vital Signs Vital Signs - First Documented 09/19/19 11:55 Temp 36.5 Pulse 65 Resp 22 B/P (MAP) 125/66 (85) Pulse Ox 96 O2 Delivery Room Air (JARRTET SOTO MD) Vital Signs Capillary Refill : Less Than 3 Seconds (DEEJAY REDDY,MED STUDENT) Height, Weight, BMI Height: 5'6.00" Weight: 294lbs. 4.0oz. 133.336378ir; 44.00 BMI Method:Stated General Appearance: no apparent distress, obese HEENT: PERRL/EOMI, normal ENT inspection, TMs normal, pharynx normal Neck: non-tender, supple Cardiovascular: bradycardia, other (distant heart sounds, difficult to auscultate ) Respiratory: chest non-tender, lungs clear, normal breath sounds Gastrointestinal: non tender, soft Back: no CVA tenderness, muscle spasm (R thoracic paraspinal m ) Extremities: calf tenderness, inflammation, pedal edema (+4 pitting ), swelling Neurologic/Psychiatric: alert, oriented x 3 Skin: normal color, warm/dry Lymphatic: no adenopathy (Supra/infraclavicular, anterior and posterior cervical ) (DEEJAY REDDY,MED STUDENT) General Appearance: WD/WN, no apparent distress Cardiovascular: no murmur, bradycardia Respiratory: no accessory muscle use, crackles Gastrointestinal: non tender, soft Back: no CVA tenderness, muscle spasm (R thoracic paraspinal m ) Extremities: pelvis stable, calf tenderness, inflammation, pedal edema (+4 p itting ), swelling Neurologic/Psychiatric: alert, oriented x 3 Skin: other (JARRETT SOTO MD) Nay Coma Score Best Eye Response: (4) Open Spontaneously Best Verbal Response: (5) Oriented Best Motor Response: (6) Obeys Commands (JARRETT SOTO MD) Progress/Results/Core Measures Results/Orders Lab Results Laboratory Tests Test 09/19/19 12:45 09/19/19 12:50 Range/Units White Blood Count 8.2 4.3-11.0 10^3/uL Red Blood Count 3.10 L 4.35-5.85 10^6/uL Hemoglobin 8.9 L 11.5-16.0 G/DL Hematocrit 30 L 35-52 % Mean Corpuscular Volume 95 80-99 FL Mean Corpuscular Hemoglobin 29 25-34 PG Mean Corpuscular Hemoglobin Concent 30 L 32-36 G/DL Red Cell Distribution Width 19.5 H 10.0-14.5 % Platelet Count 250 130-400 10^3/uL Mean Platelet Volume 10.7 H 7.4-10.4 FL Neutrophils (%) (Auto) 78 H 42-75 % Lymphocytes (%) (Auto) 13 12-44 % Monocytes (%) (Auto) 8 0-12 % Eosinophils (%) (Auto) 1 0-10 % Basophils (%) (Auto) 0 0-10 % Neutrophils # (Auto) 6.4 1.8-7.8 X 10^3 Lymphocytes # (Auto) 1.1 1.0-4.0 X 10^3 Monocytes # (Auto) 0.7 0.0-1.0 X 10^3 Eosinophils # (Auto) 0.1 0.0-0.3 10^3/uL Basophils # (Auto) 0.0 0.0-0.1 10^3/uL Sodium Level 141 135-145 MMOL/L Potassium Level 3.0 L 3.6-5.0 MMOL/L Chloride Level 98 98-107 MMOL/L Carbon Dioxide Level 31 21-32 MMOL/L Anion Gap 12 5-14 MMOL/L Blood Urea Nitrogen 31 H 7-18 MG/DL Creatinine 1.78 H 0.60-1.30 MG/DL Estimat Glomerular Filtration Rate 28 BUN/Creatinine Ratio 17 Glucose Level 64 L 70-105 MG/DL Calcium Level 9.2 8.5-10.1 MG/DL Corrected Calcium 9.4 8.5-10.1 MG/DL Total Bilirubin 1.2 H 0.1-1.0 MG/DL Aspartate Amino Transf (AST/SGOT) 14 5-34 U/L Alanine Aminotransferase (ALT/SGPT) 10 0-55 U/L Alkaline Phosphatase 60 40-136 U/L Troponin I < 0.028 <0.028 NG/ML B-Type Natriuretic Peptide 898.5 H <100.0 PG/ML Total Protein 6.8 6.4-8.2 GM/DL Albumin 3.7 3.2-4.5 GM/DL Urine Color YELLOW Urine Clarity CLEAR Urine pH 6.0 5-9 Urine Specific [place] 1.015 L 1.016-1.022 Urine Protein TRACE NEGATIVE Urine Glucose (UA) NEGATIVE NEGATIVE Urine Ketones NEGATIVE NEGATIVE Urine Nitrite NEGATIVE NEGATIVE Urine Bilirubin NEGATIVE NEGATIVE Urine Urobilinogen 0.2 < = 1.0 MG/DL Urine Leukocyte Esterase NEGATIVE NEGATIVE Urine RBC (Auto) TRACE-I NEGATIVE Urine RBC RARE /HPF Urine WBC NONE /HPF Urine Squamous Epithelial Cells 2-5 /HPF Urine Crystals PRESENT H /LPF Urine Amorphous Sediment RARE DOMINGUEZ URATES H /LPF Urine Bacteria TRACE /HPF Urine Casts PRESENT /LPF Urine Hyaline Casts 2-5 H /LPF Urine Mucus NEGATIVE /LPF Urine Culture Indicated NO (JARRETT SOTO MD) My Orders Orders - JARRETT SOTO MD Ct Head/Cervical Spine Wo (09/19/19 12:26) Ct Thoracic/Lumbar Spine Wo (09/19/19 12:26) Chest 1 View, Ap/Pa Only (09/19/19 12:26) Knee, Left, 3 Views (09/19/19 12:26) Pelvis With Left Hip 2-3 Views (09/19/19 12:26) BNP (09/19/19 12:26) Cbc With Automated Diff (09/19/19 12:26) Comprehensive Metabolic Panel (09/19/19 12:26) Ua Culture If Indicated (09/19/19 12:26) Ed Iv/Invasive Line Start (09/19/19 12:26) Straight Cath For Spec.-Adult (09/19/19 12:26) Furosemide Injection (Lasix Injection) (09/19/19 13:39) Troponin I (09/19/19 13:39) Ekg Tracing (09/19/19 13:39) Magnesium 1 Gm/100 Ml Ivpb (Magnesium Mandel (09/19/19 16:15) Furosemide Injection (Lasix Injection) (09/19/19 16:01) Potassium Chloride (Tablet) (Klor Con Ta (09/19/19 16:15) (JARRETT SOTO MD) Vital Signs/I&O 09/19/19 11:55 Temp 36.5 Pulse 65 Resp 22 B/P (MAP) 125/66 (85) Pulse Ox 96 O2 Delivery Room Air (JARRETT SOTO MD) Blood Pressure Mean: 85 POS Progress Progress Note : Time: 12:43 Progress Note Seen and evaluated. Ordered CT of head, neck, thoracic spine. Ordered xray of pelvis, left knee to evaluate tx fall. Ordering CMP, BNP, CMP, UA and CXR to assess CHF status due to complaints of b/l LE swelling and weight gain. Urinary incontinence is ongoing and not concerning for cauda equina syndrome. 1430 Imaging revealed no bony abnormalities or evidence of hemorrhage. BNP elevated consistent with CHF exacerbati (DEEJAY REDDY,MED STUDENT) Progress Note : Progress Note I have seen and evaluated the patient and agree with above except as indicated. I directed the plan of care. Patient is here with report of weakness after fall a week ago. She is on Xarelto. She does report pain in her left knee, left hip and mid back. She also complains of some neck pain. All of this is after the f all. She reports that she's too weak to move around and she has markedly increased swelling in her legs. She feels like her heart failure is acted up. 1548: I discussed the case with Dr. Rojas. Patient is in heart failure and will need admission. We have given Lasix 40 mg IV. I will discuss with Dr. Davis. 10/10/01: I discussed the case with Dr. Davis. We will increase Lasix to total dose of 100 mg (60 mg IV added to previous dose). Magnesium 2 g IV ordered. We will also initiate potassium replacement with 40 mEq by mouth now and repeat in 2 hours. This was ordered. Admit, inpatient status. Patient agrees agrees with plan. (JARRETT SOTO MD) Initial ECG Impression Date: Sep 19, 2019 (DEEJAY REDDY,MED STUDENT) Initial ECG Impression Time: 15:37 Initial ECG Rate: 70 Initial ECG Rhythm: A Fib/Flutter Comment Atrial fibrillation with PVC. Left bundle branch block. Normal but left for axis. No evidence of ST elevation [place]. Similar to previous of 08/15/19. Interpreted by me. (JARRETT SOTO MD) Diagnostic Imaging [facility]: Xray Plain Films/CT/US/NM/MRI: chest Comments [facility] [place] POS NAME: JEREMY NUNES Kimberlee MED REC#: [id number] PT STATUS: REG ER : 1940 PHYSICIAN: JARRETT SOTO MD ADMIT DATE: 09/19/19/ER Draft POSDate of Exam:09/19/19 CHEST 1 VIEW, AP/PA ONLY INDICATION: Fall, bruising. COMPARISON: 08/15/2019. TECHNIQUE: A single radiograph of the chest is dated 09/19/2019. FINDINGS: Post surgical changes of CABG and a prosthetic cardiac valve are again identified. The cardiac silhouette is enlarged although stable. Mild central pulmonary vascular congestion. No focal pulmonary opacity. No pleural effusion. No pneumothorax. No acute osseous abnormality. IMPRESSION: Cardiomegaly with mild central pulmonary vascular congestion. No significant pleural effusion. Additional post surgical and chronic findings as above. Dictated on workstation # [id number] Dict: 09/19/19 1352 Trans: 09/19/19 1401 [id number] Interpreted by: FEI BERNAL MD Electronically signed by: [facility] Imaging: Xray Plain Films/CT/US/NM/MRI: pelvis, hip Comments [facility] [place] POS NAME: JEREMY NUNSE MED REC#: [id number] PT STATUS: REG ER : 1940 PHYSICIAN: JARRETT SOTO MD ADMIT DATE: 09/19/19/ER Draft POSDate of Exam:09/19/19 PELVIS WITH LEFT HIP 2-3 VIEWS INDICATION: Fall with bruising to the left side of the body. TIME OF EXAM: 1:44 PM FINDINGS: AP view of the pelvis and multiple views of the left hip were obtained. Femoral acetabular alignment is normal. 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 No definite fracture is identified. The rami appear intact. SI joints and symphysis are non-widened. IMPRESSION: Severe bilateral hip joint degenerative change. No acute fracture is detected. Dictated on workstation # [id number] Dict: 09/19/19 1355 Trans: 09/19/19 1406 [id number] Interpreted by: FAN LACY MD Electronically signed by: [place] Imaging: Xray Plain Films/CT/US/NM/MRI: knee Comments [email or web address]. POS [place] POS NAME: JEREMY NUNES [facility] REC#: [id number] PT STATUS: REG ER : 1940 PHYSICIAN: JARRETT SOTO MD ADMIT DATE: 09/19/19/ER Draft POSDate of Exam:09/19/19 KNEE, LEFT, 3 VIEWS INDICATION: Fall, bruising. COMPARISON: 03/06/2014. TECHNIQUE: Three radiographs of the left knee dated 09/19/2019. FINDINGS: No acute fracture or dislocation. No destructive osseous process. Moderate medial joint space narrowing and mild lateral joint space narrowing. Minimal osteophytosis. Chondrocalcinosis within the medial and lateral menisci. Diffuse soft tissue swelling and edema about the knee. Mild vascular calcifications. No significant joint effusion. Surgical clip overlying the soft tissues medial to the knee again noted. IMPRESSION: No acute osseous abnormality with mild to moderate degenerative changes. Chondrocalcinosis of the menisci which may relate to CPPD deposition disease although can also simply relate to underlying osteoarthritis. Diffuse swelling and edema about the knee. Dictated on workstation # [id number] Dict: 09/19/19 1351 Trans: 09/19/19 1354 [id number] Interpreted by: FEI BERNAL MD Electronically signed by: Diagonstic Imaging: CT Plain Films/CT/US/NM/MRI: c-spine, head Comments [facility] POS [place] POS NAME: JEREMY NUNES [facility] REC#: [id number] PT STATUS: REG ER : 1940 PHYSICIAN: JARRETT SOTO MD ADMIT DATE: 09/19/19/ER Draft POSDate of Exam:09/19/19 CT HEAD/CERVICAL SPINE WO EXAMINATION: CT head and CT cervical spine without contrast. TECHNIQUE: Multiple contiguous axial images were obtained through the brain and cervical spine without the use of intravenous contrast. Sagittal and coronal reformations through the cervical spine were then performed. All CT scans use one or more of the following dose optimizing techniques: automated exposure control, MA and/or KvP adjustment based on a patient size and exam type, or iterative reconstruction. HISTORY: Fall COMPARISON: None available. FINDINGS: The billy-white matter differentiation is normal. No mass effect or midline shift. The ventricles are normal in size and configuration. Basilar cisterns are patent. There are no intra- or extra-axial fluid collections. There is no intracranial hemorrhage. The orbits are normal. Paranasal sinuses are normal. Mastoid air cells are clear. No soft tissue abnormality is seen. No osseus lesions or fractures are seen. The alignment of the cervical spine is normal. No fracture is seen. Vertebral body heights are normal. The craniocervical junction is normal. Disc heights are normal. Facet and uncovertebral joints are normal. There is no osseus spinal canal stenosis. No soft tissue abnormality is seen in the neck. Limited views of the superior thorax are normal. IMPRESSION: 1. No acute intracranial abnormality. 2. No cervical spine fracture. Dictated on workstation # [id number] Dict: 09/19/19 1408 Trans: 09/19/19 1414 [facility] [id number] Interpreted by: CHATA CUI MD Electronically signed by: Diagonstic Imaging: CT Plain Films/CT/US/NM/MRI: other (spine) Comments [facility] [place] POS NAME: JEREMY NUNES [facility] REC#: [id number] PT STATUS: REG ER : 1940 PHYSICIAN: JARRETT SOTO MD ADMIT DATE: 09/19/19/ER Draft POSDate of Exam:09/19/19 CT THORACIC/LUMBAR SPINE WO EXAMINATION: CT thoracic and lumbar spine without contrast. TECHNIQUE: Multiple contiguous axial images were obtained through the thoracic and lumbar spine without the use of intravenous contrast. Sagittal and coronal reformations were then performed. All CT scans use one or more of the following dose optimizing techniques: automated exposure control, MA and/or KvP adjustment based on a patient size and exam type, or iterative reconstruction. HISTORY: Fall COMPARISON: None available. FINDINGS: The alignment of the thoracic and lumbar spine is normal. Vertebral body heights are normal and no fracture is seen. Facet joints are normal. There is mild multilevel degenerative disc disease throughout the thoracic spine and facet disease in the lumbar spine. There is no spinal canal stenosis. Limited views of the lungs show mild pulmonary edema and changes of a transcatheter aortic valve replacement. There is a small left pleural effusion. The aorta is normal. IMPRESSION: 1. No thoracic or lumbar spine fracture. 2. Mild pulmonary edema and small left pleural effusion. Dictated on workstation # [id number] Dict: 09/19/19 1417 Trans: 09/19/19 1421 [facility] [id number] Interpreted by: CHATA CUI MD Electronically signed by: (DEEJAY REDDY,MED STUDENT) Departure Communication (Admissions) Time/Spoke to Admitting Phy: 15:48 Time/Spoke to Consulting Phy: 16:02 (JARRETT SOTO MD) Impression Primary Impression: CHF (congestive heart failure) Qualified Codes: I50.9 - Heart failure, unspecified Additional Impression: Hypokalemia Disposition: ADMITTED INPATIENT Condition: Stable Admissions Decision to Admit Reason: Admit from ER (General) Decision to Admit/Date: Sep 19, 2019 Time/Decision to Admit Time: 15:48 (JARRETT SOTO MD) Departure-Patient Inst. Referrals: LILY ROJAS DO (PCP/Family) Primary Care Physician DEEJAY REDDY,MED STUDENT Sep 19, 2019 12:28 JARRETT JEONG MD Sep 19, 2019 16:10 POS
[2019-09-19 13:05] LABS: BASOPHILS % (AUTO) 0 % (0-10); EOSINOPHILS # (AUTO) 0.1 10^3/uL (0.0-0.3); EOSINOPHILS % (AUTO) 1 % (0-10); HEMATOCRIT 30 % (35-52); HEMOGLOBIN 8.9 G/DL (11.5-16.0); LYMPHOCYTES # (AUTO) 1.1 X 10^3 (1.0-4.0); LYMPHOCYTES % (AUTO) 13 % (12-44); MEAN CORPUSCULAR HEMOGLOBIN 29 PG (25-34); MEAN CORPUSCULAR HGB CONC 30 G/DL (32-36); MEAN CORPUSCULAR VOLUME 95 FL (80-99); MEAN PLATELET VOLUME 10.7 FL (7.4-10.4); MONOCYTES # (AUTO) 0.7 X 10^3 (0.0-1.0); MONOCYTES % (AUTO) 8 % (0-12); NEUTROPHILS # (AUTO) 6.4 X 10^3 (1.8-7.8); NEUTROPHILS % (AUTO) 78 % (42-75); PLATELET COUNT 250 10^3/uL (130-400); RED CELL DISTRIBUTION WIDTH 19.5 % (10.0-14.5); WHITE BLOOD COUNT 8.2 10^3/uL (4.3-11.0)
[2019-09-19 13:06] LABS: BILIRUBIN,URINE NEGATIVE (NEGATIVE); CLARITY,URINE CLEAR; COLOR,URINE YELLOW; GLUCOSE, URINE (UA) NEGATIVE (NEGATIVE); KETONES,URINE NEGATIVE (NEGATIVE); LEUKOCYTE ESTERASE ,URINE NEGATIVE (NEGATIVE); NITRITE,URINE NEGATIVE (NEGATIVE); PROTEIN,URINE TRACE (NEGATIVE)
[2019-09-19 13:17] LABS: BACTERIA,URINE TRACE /HPF; RBC,URINE RARE /HPF
[2019-09-19 13:18] LABS: AMORPHOUS SEDIMENT,UR RARE AMOR URATES /LPF
[2019-09-19 13:28] LABS: ALBUMIN 3.7 GM/DL (3.2-4.5); BILIRUBIN,TOTAL 1.2 MG/DL (0.1-1.0); CALCIUM 9.2 MG/DL (8.5-10.1); CREATININE SERUM 1.78 MG/DL (0.60-1.30); TOTAL PROTEIN 6.8 GM/DL (6.4-8.2)
[2019-09-19] MEDS ORDERED: FUROSEMIDE 40 MG/4 ML INJ (LASIX) IV STA ×2 (13:39→16:01)
--- NOTE | 2019-09-19 13:54 | Diagnostic Imaging Report ---
INDICATION: Fall, bruising. COMPARISON: 03/06/2014. TECHNIQUE: Three radiographs of the left knee dated 09/19/2019. FINDINGS: No acute fracture or dislocation. No destructive osseous process. Moderate medial joint space narrowing and mild lateral joint space narrowing. Minimal osteophytosis. Chondrocalcinosis within the medial and lateral menisci. Diffuse soft tissue swelling and edema about the knee. Mild vascular calcifications. No significant joint effusion. Surgical clip overlying the soft tissues medial to the knee again noted. IMPRESSION: No acute osseous abnormality with mild to moderate degenerative changes. Chondrocalcinosis of the menisci which may relate to CPPD deposition disease although can also simply relate to underlying osteoarthritis. Diffuse swelling and edema about the knee. Dictated by: Dictated on workstation # [id number]
--- NOTE | 2019-09-19 14:01 | Diagnostic Imaging Report ---
INDICATION: Fall, bruising. COMPARISON: 08/15/2019. TECHNIQUE: A single radiograph of the chest is dated 09/19/2019. FINDINGS: Post surgical changes of CABG and a prosthetic cardiac valve are again identified. The cardiac silhouette is enlarged although stable. Mild central pulmonary vascular congestion. No focal pulmonary opacity. No pleural effusion. No pneumothorax. No acute osseous abnormality. IMPRESSION: Cardiomegaly with mild central pulmonary vascular congestion. No significant pleural effusion. Additional post surgical and chronic findings as above. Dictated by: Dictated on workstation # [id number]
--- NOTE | 2019-09-19 14:03 | Diagnostic Imaging Report ---
INDICATION: Fall with bruising to the left side of the body. TIME OF EXAM: 1:44 PM FINDINGS: AP view of the pelvis and multiple views of the left hip were obtained. Femoral acetabular alignment is normal. 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 No definite fracture is identified. The rami appear intact. SI joints and symphysis are non-widened. IMPRESSION: Severe bilateral hip joint degenerative change. No acute fracture is detected. Dictated by: Dictated on workstation # [id number]
--- NOTE | 2019-09-19 14:15 | Diagnostic Imaging Report ---
EXAMINATION: CT head and CT cervical spine without contrast. TECHNIQUE: Multiple contiguous axial images were obtained through the brain and cervical spine without the use of intravenous contrast. Sagittal and coronal reformations through the cervical spine were then performed. All CT scans use one or more of the following dose optimizing techniques: automated exposure control, MA and/or KvP adjustment based on a patient size and exam type, or iterative reconstruction. HISTORY: Fall COMPARISON: None available. FINDINGS: The billy-white matter differentiation is normal. No mass effect or midline shift. The ventricles are normal in size and configuration. Basilar cisterns are patent. There are no intra- or extra-axial fluid collections. There is no intracranial hemorrhage. The orbits are normal. Paranasal sinuses are normal. Mastoid air cells are clear. No soft tissue abnormality is seen. No osseus lesions or fractures are seen. The alignment of the cervical spine is normal. No fracture is seen. Vertebral body heights are normal. The craniocervical junction is normal. Disc heights are normal. Facet and uncovertebral joints are normal. There is no osseus spinal canal stenosis. No soft tissue abnormality is seen in the neck. Limited views of the superior thorax are normal. IMPRESSION: 1. No acute intracranial abnormality. 2. No cervical spine fracture. Dictated by: Dictated on workstation # [id number]
--- NOTE | 2019-09-19 14:22 | Diagnostic Imaging Report ---
EXAMINATION: CT thoracic and lumbar spine without contrast. TECHNIQUE: Multiple contiguous axial images were obtained through the thoracic and lumbar spine without the use of intravenous contrast. Sagittal and coronal reformations were then performed. All CT scans use one or more of the following dose optimizing techniques: automated exposure control, MA and/or KvP adjustment based on a patient size and exam type, or iterative reconstruction. HISTORY: Fall COMPARISON: None available. FINDINGS: The alignment of the thoracic and lumbar spine is normal. Vertebral body heights are normal and no fracture is seen. Facet joints are normal. There is mild multilevel degenerative disc disease throughout the thoracic spine and facet disease in the lumbar spine. There is no spinal canal stenosis. Limited views of the lungs show mild pulmonary edema and changes of a transcatheter aortic valve replacement. There is a small left pleural effusion. The aorta is normal. IMPRESSION: 1. No thoracic or lumbar spine fracture. 2. Mild pulmonary edema and small left pleural effusion. Dictated by: Dictated on workstation # [id number]
[2019-09-19] MEDS ORDERED: KCL 10 MEQ TAB (MICRO K) PO ONE (16:15)
[2019-09-19] MEDS: MAGNESIUM 1 GM/100 ML IVPB 100 ML IV SCH ×2 (16:34→19:32)
--- NOTE | 2019-09-19 17:03 | Consultation-Cardiology ---
HPI-Cardiology Cardiology Consultation: Date of Consultation 09/19/19 Time Seen by a Provider: 16:50 Date of Admission 09-19-19 Attending Physician Luis Parkinson DO Admitting Physician Luis Parkinson DO Consulting Physician Emily Davis MD HPI: Chief Complaint: Non-syncopal fall CHF Ms. Arias is a 78 year old female who has been admitted to [facility] from the ED. She reports she got up this morning to use the BR at home. She states she was sitting down on the bed and her left leg gave out causing her to fall. She reports her sons were home at the time and assisted her up. She reports she has had increasing SOB for a few days with intermittent non-productive cough. She denies any c/o CP, palpitations, syncope or near syncope. She reports worsening bilat LE swelling. She reports bruising to her left leg after falling. Review of Systems-Cardiology Review of Systems Constitutional: No chills, No fever, No malaise Eyes: No vision change Ears/Nose/Throat: No epistaxis, No recent hearing loss Respiratory: As described under HPI Cardiovascular: As described under HPI Gastrointestinal: No diarrhea, No nausea, No vomiting Genitourinary: No dysuria Musculoskeletal: gout (tailbone pain) Skin: other (bruising to her left leg/hip/abdomen/arm) Psychiatric/Neurological: No depression, No seizure, No focal weakness, No syncope Hematologic: No bleeding abnormalities All Other Systems Reviewed Negative Unless Noted: Yes [id number] Hx Patient Social History Alcohol Use: Denies Use Recreational Drug Use: No Type Used: Cigarettes 2nd Hand Smoke Exposure: No Recent Foreign Travel: No Recent Infectious Disease Expo: No Hospitalization with Isolation: Denies Immunizations Up To Date Tetanus Booster (TDap): Unknown Date of Pneumonia Vaccine: Jun 12, 2015 Date of Influenza Vaccine: Sep 02, 2018 Past Medical History PMH As described under Assessment. Family Medical History Family Medical History: She does not report any family h/o CAD. She reports a son who had cardiomyopathy. Family History: Diabetes mellitus 19 MOTHER G8 BROTHER G8 BROTHER Emph FH: breast cancer 19 MOTHER FH: breast cancer 19 MOTHER FH: emphysema 19 MOTHER FH: emphysema 19 MOTHER Allergies and Home Medications Allergies Coded Allergies: No Known Drug Allergies (Unverified , 11/18/12) Home Medications Allopurinol 100 Mg Tablet, 100 MG PO DAILY, (Reported) Aspirin 81 Mg Tablet.dr, 81 MG PO DAILY, (Reported) Calcium Carbonate/Vitamin D3 1 Each Tablet, 1 TAB PO DAILY, (Reported) Dexlansoprazole 60 Mg Cap.dr.bp, 60 MG PO DAILY PRN for ACID REFLUX, (Reported) Diltiazem HCl 240 Mg Cap.er.24h, 240 MG PO DAILY, (Reported) Docusate Sodium 100 Mg Capsule, 100 MG PO BID, (Reported) Ergocalciferol (Vitamin D2) 50,000 Unit Capsule, 50,000 UNITS PO THURSDAY, (Reported) Ferrous Sulfate 325 Mg Tablet.dr, 650 MG PO Q48H, (Reported) Furosemide 80 Mg Tablet, 80 MG PO BID, (Reported) Insulin Aspart 300 Units/3 Ml Solution, 11-17 SC AC, (Reported) Insulin Determir 1,000 Units/10 Ml Soln, 42 UNITS SC DAILY, (Reported) Insulin Determir 1,000 Units/10 Ml Soln, 58 UNITS SQ HS, (Reported) Metoprolol Tartrate 50 Mg Tablet, 50 MG PO BID, (Reported) [place] 3 Polyunsat Fatty Acids 1,000 Mg Cap, 1,000 MG PO DAILY, (Reported) Rivaroxaban 15 Mg Tablet, 15 MG PO 1700, (Reported) Rosuvastatin Calcium 20 Mg Tablet, 20 MG PO HS, (Reported) Physical Exam-Cardiology Physical Exam Vital Signs/I&O 09/20/19 09/20/19 09/20/19 09/20/19 00:45 04:30 08:00 08:00 Temp 36.6 36.4 36.9 Pulse 80 76 94 Resp 23 21 22 B/P (MAP) 140/60 (86) 134/63 (86) 140/60 (86) Pulse Ox 95 96 98 95 O2 Delivery Nasal Cannula Nasal Cannula Nasal Cannula Room Air O2 Flow Rate 2.00 2.00 2.00 09/20/19 00:00 Intake Total 350 ml Output Total 475 ml Balance -125 ml Capillary Refill : Less Than 3 Seconds Constitutional: AAO x 3, well-developed, well-nourished HEENT: hearing is well preserved, oral hygience is good Neck: No carotid bruit; carotid pulses are 2 + bilaterally Respiratory: No accessory muscle use, No respiratory distress; rhonchi (scattered), other (good air entry) Cardiovascular: irregularly irregular; No JVD; S1 and S2, systolic murmur Gastrointestinal: soft, round, audible bowel sounds Extremities: other (pitting edema LE bilat, L>R) Neurologic/Psychiatric: grossly intact (moves extremities) Skin: ecchymosis (LLE, left hip and left arm, multiple bruises to abdomen) Data Review Labs Laboratory Tests 09/19/19 12:45: White Blood Count 8.2, Red Blood Count 3.10L, Hemoglobin 8.9L, Hematocrit 30L, Mean Corpuscular Volume 95, Mean Corpuscular Hemoglobin 29, Mean Corpuscular Hemoglobin Concent 30L, Red Cell Distribution Width 19.5H, Platelet Count 250, Mean Platelet Volume 10.7H, Neutrophils (%) (Auto) 78H, Lymphocytes (%) (Auto) 13, Monocytes (%) (Auto) 8, Eosinophils (%) (Auto) 1, Basophils (%) (Auto) 0, Neutrophils # (Auto) 6.4, Lymphocytes # (Auto) 1.1, Monocytes # (Auto) 0.7, Eosinophils # (Auto) 0.1, Basophils # (Auto) 0.0, Sodium Level 141, Potassium Level 3.0L, Chloride Level 98, Carbon Dioxide Level 31, Anion Gap 12, Blood Urea Nitrogen 31H, Creatinine 1.78H, Estimat Glomerular Filtration Rate 28, BUN/Creatinine Ratio 17, Glucose Level 64L, Calcium Level 9.2, Corrected Calcium 9.4, Total Bilirubin 1.2H, Aspartate Amino Transf (AST/SGOT) 14, Alanine Aminotransferase (ALT/SGPT) 10, Alkaline Phosphatase 60, Troponin I < 0.028, B- Type Natriuretic Peptide 898.5H, Total Protein 6.8, Albumin 3.7 09/19/19 12:50: Urine Color YELLOW, Urine Clarity CLEAR, Urine pH 6.0, Urine Specific [place] 1.015L, Urine Protein TRACE, Urine Glucose (UA) NEGATIVE, Urine Ketones NEGATIVE, Urine Nitrite NEGATIVE, Urine Bilirubin NEGATIVE, Urine Urobilinogen 0.2, Urine Leukocyte Esterase NEGATIVE, Urine RBC (Auto) TRACE-I, Urine RBC RARE, Urine WBC NONE, Urine Squamous Epithelial Cells 2-5, Urine Crystals PRESENTH, Urine Amorphous Sediment RARE DOMINGUEZ URATESH, Urine Bacteria TRACE, Urine Casts PRESENT, Urine Hyaline Casts 2-5H, Urine Mucus NEGATIVE, Urine Cu lture Indicated NO 09/19/19 18:23: Glucometer 64L 09/19/19 20:54: Glucometer 164H 09/19/19 21:04: Glucometer 152H 09/20/19 04:21: White Blood Count 6.7, Red Blood Count 2.74L, Hemoglobin 7.6L, Hematocrit 26L, Mean Corpuscular Volume 96, Mean Corpuscular Hemoglobin 28, Mean Corpuscular He moglobin Concent 29L, Red Cell Distribution Width 19.3H, Platelet Count 210, Mean Platelet Volume 10.3, Neutrophils (%) (Auto) 75, Lymphocytes (%) (Auto) 14, Monocytes (%) (Auto) 9, Eosinophils (%) (Auto) 2, Basophils (%) (Auto) 0, Neutrophils # (Auto) 5.1, Lymphocytes # (Auto) 0.9L, Monocytes # (Auto) 0.6, Eosinophils # (Auto) 0.1, Basophils # (Auto) 0.0, Sodium Level 140, Potassium Level 3.6, Chloride Level 100, Carbon Dioxide Level 28, Anion Gap 12, Blood Urea Nitrogen 30H, Creatinine 1.74H, Estimat Glomerular Filtration Rate 28, BUN/Cre atinine Ratio 17, Glucose Level 124H, Calcium Level 8.4L, Corrected Calcium 9.0, Magnesium Level 2.6H, Total Bilirubin 1.2H, Aspartate Amino Transf (AST/SGOT) 13, Alanine Aminotransferase (ALT/SGPT) 10, Alkaline Phosphatase 57, B-Type Natriuretic Peptide 570.4H, Total Protein 6.2L, Albumin 3.3 09/20/19 05:27: Glucometer 139H 09/20/19 08:26: 09/20/19 11:09: Glucometer 210H Radiology NAME: JEREMY ARIAS [facility] REC#: [id number] PT STATUS: ADM IN : 1940 PHYSICIAN: JARRETT SOTO MD ADMIT DATE: 09/19/19 Signed Date of Exam:09/19/19 CHEST 1 VIEW, AP/PA ONLY INDICATION: Fall, bruising. COMPARISON: 08/15/2019. TECHNIQUE: A single radiograph of the chest is dated 09/19/2019. FINDINGS: Post surgical changes of CABG and a prosthetic cardiac valve are again identified. The cardiac silhouette is enlarged although stable. Mild central pulmonary vascular congestion. No focal pulmonary opacity. No pleural effusion. No pneumothorax. No acute osseous abnormality. IMPRESSION: Cardiomegaly with mild central pulmonary vascular congestion. No significant pleural effusion. Additional post surgical and chronic findings as above. Dictated by: Dictated on workstation # [id number] Dict: 09/19/19 1352 Trans: 09/19/19 1639 [id number] Interpreted by: FEI BERNAL MD Electronically signed by: FEI BERNAL MD 09/19/19 1639 NAME: JEREMY ARIAS [facility] REC#: [id number] PT STATUS: REG ER : 1940 PHYSICIAN: JARRETT SOTO MD ADMIT DATE: 09/19/19/ER Signed Date of Exam:09/19/19 CT HEAD/CERVICAL SPINE WO EXAMINATION: CT head and CT cervical spine without contrast. TECHNIQUE: Multiple contiguous axial images were obtained through the brain and cervical spine without the use of intravenous contrast. Sagittal and coronal reformations through the cervical spine were then performed. All CT scans use one or more of the following dose optimizing techniques: automated exposure control, MA and/or KvP adjustment based on a patient size and exam type, or iterative reconstruction. HISTORY: Fall COMPARISON: None available. FINDINGS: The billy-white matter differentiation is normal. No mass effect or midline shift. The ventricles are normal in size and configuration. Basilar cisterns are patent. There are no intra- or extra-axial fluid collections. There is no intracranial hemorrhage. The orbits are normal. Paranasal sinuses are normal. Mastoid air cells are clear. No soft tissue abnormality is seen. No osseus lesions or fractures are seen. The alignment of the cervical spine is normal. No fracture is seen. Vertebral body heights are normal. The craniocervical junction is normal. Disc heights are normal. Facet and uncovertebral joints are normal. There is no osseus spinal canal stenosis. No soft tissue abnormality is seen in the neck. Limited views of the superior thorax are normal. IMPRESSION: 1. No acute intracranial abnormality. 2. No cervical spine fracture. Dictated by: Dictated on workstation # [id number] Dict: 09/19/19 1408 Trans: 09/19/19 1446 [facility] [id number] Interpreted by: CHATA CUI MD Electronically signed by: CHATA CUI MD 09/19/19 1446 NAME: JEREMY ARIAS [facility] REC#: [id number] PT STATUS: REG ER : 1940 PHYSICIAN: JARRETT SOTO MD ADMIT DATE: 09/19/19/ER Signed Date of Exam:09/19/19 PELVIS WITH LEFT HIP 2-3 VIEWS INDICATION: Fall with bruising to the left side of the body. TIME OF EXAM: 1:44 PM FINDINGS: AP view of the pelvis and multiple views of the left hip were obtained. Femoral acetabular alignment is normal. 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 No definite fracture is identified. The rami appear intact. SI joints and symphysis are non-widened. IMPRESSION: Severe bilateral hip joint degenerative change. No acute fracture is detected. Dictated by: Dictated on workstation # [id number] Dict: 09/19/19 1358 Trans: 09/19/19 1539 [id number] Interpreted by: FAN LACY MD Electronically signed by: FAN LACY MD 09/19/19 1539 ECG Impression ECG Initial ECG Impression: Atrial Fibrillation A/P-Cardiology Assessment/Admission Diagnosis S/P non-syncopal fall (bruising to her left leg, hip, and buttocks) Acute on Chronic systolic/diastolic CHF Paroxysmal atrial fibrillation which now seems to have become chronic permanent atrial fibrillation Multivessel coronary artery disease for which the patient underwent coronary artery bypass surgery 07/14/2012. This consisted of left internal mammary artery graft to left anterior descending, saphenous vein graft to posterior descending and sequential saphenous vein to ramus intermedius and obtuse marginal. This was carried out at [facility] in [place], [place] by Dr. Juarez. Cardiac cath of 10-19-18 showed morongo CAD consisting of long 80-90% prox and mid vessel stenosis of the LAD, 80-90% stenosis of the prox portion of the RI, and diffuse mod disease of the RCA. Patent left internal mammary artery graft to distal LAD. Patent saphenous vein graft to RI. Chronically occluded saphenous vein graft to RCA. MPI of 8-23-16 is indicative of basal inferior infarction with a mod amount of aguila-infarct ischemia. Inferolateral hypokinesis. LVEF approx 46% Maturity onset diabetes mellitus, insulin requiring. Aortic stenosis, for which he has undergone TAVR at [facility] in [place], [place], on 10/10/14, mod dilated LA, mod conc LVH, mod MAC, mild to mod MR, bioprosthetic AoV working adequately, PASP 50-55 mmHg. According to a card that she carries this is an Baird bovine transcatheter valve, 26 mm, model 9300 TFX, in the aortic position Echo of Jun 2019 showed concentric hypertrophy. LVEF 55-60%. LA mod dilated. Mild to mod calcified annulus with mild regurg. Mod TR. RVSP approx 53 mmHg. Known TAVR: adequate function, max gradient 26 mmHg, mean gradient 16 mmHg Chronic rivaroxaban anticoag for stroke prophylaxis Pulmonary HTN, with an estimated PASP of 75mmHg per echo of March 2014. Cardiac cath from July 25, 2014 showed moderate pulmonary HTN with mean pulmonary artery pressure of 33 mmHg and pulmonary vascular resistance of 5.4 Wood units. Echo of Jun 2019 showed PASP 50-55 mmHg Hypertension CKD stage III Hyperlipidemia currently on statin therapy - followed by Dr. Parkinson Obesity with a body index of 41. Gastroesophageal reflux. Chronic right ankle swelling following ankle fracture several years ago. History of knee replacement surgery in 1999. History of surgery of the femur several years ago. History of knee replacement surgery in 1999. History of surgery on the femur several years ago following fracture. Carotid arterial disease, consisting of 60% stenosis of the right internal carotid and 50% stenosis of the left internal carotid per CT angiography of 05/12/2013. 60-79% bilat stenosis of carotids per u/s of Jun, Incidentally diagnosed 7 mm right thyroid nodule on a CT scan of the carotid. This is being followed by Dr. Parkinson Sleep apnea syndrome - CPAP therapy Discussion and Recomendations Complex management Acute on chronic systolic/diastolic CHF - IV Lasix Replace electrolytes Monitor lab closely Continue OAC d/t chronic a-fib for stroke prophylaxis Continue home medications Further recs will be based on her hospital course We would like to thank medical services for this consult ASTRID STUART Sep 19, 2019 17:03 POS
[2019-09-19 17:08] VITALS: BP 137/64
[2019-09-19] MEDS ORDERED: CATHETER FLUSH 10 ML SYR IV PRN (17:15)
[2019-09-19] MEDS ORDERED: KCL 20 MEQ TAB (K-DUR) PO SCH (18:00)
--- NOTE | 2019-09-19 18:10 | Consultation-Cardiology ---
HPI-Cardiology Cardiology Consultation: Date of Consultation 09/19/19 Time Seen by a Provider: 17:45 Date of Admission Attending Physician Luis Parkinson DO Admitting Physician Luis Parkinson DO Consulting Physician ADALBERTO PATEL MD, MA, FACP, FACC, FSCAI, CCDS HPI: Chief Complaint: Reason for consultation: CHF HPI Ms. Arias is a 78 year old female who has been admitted to [facility] from the ED. She reports she got up this morning to use the BR at home. She states she was sitting down on the bed and her left leg gave out causing her to fall. She reports her sons were home at the time and assisted her up. She reports she has had increasing SOB for a few days with intermittent non-productive cough. She denies any c/o CP, palpitations, syncope or near syncope. She reports worsening bilat LE swelling. She reports bruising to her left leg after falling. Review of Systems-Cardiology Review of Systems Constitutional: No chills, No fever, No malaise Eyes: No vision change Ears/Nose/Throat: No epistaxis, No recent hearing loss Respiratory: As described under HPI Cardiovascular: As described under HPI Gastrointestinal: No diarrhea, No nausea, No vomiting Genitourinary: No dysuria Musculoskeletal: gout (tailbone pain) Skin: other (bruising to her left leg/hip/abdomen/arm) Psychiatric/Neurological: No depression, No seizure, No focal weakness, No s yncope Hematologic: No bleeding abnormalities All Other Systems Reviewed Negative Unless Noted: Yes ZCH-Abrxlf-Pitanv Hx Patient Social History Alcohol Use: Denies Use Recreational Drug Use: No Type Used: Cigarettes 2nd Hand Smoke Exposure: No Recent Foreign Travel: No Recent Infectious Disease Expo: No Hospitalization with Isolation: Denies Immunizations Up To Date Tetanus Booster (TDap): Unknown Date of Pneumonia Vaccine: Jun 12, 2015 Date of Influenza Vaccine: Sep 02, 2019 Past Medical History PMH As described under Assessment. Family Medical History Family Medical History: She does not report any family h/o CAD. She reports a son who had cardiomyopathy. Family History: Diabetes mellitus 19 MOTHER G8 BROTHER G8 BROTHER Emph FH: breast cancer 19 MOTHER FH: breast cancer 19 MOTHER FH: emphysema 19 MOTHER FH: emphysema 19 MOTHER Allergies and Home Medications Allergies Coded Allergies: No Known Drug Allergies (Unverified , 11/18/12) Home Medications Aspirin 81 Mg Tablet., 81 MG PO DAILY, (Reported) Calcium Carbonate/Vitamin D3 1 Each Tablet, 1 TAB PO DAILY, (Reported) Dexlansoprazole 60 Mg Chris.bp, 60 MG PO DAILY PRN for ACID REFLUX, (Reported) Diltiazem HCl 240 Mg Cap.er.24h, 240 MG PO DAILY, (Reported) Furosemide 80 Mg Tablet, 80 MG PO BID Prescribed by: ASTRID STUART on 07/07/19 0904 Insulin Aspart 300 Units/3 Ml Solution, 11-17 SC AC, (Reported) Insulin Determir 1,000 Units/10 Ml Soln, 42 UNITS SC DAILY, (Reported) Insulin Determir 1,000 Units/10 Ml Soln, 58 UNITS SQ HS, (Reported) Lisinopril 5 Mg Tablet, 5 MG PO DAILY, (Reported) Metoprolol Tartrate 50 Mg Tablet, 50 MG PO BID, (Reported) [place] 3 Polyunsat Fatty Acids 1,000 Mg Cap, 1,000 MG PO DAILY, (Reported) Rivaroxaban 15 Mg Tablet, 15 MG PO 1700, (Reported) Rosuvastatin Calcium 20 Mg Tablet, 20 MG PO HS, (Reported) Patient Home Medication List Home Medication List Reviewed: Yes Physical Exam-Cardiology Physical Exam Vital Signs/I&O 09/19/19 09/19/19 09/19/19 11:55 16:36 17:08 Temp 36.5 36.2 36.2 Pulse 65 73 73 Resp 22 30 30 B/P (MAP) 125/66 (85) 137/64 137/64 Pulse Ox 96 100 100 O2 Delivery Room Air Capillary Refill : Less Than 3 Seconds Constitutional: AAO x 3, well-developed, well-nourished HEENT: hearing is well preserved, oral hygience is good Neck: No carotid bruit; carotid pulses are 2 + bilaterally Respiratory: No accessory muscle use, No respiratory distress; rhonchi (scattered), other (good air entry) Cardiovascular: irregularly irregular; No JVD; S1 and S2, systolic murmur Gastrointestinal: soft, round, audible bowel sounds Extremities: other (pitting edema LE bilat, L>R) Neurologic/Psychiatric: oriented x 3, other (moves all limbs equally; gen weakness) Skin: ecchymosis (LLE, left hip and left arm, multiple bruises to abdomen) Data Review Labs Laboratory Tests 09/19/19 12:45: White Blood Count 8.2, Red Blood Count 3.10L, Hemoglobin 8.9L, Hematocrit 30L, Mean Corpuscular Volume 95, Mean Corpuscular Hemoglobin 29, Mean Corpuscular Hemoglobin Concent 30L, Red Cell Distribution Width 19.5H, Platelet Count 250, Mean Platelet Volume 10.7H, Neutrophils (%) (Auto) 78H, Lymphocytes (%) (Auto) 13, Monocytes (%) (Auto) 8, Eosinophils (%) (Auto) 1, Basophils (%) (Auto) 0, Neutrophils # (Auto) 6.4, Lymphocytes # (Auto) 1.1, Monocytes # (Auto) 0.7, Eosinophils # (Auto) 0.1, Basophils # (Auto) 0.0, Sodium Level 141, Potassium Level 3.0L, Chloride Level 98, Carbon Dioxide Level 31, Anion Gap 12, Blood Urea Nitrogen 31H, Creatinine 1.78H, Estimat Glomerular Filtration Rate 28, BUN/Creatinine Ratio 17, Glucose Level 64L, Calcium Level 9.2, Corrected Calcium 9.4, Total Bilirubin 1.2H, Aspartate Amino Transf (AST/SGOT) 14, Alanine Aminotransferase (ALT/SGPT) 10, Alkaline Phosphatase 60, Troponin I < 0.028, B- Type Natriuretic Peptide 898.5H, Total Protein 6.8, Albumin 3.7 09/19/19 12:50: Urine Color YELLOW, Urine Clarity CLEAR, Urine pH 6.0, Urine Specific [place] 1.015L, Urine Protein TRACE, Urine Glucose (UA) NEGATIVE, Urine Ketones NEGATIVE, Urine Nitrite NEGATIVE, Urine Bilirubin NEGATIVE, Urine Urobilinogen 0.2, Urine Leukocyte Esterase NEGATIVE, Urine RBC (Auto) TRACE-I, Urine RBC RARE, Urine WBC NONE, Urine Squamous Epithelial Cells 2-5, Urine Crystals PRESENTH, Urine Amorphous Sediment RARE DOMINGUEZ URATESH, Urine Bacteria TRACE, Urine Casts PRESENT, Urine Hyaline Casts 2-5H, Urine Mucus NEGATIVE, Urine Culture Indicated NO Laboratory Tests 09/19/19 12:45 A/P-Cardiology Assessment/Admission Diagnosis S/P non-syncopal fall (bruising to her left leg, hip, and buttocks) Acute on Chronic systolic/diastolic CHF Paroxysmal atrial fibrillation which now seems to have become chronic permanent atrial fibrillation Multivessel coronary artery disease for which the patient underwent coronary artery bypass surgery 07/14/2012. This consisted of left internal mammary artery graft to left anterior descending, saphenous vein graft to posterior descending and sequential saphenous vein to ramus intermedius and obtuse marginal. This was carried out at [facility] in [place], [place] by Dr. Juarez. Cardiac cath of 10-19-18 showed tangirnaq CAD consisting of long 80-90% prox and mid vessel stenosis of the LAD, 80-90% stenosis of the prox portion of the RI, and diffuse mod disease of the RCA. Patent left internal mammary artery graft to distal LAD. Patent saphenous vein graft to RI. Chronically occluded saphenous vein graft to RCA. MPI of 05-27-16 is indicative of basal inferior infarction with a mod amount of aguila-infarct ischemia. Inferolateral hypokinesis. LVEF approx 46% Maturity onset diabetes mellitus, insulin requiring. Aortic stenosis, for which he has undergone TAVR at [facility] in [place], [place], on 10/10/14, mod dilated LA, mod conc LVH, mod MAC, mild to mod MR, bioprosthetic AoV working adequately, PASP 50-55 mmHg. According to a card that she carries this is an Baird bovine transcatheter valve, 26 mm, model 9300 TFX, in the aortic position Echo of Jun 2019 showed concentric hypertrophy. LVEF 55-60%. LA mod dilated. Mild to mod calcified annulus with mild regurg. Mod TR. RVSP approx 53 mmHg. Known TAVR: adequate function, max gradient 26 mmHg, mean gradient 16 mmHg Chronic rivaroxaban anticoag for stroke prophylaxis Pulmonary HTN, with an estimated PASP of 75mmHg per echo of March 2014. Cardiac cath from July 25, 2014 showed moderate pulmonary HTN with mean pulmonary artery pressure of 33 mmHg and pulmonary vascular resistance of 5.4 Wood units. Echo of Jun 2019 showed PASP 50-55 mmHg Hypertension CKD stage III Hyperlipidemia currently on statin therapy - followed by Dr. Iggy Zhang with a body index of 41. Gastroesophageal reflux. Chronic right ankle swelling following ankle fracture several years ago. History of knee replacement surgery in 1999. History of surgery of the femur several years ago. History of knee replacement surgery in 1999. History of surgery on the femur several years ago following fracture. Carotid arterial disease, consisting of 60% stenosis of the right internal carotid and 50% stenosis of the left internal carotid per CT angiography of 05/12/2013. 60-79% bilat stenosis of carotids per u/s of Jun, Incidentally diagnosed 7 mm right thyroid nodule on a CT scan of the carotid. This is being followed by Dr. Parkinson Sleep apnea syndrome - CPAP therapy Discussion and Recomendations Complex management due to multiple comorbidities (see above) Acute on chronic systolic/diastolic CHF - IV Lasix Replace electrolytes Monitor lab closely Continue OAC d/t chronic a-fib for stroke prophylaxis Continue home medications Further recs will be based on her hospital course We would like to thank Medical Services for this consult Clinical Quality Measures DVT/VTE Risk/Contraindication: Risk Factor Score Per Nursin RFS Level Per Nursing on Admit: 4+=Very High ADALBERTO PATEL MD FACP FAC CCDS Sep 19, 2019 18:10 POS
[2019-09-19] MEDS: RIVAROXABAN 15 MG TABLET (XARELTO) PO SCH (18:33)
[2019-09-19] MEDS ORDERED: MAGNESIUM 1 GM/100 ML IVPB 100 ML IV ONE (19:30)
[2019-09-19 20:00] VITALS: BP 147/72
[2019-09-19] MEDS: inSUlin ASPART (NovoLOG) 1 UNIT/0.01 ML (CHARGE PER UNIT) SC SCH (21:02)
[2019-09-19] MEDS: CATHETER FLUSH 10 ML SYR IV SCH (22:00)
[2019-09-20] VITALS (9 sets, daily range): BP systolic 126–142; BP diastolic 60–85
[2019-09-20] MEDS: HYDROcodone/APAP 5 MG/325 MG (LORTAB) TAB PO PRN ×3 (00:52→21:15)
[2019-09-20] MEDS: FUROSEMIDE 40 MG/4 ML INJ (LASIX) IV SCH ×2 (04:36→16:35)
[2019-09-20 05:06] LABS: BASOPHILS % (AUTO) 0 % (0-10); EOSINOPHILS # (AUTO) 0.1 10^3/uL (0.0-0.3); EOSINOPHILS % (AUTO) 2 % (0-10); HEMATOCRIT 26 % (35-52); HEMOGLOBIN 7.6 G/DL (11.5-16.0); LYMPHOCYTES # (AUTO) 0.9 X 10^3 (1.0-4.0); LYMPHOCYTES % (AUTO) 14 % (12-44); MEAN CORPUSCULAR HEMOGLOBIN 28 PG (25-34); MEAN CORPUSCULAR HGB CONC 29 G/DL (32-36); MEAN CORPUSCULAR VOLUME 96 FL (80-99); MEAN PLATELET VOLUME 10.3 FL (7.4-10.4); MONOCYTES # (AUTO) 0.6 X 10^3 (0.0-1.0); MONOCYTES % (AUTO) 9 % (0-12); NEUTROPHILS # (AUTO) 5.1 X 10^3 (1.8-7.8); NEUTROPHILS % (AUTO) 75 % (42-75); PLATELET COUNT 210 10^3/uL (130-400); RED CELL DISTRIBUTION WIDTH 19.3 % (10.0-14.5); WHITE BLOOD COUNT 6.7 10^3/uL (4.3-11.0)
[2019-09-20 05:21] LABS: ALBUMIN 3.3 GM/DL (3.2-4.5); BILIRUBIN,TOTAL 1.2 MG/DL (0.1-1.0); CALCIUM 8.4 MG/DL (8.5-10.1); CREATININE SERUM 1.74 MG/DL (0.60-1.30); MAGNESIUM 2.6 MG/DL (1.6-2.4); POTASSIUM 3.6 MMOL/L (3.6-5.0); TOTAL PROTEIN 6.2 GM/DL (6.4-8.2)
[2019-09-20] MEDS: inSUlin ASPART (NovoLOG) 1 UNIT/0.01 ML (CHARGE PER UNIT) SC SCH ×4 (05:35→21:26)
[2019-09-20] MEDS: CATHETER FLUSH 10 ML SYR IV SCH ×3 (05:50→21:16)
--- NOTE | 2019-09-20 08:09 | Diagnostic Imaging Report ---
INDICATION: Heart failure. Exam compared 09/19/2019. FINDINGS: There is substantial leftward rotation given rotation. Sternal wires believed midline and intact. Enlargement of the cardiac silhouette unchanged. No pneumothorax. Some central vascular congestion unchanged likely bilateral pleural effusions which may have increased. IMPRESSION: There may be an increased pleural fluid volume, rotation limits interpretation, stable cardiomegaly and vascular congestion. No pneumothorax. Dictated by: Dictated on workstation # [id number]
--- NOTE | 2019-09-20 08:32 | History & Physical ---
History of Present Illness History of Present Illness Reason for visit/HPI I received a call from patient's [id number] that she is short of breath and swollen left knee. One week ago patient's left leg gave out which was in the bathroom and fell on the left part of the body and gluteus region. Patient's left leg and thigh swollen and black and blue. Patient getting more short of breath lately. Both legs have more bilateral pretibial edema. Patient has history of CAD, hypertension, CK-MB, open heart surgery, aortic valve replacement, right knee replacement, bypass, and hysterectomy Date of Admission Sep 19, 2019 at 15:49 Time Seen by a Provider: 08:27 I consulted on this patient on 09/20/19 08:27 Attending Physician Luis Rojas DO Admitting Physician Luis Rojas DO Consult Allergies and Home Medications Allergies Coded Allergies: No Known Drug Allergies (Unverified , 11/18/12) Home Medications Aspirin 81 Mg Tablet.dr, 81 MG PO DAILY, (Reported) Calcium Carbonate/Vitamin D3 1 Each Tablet, 1 TAB PO DAILY, (Reported) Dexlansoprazole 60 Mg Cap.drDavidbp, 60 MG PO DAILY PRN for ACID REFLUX, (Reported) Diltiazem HCl 240 Mg Cap.er.24h, 240 MG PO DAILY, (Reported) Furosemide 80 Mg Tablet, 80 MG PO BID Prescribed by: ASTRID STUART on 07/07/19 0904 Insulin Aspart 300 Units/3 Ml Solution, 11-17 SC AC, (Reported) Insulin Determir 1,000 Units/10 Ml Soln, 42 UNITS SC DAILY, (Reported) Insulin Determir 1,000 Units/10 Ml Soln, 58 UNITS SQ HS, (Reported) Lisinopril 5 Mg Tablet, 5 MG PO DAILY, (Reported) Metoprolol Tartrate 50 Mg Tablet, 50 MG PO BID, (Reported) [place] 3 Polyunsat Fatty Acids 1,000 Mg Cap, 1,000 MG PO DAILY, (Reported) Rivaroxaban 15 Mg Tablet, 15 MG PO 1700, (Reported) Rosuvastatin Calcium 20 Mg Tablet, 20 MG PO HS, (Reported) Patient Home Medication List Home Medication List Reviewed: Yes Past Snlbeow-Izmtfi-Wjsath Hx Past Med/Social Hx: Reviewed Nursing Past Med/Soc Hx Patient Social History Marrital Status: Employed/Student: retired Alcohol Use: Denies Use Recreational Drug Use: No Former Smoker, Quit: Oct 19, 1949 Type Used: Cigarettes 2nd Hand Smoke Exposure: No Recent Foreign Travel: No Contact w/other who traveled: No Recent Hopitalizations: No Recent Infectious Disease Expo: No Immunizations Up To Date Tetanus Booster (TDap): Unknown Date of Pneumonia Vaccine: Jun 12, 2015 Date of Influenza Vaccine: Sep 02, 2019 Seasonal Allergies Seasonal Allergies: Yes Past Medical History Surgeries: Cardiac, CABG, Hysterectomy, Orthopedic Currently Using CPAP: Yes (AT NIGHT) Currently Using BIPAP: No Cardiac: Atrial Fibrillation, Chronic Edema/Swelling, Coronary Artery Disease, High Cholesterol, Hypertension, Valvular Heart Disease Reproductive: No Genitourinary: Renal Failure, UTI-Chronic Gastrointestinal: Gastroesophageal Reflux Musculoskeletal: Fractures Endocrine: Diabetes, Insulin dep HEENT: Cataract Hearing Impairment: Hard of Hearing History of Blood Disorders: No Adverse Reaction to Blood Woods: No Family History Reviewed Nursing Family Hx Diabetes mellitus 19 MOTHER G8 BROTHER G8 BROTHER Emph FH: breast cancer 19 MOTHER FH: breast cancer 19 MOTHER FH: emphysema 19 MOTHER FH: emphysema 19 MOTHER Cancer Review of Systems Constitutional: malaise, weakness, other (Fall on left side) EENTM: no symptoms reported Respiratory: dyspnea on exertion, short of breath Cardiovascular: vascular heart diseas, other (Atrial fibrillation) Gastrointestinal: no symptoms reported Physical Exam Vital Signs Vital Signs - First Documented 09/19/19 09/19/19 11:55 18:00 Temp 36.5 Pulse 65 Resp 22 B/P (MAP) 125/66 (85) Pulse Ox 96 O2 Delivery Room Air O2 Flow Rate 2.00 Capillary Refill : Less Than 3 Seconds Height, Weight, BMI Height: 5'6.00" Weight: 294lbs. 4.0oz. 133.360043mn; 44.14 BMI Method:Stated General Appearance: No Apparent Distress, WD/WN Eyes: Bilateral Eye Normal Inspection HEENT: Normal ENT Inspection Neck: Full Range of Motion, Normal Inspection Respiratory: No Accessory Muscle Use, No Respiratory Distress, Decreased Breath Sounds Cardiovascular: Irregularly Irregular Gastrointestinal: Non Tender, Soft Assessment/Plan Assessment and Plan Fall. Blood in left thigh and knee. Short of breath. Congestive heart failure. Bilateral pretibial edema. Diabetes. CK D. CAD. Hypertension. Open heart surgery history. Aortic valve replacement history. Previous bypass. Anemia. Admission Diagnosis Admission Status: Inpatient Order (span 2 midnights) Reason for Inpatient Admission: Congestive heart failure. Anemia. fall. Monitoring hemoglobin and hematocrit. Back pain and left leg pain. CK D Clinical Quality Measures DVT/VTE Risk/Contraindication: Risk Factor Score Per Nursin RFS Level Per Nursing on Admit: 4+=Very High LUIS ROJAS DO Sep 20, 2019 08:32 POS
[2019-09-20] MEDS ORDERED: FERR325T5 PO (09:06)
[2019-09-20] MEDS ORDERED: ALLO100T PO (09:06)
[2019-09-20] MEDS ORDERED: FURO80TA3 PO (09:06)
[2019-09-20] MEDS ORDERED: ERGO50006 PO (09:06)
[2019-09-20] MEDS ORDERED: DOCU-164 PO (09:06)
[2019-09-20] MEDS ORDERED: NS IV 500 ML 500 ML IV SCH (09:45)
--- NOTE | 2019-09-20 11:42 | Progress Note - Cardiology ---
Cardiology SOAP Progress Note Subjective: Lying in bed. No c/o CP or palpitations. C/O left knee pain. C/O "wheezing" feeling in her chest. Objective: I&O/Vital Signs 09/20/19 09/20/19 09/20/19 09/20/19 04:30 08:00 08:00 12:15 Temp 36.4 36.9 36.4 Pulse 76 94 95 Resp 21 22 20 B/P (MAP) 134/63 (86) 140/60 (86) 135/63 Pulse Ox 96 98 95 97 O2 Delivery Nasal Cannula Nasal Cannula Room Air Nasal Cannula O2 Flow Rate 2.00 2.00 2.00 09/20/19 12:30 Temp 36.6 Pulse 101 Resp 20 B/P (MAP) 138/62 Pulse Ox 98 O2 Delivery Nasal Cannula O2 Flow Rate 2.00 09/20/19 00:00 Intake Total 350 ml Output Total 475 ml Balance -125 ml Weight (Pounds): 294 Weight (Ounces): 4.0 Weight (Calculated Kilograms): 133.444999 Constitutional: AAO x 3, well-developed, well-nourished Respiratory: No accessory muscle use, No respiratory distress; rhonchi (scattered), other (good air entry) Cardiovascular: irregularly irregular; No JVD; S1 and S2, systolic murmur Gastrointestional: soft, round, audible bowel sounds Extremities: other (pitting edema LE bilat, L>R) Neurologic/Psychiatric: oriented x 3, other (moves all limbs equally; gen weakness) Skin: ecchymosis (LLE, left hip and left arm, multiple bruises to abdomen) Results/Procedures: Labs Laboratory Tests 09/19/19 18:23: Glucometer 64L 09/19/19 20:54: Glucometer 164H 09/19/19 21:04: Glucometer 152H 09/20/19 04:21: White Blood Count 6.7, Red Blood Count 2.74L, Hemoglobin 7.6L, Hematocrit 26L, Mean Corpuscular Volume 96, Mean Corpuscular Hemoglobin 28, Mean Corpuscular Hemoglobin Concent 29L, Red Cell Distribution Width 19.3H, Platelet Count 210, Mean Platelet Volume 10.3, Neutrophils (%) (Auto) 75, Lymphocytes (%) (Auto) 14, Monocytes (%) (Auto) 9, Eosinophils (%) (Auto) 2, Basophils (%) (Auto) 0, Neutrophils # (Auto) 5.1, Lymphocytes # (Auto) 0.9L, Monocytes # (Auto) 0.6, Eosinophils # (Auto) 0.1, Basophils # (Auto) 0.0, Sodium Level 140, Potassium Level 3.6, Chloride Level 100, Carbon Dioxide Level 28, Anion Gap 12, Blood Urea Nitrogen 30H, Creatinine 1.74H, Estimat Glomerular Filtration Rate 28, BUN/Creatinine Ratio 17, Glucose Level 124H, Calcium Level 8.4L, Corrected Calcium 9.0, Magnesium Level 2.6H, Total Bilirubin 1.2H, Aspartate Amino Transf (AST/SGOT) 13, Alanine Aminotransferase (ALT/SGPT) 10, Alkaline Phosphatase 57, B-Type Natriuretic Peptide 570.4H, Total Protein 6.2L, Albumin 3.3 09/20/19 05:27: Glucometer 139H 09/20/19 08:26: 09/20/19 11:09: Glucometer 210H A/P: Assessment: S/P non-syncopal fall (bruising to her left leg, hip, buttocks and arm) Acute on Chronic systolic/diastolic CHF Paroxysmal atrial fibrillation which now seems to have become chronic permanent atrial fibrillation Multivessel coronary artery disease for which the patient underwent coronary artery bypass surgery 07/14/2012. This consisted of left internal mammary artery graft to left anterior descending, saphenous vein graft to posterior descending and sequential saphenous vein to ramus intermedius and obtuse marginal. This was carried out at [facility] in [place], [place] by Dr. Juarez. Cardiac cath of 10-19-18 showed koi CAD consisting of long 80-90% prox and mid vessel stenosis of the LAD, 80-90% stenosis of the prox portion of the RI, and diffuse mod disease of the RCA. Patent left internal mammary artery graft to distal LAD. Patent saphenous vein graft to RI. Chronically occluded saphenous vein graft to RCA. MPI of 05-27-16 is indicative of basal inferior infarction with a mod amount of aguila-infarct ischemia. Inferolateral hypokinesis. LVEF approx 46% Maturity onset diabetes mellitus, insulin requiring. Aortic stenosis, for which he has undergone TAVR at [facility] in [place], [place], on 10/10/14, mod dilated LA, mod conc LVH, mod MAC, mild to mod MR, bioprosthetic AoV working adequately, PASP 50-55 mmHg. According to a card that she carries this is an Baird bovine transcatheter valve, 26 mm, model 9300 TFX, in the aortic position Echo of Jun 2019 showed concentric hypertrophy. LVEF 55-60%. LA mod dilated. Mild to mod calcified annulus with mild regurg. Mod TR. RVSP approx 53 mmHg. Known TAVR: adequate function, max gradient 26 mmHg, mean gradient 16 mmHg Chronic rivaroxaban anticoag for stroke prophylaxis Pulmonary HTN, with an estimated PASP of 75mmHg per echo of March 2014. Cardiac cath from July 25, 2014 showed moderate pulmonary HTN with mean pulmonary artery pressure of 33 mmHg and pulmonary vascular resistance of 5.4 Wood units. Echo of Jun 2019 showed PASP 50-55 mmHg Hypertension CKD stage III Hyperlipidemia currently on statin therapy - followed by Dr. Parkinson Obesity with a body index of 41. Gastroesophageal reflux. Chronic right ankle swelling following ankle fracture several years ago. History of knee replacement surgery in 1999. History of surgery of the femur several years ago. History of knee replacement surgery in 1999. History of surgery on the femur several years ago following fracture. Carotid arterial disease, consisting of 60% stenosis of the right internal carotid and 50% stenosis of the left internal carotid per CT angiography of 05/12/2013. 60-79% bilat stenosis of carotids per u/s of Jun, Incidentally diagnosed 7 mm right thyroid nodule on a CT scan of the carotid. This is being followed by Dr. Parkinson Sleep apnea syndrome - CPAP therapy Anemia of undetermined etiology - medical services managing Plan: Complex management due to multiple comorbidities (see above) Acute on chronic systolic/diastolic CHF - Continue IV Lasix Replace electrolytes Monitor lab closely Continue OAC d/t chronic a-fib for stroke prophylaxis Continue ASA d/t CAD Management of anemia per medical services ASTRID STUART Sep 20, 2019 11:42 POS
--- NOTE | 2019-09-20 13:26 | Progress Note - Cardiology ---
Cardiology SOAP Progress Note Subjective: No cp Shortness of breath as before Gen weakness, more in the legs, as before Leg swelling as before No palp or syncope Objective: I&O/Vital Signs 09/20/19 09/20/19 09/20/19 09/20/19 04:30 08:00 08:00 12:15 Temp 36.4 36.9 36.4 Pulse 76 94 95 Resp 21 22 20 B/P (MAP) 134/63 (86) 140/60 (86) 135/63 Pulse Ox 96 98 95 97 O2 Delivery Nasal Cannula Nasal Cannula Room Air Nasal Cannula O2 Flow Rate 2.00 2.00 2.00 09/20/19 12:30 Temp 36.6 Pulse 101 Resp 20 B/P (MAP) 138/62 Pulse Ox 98 O2 Delivery Nasal Cannula O2 Flow Rate 2.00 09/20/19 00:00 Intake Total 350 ml Output Total 475 ml Balance -125 ml Weight (Pounds): 294 Weight (Ounces): 4.0 Weight (Calculated Kilograms): 133.349283 Constitutional: AAO x 3, well-developed, well-nourished Respiratory: No accessory muscle use, No respiratory distress; rhonchi (scattered), other (good air entry) Cardiovascular: irregularly irregular; No JVD; S1 and S2, systolic murmur Gastrointestional: soft, round, audible bowel sounds Extremities: other (pitting edema LE bilat, L>R) Neurologic/Psychiatric: oriented x 3, other (moves all limbs equally; gen weakness) Skin: ecchymosis (LLE, left hip and left arm, multiple bruises to abdomen) Results/Procedures: Labs Laboratory Tests 09/19/19 18:23: Glucometer 64L 09/19/19 20:54: Glucometer 164H 09/19/19 21:04: Glucometer 152H 09/20/19 04:21: White Blood Count 6.7, Red Blood Count 2.74L, Hemoglobin 7.6L, Hematocrit 26L, Mean Corpuscular Volume 96, Mean Corpuscular Hemoglobin 28, Mean Corpuscular Hemoglobin Concent 29L, Red Cell Distribution Width 19.3H, Platelet Count 210, Mean Platelet Volume 10.3, Neutrophils (%) (Auto) 75, Lymphocytes (%) (Auto) 14, Monocytes (%) (Auto) 9, Eosinophils (%) (Auto) 2, Basophils (%) (Auto) 0, Neutrophils # (Auto) 5.1, Lymphocytes # (Auto) 0.9L, Monocytes # (Auto) 0.6, Eosinophils # (Auto) 0.1, Basophils # (Auto) 0.0, Sodium Level 140, Potassium Level 3.6, Chloride Level 100, Carbon Dioxide Level 28, Anion Gap 12, Blood Urea Nitrogen 30H, Creatinine 1.74H, Estimat Glomerular Filtration Rate 28, BUN/Creatinine Ratio 17, Glucose Level 124H, Calcium Level 8.4L, Corrected Calcium 9.0, Magnesium Level 2.6H, Total Bilirubin 1.2H, Aspartate Amino Transf (AST/SGOT) 13, Alanine Aminotransferase (ALT/SGPT) 10, Alkaline Phosphatase 57, B-Type Natriuretic Peptide 570.4H, Total Protein 6.2L, Albumin 3.3 09/20/19 05:27: Glucometer 139H 09/20/19 08:26: 09/20/19 11:09: Glucometer 210H Laboratory Tests 09/19/19 12:45 09/20/19 04:21 A/P: Assessment: S/P non-syncopal fall (bruising to her left leg, hip, buttocks and arm) Acute on Chronic systolic/diastolic CHF Paroxysmal atrial fibrillation which now seems to have become chronic permanent atrial fibrillation Multivessel coronary artery disease for which the patient underwent coronary a rtery bypass surgery 07/14/2012. This consisted of left internal mammary artery graft to left anterior descending, saphenous vein graft to posterior descending and sequential saphenous vein to ramus intermedius and obtuse marginal. This was carried out at [facility] in [place], [place] by Dr. Juarez. Cardiac cath of 10-19-18 showed cocopah CAD consisting of long 80-90% prox and mid vessel stenosis of the LAD, 80-90% stenosis of the prox portion of the RI, and diffuse mod disease of the RCA. Patent left internal mammary artery graft to distal LAD. Patent saphenous vein graft to RI. Chronically occluded saphenous vein graft to RCA. MPI of 05-27-16 is indicative of basal inferior infarction with a mod amount of aguila-infarct ischemia. Inferolateral hypokinesis. LVEF approx 46% Maturity onset diabetes mellitus, insulin requiring. Aortic stenosis, for which he has undergone TAVR at [facility] in [place], [place], on 10/10/14, mod dilated LA, mod conc LVH, mod MAC, mild to mod MR, bioprosthetic AoV working adequately, PASP 50-55 mmHg. According to a card that she carries this is an Baird bovine transcatheter valve, 26 mm, model 9300 TFX, in the aortic position Echo of Jun 2019 showed concentric hypertrophy. LVEF 55-60%. LA mod dilated. Mild to mod calcified annulus with mild regurg. Mod TR. RVSP approx 53 mmHg. Known TAVR: adequate function, max gradient 26 mmHg, mean gradient 16 mmHg Chronic rivaroxaban anticoag for stroke prophylaxis Pulmonary HTN, with an estimated PASP of 75mmHg per echo of March 2014. Cardiac cath from July 25, 2014 showed moderate pulmonary HTN with mean pulmonary artery pressure of 33 mmHg and pulmonary vascular resistance of 5.4 Wood units. Echo of Jun 2019 showed PASP 50-55 mmHg Hypertension CKD stage III Hyperlipidemia currently on statin therapy - followed by Dr. Parkinson Obesity with a body index of 41. Gastroesophageal reflux. Chronic right ankle swelling following ankle fracture several years ago. History of knee replacement surgery in 1999. History of surgery of the femur several years ago. History of knee replacement surgery in 1999. History of surgery on the femur several years ago following fracture. Carotid arterial disease, consisting of 60% stenosis of the right internal carotid and 50% stenosis of the left internal carotid per CT angiography of 05/12/2013. 60-79% bilat stenosis of carotids per u/s of Jun, Incidentally diagnosed 7 mm right thyroid nodule on a CT scan of the carotid. This is being followed by Dr. Parkinson Sleep apnea syndrome - CPAP therapy Anemia of undetermined etiology - Medical Services managing Plan: Complex management due to multiple comorbidities (see above) Acute on chronic systolic/diastolic CHF - Continue IV Lasix Replace electrolytes Monitor lab closely Continue OAC d/t chronic a-fib for stroke prophylaxis Continue ASA d/t CAD Management of anemia per Medical Services ADALBERTO PATEL MD FACP FAC CCDS Sep 20, 2019 13:26 POS
[2019-09-20] MEDS: RIVAROXABAN 15 MG TABLET (XARELTO) PO SCH (16:35)
[2019-09-20] MEDS: ROSUVASTATIN 20 MG (CRESTOR) TABLET PO SCH (21:14)
[2019-09-20] MEDS: meTOprolol TARTRATE 50 MG (LOPRESSOR) TAB PO SCH (21:14)
[2019-09-21 00:25] VITALS: BP 113/57
[2019-09-21 06:24] LABS: BASOPHILS % (AUTO) 0 % (0-10); EOSINOPHILS # (AUTO) 0.1 10^3/uL (0.0-0.3); EOSINOPHILS % (AUTO) 1 % (0-10); HEMATOCRIT 29 % (35-52); HEMOGLOBIN 8.8 G/DL (11.5-16.0); LYMPHOCYTES % (AUTO) 15 % (12-44); MEAN CORPUSCULAR HEMOGLOBIN 29 PG (25-34); MEAN CORPUSCULAR HGB CONC 30 G/DL (32-36); MEAN CORPUSCULAR VOLUME 97 FL (80-99); MEAN PLATELET VOLUME 10.2 FL (7.4-10.4); MONOCYTES # (AUTO) 0.5 X 10^3 (0.0-1.0); MONOCYTES % (AUTO) 8 % (0-12); NEUTROPHILS # (AUTO) 4.9 X 10^3 (1.8-7.8); NEUTROPHILS % (AUTO) 76 % (42-75); PLATELET COUNT 214 10^3/uL (130-400); RED CELL DISTRIBUTION WIDTH 19.2 % (10.0-14.5); WHITE BLOOD COUNT 6.5 10^3/uL (4.3-11.0)
[2019-09-21 06:48] LABS: ALBUMIN 3.6 GM/DL (3.2-4.5); BILIRUBIN,TOTAL 1.8 MG/DL (0.1-1.0); CALCIUM 8.5 MG/DL (8.5-10.1); CREATININE SERUM 1.76 MG/DL (0.60-1.30); POTASSIUM 4.2 MMOL/L (3.6-5.0); TOTAL PROTEIN 6.6 GM/DL (6.4-8.2)
[2019-09-21 08:00] VITALS: BP 158/78
--- NOTE | 2019-09-21 08:01 | Diagnostic Imaging Report ---
Indication: Congestive heart failure. Compared: 09/20 Findings: Sternal wires midline. The heart is enlarged. There is no focal infiltrate, no overt failure pattern, no effusion. Impression: Prior sternotomy and upper limits heart size, otherwise negative. Dictated by: Dictated on workstation # [id number]
--- NOTE | 2019-09-21 08:24 | Progress Note ---
Subjective Time Seen by a Provider: 08:20 Subjective/Events-last exam Patient swelling of legs better. Chest x-ray shows improvement Objective Exam Vital Signs Date Time Temp Pulse Resp B/P (MAP) Pulse Ox O2 Delivery O2 Flow Rate FiO2 09/21/19 00:25 36.8 86 22 113/57 (75) 94 Nasal Cannula 2.00 09/20/19 23:00 Nasal Cannula 2.00 09/20/19 20:00 Nasal Cannula 2.00 09/20/19 20:00 36.8 114 20 142/85 (104) 96 Nasal Cannula 2.00 09/20/19 16:00 37.2 97 22 133/65 (87) 98 Nasal Cannula 2.00 09/20/19 15:30 37.2 94 20 133/63 95 Nasal Cannula 2.00 09/20/19 12:30 36.6 101 20 138/62 98 Nasal Cannula 2.00 09/20/19 12:15 36.4 95 20 135/63 97 Nasal Cannula 2.00 09/20/19 12:00 36.3 116 16 126/85 (99) 96 Nasal Cannula 2.00 I & O 09/21/19 07:00 Intake Total 1810 ml Output Total 1250 ml Balance 560 ml Capillary Refill : Less Than 3 Seconds General Appearance: No Apparent Distress, WD/WN HEENT: Normal ENT Inspection Neck: Normal Inspection, Non Tender Respiratory: No Accessory Muscle Use, No Respiratory Distress, Decreased Breath Sounds Cardiovascular: Regular Rate, Rhythm Gastrointestinal: non tender, soft Results Lab Laboratory Tests 09/20/19 19:07 09/21/19 05:57 Laboratory Tests 09/20/19 08:26: Mean Blood Glucose 137H, Hemoglobin A1c 6.4H 09/20/19 11:09: Glucometer 210H 09/20/19 16:25: Glucometer 211H 09/20/19 19:07: Hemoglobin 9.0L, Hematocrit 30L 09/20/19 21:04: Glucometer 193H 09/21/19 05:45: Glucometer 190H 09/21/19 05:57: White Blood Count 6.5, Red Blood Count 3.02L, Hemoglobin 8.8L, Hematocrit 29L, Mean Corpuscular Volume 97, Mean Corpuscular Hemoglobin 29, Mean Corpuscular Hemoglobin Concent 30L, Red Cell Distribution Width 19.2H, Platelet Count 214, Mean Platelet Volume 10.2, Neutrophils (%) (Auto) 76H, Lymphocytes (%) (Auto) 15, Monocytes (%) (Auto) 8, Eosinophils (%) (Auto) 1, Basophils (%) (Auto) 0, Neutrophils # (Auto) 4.9, Lymphocytes # (Auto) 1.0, Monocytes # (Auto) 0.5, Eosinophils # (Auto) 0.1, Basophils # (Auto) 0.0, Sodium Level 139, Potassium Level 4.2, Chloride Level 98, Carbon Dioxide Level 31, Anion Gap 10, Blood Urea Nitrogen 30H, Creatinine 1.76H, Estimat Glomerular Filtration Rate 28, BUN/Creatinine Ratio 17, Glucose Level 167H, Calcium Level 8.5, Corrected Calcium 8.8, Total Bilirubin 1.8H, Aspartate Amino Transf (AST/SGOT) 14, Alanine Aminotransferase (ALT/SGPT) 10, Alkaline Phosphatase 58, Total Protein 6.6, Albumin 3.6 Assessment/Plan Assessment/Plan Assess & Plan/Chief Complaint Acute CHF. Diabetes. fall Anemia. Knee pain and swelling Clinical Quality Measures Admission Status Admission Dx Fall. Blood in left thigh and knee. Short of breath. Congestive heart failure. Bilateral pretibial edema. Diabetes. CK D. CAD. Hypertension. Open heart surgery history. Aortic valve replacement history. Previous bypass. Anemia. DVT/VTE Risk/Contraindication: Risk Factor Score Per Nursin RFS Level Per Nursing on Admit: 4+=Very High LILY ROJAS DO Sep 21, 2019 08:24
[2019-09-21] MEDS: FUROSEMIDE 40 MG/4 ML INJ (LASIX) IV SCH ×2 (08:30→16:13)
[2019-09-21] MEDS: CATHETER FLUSH 10 ML SYR IV SCH ×3 (08:30→23:07)
[2019-09-21] MEDS: inSUlin ASPART (NovoLOG) 1 UNIT/0.01 ML (CHARGE PER UNIT) SC SCH ×5 (08:30→20:56)
[2019-09-21] MEDS: CALCIUM CARB + VIT D 600 MG (CALCARB + D) TAB PO SCH (08:31)
[2019-09-21] MEDS: FERROUS SULF 325 MG (IRON) TAB PO SCH (08:31)
[2019-09-21] MEDS ORDERED: PANTOPRAZOLE 40 MG (PROTONIX) TAB PO PRN (09:00)
[2019-09-21] MEDS: ASPIRIN E.C. 81 MG (ECOTRIN) TAB PO SCH (09:29)
[2019-09-21] MEDS: DILTIAZEM 240 MG (CARDIZEM CD) CAP PO SCH (09:29)
[2019-09-21] MEDS: ALLOPURINOL 100 MG (ZYLOPRIM) TAB PO SCH (09:29)
[2019-09-21] MEDS: DOCUSATE SODIUM 100 MG (COLACE) CAP PO SCH ×2 (09:29→20:56)
[2019-09-21] MEDS: meTOprolol TARTRATE 50 MG (LOPRESSOR) TAB PO SCH ×2 (09:29→20:56)
[2019-09-21] MEDS: OMEGA 3 (FISH OIL) 1000 MG CAP PO SCH (09:29)
--- NOTE | 2019-09-21 11:21 | Physical Therapy Evaluation ---
PT Evaluation-General Medical Diagnosis Admission Date Sep 19, 2019 at 15:49 Medical Diagnosis: Increasing SOB, LE edema, fall last week Onset Date: Sep 19, 2019 Therapy Diagnosis Therapy Diagnosis: weaknes, debility Height/Weight Height (Feet): 5 Height (Inches): 6.00 Weight (Pounds): 294 Weight (Ounces): 4.0 Precautions Precautions/Isolations: Fall Prevention, Standard Precautions Weight Bear Status Right Lower Extremity: Right Full Weight Bearing Left Lower Extremity: Left Weight Bearing/Tolerated Referral Physician: Iggy Reason for Referral: Evaluation/Treatment Medical History Pertinent Medical History: Atrial Fib, CABG, CAD, DM, HTN, Lymphoma, Renal Insufficiency Additional Medical History CK-MB, open heart Sx, arotic valve replacement, (R) TKR, A-fib, chronic edema, high cholesterol, renal failure, chronic UTI, GERD, IDDM, cataract, KIPNUK Current History Pt reports fall on (L) side "about a week ago" with significant bruising in LE and UE. Reports normally SOB but increasing SOB and LE edema recently. Reviewed History: Yes Social History Home: Single Level Current Living Status: Children (2 sons) Entry Into Home: Stairs Without Railing (sons assist at PLOF) PT Steps Into Home: 4 Prior Prior Level of Function SCALE: Activities may be completed with or without assistive devices. 4-Tpzaqxtpnn-nycsnem completes the activity by him/herself with no assistance from a helper. 5-Set-up or Clean-up Assistance-helper sets up or cleans up; patient completes activity. [place] assists only prior to or following the activity. 4-Supervision or Touching Assistance-helper provides verbal cues and/or touching/steadying and/or contact guard assistance as patient completes activity. Assistance may be provided throughout the activity or intermittently. 3-Partial/Moderate Assistance-helper does LESS THAN HALF the effort. [place] lifts, holds or supports trunk or limbs, but provides less than half the effort. 2-Substantial/Maximal Assistance-helper does MORE THAN HALF the effort. [place] lifts or holds trunk or limbs and provides more than half the effort. 0-Frfsibrqf-lgrpaj does ALL the effort. Patient does none of the effort to complete the activity. Or, the assistance of 2 or more helpers is required for the patient to complete the activity. If activity was not attempted, code reason: 7-Patient Refused. 9-Not Applicable-not attempted and the patient did not perform the activity before the current illness, exacerbation or injury. 10-Not Attempted due to Environmental Limitations-(lack of equipment, weather restraints, etc.). 88-Not Attempted due to Medical Conditions or Safety Concerns. Bed Mobility: 6 Transfers (B,C,W/C): 6 Gait: 6 Stairs: 3 Wheelchair Mobility: 9 Indoor Mobility (Ambulation): Independent Stairs: Needed Some Help Prior Devices Use: Walker Prior Device Use: FWW for household mobility Sons assist on stairs. CPAP at night. PT Evaluation-Current Subjective Pt in bed, agreeable to get OOB with encouragement. Nervous as she has not been up yet. 9/10 generalized (L) LE pain. Pain Numeric Pain Scale: 9 Location: Left Location Body Site: Knee Pain Description: Ache Pt/Family Goals Home with family assist Objective Patient Orientation: Person, Place, Time, Situation Attachments: Oxygen, Dinero Catheter ROM/Strength ROM Upper Extremities See OT ROM Lower Extremities WFL for functional mobility. (B) knee flexion limited due to LE edema. Strength Upper Extremities See OT Strength Lower Extremities Grossly 3+/5. No resistance given due to high pain rating. Integumentary/Posture Integumentary see nurses' notes Bladder Incontinence: Dinero Cath Posture Kyphotic Sensory Vision: Functional Hearing: Impaired Transfers Roll Left to Right (QC): 3 Sit to Lying (QC): 10 Lying to Sitting/Side of Bed(Q: 3 Sit to Stand (QC): 3 Chair/Cih-cd-Kmbld Xfer(QC): 3 Car Transfer (QC): 88 Pt requested to sit up chair post treatment, sit->supine not performed. Functional activity tolerance prohibits car transfer this date. Gait Does the Patient Walk?: Yes Mode of Locomotion: Walk Anticipated Mode of Locomotion: Walk Walk 10 feet (QC): 88 Walk 50 ft with 2 Turns(QC): 88 Walk 150 ft (QC): 88 Walking 10ft/uneven surface-QC: 88 Distance: 3 Gait Assistive Device: FWW Comments/Gait Description Pt agreeable to ambulate 3' to chair this date, declined to go further stating she was too winded. Min A x 1 bed->chair transfer with FWW. Wheelchair Training Does the Pt Use a Wheelchair?: No Wheel 50 ft with 2 turns (QC): 9 Wheel 150 ft (QC): 9 Type of Wheelchair: Manual Stairs 1 Step (curb) (QC): 88 4 Steps (QC): 88 12 Steps (QC): 88 Poor functional activity tolerance limits assessment of stairs this date. Balance Sitting Static: Good Sitting Dynamic: Good Standing Static: Fair Standing Dynamic: Fair Picking up an Object (QC): 88 Treatment Eval. Pt up to chair with O2 in situ, needs met. OT present for evaluation. O2 sats at 98% with activity. Nursing notified of level of assist, O2 sats. Assessment/Needs Pt would benefit from skilled PT to improve functional activity tolerance and s afety, (I) with functional mobility to allow safe return home with family. Rehab Potential: Good PT Short Term Goals Short Term Goals Time Frame: Sep 25, 2019 Roll Left & Right: 6 Sit to lyin Lying to sitting on side of be: 6 Sit to stand: 6 PT Correction Goals Correction Goals PT Criminal Justice Lawyer Goals Time Frame: Oct 05, 2019 Roll Left & Right (QC): 6 Sit to Lying (QC): 6 Lying-Sitting on Side/Bed(QC): 6 Sit to Stand (QC): 6 Chair/Iou-th-Krism Xfer(QC): 6 Toilet Transfer (QC): 6 Car Transfer (QC): 4 Does the Patient Walk: Yes Walk 10 feet (QC): 6 Walk 50ft with 2 Turns (QC): 6 Walk 150 ft (QC): 6 Walking 10ft on Uneven Surface: 4 1 Step (curb) (QC): 3 4 Steps (QC): 3 12 Steps (QC): 9 Picking up an Object (QC): 4 Does the Pt use WC or Scooter?: No Type: N/A Type: N/A PT goals established to allow safe return home with family. PT Plan Problem List Problem List: Activity Tolerance, Functional Strength, Safety, Balance, Gait, Transfer, Bed Mobility Treatment/Plan Treatment Plan: Continue Plan of Care Treatment Plan: Bed Mobility, Education, Functional Activity Cris, Functional Strength, Gait, Safety, Therapeutic Exercise, Transfers Treatment Duration: Oct 05, 2019 Frequency: 6 times per week Estimated Hrs Per Day: .25 hour per day Patient and/or Family Agrees t: Yes Safety Risks/Education Teaching Recipient: Patient Teaching Methods: Discussion Response to Teaching: Verbalize Understanding PT POC, importance of OOB/increasing activity, encouraged up to chair for at least all meals Discharge Recommendations Therapy Discharge Recommendati: Home & Family, Post Acute PT (HH) Barriers to Progress pain, edema, SOB Time/GCodes Time In: 1033 Time Out: 1051 Total Billed Treatment Time: 18 Total Billed Treatment 1, SHILPI PENA DPT Sep 21, 2019 11:21
[2019-09-21] MEDS: HYDROcodone/APAP 5 MG/325 MG (LORTAB) TAB PO PRN (11:55)
[2019-09-21 12:00] VITALS: BP 129/59
--- NOTE | 2019-09-21 12:59 | Occupational Therapy Eval ---
OT Evaluation-General/PLF Medical Diagnosis Admission Date Sep 19, 2019 at 15:49 Medical Diagnosis: Increasing SOB, LE edema, fall last week Onset Date: Sep 19, 2019 Therapy Diagnosis Therapy Diagnosis: decreased self care skills Height/Weight Height (Feet): 5 Height (Inches): 6.00 Weight (Pounds): 294 Weight (Ounces): 4.0 Precautions Precautions/Isolations: Fall Prevention, Standard Precautions Safety Interventions: None Referral Physician: Iggy Medical History Pertinent Medical History: Atrial Fib, CABG, CAD, DM, HTN, Lymphoma, Renal Ins ufficiency Additional Medical History right TKA, chronic edema, high cholesterol, Reviewed History: Yes Social History Home: Single Level Current Living Status: Children (2 sons) Entry Into Home: Stairs Without Railing (sons assist at PLOF) Steps Into Home: 4 ADL-Prior Level of Function SCALE: Activities may be completed with or without assistive devices. 9-Jblgczoyod-euyroen completes the activity by him/herself with no assistance from a helper. 5-Set-up or Clean-up Assistance-helper sets up or cleans up; patient completes activity. [place] assists only prior to or following the activity. 4-Supervision or Touching Assistance-helper provides verbal cues and/or touching/steadying and/or contact guard assistance as patient completes activity. Assistance may be provided throughout the activity or intermittently. 3-Partial/Moderate Assistance-helper does LESS THAN HALF the effort. [place] lifts, holds or supports trunk or limbs, but provides less than half the effort. 2-Substantial/Maximal Assistance-helper does MORE THAN HALF the effort. [place] lifts or holds trunk or limbs and provides more than half the effort. 5-Qewboedcb-xzzlni does ALL the effort. Patient does none of the effort to complete the activity. Or, the assistance of 2 or more helpers is required for the patient to complete the activity. If activity was not attempted, code reason: 7-Patient Refused. 9-Not Applicable-not attempted and the patient did not perform the activity before the current illness, exacerbation or injury. 10-Not Attempted due to Environmental Limitations-(lack of equipment, weather restraints, etc.). 88-Not Attempted due to Medical Conditions or Safety Concerns. ADL PLOF Comments Pt states she walks with a walker. Pt reports completing UE ADLs and toileting without assist, but she gets assist for LE ADLs and bathing. Unable to get into shower Self Care: Needed Some Help OT Current Status Subjective Pt agreeable to therapy. Reports pain in LE, but does not rate. Mental Status/Objective Patient Orientation: Person, Place Attachments: Kothari Catheter, Oxygen Current Hearing Aids: No Dentures/Partials: No Hand Dominance: Right Upper Extremity ROM Grossly WFL Upper Extremity Strength generalized weakness ADL-Treatment Eating (QC): 5 (by report) Oral Hygiene (QC): 7 (Pt declined to complete) Shower/Bathe Self (QC): 10 Upper Body Dressing (QC): 10 Lower Body Dressing (QC): 7 On/Off Footwear (QC): 2 Toileting Hygiene (QC): 7 (pt has kothari) Toilet Transfer (QC): 3 (Pt demonstrates ability to perform toilet transfer with min assist.) Pt sitting EOB with PT upon therapist arrival. Pt transferred to chair with min assist with FWW. Pt completed grooming tasks while seated in chair. Washed face and combed hair with set up. Pt declined to complete oral care at this time. Education provided regarding role of OT and plan of care. Pt states understanding of education and is in agreement with plan. Pt sitting in chair with needs met and visitor present after session. Education Teaching Recipient: Patient Teaching Methods: Discussion Response to Teaching: Verbalize Understanding OT Nursing Home Goals Window Cleaner Goals Time Frame: Oct 05, 2019 Eating (QC): 6 Oral Hygiene (QC): 5 Toileting Hygiene (QC): 5 Shower/Bathe Self (QC): 3 Upper Body Dressing (QC): 5 Lower Body Dressing (QC): 3 On/Off Footwear (QC): 3 Additional Goals: 1-Demonstrate ADL Tasks, 2-Verbalize Understanding, 3- ImproveStrength/Cris 1=Demonstrate adherence to instructed precautions during ADL tasks. 2=Patient will verbalize/demonstrate understanding of assistive devices/modifications for ADL. 3=Patient will improve strength/tolerance for activity to enable patient to perform ADL's. OT Education/Plan Problem List/Assessment Assessment: Decreased Activ Tolerance, Decreased UE Strength, Dependent Transfers, Impaired I ADL's, Impaired Self-Care Skills Pt to benefit from skilled OT intervention for ADL training, transfers, strengthening, and home safety education to increase level of independence and allow safe discharge plan. Discharge Recommendations Plan/Recommendations: Continue POC Treatment Plan/Plan of Care Treatment,Training & Education: Yes Patient would benefit from OT for education, treatment and training to promote independence in ADL's, mobility, safety and/or upper extremity function for ADL's. Plan of Care: ADL Retraining, Functional Mobility, Group Exercise/Act as Ind, UE Funct Exercise/Act Treatment Duration: Oct 05, 2019 Frequency: 5 times per week Estimated Hrs Per Day: .25 hour per day Rehab Potential: Fair Time/GCodes Start Time: 10:50 Stop Time: 11:02 Total Time Billed (hr/min): 12 Billed Treatment Time 1 visit, EVM(12minutes) MAURICE KINCAID OT Sep 21, 2019 12:59
[2019-09-21 16:00] VITALS: BP 136/79
[2019-09-21] MEDS: RIVAROXABAN 15 MG TABLET (XARELTO) PO SCH (16:13)
--- NOTE | 2019-09-21 18:24 | Progress Note - Cardiology ---
Cardiology SOAP Progress Note Subjective: Gen weakness caitlin of the legs Mod shortness of breath with activity No cp or palp or syncope Objective: I&O/Vital Signs 09/21/19 09/21/19 09/21/19 09/21/19 08:00 08:00 12:00 16:00 Temp 37.1 37.2 37.3 Pulse 98 87 61 Resp 18 18 20 B/P (MAP) 158/78 (104) 129/59 (82) 136/79 (98) Pulse Ox 98 95 99 O2 Delivery Nasal Cannula Nasal Cannula Nasal Cannula Nasal Cannula O2 Flow Rate 2.00 2.00 2.00 2.00 09/21/19 00:00 Intake Total 1810 ml Output Total 1250 ml Balance 560 ml Weight (Pounds): 294 Weight (Ounces): 4.0 Weight (Calculated Kilograms): 133.225336 Constitutional: AAO x 3, well-developed, well-nourished Respiratory: No accessory muscle use, No respiratory distress; rhonchi (scattered), other (good air entry) Cardiovascular: irregularly irregular; No JVD; S1 and S2, systolic murmur Gastrointestional: soft, round, audible bowel sounds Extremities: other (pitting edema LE bilat, L>R) Neurologic/Psychiatric: oriented x 3, other (moves all limbs equally; gen weakness) Skin: ecchymosis (LLE, left hip and left arm, multiple bruises to abdomen) Results/Procedures: Labs Laboratory Tests 09/20/19 19:07: Hemoglobin 9.0L, Hematocrit 30L 09/20/19 21:04: Glucometer 193H 09/21/19 05:45: Glucometer 190H 09/21/19 05:57: Hemoglobin 8.8L, Hematocrit 29L, White Blood Count 6.5, Red Blood Count 3.02L, Mean Corpuscular Volume 97, Mean Corpuscular Hemoglobin 29, Mean Corpuscular Hemoglobin Concent 30L, Red Cell Distribution Width 19.2H, Platelet Count 214, Mean Platelet Volume 10.2, Neutrophils (%) (Auto) 76H, Lymphocytes (%) (Auto) 15, Monocytes (%) (Auto) 8, Eosinophils (%) (Auto) 1, Basophils (%) (Auto) 0, Neutrophils # (Auto) 4.9, Lymphocytes # (Auto) 1.0, Monocytes # (Auto) 0.5, Eosinophils # (Auto) 0.1, Basophils # (Auto) 0.0, Sodium Level 139, Potassium Level 4.2, Chloride Level 98, Carbon Dioxide Level 31, Anion Gap 10, Blood Urea Nitrogen 30H, Creatinine 1.76H, Estimat Glomerular Filtration Rate 28, BUN/Creatinine Ratio 17, Glucose Level 167H, Calcium Level 8.5, Corrected Calcium 8.8, Total Bilirubin 1.8H, Aspartate Amino Transf (AST/SGOT) 14, Alanine Aminotransferase (ALT/SGPT) 10, Alkaline Phosphatase 58, Total Protein 6.6, Albumin 3.6 09/21/19 11:21: Glucometer 231H 09/21/19 16:08: Glucometer 216H Laboratory Tests 09/20/19 04:21 09/20/19 19:07 09/21/19 05:57 A/P: Assessment: S/P non-syncopal fall (bruising to her left leg, hip, buttocks and arm) Acute on Chronic systolic/diastolic CHF Paroxysmal atrial fibrillation which now seems to have become chronic permanent atrial fibrillation Multivessel coronary artery disease for which the patient underwent coronary artery bypass surgery 07/14/2012. This consisted of left internal mammary artery graft to left anterior descending, saphenous vein graft to posterior descending and sequential saphenous vein to ramus intermedius and obtuse marginal. This was carried out at [facility] in [place], [place] by Dr. Juarez. Cardiac cath of 10-19-18 showed [place] CAD consisting of long 80-90% prox and mid vessel stenosis of the LAD, 80-90% stenosis of the prox portion of the RI, and diffuse mod disease of the RCA. Patent left internal mammary artery graft to distal LAD. Patent saphenous vein graft to RI. Chronically occluded saphenous vein graft to RCA. MPI of 05-27-16 is indicative of basal inferior infarction with a mod amount of [place]uila-infarct ischemia. Inferolateral hypokinesis. LVEF approx 46% Maturity onset diabetes mellitus, insulin requiring. Aortic stenosis, for which he has undergone TAVR at [facility] in [place], [place], on 10/10/14, mod dilated LA, mod conc LVH, mod MAC, mild to mod MR, bioprosthetic AoV working adequately, PASP 50-55 mmHg. According to a card that she carries this is an Baird bovine transcatheter valve, 26 mm, model 9300 TFX, in the aortic position Echo of Jun 2019 showed concentric hypertrophy. LVEF 55-60%. LA mod dilated. Mild to mod calcified annulus with mild regurg. Mod TR. RVSP approx 53 mmHg. Known TAVR: adequate function, max gradient 26 mmHg, mean gradient 16 mmHg Chronic rivaroxaban anticoag for stroke prophylaxis Pulmonary HTN, with an estimated PASP of 75mmHg per echo of March 2014. Cardiac cath from July 25, 2014 showed moderate pulmonary HTN with mean pulmonary artery pressure of 33 mmHg and pulmonary vascular resistance of 5.4 Wood units. Echo of Jun 2019 showed PASP 50-55 mmHg Hypertension CKD stage III Hyperlipidemia currently on statin therapy - followed by Dr. Parkinson Obesity with a body index of 41. Gastroesophageal reflux. Chronic right ankle swelling following ankle fracture several years ago. History of knee replacement surgery in 1999. History of surgery of the femur several years ago. History of knee replacement surgery in 1999. History of surgery on the femur several years ago following fracture. Carotid arterial disease, consisting of 60% stenosis of the right internal carotid and 50% stenosis of the left internal carotid per CT angiography of 05/12/2013. 60-79% bilat stenosis of carotids per u/s of Jun, Incidentally diagnosed 7 mm right thyroid nodule on a CT scan of the carotid. This is being followed by Dr. Parkinson Sleep apnea syndrome - CPAP therapy Anemia of undetermined etiology - Medical Services managing Plan: Management remains comples due to multiple comorbidities (see above) Continue IV Lasix Replace electrolytes Monitor lab closely Continue OAC d/t chronic a-fib for stroke prophylaxis Continue ASA d/t CAD Management of anemia and weakness per Medical Services ADALBERTO PATEL MD FACP FAC CCDS Sep 21, 2019 18:24
[2019-09-21 20:00] VITALS: BP 162/79
[2019-09-21] MEDS: ROSUVASTATIN 20 MG (CRESTOR) TABLET PO SCH (20:56)
[2019-09-22] VITALS: BP 138/56
[2019-09-22] MEDS: FUROSEMIDE 40 MG/4 ML INJ (LASIX) IV SCH (03:14)
[2019-09-22] MEDS: CATHETER FLUSH 10 ML SYR IV SCH ×3 (03:14→23:50)
[2019-09-22 04:00] VITALS: BP 144/58
[2019-09-22] MEDS: HYDROcodone/APAP 5 MG/325 MG (LORTAB) TAB PO PRN (04:25)
[2019-09-22] MEDS: CALCIUM CARB + VIT D 600 MG (CALCARB + D) TAB PO SCH (06:33)
[2019-09-22] MEDS: inSUlin ASPART (NovoLOG) 1 UNIT/0.01 ML (CHARGE PER UNIT) SC SCH ×4 (06:33→23:49)
[2019-09-22 06:47] LABS: BASOPHILS % (AUTO) 0 % (0-10); EOSINOPHILS # (AUTO) 0.1 10^3/uL (0.0-0.3); EOSINOPHILS % (AUTO) 1 % (0-10); HEMATOCRIT 27 % (35-52); HEMOGLOBIN 8.4 G/DL (11.5-16.0); LYMPHOCYTES # (AUTO) 1.1 X 10^3 (1.0-4.0); LYMPHOCYTES % (AUTO) 17 % (12-44); MEAN CORPUSCULAR HEMOGLOBIN 29 PG (25-34); MEAN CORPUSCULAR HGB CONC 31 G/DL (32-36); MEAN CORPUSCULAR VOLUME 95 FL (80-99); MEAN PLATELET VOLUME 10.3 FL (7.4-10.4); MONOCYTES # (AUTO) 0.5 X 10^3 (0.0-1.0); MONOCYTES % (AUTO) 8 % (0-12); NEUTROPHILS # (AUTO) 4.9 X 10^3 (1.8-7.8); NEUTROPHILS % (AUTO) 74 % (42-75); PLATELET COUNT 204 10^3/uL (130-400); WHITE BLOOD COUNT 6.7 10^3/uL (4.3-11.0)
[2019-09-22 07:20] LABS: ALBUMIN 3.4 GM/DL (3.2-4.5); BILIRUBIN,TOTAL 1.8 MG/DL (0.1-1.0); CALCIUM 8.5 MG/DL (8.5-10.1); CREATININE SERUM 1.78 MG/DL (0.60-1.30); TOTAL PROTEIN 6.3 GM/DL (6.4-8.2)
[2019-09-22] MEDS: DILTIAZEM 240 MG (CARDIZEM CD) CAP PO SCH (07:27)
[2019-09-22] MEDS: OMEGA 3 (FISH OIL) 1000 MG CAP PO SCH (07:27)
[2019-09-22] MEDS: DOCUSATE SODIUM 100 MG (COLACE) CAP PO SCH ×2 (07:28→23:49)
[2019-09-22] MEDS: meTOprolol TARTRATE 50 MG (LOPRESSOR) TAB PO SCH ×2 (07:28→23:49)
[2019-09-22] MEDS: ALLOPURINOL 100 MG (ZYLOPRIM) TAB PO SCH (07:28)
[2019-09-22] MEDS: ASPIRIN E.C. 81 MG (ECOTRIN) TAB PO SCH (07:28)
[2019-09-22 07:35] VITALS: BP 128/58
--- NOTE | 2019-09-22 07:53 | Diagnostic Imaging Report ---
CLINICAL INDICATION: Patient with CHF. EXAM: Portable chest x-ray upright view. COMPARISON: Portable chest X-ray dated 09/21/2019. FINDINGS: Stable cardiomegaly. Pulmonary vasculature is within normal limits and stable. There is no interval lung infiltrate. There is no pleural effusion or pneumothorax. Stable postsurgical changes to the chest consistent with CABG. The remainder of this exam shows no significant interval change compared to the prior study of comparison. IMPRESSION: Stable cardiomegaly with no significant pulmonary vascular congestion. Dictated by: Dictated on workstation # [id number]
--- NOTE | 2019-09-22 08:06 | Progress Note ---
Subjective Time Seen by a Provider: 08:02 Subjective/Events-last exam Patient continues to improve. Chest x-ray shows improvement. Patient needing PT and OT. Plan to discharge tomorrow if continues to improve. Patient having back pain. Patient not sleeping at night. Patient constipated Objective Exam Vital Signs Date Time Temp Pulse Resp B/P (MAP) Pulse Ox O2 Delivery O2 Flow Rate FiO2 09/22/19 07:35 88 20 128/58 (81) 98 Nasal Cannula 3.00 09/22/19 04:00 37.3 85 20 144/58 (86) 95 Nasal Cannula 3.00 09/22/19 00:00 37.6 82 22 138/56 (83) 97 Nasal Cannula 2.50 09/21/19 20:50 NIV CPAP 09/21/19 20:30 Nasal Cannula 2.50 09/21/19 20:00 37.2 81 20 162/79 (106) 95 Nasal Cannula 2.00 09/21/19 16:00 37.3 61 20 136/79 (98) 99 Nasal Cannula 2.00 09/21/19 12:00 37.2 87 18 129/59 (82) 95 Nasal Cannula 2.00 I & O 09/22/19 07:00 Intake Total 1800 ml Output Total 1600 ml Balance 200 ml Capillary Refill : Less Than 3 Seconds General Appearance: No Apparent Distress, WD/WN HEENT: Normal ENT Inspection Neck: Full Range of Motion, Normal Inspection Respiratory: Lungs Clear, No Accessory Muscle Use, No Respiratory Distress Cardiovascular: No Murmur Gastrointestinal: non tender, soft Results Lab Laboratory Tests 09/22/19 06:11 Laboratory Tests 09/21/19 11:21: Glucometer 231H 09/21/19 16:08: Glucometer 216H 09/21/19 20:45: Glucometer 241H 09/22/19 05:55: Glucometer 158H 09/22/19 06:11: White Blood Count 6.7, Red Blood Count 2.88L, Hemoglobin 8.4L, Hematocrit 27L, Mean Corpuscular Volume 95, Mean Corpuscular Hemoglobin 29, Mean Corpuscular Hemoglobin Concent 31L, Red Cell Distribution Width 19.0H, Platelet Count 204, Mean Platelet Volume 10.3, Neutrophils (%) (Auto) 74, Lymphocytes (%) (Auto) 17, Monocytes (%) (Auto) 8, Eosinophils (%) (Auto) 1, Basophils (%) (Auto) 0, Neutrophils # (Auto) 4.9, Lymphocytes # (Auto) 1.1, Monocytes # (Auto) 0.5, Eosinophils # (Auto) 0.1, Basophils # (Auto) 0.0, Sodium Level 136, Potassium Level 4.0, Chloride Level 95L, Carbon Dioxide Level 29, Anion Gap 12, Blood Urea Nitrogen 32H, Creatinine 1.78H, Estimat Glomerular Filtration Rate 28, BUN/Creatinine Ratio 18, Glucose Level 140H, Calcium Level 8.5, Corrected Calcium 9.0, Total Bilirubin 1.8H, Aspartate Amino Transf (AST/SGOT) 13, Alanine Aminotransferase (ALT/SGPT) 11, Alkaline Phosphatase 51, Total Protein 6.3L, Albumin 3.4 Assessment/Plan Assessment/Plan Assess & Plan/Chief Complaint Acute CHF. Diabetes. fall Anemia. Knee pain and swelling. . 09/22/19. CHF. Diabetes. Renal insufficiency. Fall. Knee pain. Coronary artery disease. Constipation. Insomnia. Back pain Clinical Quality Measures Admission Status Admission Dx Fall. Blood in left thigh and knee. Short of breath. Congestive heart failure. Bilateral pretibial edema. Diabetes. CK D. CAD. Hypertension. Open heart surgery history. Aortic valve replacement history. Previous bypass. Anemia. DVT/VTE Risk/Contraindication: Risk Factor Score Per Nursin RFS Level Per Nursing on Admit: 4+=Very High LILY ROJAS DO Sep 22, 2019 08:06
[2019-09-22] MEDS ORDERED: BISACODYL 5 MG (DULCOLAX) TABLET PO NR ×2 (08:30→09:55)
[2019-09-22] MEDS ORDERED: traZODone 50 MG (DESYREL) TAB PO PRN (08:30)
--- NOTE | 2019-09-22 09:38 | Physical Therapy Daily Note ---
PT Daily Note-Current Subjective Pt agreeable to PT session, when asked if she is having any pain, states "I don't think so". States she is feeling very sleepy. Pain Numeric Pain Scale: 0-No Pain Appearance Pt in bed upon arrival. At end of session, pt sitting up in recliner with LE's elevated, call light, phone and bedside table within reach. Nurse present to remove catheter. Mental Status Patient Orientation: Person, Place, Time, Eyes Open Attachments: Saline Lock, Oxygen, Dinero Catheter Transfers SCALE: Activities may be completed with or without assistive devices. 9-Iubrseikqz-pdgakyu completes the activity by him/herself with no assistance from a helper. 5-Set-up or Clean-up Assistance-helper sets up or cleans up; patient completes activity. [place] assists only prior to or following the activity. 4-Supervision or Touching Assistance-helper provides verbal cues and/or touching/steadying and/or contact guard assistance as patient completes activity. Assistance may be provided throughout the activity or intermittently. 3-Partial/Moderate Assistance-helper does LESS THAN HALF the effort. [place] lifts, holds or supports trunk or limbs, but provides less than half the effort. 2-Substantial/Maximal Assistance-helper does MORE THAN HALF the effort. [place] lifts or holds trunk or limbs and provides more than half the effort. 0-Mwpdmvecy-oqafdm does ALL the effort. Patient does none of the effort to complete the activity. Or, the assistance of 2 or more helpers is required for the patient to complete the activity. If activity was not attempted, code reason: 7-Patient Refused. 9-Not Applicable-not attempted and the patient did not perform the activity before the current illness, exacerbation or injury. 10-Not Attempted due to Environmental Limitations-(lack of equipment, weather restraints, etc.). 88-Not Attempted due to Medical Conditions or Safety Concerns. Roll Left & Right (QC): 4 Lying to Sitting/Side of Bed(Q: 3 (requiring physical assist to move LLE and at shoulder to transition to sitting) Sit to Stand (QC): 3 (began with requiring physical assist to stand, improved to SBA with repetition) Chair/Eut-sx-Qfyos Xfer(QC): 4 uncontrolled descent into chair, able to correct 50% of time with verb instruction for safety and hand placement Weight Bearing Right Lower Extremity: Right Full Weight Bearing Left Lower Extremity: Left Weight Bearing/Tolerated Exercises Seated Therapy Exercises: Ankle pumps (10), Sit to stand (5), Long arc quads (10), Hip abd/add (10) Treatments education, safety, transfers, strength, balance, activity tolerance, functional mobility Assessment pt refusing to walk this morning, states she is too sleepy. Sit to and from stand transfers improved with repetition and instruction PT Short Term Goals Short Term Goals Time Frame: Sep 25, 2019 Roll Left & Right: 6 Sit to lyin Lying to sitting on side of be: 6 Sit to stand: 6 PT Special Education Tutor Goals Prison Goals PT Prison Goals Time Frame: Oct 05, 2019 Roll Left & Right (QC): 6 Sit to Lying (QC): 6 Lying-Sitting on Side/Bed(QC): 6 Sit to Stand (QC): 6 Chair/Mkx-ko-Kpqth Xfer(QC): 6 Toilet Transfer (QC): 6 Car Transfer (QC): 4 Does the Patient Walk: Yes Walk 10 feet (QC): 6 Walk 50ft with 2 Turns (QC): 6 Walk 150 ft (QC): 6 Walking 10ft on Uneven Surface: 4 1 Step (curb) (QC): 3 4 Steps (QC): 3 12 Steps (QC): 9 Picking up an Object (QC): 4 Does the Pt use WC or Scooter?: No Type: N/A Type: N/A PT Plan Treatment/Plan Treatment Plan: Continue Plan of Care Treatment Plan: Bed Mobility, Education, Functional Activity Cris, Functional Strength, Gait, Safety, Therapeutic Exercise, Transfers Treatment Duration: Oct 05, 2019 Frequency: 6 times per week Estimated Hrs Per Day: .25 hour per day Patient and/or Family Agrees t: Yes Safety Risks/Education Patient Education: Transfer Techniques, Safety Issues Teaching Recipient: Patient Teaching Methods: Demonstration, Discussion Response to Teaching: Verbalize Understanding, Return Demonstration, Reinforcement Needed Time/GCodes Time In: 929 Time Out: 957 Total Billed Treatment Time: 28 Total Billed Treatment 1 visit, EX x10min, FA x 18 min ALEXIS SERRATO PTA Sep 22, 2019 09:37
[2019-09-22] MEDS: HYDROcodone/APAP 7.5 MG/325 MG (LORTAB, LORCET PLUS) TABLET PO PRN ×3 (09:59→18:09)
[2019-09-22 12:00] VITALS: BP 118/58
--- NOTE | 2019-09-22 14:49 | Occupational Ther Daily Note ---
OT Current Status-Daily Note Subjective Pt seen in recliner chair, agreeable to OT tx session. Pt states moderate pain in L knee and hip. ADL-Treatment Therapy Code Descriptions/Definitions Functional [place] Measure: 0=Not Assessed/NA 4=Minimal Assistance 1=Total Assistance 5=Supervision or Setup 2=Maximal Assistance 6=Modified [place] 3=Moderate Assistance 7=Complete IndependenceSCALE: Activities may be completed with or without assistive devices. 0-Ugauxlaucu-muaqvny completes the activity by him/herself with no assistance from a helper. 5-Set-up or Clean-up Assistance-helper sets up or cleans up; patient completes activity. [place] assists only prior to or following the activity. 4-Supervision or Touching Assistance-helper provides verbal cues and/or touching/steadying and/or contact guard assistance as patient completes activity. Assistance may be provided throughout the activity or intermittently. 3-Partial/Moderate Assistance-helper does LESS THAN HALF the effort. [place] lifts, holds or supports trunk or limbs, but provides less than half the effort. 2-Substantial/Maximal Assistance-helper does MORE THAN HALF the effort. [place] lifts or holds trunk or limbs and provides more than half the effort. 6-Fzbpbsezn-ztgcyq does ALL the effort. Patient does none of the effort to complete the activity. Or, the assistance of 2 or more helpers is required for the patient to complete the activity. If activity was not attempted, code reason: 7-Patient Refused. 9-Not Applicable-not attempted and the patient did not perform the activity before the current illness, exacerbation or injury. 10-Not Attempted due to Environmental Limitations-(lack of equipment, weather restraints, etc.). 88-Not Attempted due to Medical Conditions or Safety Concerns. Other Treatment Pt declines all ADLs, agreeable to move from chair to bed. Pt sit to stand with CGA, bed mob to supine with mod A for BLE assist. Pt educated of diaphragmatic breathing and bed UE exercises (completes 3 sets of 5 shoulder flexions). Pt's SCDs placed on pt. Benefits of exercise and timmy breathing addressed for pain management and edema management. Pt left with call light in reach, all needs met, nursing notified of pain. Education OT Patient Education: Correct positioning, Exercise program, Home exercise program, Purpose of tx/functional activities, Transfer techniques Teaching Recipient: Patient Teaching Methods: Demonstration, Discussion Response to Teaching: Verbalize Understanding, Return Demonstration OT Penitentiary Goals Penitentiary Goals Time Frame: Oct 05, 2019 Eating (QC): 6 Oral Hygiene (QC): 5 Toileting Hygiene (QC): 5 Shower/Bathe Self (QC): 3 Upper Body Dressing (QC): 5 Lower Body Dressing (QC): 3 On/Off Footwear (QC): 3 Additional Goals: 1-Demonstrate ADL Tasks, 2-Verbalize Understanding, 3-ImproveStrength/Cris 1=Demonstrate adherence to instructed precautions during ADL tasks. 2=Patient will verbalize/demonstrate understanding of assistive devices/modifications for ADL. 3=Patient will improve strength/tolerance for activity to enable patient to perform ADL's. OT Education/Plan Problem List/Assessment Assessment: Decreased Activ Tolerance, Decreased UE Strength, Dependent Transfers, Impaired Funct Balance, Impaired I ADL's, Impaired Self-Care Skills Pt to benefit from skilled OT intervention for ADL training, transfers, strengthening, and home safety education to increase level of independence and allow safe discharge plan. Discharge Recommendations Plan/Recommendations: Continue POC Therapy Discharge Recommendati: Scheduled Assistance, Home & Family, Post Acute OT Treatment Plan/Plan of Care Treatment,Training & Education: Yes Patient would benefit from OT for education, treatment and training to promote independence in ADL's, mobility, safety and/or upper extremity function for ADL's. Plan of Care: ADL Retraining, Functional Mobility, Group Exercise/Act as Ind, UE Funct Exercise/Act Treatment Duration: Oct 05, 2019 Frequency: 5 times per week Estimated Hrs Per Day: .25 hour per day Rehab Potential: Fair Time/GCodes Start Time: 14:00 Stop Time: 14:09 Total Time Billed (hr/min): 9 Billed Treatment Time 1, FA (9) PEDRITO HARRINGTON OTR Sep 22, 2019 14:49
[2019-09-22 16:09] VITALS: BP 121/68
--- NOTE | 2019-09-22 17:04 | Progress Note - Cardiology ---
Cardiology SOAP Progress Note Subjective: Shortness of breath better Gen weakness, caitlin of legs, persistent No cp or palp or syncope Objective: I&O/Vital Signs 09/22/19 09/22/19 09/22/19 09/22/19 07:35 08:00 12:00 15:46 Temp 37.2 35.9 Pulse 88 74 Resp 20 16 B/P (MAP) 128/58 (81) 118/58 (78) Pulse Ox 98 95 94 92 O2 Delivery Nasal Cannula Nasal Cannula Nasal Cannula O2 Flow Rate 3.00 3.00 3.00 2.00 09/22/19 16:09 Temp 36.4 Pulse 73 Resp 18 B/P (MAP) 121/68 (85) Pulse Ox 94 O2 Delivery Nasal Cannula O2 Flow Rate 2.00 09/22/19 00:00 Intake Total 1800 ml Output Total 1600 ml Balance 200 ml Weight (Pounds): 294 Weight (Ounces): 4.0 Weight (Calculated Kilograms): 133.534591 Constitutional: AAO x 3, well-developed, well-nourished Respiratory: No accessory muscle use, No respiratory distress; rhonchi (scattered), other (good air entry) Cardiovascular: irregularly irregular; No JVD; S1 and S2, systolic murmur Gastrointestional: soft, round, audible bowel sounds Extremities: other (pitting edema LE bilat, L>R) Neurologic/Psychiatric: oriented x 3, other (moves all limbs equally; gen weakness) Skin: ecchymosis (LLE, left hip and left arm, multiple bruises to abdomen) Results/Procedures: Labs Laboratory Tests 09/21/19 20:45: Glucometer 241H 09/22/19 05:55: Glucometer 158H 09/22/19 06:11: White Blood Count 6.7, Red Blood Count 2.88L, Hemoglobin 8.4L, Hematocrit 27L, Mean Corpuscular Volume 95, Mean Corpuscular Hemoglobin 29, Mean Corpuscular Hemoglobin Concent 31L, Red Cell Distribution Width 19.0H, Platelet Count 204, Mean Platelet Volume 10.3, Neutrophils (%) (Auto) 74, Lymphocytes (%) (Auto) 17, Monocytes (%) (Auto) 8, Eosinophils (%) (Auto) 1, Basophils (%) (Auto) 0, Neutrophils # (Auto) 4.9, Lymphocytes # (Auto) 1.1, Monocytes # (Auto) 0.5, Eosinophils # (Auto) 0.1, Basophils # (Auto) 0.0, Sodium Level 136, Potassium Level 4.0, Chloride Level 95L, Carbon Dioxide Level 29, Anion Gap 12, Blood Urea Nitrogen 32H, Creatinine 1.78H, Estimat Glomerular Filtration Rate 28, BUN/Creatinine Ratio 18, Glucose Level 140H, Calcium Level 8.5, Corrected Calcium 9.0, Total Bilirubin 1.8H, Aspartate Amino Transf (AST/SGOT) 13, Alanine Aminotransferase (ALT/SGPT) 11, Alkaline Phosphatase 51, Total Protein 6.3L, Albumin 3.4 09/22/19 11:08: Glucometer 186H 09/22/19 16:09: Glucometer 234H Laboratory Tests 09/20/19 19:07 09/21/19 05:57 09/22/19 06:11 A/P: Assessment: S/P non-syncopal fall (bruising to her left leg, hip, buttocks and arm) Acute on Chronic systolic/diastolic CHF Paroxysmal atrial fibrillation which now seems to have become chronic permanent atrial fibrillation Multivessel coronary artery disease for which the patient underwent coronary artery bypass surgery 07/14/2012. This consisted of left internal mammary artery graft to left anterior descending, saphenous vein graft to posterior descending and sequential saphenous vein to ramus intermedius and obtuse marginal. This was carried out at [facility] in [place], [place] by Dr. Juarez. Cardiac cath of 10-19-18 showed [place] CAD consisting of long 80-90% prox and mid vessel stenosis of the LAD, 80-90% stenosis of the prox portion of the RI, and diffuse mod disease of the RCA. Patent left internal mammary artery graft to distal LAD. Patent saphenous vein graft to RI. Chronically occluded saphenous vein graft to RCA. MPI of 05-27-16 is indicative of basal inferior infarction with a mod amount of [place]-infarct ischemia. Inferolateral hypokinesis. LVEF approx 46% Maturity onset diabetes mellitus, insulin requiring. Aortic stenosis, for which he has undergone TAVR at [facility] in [place], [place], on 10/10/14, mod dilated LA, mod conc LVH, mod MAC, mild to mod MR, bioprosthetic AoV working adequately, PASP 50-55 mmHg. According to a card that she carries this is an Baird bovine transcatheter valve, 26 mm, model 9300 TFX, in the aortic position Echo of Jun 2019 showed concentric hypertrophy. LVEF 55-60%. LA mod dilated. Mild to mod calcified annulus with mild regurg. Mod TR. RVSP approx 53 mmHg. Known TAVR: adequate function, max gradient 26 mmHg, mean gradient 16 mmHg Chronic rivaroxaban anticoag for stroke prophylaxis Pulmonary HTN, with an estimated PASP of 75mmHg per echo of March 2014. Cardiac cath from July 25, 2014 showed moderate pulmonary HTN with mean pulmonary artery pressure of 33 mmHg and pulmonary vascular resistance of 5.4 Wood units. Echo of Jun 2019 showed PASP 50-55 mmHg Hypertension CKD stage III Hyperlipidemia currently on statin therapy - followed by Dr. Parkinson Obesity with a body index of 41. Gastroesophageal reflux. Chronic right ankle swelling following ankle fracture several years ago. History of knee replacement surgery in 1999. History of surgery of the femur several years ago. History of knee replacement surgery in 1999. History of surgery on the femur several years ago following fracture. Carotid arterial disease, consisting of 60% stenosis of the right internal carotid and 50% stenosis of the left internal carotid per CT angiography of 05/12/2013. 60-79% bilat stenosis of carotids per u/s of Jun, Incidentally diagnosed 7 mm right thyroid nodule on a CT scan of the carotid. This is being followed by Dr. Parkinson Sleep apnea syndrome - CPAP therapy Anemia of undetermined etiology - Dr Parkinson managing Plan: Management remains comples due to multiple comorbidities (see above) Change to oral furosemid Continue OAC d/t chronic a-fib (for stroke prophylaxis) Continue ASA d/t CAD Management of anemia and weakness per Medical Services ADALBERTO PATEL MD FACP FAC CCDS Sep 22, 2019 17:04
[2019-09-22] MEDS: FUROSEMIDE 40 MG (LASIX) TAB PO SCH (17:24)
[2019-09-22] MEDS: RIVAROXABAN 15 MG TABLET (XARELTO) PO SCH (17:24)
[2019-09-22 20:15] VITALS: BP 123/62
[2019-09-22] MEDS: ROSUVASTATIN 20 MG (CRESTOR) TABLET PO SCH (23:49)
[2019-09-23 00:36] VITALS: BP 138/62
[2019-09-23] MEDS: HYDROcodone/APAP 7.5 MG/325 MG (LORTAB, LORCET PLUS) TABLET PO PRN ×2 (02:49→12:06)
[2019-09-23 03:51] VITALS: BP 142/63
[2019-09-23 05:17] LABS: HEMOGLOBIN 8.4 G/DL (11.5-16.0); MEAN PLATELET VOLUME 10.4 FL (7.4-10.4); RED CELL DISTRIBUTION WIDTH 18.7 % (10.0-14.5); WHITE BLOOD COUNT 5.5 10^3/uL (4.3-11.0)
[2019-09-23 05:28] LABS: ALBUMIN 3.4 GM/DL (3.2-4.5); BILIRUBIN,TOTAL 1.6 MG/DL (0.1-1.0); CALCIUM 8.6 MG/DL (8.5-10.1); CREATININE SERUM 1.77 MG/DL (0.60-1.30); TOTAL PROTEIN 6.1 GM/DL (6.4-8.2)
[2019-09-23] MEDS: inSUlin ASPART (NovoLOG) 1 UNIT/0.01 ML (CHARGE PER UNIT) SC SCH ×2 (05:53→12:06)
[2019-09-23] MEDS: FERROUS SULF 325 MG (IRON) TAB PO SCH (07:04)
[2019-09-23] MEDS: CALCIUM CARB + VIT D 600 MG (CALCARB + D) TAB PO SCH (07:05)
[2019-09-23] MEDS: CATHETER FLUSH 10 ML SYR IV SCH (07:05)
[2019-09-23] MEDS: FUROSEMIDE 40 MG (LASIX) TAB PO SCH (07:05)
--- NOTE | 2019-09-23 07:54 | Diagnostic Imaging Report ---
INDICATION: Congestive heart failure COMPARISON: 09/22/2019 TECHNIQUE: Single radiograph of the chest dated 09/23/2019. FINDINGS: Postsurgical changes of a CABG. The cardiac silhouette is enlarged, though stable. Central pulmonary vascular congestion is again identified, not significantly changed from the prior examination. Prosthetic cardiac valve is again seen. The lungs are clear of focal pulmonary opacity. No significant pleural effusion. No pneumothorax. No acute osseous abnormality. IMPRESSION: Persistent cardiomegaly with mild central pulmonary vascular congestion without significant pleural effusion. Dictated by: Dictated on workstation # [id number]
[2019-09-23 08:00] VITALS: BP 128/59
--- NOTE | 2019-09-23 08:43 | Physical Therapy Daily Note ---
PT Daily Note-Current Subjective Pt states she just got up out of bed and finished breakfast and would prefer not to do anything right now, but with encouragement agreeable to participate in PT session, although refusing to walk. Pain Numeric Pain Scale: 0-No Pain Comment: states she has had her pain med Appearance Upon arrival, pt sitting up in recliner awake and alert. At end of session, pt sitting up in recliner with LE's elevated, call light, phone and bedside table within reach. Mental Status Patient Orientation: Person, Place, Time, Eyes Open, Situation Attachments: Saline Lock, Suprapubic Catheter (1.5 L) Transfers SCALE: Activities may be completed with or without assistive devices. 1-Cljvhkcrjl-gikqzph completes the activity by him/herself with no assistance from a helper. 5-Set-up or Clean-up Assistance-helper sets up or cleans up; patient completes activity. [place] assists only prior to or following the activity. 4-Supervision or Touching Assistance-helper provides verbal cues and/or touching/steadying and/or contact guard assistance as patient completes activity. Assistance may be provided throughout the activity or intermittently. 3-Partial/Moderate Assistance-helper does LESS THAN HALF the effort. [place] lifts, holds or supports trunk or limbs, but provides less than half the effort. 2-Substantial/Maximal Assistance-helper does MORE THAN HALF the effort. [place] lifts or holds trunk or limbs and provides more than half the effort. 9-Nhzvxvhcc-khqivq does ALL the effort. Patient does none of the effort to complete the activity. Or, the assistance of 2 or more helpers is required for the patient to complete the activity. If activity was not attempted, code reason: 7-Patient Refused. 9-Not Applicable-not attempted and the patient did not perform the activity before the current illness, exacerbation or injury. 10-Not Attempted due to Environmental Limitations-(lack of equipment, weather restraints, etc.). 88-Not Attempted due to Medical Conditions or Safety Concerns. Sit to Stand (QC): 4 (CGA to SBA, uncontrolled descent into chair) Weight Bearing Right Lower Extremity: Right Full Weight Bearing Left Lower Extremity: Left Weight Bearing/Tolerated Exercises Supine Ex: Ankle pumps (20), Quad Set, Heel Slides, Short Arc Quads, Straight leg raise (15, AAROM BLE's), Hip abd/add Supine Reps: 15 (reclined in recliner) Seated Therapy Exercises: Sit to stand (5), Hamstring Curls (using footrest of recliner) Seated Reps: 15 Standing: Marching Standing Reps: 15 (with support of FWW) Assessment several rest breaks required throughout tx session due to SOA, fatigue and report of L knee pain PT Short Term Goals Short Term Goals Time Frame: Sep 25, 2019 Roll Left & Right: 6 Sit to lyin Lying to sitting on side of be: 6 Sit to stand: 6 PT Longterm Goals Longterm Goals PT E Commerce Marketing Analyst Goals Time Frame: Oct 05, 2019 Roll Left & Right (QC): 6 Sit to Lying (QC): 6 Lying-Sitting on Side/Bed(QC): 6 Sit to Stand (QC): 6 Chair/Lgb-sa-Rjdkw Xfer(QC): 6 Toilet Transfer (QC): 6 Car Transfer (QC): 4 Does the Patient Walk: Yes Walk 10 feet (QC): 6 Walk 50ft with 2 Turns (QC): 6 Walk 150 ft (QC): 6 Walking 10ft on Uneven Surface: 4 1 Step (curb) (QC): 3 4 Steps (QC): 3 12 Steps (QC): 9 Picking up an Object (QC): 4 Does the Pt use WC or Scooter?: No Type: N/A Type: N/A PT Plan Treatment/Plan Treatment Plan: Continue Plan of Care Treatment Plan: Bed Mobility, Education, Functional Activity Cris, Functional Strength, Gait, Safety, Therapeutic Exercise, Transfers Treatment Duration: Oct 05, 2019 Frequency: 6 times per week Estimated Hrs Per Day: .25 hour per day Patient and/or Family Agrees t: Yes Safety Risks/Education Patient Education: Transfer Techniques, Safety Issues Teaching Recipient: Patient Teaching Methods: Demonstration, Discussion Response to Teaching: Verbalize Understanding, Return Demonstration Time/GCodes Time In: 836 Time Out: 901 Total Billed Treatment Time: 25 Total Billed Treatment 1 visit, EX x25 min ALEXIS SERRATO PTA Sep 23, 2019 08:43
[2019-09-23] MEDS: OMEGA 3 (FISH OIL) 1000 MG CAP PO SCH (09:15)
[2019-09-23] MEDS: DILTIAZEM 240 MG (CARDIZEM CD) CAP PO SCH (09:15)
[2019-09-23] MEDS: ASPIRIN E.C. 81 MG (ECOTRIN) TAB PO SCH (09:16)
[2019-09-23] MEDS: ALLOPURINOL 100 MG (ZYLOPRIM) TAB PO SCH (09:16)
[2019-09-23] MEDS: meTOprolol TARTRATE 50 MG (LOPRESSOR) TAB PO SCH (09:16)
[2019-09-23] MEDS: DOCUSATE SODIUM 100 MG (COLACE) CAP PO SCH (09:16)
--- NOTE | 2019-09-23 10:45 | Occupational Ther Daily Note ---
OT Current Status-Daily Note Subjective Pt alert, sitting in recliner. Pt agrees to therapy. No c/o pain at this time. Mental Status/Objective Patient Orientation: Person, Place, Situation Attachments: IV, Oxygen ADL-Treatment Pt requests to use BSC. First attempt to sit to stand, pt unable to keep balance and sat back into chair. 2nd attempt pt was able to stand with min A and grasp onto FWW. Using FWW transferred to/from BSC with verbal cues and physical cues for hand placement and safety with FWW. Pt attempted to cleanse self after urination though needed encouragement to complete by self, [place] assisted to check if clean. Pt required assist to hike pants up/down over hips. Assist to thread brief over feet then pt attempted to hike over hips. Pt stated that her son was coming to take her home today. COSTA asked who was going to assist with hygiene and dressing needs and pt stated my boys will. After therapy, pt sitting with feet elevated in recliner with call light/phone in reach. All needs met in room. Therapy Code Descriptions/Definitions Functional [place] Measure: 0=Not Assessed/NA 4=Minimal Assistance 1=Total Assistance 5=Supervision or Setup 2=Maximal Assistance 6=Modified [place] 3=Moderate Assistance 7=Complete IndependenceSCALE: Activities may be completed with or without assistive devices. 3-Yaalhetasl-epavelr completes the activity by him/herself with no assistance from a helper. 5-Set-up or Clean-up Assistance-helper sets up or cleans up; patient completes activity. [place] assists only prior to or following the activity. 4-Supervision or Touching Assistance-helper provides verbal cues and/or touching/steadying and/or contact guard assistance as patient completes activity. Assistance may be provided throughout the activity or intermittently. 3-Partial/Moderate Assistance-helper does LESS THAN HALF the effort. [place] lifts, holds or supports trunk or limbs, but provides less than half the effort. 2-Substantial/Maximal Assistance-helper does MORE THAN HALF the effort. [place] lifts or holds trunk or limbs and provides more than half the effort. 7-Tklbvcobn-ijhyqu does ALL the effort. Patient does none of the effort to complete the activity. Or, the assistance of 2 or more helpers is required for the patient to complete the activity. If activity was not attempted, code reason: 7-Patient Refused. 9-Not Applicable-not attempted and the patient did not perform the activity before the current illness, exacerbation or injury. 10-Not Attempted due to Environmental Limitations-(lack of equipment, weather restraints, etc.). 88-Not Attempted due to Medical Conditions or Safety Concerns. Lower Body Dressing (QC): 2 On/Off Footwear: 2 Toileting Hygiene (QC): 2 Toilet Transfer (QC): 3 OT Dialysis Social Worker Goals Usp Goals Time Frame: Oct 05, 2019 Eating (QC): 6 Oral Hygiene (QC): 5 Toileting Hygiene (QC): 5 Shower/Bathe Self (QC): 3 Upper Body Dressing (QC): 5 Lower Body Dressing (QC): 3 On/Off Footwear (QC): 3 Additional Goals: 1-Demonstrate ADL Tasks, 2-Verbalize Understanding, 3- ImproveStrength/Rcis 1=Demonstrate adherence to instructed precautions during ADL tasks. 2=Patient will verbalize/demonstrate understanding of assistive devices/modifications for ADL. 3=Patient will improve strength/tolerance for activity to enable patient to perform ADL's. OT Education/Plan Problem List/Assessment Assessment: Decreased Activ Tolerance, Decreased Safety Aware, Decreased UE Strength, Impaired Coordination, Impaired Funct Balance, Impaired Self-Care Skills Pt to benefit from skilled OT intervention for ADL training, transfers, strengthening, and home safety education to increase level of independence and allow safe discharge plan. Discharge Recommendations Plan/Recommendations: Continue POC Treatment Plan/Plan of Care Patient would benefit from OT for education, treatment and training to promote independence in ADL's, mobility, safety and/or upper extremity function for ADL's. Plan of Care: ADL Retraining, Functional Mobility, Group Exercise/Act as Ind, UE Funct Exercise/Act Treatment Duration: Oct 05, 2019 Frequency: 5 times per week Estimated Hrs Per Day: .25 hour per day Rehab Potential: Fair Time/GCodes Start Time: 10:27 Stop Time: 10:38 Total Time Billed (hr/min): 11 Billed Treatment Time 1 visit-ADL 1 (11 min) ANAM QUINTEROS Sep 23, 2019 10:45
[2019-09-23 12:00] VITALS: BP 133/63
--- NOTE | 2019-09-23 12:51 | Progress Note ---
Subjective Time Seen by a Provider: 12:46 Subjective/Events-last exam Patient feeling better. Patient wants to go home. Breathing better. Patient states cardiology states she could be discharged Objective Exam Vital Signs Date Time Temp Pulse Resp B/P (MAP) Pulse Ox O2 Delivery O2 Flow Rate FiO2 09/23/19 08:00 93 Nasal Cannula 2.00 09/23/19 08:00 35.3 80 18 128/59 (82) 93 Nasal Cannula 2.00 09/23/19 03:51 36.6 98 18 142/63 (89) 94 Nasal Cannula 2.00 09/23/19 00:36 36.4 101 20 138/62 (87) 95 Nasal Cannula 2.00 09/22/19 20:15 36.6 75 20 123/62 (82) 93 Nasal Cannula 2.00 09/22/19 20:10 94 Nasal Cannula 2.00 09/22/19 16:09 36.4 73 18 121/68 (85) 94 Nasal Cannula 2.00 09/22/19 15:46 92 2.00 I & O 09/23/19 07:00 Intake Total 1750 ml Output Total 2950 ml Balance -1200 ml Capillary Refill : Less Than 3 SecondsLess Than 3 Seconds General Appearance: No Apparent Distress, WD/WN HEENT: Normal ENT Inspection Neck: Full Range of Motion, Normal Inspection Respiratory: No Accessory Muscle Use, No Respiratory Distress, Decreased Breath Sounds Cardiovascular: Irregularly Irregular Gastrointestinal: non tender, soft Results Lab Laboratory Tests 09/23/19 04:45 Laboratory Tests 09/22/19 16:09: Glucometer 234H 09/22/19 21:28: Glucometer 215H 09/23/19 04:45: White Blood Count 5.5, Red Blood Count 2.88L, Hemoglobin 8.4L, Hematocrit 28L, Mean Corpuscular Volume 97, Mean Corpuscular Hemoglobin 29, Mean Corpuscular Hemoglobin Concent 30L, Red Cell Distribution Width 18.7H, Platelet Count 192, Mean Platelet Volume 10.4, Sodium Level 136, Potassium Level 5.0, Chloride Level 95L, Carbon Dioxide Level 32, Anion Gap 9, Blood Urea Nitrogen 34H, Creatinine 1.77H, Estimat Glomerular Filtration Rate 28, BUN/Creatinine Ratio 19, Glucose Level 178H, Calcium Level 8.6, Corrected Calcium 9.1, Total Bilirubin 1.6H, Aspartate Amino Transf (AST/SGOT) 14, Alanine Aminotransferase (ALT/SGPT) 12, Alkaline Phosphatase 49, Total Protein 6.1L, Albumin 3.4 09/23/19 05:28: Glucometer 198H 09/23/19 11:19: Glucometer 225H Assessment/Plan Assessment/Plan Assess & Plan/Chief Complaint Acute CHF. Diabetes. fall Anemia. Knee pain and swelling. . 09/22/19. CHF. Diabetes. Renal insufficiency. Fall. Knee pain. Coronary artery disease. Constipation. Insomnia. Back pain. . 09/23/19 CHF better. Diabetes. Chronic renal insufficiency. Fall. Coronary artery disease. Insomnia. Back pain. Patient doing better and feeling better and wants to go home. Discharge patient today Clinical Quality Measures Admission Status Admission Dx Fall. Blood in left thigh and knee. Short of breath. Congestive heart failure. Bilateral pretibial edema. Diabetes. CK D. CAD. Hypertension. Open heart surgery history. Aortic valve replacement history. Previous bypass. Anemia. DVT/VTE Risk/Contraindication: Risk Factor Score Per Nursin RFS Level Per Nursing on Admit: 4+=Very High LILY ROJAS DO Sep 23, 2019 12:51
[2019-09-23 15:03] VITALS: BP 133/63
--- NOTE | 2019-09-23 15:14 | Progress Note - Cardiology ---
Cardiology SOAP Progress Note Subjective: Weakness persistent but better Wants to go home No cp or palp or syncope No shortness of breath at rest Objective: I&O/Vital Signs 09/23/19 09/23/19 09/23/19 09/23/19 03:51 08:00 08:00 12:00 Temp 36.6 35.3 36.6 Pulse 98 80 74 Resp 18 18 18 B/P (MAP) 142/63 (89) 128/59 (82) 133/63 (86) Pulse Ox 94 93 93 97 O2 Delivery Nasal Cannula Nasal Cannula Nasal Cannula Nasal Cannula O2 Flow Rate 2.00 2.00 2.00 2.00 09/23/19 15:03 Temp 36.6 Pulse 74 Resp 18 B/P (MAP) 133/63 Pulse Ox 97 O2 Delivery Nasal Cannula O2 Flow Rate 2.00 09/23/19 00:00 Intake Total 1600 ml Output Total 1400 ml Balance 200 ml Weight (Pounds): 294 Weight (Ounces): 4.0 Weight (Calculated Kilograms): 133.571132 Constitutional: AAO x 3, well-developed, well-nourished Respiratory: No accessory muscle use, No respiratory distress; rhonchi (scattered), other (good air entry) Cardiovascular: irregularly irregular; No JVD; S1 and S2, systolic murmur Gastrointestional: soft, round, audible bowel sounds Extremities: other (pitting edema LE bilat, L>R) Neurologic/Psychiatric: oriented x 3, other (moves all limbs equally; gen weakness) Skin: ecchymosis (LLE, left hip and left arm, multiple bruises to abdomen) Results/Procedures: Labs Laboratory Tests 09/22/19 16:09: Glucometer 234H 09/22/19 21:28: Glucometer 215H 09/23/19 04:45: White Blood Count 5.5, Red Blood Count 2.88L, Hemoglobin 8.4L, Hematocrit 28L, Mean Corpuscular Volume 97, Mean Corpuscular Hemoglobin 29, Mean Corpuscular Hemoglobin Concent 30L, Red Cell Distribution Width 18.7H, Platelet Count 192, Mean Platelet Volume 10.4, Sodium Level 136, Potassium Level 5.0, Chloride Level 95L, Carbon Dioxide Level 32, Anion Gap 9, Blood Urea Nitrogen 34H, Creatinine 1.77H, Estimat Glomerular Filtration Rate 28, BUN/Creatinine Ratio 19, Glucose Level 178H, Calcium Level 8.6, Corrected Calcium 9.1, Total Bilirubin 1.6H, Aspartate Amino Transf (AST/SGOT) 14, Alanine Aminotransferase (ALT/SGPT) 12, Alkaline Phosphatase 49, Total Protein 6.1L, Albumin 3.4 09/23/19 05:28: Glucometer 198H 09/23/19 11:19: Glucometer 225H Laboratory Tests 09/22/19 06:11 09/23/19 04:45 A/P: Assessment: S/P non-syncopal fall (bruising to her left leg, hip, buttocks and arm) Acute on Chronic systolic/diastolic CHF Paroxysmal atrial fibrillation which now seems to have become chronic permanent atrial fibrillation Multivessel coronary artery disease for which the patient underwent coronary artery bypass surgery 07/14/2012. This consisted of left internal mammary artery graft to left anterior descending, saphenous vein graft to posterior descending and sequential saphenous vein to ramus intermedius and obtuse marginal. This was carried out at [facility] in [place], [place] by Dr. Juarez. Cardiac cath of 10-19-18 showed [place] CAD consisting of long 80-90% prox and mid vessel stenosis of the LAD, 80-90% stenosis of the prox portion of the RI, and diffuse mod disease of the RCA. Patent left internal mammary artery graft to distal LAD. Patent saphenous vein graft to RI. Chronically occluded saphenous vein graft to RCA. MPI of 8-23-16 is indicative of basal inferior infarction with a mod amount of [place]-infarct ischemia. Inferolateral hypokinesis. LVEF approx 46% Maturity onset diabetes mellitus, insulin requiring. Aortic stenosis, for which he has undergone TAVR at [facility] in [place], [place], on 10/10/14, mod dilated LA, mod conc LVH, mod MAC, mild to mod MR, bioprosthetic AoV working adequately, PASP 50-55 mmHg. According to a card that she carries this is an Baird bovine transcatheter valve, 26 mm, model 9300 TFX, in the aortic position Echo of Jun 2019 showed concentric hypertrophy. LVEF 55-60%. LA mod dilated. Mild to mod calcified annulus with mild regurg. Mod TR. RVSP approx 53 mmHg. Known TAVR: adequate function, max gradient 26 mmHg, mean gradient 16 mmHg Chronic rivaroxaban anticoag for stroke prophylaxis Pulmonary HTN, with an estimated PASP of 75mmHg per echo of March 2014. Cardiac cath from July 25, 2014 showed moderate pulmonary HTN with mean pulmonary artery pressure of 33 mmHg and pulmonary vascular resistance of 5.4 Wood units. Echo of Jun 2019 showed PASP 50-55 mmHg Hypertension CKD stage III Hyperlipidemia currently on statin therapy - followed by Dr. Parkinson Obesity with a body index of 41. Gastroesophageal reflux. Chronic right ankle swelling following ankle fracture several years ago. History of knee replacement surgery in 1999. History of surgery of the femur several years ago. History of knee replacement surgery in 1999. History of surgery on the femur several years ago following fracture. Carotid arterial disease, consisting of 60% stenosis of the right internal carotid and 50% stenosis of the left internal carotid per CT angiography of 05/12/2013. 60-79% bilat stenosis of carotids per u/s of Jun, Incidentally diagnosed 7 mm right thyroid nodule on a CT scan of the carotid. This is being followed by Dr. Parkinson Sleep apnea syndrome - CPAP therapy Anemia of undetermined etiology - Dr Parkinson managing Plan: Ok to d/c from cardiac standpoint. Outpt f/u advised Management of anemia and weakness per Medical Services ADALBERTO PATEL MD FACP FAC CCDS Sep 23, 2019 15:14
[2019-09-25] MEDS ORDERED: VITAMIN D2 50,000 UNITS (1.25 MG) CAP PO SCH (09:00)
--- NOTE | 2019-09-26 07:19 | Discharge Summary ---
Diagnosis/Chief Complaint Date of Admission Sep 19, 2019 at 15:49 Date of Discharge Sep 23, 2019 at 15:06 Discharge Date: Sep 23, 2019 Discharge Time: 07:15 Discharge Diagnosis Acute on chronic systolic and diastolic heart failure. Anemia. Coronary artery disease. BMI 50-59.9. GERD. Diabetes. Severe obesity. Occlusion and stenosis of bilateral carotid arteries. Personal history of nicotine dependence. Fall. Hyperlipidemia. Diabetes2. Sleep apnea. Atrial flutter Reason Hospital Visit I received a call from patient's [id number] that she is short of breath and swollen left knee. One week ago patient's left leg gave out which was in the bathroom and fell on the left part of the body and gluteus region. Patient's left leg and thigh swollen and black and blue. Patient getting more short of breath lately. Both legs have more bilateral pretibial edema. Patient has history of CAD, hypertension, CK-MB, open heart surgery, aortic valve replacement, right knee replacement, bypass, and hysterectomy Discharge Summary Consultations Cardiology Discharge Physical Examination Allergies: Coded Allergies: No Known Drug Allergies (Unverified , 11/18/12) Vitals & I&Os Vital Signs Date Time Temp Pulse Resp B/P (MAP) Pulse Ox O2 Delivery O2 Flow Rate FiO2 09/23/19 15:03 36.6 74 18 133/63 97 Nasal Cannula 2.00 Hospital Course Labs (last 24 hrs) Laboratory Tests 09/19/19 12:45: White Blood Count 8.2, Red Blood Count 3.10L, Hemoglobin 8.9L, Hematocrit 30L, Mean Corpuscular Volume 95, Mean Corpuscular Hemoglobin 29, Mean Corpuscular Hemoglobin Concent 30L, Red Cell Distribution Width 19.5H, Platelet Count 250, Mean Platelet Volume 10.7H, Neutrophils (%) (Auto) 78H, Lymphocytes (%) (Auto) 13, Monocytes (%) (Auto) 8, Eosinophils (%) (Auto) 1, Basophils (%) (Auto) 0, Neutrophils # (Auto) 6.4, Lymphocytes # (Auto) 1.1, Monocytes # (Auto) 0.7, Eosinophils # (Auto) 0.1, Basophils # (Auto) 0.0, Sodium Level 141, Potassium Level 3.0L, Chloride Level 98, Carbon Dioxide Level 31, Anion Gap 12, Blood Urea Nitrogen 31H, Creatinine 1.78H, Estimat Glomerular Filtration Rate 28, BUN/Creatinine Ratio 17, Glucose Level 64L, Calcium Level 9.2, Corrected Calcium 9.4, Total Bilirubin 1.2H, Aspartate Amino Transf (AST/SGOT) 14, Alanine Aminotransferase (ALT/SGPT) 10, Alkaline Phosphatase 60, Troponin I < 0.028, B- Type Natriuretic Peptide 898.5H, Total Protein 6.8, Albumin 3.7 09/19/19 12:50: Urine Color YELLOW, Urine Clarity CLEAR, Urine pH 6.0, Urine Specific [place] 1.015L, Urine Protein TRACE, Urine Glucose (UA) NEGATIVE, Urine Ketones NEGATIVE, Urine Nitrite NEGATIVE, Urine Bilirubin NEGATIVE, Urine Urobilinogen 0.2, Urine Leukocyte Esterase NEGATIVE, Urine RBC (Auto) TRACE-I, Urine RBC RARE, Urine WBC NONE, Urine Squamous Epithelial Cells 2-5, Urine Crystals PRESENTH, Urine Amorphous Sediment RARE DOMINGUEZ URATESH, Urine Bacteria TRACE, Urine Casts PRESENT, Urine Hyaline Casts 2-5H, Urine Mucus NEGATIVE, Urine Culture Indicated NO 09/19/19 18:23: Glucometer 64L 09/19/19 20:54: Glucometer 164H 09/19/19 21:04: Glucometer 152H 09/20/19 04:21: White Blood Count 6.7, Red Blood Count 2.74L, Hemoglobin 7.6L, Hematocrit 26L, Mean Corpuscular Volume 96, Mean Corpuscular Hemoglobin 28, Mean Corpuscular Hemoglobin Concent 29L, Red Cell Distribution Width 19.3H, Platelet Count 210, Mean Platelet Volume 10.3, Neutrophils (%) (Auto) 75, Lymphocytes (%) (Auto) 14, Monocytes (%) (Auto) 9, Eosinophils (%) (Auto) 2, Basophils (%) (Auto) 0, Neutrophils # (Auto) 5.1, Lymphocytes # (Auto) 0.9L, Monocytes # (Auto) 0.6, Eosinophils # (Auto) 0.1, Basophils # (Auto) 0.0, Sodium Level 140, Potassium Level 3.6, Chloride Level 100, Carbon Dioxide Level 28, Anion Gap 12, Blood Urea Nitrogen 30H, Creatinine 1.74H, Estimat Glomerular Filtration Rate 28, BUN/Creatinine Ratio 17, Glucose Level 124H, Calcium Level 8.4L, Corrected Calcium 9.0, Magnesium Level 2.6H, Total Bilirubin 1.2H, Aspartate Amino Transf (AST/SGOT) 13, Alanine Aminotransferase (ALT/SGPT) 10, Alkaline Phosphatase 57, B-Type Natriuretic Peptide 570.4H, Total Protein 6.2L, Albumin 3.3 09/20/19 05:27: Glucometer 139H 09/20/19 08:26: Mean Blood Glucose 137H, Hemoglobin A1c 6.4H 09/20/19 11:09: Glucometer 210H 09/20/19 16:25: Glucometer 211H 09/20/19 19:07: Hemoglobin 9.0L, Hematocrit 30L 09/20/19 21:04: Glucometer 193H 09/21/19 05:45: Glucometer 190H 09/21/19 05:57: White Blood Count 6.5, Red Blood Count 3.02L, Hemoglobin 8.8L, Hematocrit 29L, Mean Corpuscular Volume 97, Mean Corpuscular Hemoglobin 29, Mean Corpuscular Hemoglobin Concent 30L, Red Cell Distribution Width 19.2H, Platelet Count 214, Mean Platelet Volume 10.2, Neutrophils (%) (Auto) 76H, Lymphocytes (%) (Auto) 15, Monocytes (%) (Auto) 8, Eosinophils (%) (Auto) 1, Basophils (%) (Auto) 0, Neutrophils # (Auto) 4.9, Lymphocytes # (Auto) 1.0, Monocytes # (Auto) 0.5, Eosinophils # (Auto) 0.1, Basophils # (Auto) 0.0, Sodium Level 139, Potassium Level 4.2, Chloride Level 98, Carbon Dioxide Level 31, Anion Gap 10, Blood Urea Nitrogen 30H, Creatinine 1.76H, Estimat Glomerular Filtration Rate 28, BUN/Creatinine Ratio 17, Glucose Level 167H, Calcium Level 8.5, Corrected Calcium 8.8, Total Bilirubin 1.8H, Aspartate Amino Transf (AST/SGOT) 14, Alanine Aminotransferase (ALT/SGPT) 10, Alkaline Phosphatase 58, Total Protein 6.6, Albumin 3.6 09/21/19 11:21: Glucometer 231H 09/21/19 16:08: Glucometer 216H 09/21/19 20:45: Glucometer 241H 09/22/19 05:55: Glucometer 158H 09/22/19 06:11: White Blood Count 6.7, Red Blood Count 2.88L, Hemoglobin 8.4L, Hematocrit 27L, Mean Corpuscular Volume 95, Mean Corpuscular Hemoglobin 29, Mean Corpuscular Hemoglobin Concent 31L, Red Cell Distribution Width 19.0H, Platelet Count 204, Mean Platelet Volume 10.3, Neutrophils (%) (Auto) 74, Lymphocytes (%) (Auto) 17, Monocytes (%) (Auto) 8, Eosinophils (%) (Auto) 1, Basophils (%) (Auto) 0, Neutrophils # (Auto) 4.9, Lymphocytes # (Auto) 1.1, Monocytes # (Auto) 0.5, Eosinophils # (Auto) 0.1, Basophils # (Auto) 0.0, Sodium Level 136, Potassium Level 4.0, Chloride Level 95L, Carbon Dioxide Level 29, Anion Gap 12, Blood Urea Nitrogen 32H, Creatinine 1.78H, Estimat Glomerular Filtration Rate 28, BUN/Creatinine Ratio 18, Glucose Level 140H, Calcium Level 8.5, Corrected Calcium 9.0, Total Bilirubin 1.8H, Aspartate Amino Transf (AST/SGOT) 13, Alanine Aminotransferase (ALT/SGPT) 11, Alkaline Phosphatase 51, Total Protein 6.3L, Albumin 3.4 09/22/19 11:08: Glucometer 186H 09/22/19 16:09: Glucometer 234H 09/22/19 21:28: Glucometer 215H 09/23/19 04:45: White Blood Count 5.5, Red Blood Count 2.88L, Hemoglobin 8.4L, Hematocrit 28L, Mean Corpuscular Volume 97, Mean Corpuscular Hemoglobin 29, Mean Corpuscular Hemoglobin Concent 30L, Red Cell Distribution Width 18.7H, Platelet Count 192, Mean Platelet Volume 10.4, Sodium Level 136, Potassium Level 5.0, Chloride Level 95L, Carbon Dioxide Level 32, Anion Gap 9, Blood Urea Nitrogen 34H, Creatinine 1.77H, Estimat Glomerular Filtration Rate 28, BUN/Creatinine Ratio 19, Glucose Level 178H, Calcium Level 8.6, Corrected Calcium 9.1, Total Bilirubin 1.6H, Aspartate Amino Transf (AST/SGOT) 14, Alanine Aminotransferase (ALT/SGPT) 12, Alkaline Phosphatase 49, Total Protein 6.1L, Albumin 3.4 09/23/19 05:28: Glucometer 198H 09/23/19 11:19: Glucometer 225H Laboratory Tests 09/19/19 12:45 09/20/19 04:21 09/20/19 19:07 09/21/19 05:57 09/22/19 06:11 09/23/19 04:45 Pending Labs Laboratory Tests 09/19/19 12:45: White Blood Count 8.2, Red Blood Count 3.10, Hemoglobin 8.9, Hematocrit 30, Mean Corpuscular Volume 95, Mean Corpuscular Hemoglobin 29, Mean Corpuscular Hemoglobin Concent 30, Red Cell Distribution Width 19.5, Platelet Count 250, Mean Platelet Volume 10.7, Neutrophils (%) (Auto) 78, Lymphocytes (%) (Auto) 13, Monocytes (%) (Auto) 8, Eosinophils (%) (Auto) 1, Basophils (%) (Auto) 0, Neutr ophils # (Auto) 6.4, Lymphocytes # (Auto) 1.1, Monocytes # (Auto) 0.7, Eosinophils # (Auto) 0.1, Basophils # (Auto) 0.0, Sodium Level 141, Potassium Level 3.0, Chloride Level 98, Carbon Dioxide Level 31, Anion Gap 12, Blood Urea Nitrogen 31, Creatinine 1.78, Estimat Glomerular Filtration Rate 28, BU N/Creatinine Ratio 17, Glucose Level 64, Calcium Level 9.2, Corrected Calcium 9.4, Total Bilirubin 1.2, Aspartate Amino Transf (AST/SGOT) 14, Alanine Aminotransferase (ALT/SGPT) 10, Alkaline Phosphatase 60, Troponin I < 0.028, B- Type Natriuretic Peptide 898.5, Total Protein 6.8, Albumin 3.7 09/19/19 12:50: Urine Color YELLOW, Urine Clarity CLEAR, Urine pH 6.0, Urine Specific [place] 1.015, Urine Protein TRACE, Urine Glucose (UA) NEGATIVE, Urine Ketones NEGATIVE, Urine Nitrite NEGATIVE, Urine Bilirubin NEGATIVE, Urine Urobilinogen 0.2, Urine Leukocyte Esterase NEGATIVE, Urine RBC (Auto) TRACE-I, Urine RBC RARE, Urine WBC NONE, Urine Squamous Epithelial Cells 2-5, Urine Crystals PRESENT, Urine Amorphous Sediment RARE DOMINGUEZ URATES, Urine Bacteria TRACE, Urine Casts PRESENT, Urine Hyaline Casts 2-5, Urine Mucus NEGATIVE, Urine Culture Indicated NO 09/19/19 18:23: Glucometer 64 09/19/19 20:54: Glucometer 164 09/19/19 21:04: Glucometer 152 09/20/19 04:21: White Blood Count 6.7, Red Blood Count 2.74, Hemoglobin 7.6, Hematocrit 26, Mean Corpuscular Volume 96, Mean Corpuscular Hemoglobin 28, Mean Corpuscular Hemoglobin Concent 29, Red Cell Distribution Width 19.3, Platelet Count 210, Mean Platelet Volume 10.3, Neutrophils (%) (Auto) 75, Lymphocytes (%) (Auto) 14, Monocytes (%) (Auto) 9, Eosinophils (%) (Auto) 2, Basophils (%) (Auto) 0, Neutrophils # (Auto) 5.1, Lymphocytes # (Auto) 0.9, Monocytes # (Auto) 0.6, Eosinophils # (Auto) 0.1, Basophils # (Auto) 0.0, Sodium Level 140, Potassium Level 3.6, Chloride Level 100, Carbon Dioxide Level 28, Anion Gap 12, Blood Urea Nitrogen 30, Creatinine 1.74, Estimat Glomerular Filtration Rate 28, BUN/Creatinine Ratio 17, Glucose Level 124, Calcium Level 8.4, Corrected Calcium 9.0, Magnesium Level 2.6, Total Bilirubin 1.2, Aspartate Amino Transf (AST/SGOT) 13, Alanine Aminotransferase (ALT/SGPT) 10, Alkaline Phosphatase 57, B-Type Radha riuretic Peptide 570.4, Total Protein 6.2, Albumin 3.3 09/20/19 05:27: Glucometer 139 09/20/19 08:26: Mean Blood Glucose 137, Hemoglobin A1c 6.4 09/20/19 11:09: Glucometer 210 09/20/19 16:25: Glucometer 211 09/20/19 19:07: Hemoglobin 9.0, Hematocrit 30 09/20/19 21:04: Glucometer 193 09/21/19 05:45: Glucometer 190 09/21/19 05:57: White Blood Count 6.5, Red Blood Count 3.02, Hemoglobin 8.8, Hematocrit 29, Mean Corpuscular Volume 97, Mean Corpuscular Hemoglobin 29, Mean Corpuscular Hemoglobin Concent 30, Red Cell Distribution Width 19.2, Platelet Count 214, Mean Platelet Volume 10.2, Neutrophils (%) (Auto) 76, Lymphocytes (%) (Auto) 15, Monocytes (%) (Auto) 8, Eosinophils (%) (Auto) 1, Basophils (%) (Auto) 0, Neutrophils # (Auto) 4.9, Lymphocytes # (Auto) 1.0, Monocytes # (Auto) 0.5, Eosinophils # (Auto) 0.1, Basophils # (Auto) 0.0, Sodium Level 139, Potassium Level 4.2, Chloride Level 98, Carbon Dioxide Level 31, Anion Gap 10, Blood Urea Nitrogen 30, Creatinine 1.76, Estimat Glomerular Filtration Rate 28, BUN/Creati nine Ratio 17, Glucose Level 167, Calcium Level 8.5, Corrected Calcium 8.8, Total Bilirubin 1.8, Aspartate Amino Transf (AST/SGOT) 14, Alanine Aminotransferase (ALT/SGPT) 10, Alkaline Phosphatase 58, Total Protein 6.6, Albumin 3.6 09/21/19 11:21: Glucometer 231 09/21/19 16:08: Glucometer 216 09/21/19 20:45: Glucometer 241 09/22/19 05:55: Glucometer 158 09/22/19 06:11: White Blood Count 6.7, Red Blood Count 2.88, Hemoglobin 8.4, Hematocrit 27, Mean Corpuscular Volume 95, Mean Corpuscular Hemoglobin 29, Mean Corpuscular Hemoglobin Concent 31, Red Cell Distribution Width 19.0, Platelet Count 204, Mean Platelet Volume 10.3, Neutrophils (%) (Auto) 74, Lymphocytes (%) (Auto) 17, Monocytes (%) (Auto) 8, Eosinophils (%) (Auto) 1, Basophils (%) (Auto) 0, Neutrophils # (Auto) 4.9, Lymphocytes # (Auto) 1.1, Monocytes # (Auto) 0.5, Eosinophils # (Auto) 0.1, Basophils # (Auto) 0.0, Sodium Level 136, Potassium Level 4.0, Chloride Level 95, Carbon Dioxide Level 29, Anion Gap 12, Blood Urea Nitrogen 32, Creatinine 1.78, Estimat Glomerular Filtration Rate 28, BUN/Creatinine Ratio 18, Glucose Level 140, Calcium Level 8.5, Corrected Calcium 9.0, Total Bilirubin 1.8, Aspartate Amino Transf (AST/SGOT) 13, Alanine Aminotransferase (ALT/SGPT) 11, Alkaline Phosphatase 51, Total Protein 6.3, Albumin 3.4 09/22/19 11:08: Glucometer 186 09/22/19 16:09: Glucometer 234 09/22/19 21:28: Glucometer 215 09/23/19 04:45: White Blood Count 5.5, Red Blood Count 2.88, Hemoglobin 8.4, Hematocrit 28, Mean Corpuscular Volume 97, Mean Corpuscular Hemoglobin 29, Mean Corpuscular Hemoglobin Concent 30, Red Cell Distribution Width 18.7, Platelet Count 192, Mean Platelet Volume 10.4, Sodium Level 136, Potassium Level 5.0, Chloride Level 95, Carbon Dioxide Level 32, Anion Gap 9, Blood Urea Nitrogen 34, Creatinine 1.77, Estimat Glomerular Filtration Rate 28, BUN/Creatinine Ratio 19, Glucose Level 178, Calcium Level 8.6, Corrected Calcium 9.1, Total Bilirubin 1.6, Aspartate Amino Transf (AST/SGOT) 14, Alanine Aminotransferase (ALT/SGPT) 12, Alkaline Phosphatase 49, Total Protein 6.1, Albumin 3.4 09/23/19 05:28: Glucometer 198 09/23/19 11:19: Glucometer 225 Discussion & Recommendations Patient felt better and wanted to go home. To be seen in the office next week Discharge Home Medications: Active Scripts Active Reported Ferrous Sulfate 325 Mg Tablet.dr 650 Mg PO Q48H Vitamin D2 (Ergocalciferol (Vitamin D2)) 50,000 Unit Capsule 50,000 Units PO THURSDAY Dulcolax Stool Softener (Docusate Sodium) 100 Mg Capsule 100 Mg PO BID Allopurinol 100 Mg Tablet 100 Mg PO DAILY Furosemide 80 Mg Tablet 80 Mg PO BID Rosuvastatin Calcium 20 Mg Tablet 20 Mg PO HS Dexilant (Dexlansoprazole) 60 Mg Cap.dr.bp 60 Mg PO DAILY PRN Diltiazem 24Hr ER (Diltiazem HCl) 240 Mg Cap.er.24h 240 Mg PO DAILY Novolog Flexpen (Insulin Aspart) 300 Units/3 Ml Solution 11-17 SC AC Levemir (Insulin Determir) 1,000 Units/10 Ml Soln 58 Units SQ HS Levemir (Insulin Determir) 1,000 Units/10 Ml Soln 42 Units SC DAILY Calcium 600 + Vit D 200 Tablet (Calcium Carbonate/Vitamin D3) 1 Each Tablet 1 Tab PO DAILY Fish Oil 1,000 mg Capsule (Mobile 3 Polyunsat Fatty Acids) 1,000 Mg Cap 1,000 Mg PO DAILY Aspirin EC (Aspirin) 81 Mg Tablet.dr 81 Mg PO DAILY Metoprolol Tartrate 50 Mg Tablet 50 Mg PO BID Xarelto Tablet (Rivaroxaban) 15 Mg Tablet 15 Mg PO 1700 Instructions to patient/family Please see electronic discharge instructions given to patient. Clinical Quality Measures DVT/VTE Risk/Contraindication: Risk Factor Score Per Nursin RFS Level Per Nursing on Admit: 4+=Very High LILY ROJAS DO Sep 26, 2019 07:19
== END 2019-09-23 15:06 | disposition home or self-care (01) | DRG 291 ==
LOC: EDUNIT# 11:47 → ER 11:48 → 4TH 15:49
PROVIDERS: ADMIT Family Medicine; ATTEND Family Medicine
DX: I13.0 Hypertensive heart and chronic kidney disease with heart failure and stage 1 through stage 4 chronic kidney disease, or unspecified chronic kidney disease (principal); I50.43 Acute on chronic combined systolic (congestive) and diastolic (congestive) heart failure; I48.19 Other persistent atrial fibrillation; I48.92 Unspecified atrial flutter; Z68.43 Body mass index [BMI] 50.0-59.9, adult; N18.3 Chronic kidney disease, stage 3 (moderate); I25.10 Atherosclerotic heart disease of native coronary artery without angina pectoris; I27.20 Pulmonary hypertension, unspecified; E11.9 Type 2 diabetes mellitus without complications; E66.01 Morbid (severe) obesity due to excess calories; E87.6 Hypokalemia; D64.9 Anemia, unspecified; I08.1 Rheumatic disorders of both mitral and tricuspid valves; E78.00 Pure hypercholesterolemia, unspecified; K21.9 Gastro-esophageal reflux disease without esophagitis; G47.30 Sleep apnea, unspecified; J30.2 Other seasonal allergic rhinitis; I65.23 Occlusion and stenosis of bilateral carotid arteries; S30.0XXA Contusion of lower back and pelvis, initial encounter; S70.02XA Contusion of left hip, initial encounter; S80.02XA Contusion of left knee, initial encounter; S30.1XXA Contusion of abdominal wall, initial encounter; S50.02XA Contusion of left elbow, initial encounter; W19.XXXA Unspecified fall, initial encounter; Z95.1 Presence of aortocoronary bypass graft; Z95.2 Presence of prosthetic heart valve; Z79.4 Long term (current) use of insulin; Z87.891 Personal history of nicotine dependence; Z96.651 Presence of right artificial knee joint; Z79.82 Long term (current) use of aspirin
CPT/HCPCS: 36415; 51701; 51702; 70450; 71045; 72125; 72128; 72131; 73562; 80053; 81000; 82962; 83036; 83735; 83880; 84484; 85014; 85018; 85025; 85027; 86850; 86900; 86901; 86920; 93005; 94761

== ENCOUNTER 2019-10-01 05:19 | Emergency (ER) | payer MEDICARE, MEDICAID ==
[~2019-10-01] VITALS: Ht 167 cm; Wt 136.0 kg
[~2019-10-01 05:19] MED LIST changes: +ALLO100T PO; +DOCU-164 PO; +ERGO50006 PO; +FERR325T5 PO
[2019-10-01 05:39] LABS: BASOPHILS % (AUTO) 0 % (0-10); EOSINOPHILS # (AUTO) 0.1 10^3/uL (0.0-0.3); EOSINOPHILS % (AUTO) 1 % (0-10); HEMATOCRIT 24 % (35-52); HEMOGLOBIN 7.1 G/DL (11.5-16.0); LYMPHOCYTES # (AUTO) 1.1 X 10^3 (1.0-4.0); LYMPHOCYTES % (AUTO) 15 % (12-44); MEAN CORPUSCULAR HEMOGLOBIN 29 PG (25-34); MEAN CORPUSCULAR HGB CONC 30 G/DL (32-36); MEAN CORPUSCULAR VOLUME 98 FL (80-99); MEAN PLATELET VOLUME 10.3 FL (7.4-10.4); MONOCYTES # (AUTO) 0.5 X 10^3 (0.0-1.0); MONOCYTES % (AUTO) 7 % (0-12); NEUTROPHILS # (AUTO) 5.6 X 10^3 (1.8-7.8); NEUTROPHILS % (AUTO) 76 % (42-75); PLATELET COUNT 235 10^3/uL (130-400); RED CELL DISTRIBUTION WIDTH 18.9 % (10.0-14.5); WHITE BLOOD COUNT 7.3 10^3/uL (4.3-11.0)
[2019-10-01] MEDS ORDERED: fentaNYL INJECTION 100 MCG/2 ML AMP IVP ONE ×4 (05:45→09:45)
[2019-10-01 05:53] LABS: CREATININE SERUM 1.58 MG/DL (0.60-1.30); POTASSIUM 4.2 MMOL/L (3.6-5.0)
--- NOTE | 2019-10-01 06:27 | ED Fall/Injury ---
General Chief Complaint: Trauma-Non Activation Stated Complaint: FALL,RT KNEE & CALF PAIN Nursing Triage Note: right knee pain s/p fall Source: patient, EMS Exam Limitations: no limitations History of Present Illness Date Seen by Provider: Oct 01, 2019 Time Seen by Provider: 05:57 Initial Comments Patient arrived by EMS and this examiner assume care of the patient at shift change. She states around 5:00, approximately 30-45 minutes prior to arrival she was getting up to go the bathroom using her walker when she felt a popping sensation in her knee and fell down to both knees and then backwards striking the back of her head. She denies loss of consciousness. She is on Xarelto for atrial fibrillation. 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 She has no ability to bear weight. Her sons lived with her summonsed EMS. She received 25 g of fentanyl prior to x-rays being obtained. She's having no nausea but rates her pain as a 10 out of 10 in her knee with mild pain in the back of her head. She said she also struck her left shoulder has no pain there and full range of motion of both upper extremities. She has diabetes and has taken all of her meds up to last night. Last oral intake was yesterday evening sometime around 1999. Location Injury Occurred: home Allergies and Home Medications Allergies Coded Allergies: No Known Drug Allergies (Unverified , 11/18/12) Home Medications Allopurinol 100 Mg Tablet, 100 MG PO DAILY, (Reported) Aspirin 81 Mg Tablet.dr, 81 MG PO DAILY, (Reported) Calcium Carbonate/Vitamin D3 1 Each Tablet, 1 TAB PO DAILY, (Reported) Dexlansoprazole 60 Mg Cap.bp, 60 MG PO DAILY PRN for ACID REFLUX, (Reported) Diltiazem HCl 240 Mg Cap.er.24h, 240 MG PO DAILY, (Reported) Docusate Sodium 100 Mg Capsule, 100 MG PO BID, (Reported) Ergocalciferol (Vitamin D2) 50,000 Unit Capsule, 50,000 UNITS PO THURSDAY, (Reported) Ferrous Sulfate 325 Mg Tablet.dr, 650 MG PO Q48H, (Reported) Furosemide 80 Mg Tablet, 80 MG PO BID, (Reported) Insulin Aspart 300 Units/3 Ml Solution, 11-17 SC AC, (Reported) Insulin Determir 1,000 Units/10 Ml Soln, 42 UNITS SC DAILY, (Reported) Insulin Determir 1,000 Units/10 Ml Soln, 58 UNITS SQ HS, (Reported) Metoprolol Tartrate 50 Mg Tablet, 50 MG PO BID, (Reported) [place] 3 Polyunsat Fatty Acids 1,000 Mg Cap, 1,000 MG PO DAILY, (Reported) Rivaroxaban 15 Mg Tablet, 15 MG PO 1700, (Reported) Rosuvastatin Calcium 20 Mg Tablet, 20 MG PO HS, (Reported) Patient Home Medication List Home Medication List Reviewed: Yes Review of Systems Review of Systems Constitutional: No chills, No diaphoresis Eyes: Denies Blindness, Denies Blurred Vision Ears, Nose, Mouth, Throat: denies ear pain, denies ear discharge Respiratory: No cough, No short of breath Cardiovascular: No chest pain, No palpitations Gastrointestinal: No abdominal pain, No constipation, No diarrhea Genitourinary: No discharge, No dysuria Musculoskeletal: see HPI; No back pain; joint pain Skin: change in color (bruising bilateral knees) All Other Systems Reviewed Negative Unless Noted: Yes Past Jcfcwki-Rilitu-Gqwypx Hx Patient Social History Alcohol Use: Denies Use Recreational Drug Use: No Smoking Status: Former Smoker Type Used: Cigarettes Former Smoker, Quit: Oct 19, 1949 2nd Hand Smoke Exposure: No Recent Foreign Travel: No Contact w/Someone Who Travel: No Recent Infectious Disease Expo: No Recent Hopitalizations: No Physical Abuse: No Sexual Abuse: No Mistreated: No Fear: No Immunizations Up To Date Tetanus Booster (TDap): Unknown Date of Pneumonia Vaccine: Jun 12, 2015 Date of Influenza Vaccine: Sep 02, 2019 Seasonal Allergies Seasonal Allergies: Yes Past Medical History Surgeries: Yes Cardiac, CABG, Hysterectomy, Orthopedic Respiratory: Yes (home o2) Sleep Apnea, COPD Currently Using CPAP: Yes (AT NIGHT) Currently Using BIPAP: No Cardiac: Yes Atrial Fibrillation, Chronic Edema/Swelling, Coronary Artery Disease, High Cholesterol, Hypertension, Valvular Heart Disease Neurological: No : No Reproductive Disorders: No ONCOLOGY SOCIAL WORK History: Menopausal Genitourinary: Yes Renal Failure, UTI-Chronic Gastrointestinal: Yes Gastroesophageal Reflux Musculoskeletal: Yes (ANKLE FX, B/L KNEE PAIN R/T PAST FRACTURE, COMPUND FX IN FEMUR) Arthritis, Fractures Endocrine: Yes Diabetes, Insulin dep Cataract Hearing Impairment: Hard of Hearing Cancer: No Psychosocial: No Integumentary: No Blood Disorders: No Adverse Reaction/Blood Tranf: No Family Medical History Diabetes mellitus 19 MOTHER G8 BROTHER G8 BROTHER Emph FH: breast cancer 19 MOTHER FH: breast cancer 19 MOTHER FH: emphysema 19 MOTHER FH: emphysema 19 MOTHER Cancer Physical Exam Vital Signs Vital Signs - First Documented 10/01/19 05:19 Temp 35.8 Pulse 78 Resp 18 B/P (MAP) 125/64 (84) Pulse Ox 98 O2 Delivery Nasal Cannula O2 Flow Rate 2.00 Capillary Refill : Less Than 3 Seconds Height, Weight, BMI Height: 5'6.00" Weight: 294lbs. 4.0oz. 133.883834tc; 48.00 BMI Method:Stated General Appearance: WD/WN, no apparent distress HEENT: PERRL/EOMI, pharynx normal Neck: non-tender, full range of motion, normal inspection Cardiovascular: normal peripheral pulses, regular rate, rhythm; No no edema Respiratory: chest non-tender, lungs clear, normal breath sounds, no respiratory distress, no accessory muscle use Peripheral Pulses: 2+ Dorsalis Pedis (R), 2+ Left Dors-Pedis (L), 2+ Radial Pulses (R), 2+ Radial Pulses (L) Gastrointestinal: normal bowel sounds, non tender, soft Extremities: normal capillary refill, pedal edema (bilateral 2+ pitting), other (ecchymoses swelling and pain right knee) Neurologic/Psychiatric: no motor/sensory deficits, alert, normal mood/affect, oriented x 3 Skin: normal color, warm/dry Ona Coma Score Best Eye Response: (4) Open Spontaneously Best Verbal Response: (5) Oriented Best Motor Response: (6) Obeys Commands Ona Total: 15 Progress/Results/Core Measures Results/Orders Lab Results Laboratory Tests Test 10/01/19 05:25 10/01/19 07:25 Range/Units White Blood Count 7.3 4.3-11.0 10^3/uL Red Blood Count 2.43 L 4.35-5.85 10^6/uL Hemoglobin 7.1 L 11.5-16.0 G/DL Hematocrit 24 L 35-52 % Mean Corpuscular Volume 98 80-99 FL Mean Corpuscular Hemoglobin 29 25-34 PG Mean Corpuscular Hemoglobin Concent 30 L 32-36 G/DL Red Cell Distribution Width 18.9 H 10.0-14.5 % Platelet Count 235 130-400 10^3/uL Mean Platelet Volume 10.3 7.4-10.4 FL Neutrophils (%) (Auto) 76 H 42-75 % Lymphocytes (%) (Auto) 15 12-44 % Monocytes (%) (Auto) 7 0-12 % Eosinophils (%) (Auto) 1 0-10 % Basophils (%) (Auto) 0 0-10 % Neutrophils # (Auto) 5.6 1.8-7.8 X 10^3 Lymphocytes # (Auto) 1.1 1.0-4.0 X 10^3 Monocytes # (Auto) 0.5 0.0-1.0 X 10^3 Eosinophils # (Auto) 0.1 0.0-0.3 10^3/uL Basophils # (Auto) 0.0 0.0-0.1 10^3/uL Sodium Level 136 135-145 MMOL/L Potassium Level 4.2 3.6-5.0 MMOL/L Chloride Level 94 L 98-107 MMOL/L Carbon Dioxide Level 31 21-32 MMOL/L Anion Gap 11 5-14 MMOL/L Blood Urea Nitrogen 44 H 7-18 MG/DL Creatinine 1.58 H 0.60-1.30 MG/DL Estimat Glomerular Filtration Rate 32 BUN/Creatinine Ratio 28 Glucose Level 163 H 70-105 MG/DL Calcium Level 9.0 8.5-10.1 MG/DL B-Type Natriuretic Peptide 759.0 H <100.0 PG/ML Urine Color YELLOW Urine Clarity CLEAR Urine pH 6.0 5-9 Urine Specific [place] 1.010 L 1.016-1.022 Urine Protein NEGATIVE NEGATIVE Urine Glucose (UA) NEGATIVE NEGATIVE Urine Ketones NEGATIVE NEGATIVE Urine Nitrite NEGATIVE NEGATIVE Urine Bilirubin NEGATIVE NEGATIVE Urine Urobilinogen 1.0 < = 1.0 MG/DL Urine Leukocyte Esterase NEGATIVE NEGATIVE Urine RBC (Auto) NEGATIVE NEGATIVE Urine RBC NONE /HPF Urine WBC NONE /HPF Urine Crystals NONE /LPF Urine Bacteria NEGATIVE /HPF Urine Casts PRESENT /LPF Urine Hyaline Casts 2-5 H /LPF Urine Mucus NEGATIVE /LPF Urine Culture Indicated NO My Orders Orders - YANNA RODRIGUEZ Fentanyl Injection (Sublimaze Injection (10/01/19 06:30) Ketamine Syringe (Ed Only) (Ketamine Syr (10/01/19 06:30) Chest 1 View, Ap/Pa Only (10/01/19 06:20) Ct Head/Cervical Spine Wo (10/01/19 06:20) Ed Iv/Invasive Line Start (10/01/19 06:20) Type And Screen (10/01/19 06:50) Vital Signs: Special (Order) (10/01/19 06:50) Consent-Obtain Consent For (10/01/19 06:50) Monitor S/S Transfusion Reacti (10/01/19 06:50) Ns Iv 500 Ml (Sodium Chloride 0.9%) (10/01/19 06:50) Furosemide Injection (Lasix Injection) (10/01/19 07:00) Red Cells Leukocytes Reduced (10/01/19 06:50) Catheter(Urinary) Insert & Ass 03,15 (10/01/19 06:54) Furosemide Injection (Lasix Injection) (10/01/19 07:00) Pantoprazole Injection (Protonix Injecti (10/01/19 07:00) Ua Culture If Indicated (10/01/19 07:15) Fentanyl Injection (Sublimaze Injection (10/01/19 08:15) Medications Given in ED Current Medications Medications Dose Ordered Sig/Devi Route Start Time Stop Time Status Last Admin Dose Admin Fentanyl Citrate 25 mcg ONCE ONCE IVP 10/01/19 05:45 10/01/19 05:46 DC 10/01/19 05:40 25 MCG Fentanyl Citrate 50 mcg ONCE ONCE IVP 10/01/19 06:30 10/01/19 06:31 DC 10/01/19 06:33 50 MCG Fentanyl Citrate 50 mcg ONCE ONCE IVP 10/01/19 08:15 10/01/19 08:16 DC 10/01/19 08:14 50 MCG Furosemide 40 mg ONCE ONCE IVP 10/01/19 07:00 10/01/19 07:01 DC 10/01/19 07:59 40 MG Ketamine HCl 25 mg ONCE ONCE IV 10/01/19 06:30 10/01/19 06:31 DC 10/01/19 06:33 25 MG Pantoprazole 40 mg ONCE ONCE IV 10/01/19 07:00 10/01/19 07:01 DC 10/01/19 07:56 40 MG Vital Signs/I&O 10/01/19 10/01/19 10/01/19 10/01/19 05:19 05:40 08:25 08:40 Temp 35.8 35.8 35.8 35.9 Pulse 78 84 95 Resp 18 18 20 B/P (MAP) 125/64 (84) 121/58 139/76 Pulse Ox 98 97 99 O2 Delivery Nasal Cannula Nasal Cannula O2 Flow Rate 2.00 2.00 2.00 Blood Pressure Mean: 84 Progress Progress Note #1: Time: 06:26 Progress Note She has hydrocodone she will occasionally use for pain but she says she does not use it every day. We'll start with 50 g of fentanyl +25 mg of ketamine slow push in addition to the 25 g of fentanyl she has already received. We'll obtain chest x-ray since she is going to require surgical intervention. We'll put her in a Barrett splint around 5-10 pounds for comfort. We will obtain CT of her head and neck as well. Her heart rate is steady in the lower 80s at this time so we will not add any rate control medications just yet. Her hemoglobin is 7.1 which has been in the 8-9 range the last few months. She is on Xarelto and just had a fall resulting in 3 long bone fractures. She'll be protected from DVT by the Xarelto however we'll need to give her at least 2 units of packed red blood cells to start in anticipation of surgery. She has a cardiac patient and her hemoglobin should be over 8.0. We'll give a little fluids with the blood and because her BNP is over 700 when she normally lives in the 400 range we'll just put 40 mg of Lasix on board as well. We'll put a Dinero catheter in her. She typically takes 80 mg of Lasix daily. Progress Note #2: Time: 06:41 Progress Note Barrett splint was placed successfully at 7 pounds. Patient is tolerating it well and her pain is under much better control after fentanyl and ketamine. She has a palpable 1 out of 4 pulse right dorsal pedal compared to left dorsal pedal 1 out of 4. Capillary refill less than 3 seconds. Progress Note #3: Time: 08:49 Progress Note Barrett splint was padded and replaced 7 pounds. She has a good 2 out of 4 pulse bilateral lower dorsal pedal pulses. Radiology was asked to transmit imaging to [facility]. Diagnostic Imaging Diagonstic Imaging: Xray Plain Films/CT/US/NM/MRI: chest Comments Or penetration due to body habitus. No acute infiltrate. [facility] [place] NAME: JEREMY NUNES [facility] REC#: [id number] PT STATUS: REG ER : 1940 PHYSICIAN: YANNA RODRIGUEZ MD ADMIT DATE: 10/01/19/ER Draft Date of Exam:10/01/19 CHEST 1 VIEW, AP/PA ONLY EXAMINATION: Chest radiograph, portable AP view. DATE: 10/01/2019 7:16 AM hours. INDICATION: 70-year-old female, fall. COMPARISON: September 23, 2019. FINDINGS: There are median sternotomy wires. Stable overall appearance of the cardiomediastinal silhouette. There is no identified pneumothorax. There is no large pleural effusion. There is no identified interval focal airspace consolidation. Lung volumes are somewhat low. There are probable left carotid vascular calcifications. IMPRESSION: 1. Somewhat low lung volumes without identified definite acute cardiopulmonary abnormality. Dictated on workstation # [id number] Dict: 10/01/19 0716 Trans: 10/01/19 0839 [facility] [id number] Interpreted by: ANDREA ELENA MD Electronically signed by: Reviewed: Reviewed by Me Diagonstic Imaging: Xray Plain Films/CT/US/NM/MRI: knee (BILAT) Comments Closed, distal fracture of the femur and proximal tibia fibula fracture minimall y displaced/angulated. [facility] [place] NAME: JEREMY NUNES [facility] REC#: [id number] PT STATUS: REG ER : 1940 PHYSICIAN: REZA HELTON MD ADMIT DATE: 10/01/19/ER Draft Date of Exam:10/01/19 KNEE, 2 VIEWS, BILATERAL EXAMINATION: Left knee radiographs, 2 views. Right knee radiographs, 2 views. COMPARISON: Left knee radiographs September 19, 2019. HISTORY: 78-year-old female, fall. Bilateral knee pain. FINDINGS: There is chondrocalcinosis. There is diffuse reticulation of the subcutaneous fat bilaterally which may reflect diffuse subcutaneous edema. The lateral view on the left is obliquely positioned. There is no identified left knee joint effusion. There are small patellofemoral compartment osteophytes on the left. There is no identified acute fracture at the level of the left knee. There are atherosclerotic calcifications. There is a right total knee prosthesis. There is a mildly displaced fracture of the right proximal tibial metaphysis with the distal fracture fragment being medially displaced by approximately 5 mm. There is also a mildly displaced proximal fibular fracture involving the fibular neck. There is also a mildly displaced fracture involving the distal femoral metadiaphysis with the distal fracture fragment being displaced posteriorly by 6 mm. The distal fracture fragment is displaced laterally by 1.3 cm. There is some productive bone formation at the level of the distal femoral fracture. This potentially could relate to an incompletely bridged prior fracture or interval fracture at location of a prior fracture deformity. There is some productive bone formation IMPRESSION: 1. Most likely acute fractures involving the right proximal tibial metaphysis and right proximal fibular neck. 2. Fracture involving the right distal femoral metadiaphysis which could relate to an incompletely bridged prior fracture or interval fracture at site of prior fracture deformity. 3. No identified acute bony abnormality of the left knee. Dictated on workstation # [id number] Dict: 10/01/19617 Trans: 10/01/19811 [facility] [id number] Interpreted by: ANDREA ELENA MD Electronically signed by: Reviewed: Reviewed by Me Diagonstic Imaging: CT (without IV contrast) Plain Films/CT/US/NM/MRI: c-spine, head Comments No acute intracranial findings. No acute findings of the C-spine. NAME: LATESHA PEREA [facility] REC#: [id number] PT STATUS: REG ER : 10/02/1947 PHYSICIAN: REZA HELTON MD ADMIT DATE: 10/01/19/ER Draft Date of Exam:10/01/19 CHEST 1 VIEW, AP/PA ONLY EXAM: CHEST 1 VIEW, AP/PA ONLY INDICATION: Coronary artery disease. COMPARISON: 09/07/2019. FINDINGS: Normal heart size and pulmonary vascularity. No dense consolidation, pleural effusion or pneumothorax. No acute osseous findings. No significant change. IMPRESSION: No acute cardiopulmonary findings. Dictated on workstation # [id number] Dict: 10/01/19 0820 Trans: 10/01/19 0830 [facility] [id number] Interpreted by: SHAYNE LAURA MD Electronically signed by: Reviewed: Reviewed [place] Study, Reviewed by Me Consults : Consulting Physician: KADI FELIX MD Consults Notes Discussed case with orthopedic surgeon and he does not think anyone around here does total revisions after arthroplasty. He would suggest [facility]. 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 Badillo, trauma surgeon at 0 845 Transfer Facility: [facility] Method of Transfer: EMS Departure-Patient Inst. Referrals: LILY ROJAS DO (PCP/Family) Primary Care Physician YANNA RODRIGUEZ Oct 01, 2019 06:27
[2019-10-01] MEDS ORDERED: KETAMINE/NaCl 50 MG/5 ML SYRINGE (ED ONLY) IV ONE ×2 (06:30→09:45)
--- NOTE | 2019-10-01 06:39 | NUR ---
traction applied to right leg Addendum: 10/01/19 at 0640 by BISHOPPOWERS 7lbs
[2019-10-01] MEDS ORDERED: NS IV 500 ML 500 ML IV SCH (06:50)
[2019-10-01] MEDS ORDERED: FUROSEMIDE 40 MG/4 ML INJ (LASIX) IVP ONE ×2 (07:00)
[2019-10-01] MEDS ORDERED: PANTOPRAZOLE 40 MG (PROTONIX) VIAL IV ONE (07:00)
--- NOTE | 2019-10-01 07:00 | NUR ---
ASSUMED CARE OF PT ET PT TAKEN TO CT BY THIS RN AND DR. RODRIGUEZ.
--- NOTE | 2019-10-01 07:18 | NUR ---
BACK FROM RADIOLOGY.
--- NOTE | 2019-10-01 07:20 | NUR ---
POSTIVE PULSE FELT RIGHT FOOT BY
--- NOTE | 2019-10-01 07:40 | NUR ---
POSITIVE PULSE FELT RIGHT FOOT BY
--- NOTE | 2019-10-01 08:00 | NUR ---
POSITIVE PULSE FELT RIGHT FOOT.
[2019-10-01 08:01] LABS: BILIRUBIN,URINE NEGATIVE (NEGATIVE); CLARITY,URINE CLEAR; COLOR,URINE YELLOW; GLUCOSE, URINE (UA) NEGATIVE (NEGATIVE); KETONES,URINE NEGATIVE (NEGATIVE); LEUKOCYTE ESTERASE ,URINE NEGATIVE (NEGATIVE); NITRITE,URINE NEGATIVE (NEGATIVE); PROTEIN,URINE NEGATIVE (NEGATIVE)
[2019-10-01 08:12] LABS: BACTERIA,URINE NEGATIVE /HPF
--- NOTE | 2019-10-01 08:13 | Diagnostic Imaging Report ---
EXAMINATION: Left knee radiographs, 2 views. Right knee radiographs, 2 views. COMPARISON: Left knee radiographs September 19, 2019. HISTORY: 78-year-old female, fall. Bilateral knee pain. FINDINGS: There is chondrocalcinosis. There is diffuse reticulation of the subcutaneous fat bilaterally which may reflect diffuse subcutaneous edema. The lateral view on the left is obliquely positioned. There is no identified left knee joint effusion. There are small patellofemoral compartment osteophytes on the left. There is no identified acute fracture at the level of the left knee. There are atherosclerotic calcifications. There is a right total knee prosthesis. There is a mildly displaced fracture of the right proximal tibial metaphysis with the distal fracture fragment being medially displaced by approximately 5 mm. There is also a mildly displaced proximal fibular fracture involving the fibular neck. There is also a mildly displaced fracture involving the distal femoral metadiaphysis with the distal fracture fragment being displaced posteriorly by 6 mm. The distal fracture fragment is displaced laterally by 1.3 cm. There is some productive bone formation at the level of the distal femoral fracture. This potentially could relate to an incompletely bridged prior fracture or interval fracture at location of a prior fracture deformity. There is some productive bone formation IMPRESSION: 1. Most likely acute fractures involving the right proximal tibial metaphysis and right proximal fibular neck. 2. Fracture involving the right distal femoral metadiaphysis which could relate to an incompletely bridged prior fracture or interval fracture at site of prior fracture deformity. 3. No identified acute bony abnormality of the left knee. Dictated by: Dictated on workstation # [id number]
[2019-10-01 08:25] VITALS: BP 121/58
--- NOTE | 2019-10-01 08:39 | Diagnostic Imaging Report ---
EXAMINATION: Chest radiograph, portable AP view. DATE: 10/01/2019 7:16 AM hours. INDICATION: 70-year-old female, fall. COMPARISON: September 23, 2019. FINDINGS: There are median sternotomy wires. Stable overall appearance of the cardiomediastinal silhouette. There is no identified pneumothorax. There is no large pleural effusion. There is no identified interval focal airspace consolidation. Lung volumes are somewhat low. There are probable left carotid vascular calcifications. IMPRESSION: 1. Somewhat low lung volumes without identified definite acute cardiopulmonary abnormality. Dictated by: Dictated on workstation # [id number]
[2019-10-01 08:40] VITALS: BP 139/76
--- NOTE | 2019-10-01 08:42 | Diagnostic Imaging Report ---
PROCEDURE: CT head and CT cervical spine without contrast. TECHNIQUE: Multiple contiguous axial images were obtained through the brain and cervical spine without the use of intravenous contrast. Sagittal and coronal reformations through the cervical spine were then performed. Auto Exposure Controls were utilized during the CT exam to meet ALARA standards for radiation dose reduction. DATE: October 01, 2019. COMPARISON: CT head and cervical spine September 19, 2019. INDICATION: 78-year-old female, fall. Head and neck pain. FINDINGS: There is no identified skull fracture. There is proportional prominence of the ventricles and CSF spaces consistent with mild to moderate cerebral volume loss. There is no mass effect or midline shift. There is no acute intracranial hemorrhage. There is no abnormal extra-axial fluid collection. The visualized portions of the paranasal sinuses, mastoid air cells and middle ears are well aerated. There is no identified facet joint subluxation or dislocation. There is no asymmetric widening of the cervical disc spaces. There is no prominent prevertebral soft tissue swelling. The cervical disc heights are well preserved. There are posterior disc osteophyte complexes at C4-C5, C5-C6, and C6-C7. CT is limited for assessment of disc pathology as well as additional non-bony causes of pathology in the spinal canal. There is no identified acute fracture of the cervical spine. Limited visualized portions of the lung apices are grossly clear. There is a peripherally calcified nodule arising from the thyroid isthmus measuring up to 1.5 cm in size. There is a nodule in the right lobe of the thyroid with peripheral calcification measuring approximately 13 mm in size. There are bilateral carotid vascular calcifications. IMPRESSION: 1. No identified acute intracranial abnormality. 2. Mild to moderate cerebral volume loss. 3. No identified acute abnormality of the cervical spine. 4. Peripherally calcified thyroid nodules. Dictated by: Dictated on workstation # [id number]
--- NOTE | 2019-10-01 09:28 | NUR ---
DR SURESH PT WOULD LIKE PAIN MEDS .
--- NOTE | 2019-10-01 09:36 | NUR ---
POSITIVE PULSE FELT ON RIGHT FOOT.
[2019-10-01] MEDS ORDERED: ONDANSETRON 4 MG/2 ML (SDV) Z0FRAN ONE (10:06)
--- NOTE | 2019-10-01 10:16 | NUR ---
SHIFT CAPTAIN NOTIFIED OF TRANSFER.
--- NOTE | 2019-10-01 10:18 | NUR ---
ATTEMPT TO CALL REPORT TO NURSE AT [facility] ET NURSE WILL CALL US BACK. [facility] NOTIFIED WE WILL CALL FOR TRANSFER DUE TO BEING2-3HR AWAY ET [facility] WAS FINE WITH THAT.
[2019-10-01 10:39] VITALS: BP 111/68
[2019-10-01 10:50] VITALS: BP 101/52
--- NOTE | 2019-10-01 10:54 | NUR ---
DR RODRIGUEZ STATES A NURSE FROM CALLED FOR REPORT ET I WASNT AVAILABLE. ATTEMPT TO CALL THAT NURSE BACK ET NURSE UNAVAILABLE AND WILL CALL BACK.
--- NOTE | 2019-10-01 10:56 | NUR ---
POSITIVE PULSE FELT RIGHT FOOT. IN TALKING TO PT. PT STATES KETAMINE HAS HELPED ET RATES PAIN AT A 4 AT THIS TIME.
[2019-10-01 11:05] VITALS: BP 113/67
--- NOTE | 2019-10-01 11:44 | NUR ---
IMAGE REPORTS FAXED PER DR REQUEST.
[2019-10-01 12:26] VITALS: BP 119/82
--- NOTE | 2019-10-01 12:26 | NUR ---
2ND UNIT OF BLOOD INFUSING UPON TRANSFER.
[2019-10-01] MEDS ORDERED: fentaNYL INJECTION 100 MCG/2 ML AMP IVP PRN (12:30)
== END 2019-10-01 12:26 | disposition short-term general hospital (02) ==
LOC: EDUNIT# 05:19 → ER 05:23
DX: S72.444A Nondisplaced fracture of lower epiphysis (separation) of right femur, initial encounter for closed fracture (principal); S82.201A Unspecified fracture of shaft of right tibia, initial encounter for closed fracture; S82.401A Unspecified fracture of shaft of right fibula, initial encounter for closed fracture; T14.8XXA Other injury of unspecified body region, initial encounter; I48.91 Unspecified atrial fibrillation; J44.9 Chronic obstructive pulmonary disease, unspecified; I10 Essential (primary) hypertension; E11.9 Type 2 diabetes mellitus without complications; I25.10 Atherosclerotic heart disease of native coronary artery without angina pectoris; E78.00 Pure hypercholesterolemia, unspecified; K21.9 Gastro-esophageal reflux disease without esophagitis; R40.2142 Coma scale, eyes open, spontaneous, at arrival to emergency department; R40.2252 Coma scale, best verbal response, oriented, at arrival to emergency department; R40.2362 Coma scale, best motor response, obeys commands, at arrival to emergency department; Z79.01 Long term (current) use of anticoagulants; Z87.440 Personal history of urinary (tract) infections; Z79.82 Long term (current) use of aspirin; Z79.4 Long term (current) use of insulin; Z87.891 Personal history of nicotine dependence; Z90.710 Acquired absence of both cervix and uterus; Z95.1 Presence of aortocoronary bypass graft; Z80.3 Family history of malignant neoplasm of breast; W01.198A Fall on same level from slipping, tripping and stumbling with subsequent striking against other object, initial encounter
CPT/HCPCS: 36415; 51702; 70450; 71045; 72125; 80048; 81000; 82962; 83880; 85025; 86850; 86900; 86901; 86920; 96361; 96374; 96375; 96376

== ENCOUNTER 2019-11-17 14:10 | Inpatient (IN) | payer MEDICARE, MEDICAID ==
[~2019-11-17] VITALS: Ht 167.7 cm; Wt 133.5 kg
[~2019-11-17 14:10] MED LIST changes: -ACET-2267 PO; -AMMO120C3 TP; -APIX5TAB PO; -BUME2TAB7 PO; -CHLO25TA22 PO; -DOCU-143 PO; -FERR325T18 PO; -MELA5TAB14 PO; -METO50TA7 PO; -ONDA8TAB13 PO; -POLY17PO6 PO; -POTA40LI3 PO
[2019-11-17 18:03] VITALS: BP 108/68
--- NOTE | 2019-11-17 18:51 | NUR ---
Raam Nunes admitted to room 419-1, with an admitting diagnosis of Adominal distention, on 11/17/19 from [facility] accompanied by .RAMA NUNES introduced to surroundings, call light, bed controls, phone, TV, temperature control, lights, meal times, smoking policy, visitor policy, side rail policy, bathrooms and showers. Patient Rights given to patient in the handbook.RAMA NUNES verbalizes understanding that [facility] is not responsible for the loss or damage to any personal effects or valuables that are kept in the patients posession during their hospitalization. RAMA NUNES verbalizes understanding of Interdisciplinary Patient Education. Patient and/or family were informed about the Rapid Response Team and its purpose.
--- NOTE | 2019-11-17 18:53 | NUR ---
Attempted to insert NG tube. 1st attempt was unsuccessful. Patient refusing to allow this RN to attempt again.
[2019-11-17] MEDS: D5 1/2 NS 1000 ML IV SOLUTION 1,000 ML IV SCH (19:01)
--- NOTE | 2019-11-17 19:19 | History & Physical ---
History of Present Illness History of Present Illness Reason for visit/HPI is a resident [facility]. According to the nurse patient has distended. Patient also not able to eat. Patient sent out to the emergency room for chest x-ray and CAT scan of the abdomen and pelvis. CAT scan shows marked good distal systolic by fluid and gas and dilatation of the transverse colon by gas. Could be a severe ileus. Chest x-ray may show left lower lobe pneumonia. Patient anemic. Patient diabetic. Renal insufficiency. Patient refuses insertion of nasogastric tube which she needs to feel better Date of Admission Nov 17, 2019 at 17:15 Time Seen by a Provider: 19:13 I consulted on this patient on 11/17/19 19:13 Attending Physician Luis Rojas DO Admitting Physician Luis Rojas DO Consult Allergies and Home Medications Allergies Coded Allergies: No Known Drug Allergies (Unverified , 11/18/12) Home Medications Allopurinol 100 Mg Tablet, 100 MG PO DAILY, (Reported) Aspirin 81 Mg Tablet.dr, 81 MG PO DAILY, (Reported) Calcium Carbonate/Vitamin D3 1 Each Tablet, 1 TAB PO DAILY, (Reported) Dexlansoprazole 60 Mg Cap.dr.bp, 60 MG PO DAILY PRN for ACID REFLUX, (Reported) Diltiazem HCl 240 Mg Cap.er.24h, 240 MG PO DAILY, (Reported) Docusate Sodium 100 Mg Capsule, 100 MG PO BID, (Reported) Ergocalciferol (Vitamin D2) 50,000 Unit Capsule, 50,000 UNITS PO THURSDAY, (Reported) Ferrous Sulfate 325 Mg Tablet.dr, 650 MG PO Q48H, (Reported) Furosemide 80 Mg Tablet, 80 MG PO BID, (Reported) Insulin Aspart 300 Units/3 Ml Solution, 11-17 SC AC, (Reported) Insulin Determir 1,000 Units/10 Ml Soln, 42 UNITS SC DAILY, (Reported) Insulin Determir 1,000 Units/10 Ml Soln, 58 UNITS SQ HS, (Reported) Metoprolol Tartrate 50 Mg Tablet, 50 MG PO BID, (Reported) [place] 3 Polyunsat Fatty Acids 1,000 Mg Cap, 1,000 MG PO DAILY, (Reported) Rivaroxaban 15 Mg Tablet, 15 MG PO 1700, (Reported) Rosuvastatin Calcium 20 Mg Tablet, 20 MG PO HS, (Reported) Patient Home Medication List Home Medication List Reviewed: No Past Gzsjjls-Sosqei-Xevznr Hx Past Med/Social Hx: Reviewed Nursing Past Med/Soc Hx Patient Social History Marrital Status: Employed/Student: retired Alcohol Use: Denies Use Recreational Drug Use: No Former Smoker, Quit: Oct 19, 1949 Type Used: Cigarettes 2nd Hand Smoke Exposure: No Physical Abuse Screen: No Sexual Abuse: No Recent Foreign Travel: No Contact w/other who traveled: No Recent Hopitalizations: No Recent Infectious Disease Expo: No Immunizations Up To Date Tetanus Booster (TDap): Unknown Date of Pneumonia Vaccine: Jun 12, 2015 Date of Influenza Vaccine: Sep 02, 2019 Seasonal Allergies Seasonal Allergies: Yes Past Medical History Surgeries: Cardiac, CABG, Hysterectomy, Orthopedic Currently Using CPAP: Yes (AT NIGHT) Currently Using BIPAP: No Cardiac: Atrial Fibrillation, Chronic Edema/Swelling, Coronary Artery Disease, High Cholesterol, Hypertension, Valvular Heart Disease Reproductive: No Menopausal Genitourinary: Renal Failure, UTI-Chronic Gastrointestinal: Gastroesophageal Reflux Musculoskeletal: Arthritis, Fractures Endocrine: Diabetes, Insulin dep HEENT: Cataract Hearing Impairment: Hard of Hearing History of Blood Disorders: No Adverse Reaction to Blood Woods: No Family History Diabetes mellitus 19 MOTHER G8 BROTHER G8 BROTHER Emph FH: breast cancer 19 MOTHER FH: breast cancer 19 MOTHER FH: emphysema 19 MOTHER FH: emphysema 19 MOTHER Cancer Review of Systems Constitutional: weakness EENTM: no symptoms reported Respiratory: other (Patient doesn't exert much) Cardiovascular: other (History of heart disease and atrial fibrillation) Gastrointestinal: other (Unable to eat) Genitourinary: no symptoms reported : No Physical Exam Vital Signs Vital Signs - First Documented 11/17/19 18:03 Temp 37.3 Pulse 94 Resp 18 B/P (MAP) 108/68 Pulse Ox 100 O2 Delivery Nasal Cannula O2 Flow Rate 2.00 Capillary Refill : Height, Weight, BMI Height: 5'6.00" Weight: 294lbs. 4.0oz. 133.758808ia; 45.05 BMI Method:Stated General Appearance: No Apparent Distress, WD/WN, Obese Eyes: Bilateral Eye Normal Inspection HEENT: Normal ENT Inspection Neck: Normal Inspection, Non Tender Respiratory: Decreased Breath Sounds, Other (Cough) Cardiovascular: Irregularly Irregular Gastrointestinal: Other (Distended) Assessment/Plan Assessment and Plan Renal insufficiency. Pneumonia. Severe ileus. Anasarca. Diabetes. Coronary artery disease. Hyperlipidemia. Hypertension. Dilatation of the transverse colon by gas. Marked distention of stomach by fluid and gas. Anasarca. Anemia Admission Diagnosis Admission Status: Inpatient Order (span 2 midnights) Reason for Inpatient Admission: Ileus. Dilatation of transverse colon. Marked distention of stomach by fluid and gas. Ascites. Anasarca. Left lower lobe pneumonia. Renal insufficiency. Diabetes. Coronary artery disease. History of atrial fibrillation Clinical Quality Measures DVT/VTE Risk/Contraindication: Risk Factor Score Per Nursin RFS Level Per Nursing on Admit: 4+=Very High LUIS ROJAS DO Nov 17, 2019 19:19
[2019-11-17 20:00] VITALS: BP 118/78
[2019-11-17 20:00] LABS: BASOPHILS % (AUTO) 0 % (0-10); EOSINOPHILS # (AUTO) 0.1 10^3/uL (0.0-0.3); EOSINOPHILS % (AUTO) 2 % (0-10); HEMATOCRIT 29 % (35-52); HEMOGLOBIN 8.4 G/DL (11.5-16.0); LYMPHOCYTES # (AUTO) 0.7 X 10^3 (1.0-4.0); LYMPHOCYTES % (AUTO) 9 % (12-44); MEAN CORPUSCULAR HEMOGLOBIN 29 PG (25-34); MEAN CORPUSCULAR HGB CONC 29 G/DL (32-36); MEAN CORPUSCULAR VOLUME 101 FL (80-99); MEAN PLATELET VOLUME 10.7 FL (7.4-10.4); MONOCYTES # (AUTO) 0.5 X 10^3 (0.0-1.0); MONOCYTES % (AUTO) 7 % (0-12); NEUTROPHILS # (AUTO) 6.1 X 10^3 (1.8-7.8); NEUTROPHILS % (AUTO) 82 % (42-75); PLATELET COUNT 188 10^3/uL (130-400); RED CELL DISTRIBUTION WIDTH 17.6 % (10.0-14.5); WHITE BLOOD COUNT 7.4 10^3/uL (4.3-11.0)
[2019-11-17 20:12] LABS: INR 1.8 (0.8-1.4); PROTHROMBIN TIME PATIENT 21.4 SEC (12.2-14.7)
[2019-11-17 20:21] LABS: ALBUMIN 3.4 GM/DL (3.2-4.5); BILIRUBIN,TOTAL 0.7 MG/DL (0.1-1.0); CALCIUM 8.8 MG/DL (8.5-10.1); CREATININE SERUM 1.38 MG/DL (0.60-1.30); POTASSIUM 4.5 MMOL/L (3.6-5.0); TOTAL PROTEIN 6.6 GM/DL (6.4-8.2)
[2019-11-17] MEDS ORDERED: NS IV 500 ML 500 ML IV SCH (20:30)
[2019-11-17] MEDS ORDERED: diphenhydrAMINE 25 MG TAB (BENADRYL) PO ONE (20:30)
[2019-11-17] MEDS ORDERED: ACETAMINOPHEN 325 MG TABLET PO ONE (20:30)
[2019-11-17] MEDS ORDERED: cefTRIAXone 1,000 MG IV (ROCEPHIN) VIAL ONE (20:46)
[2019-11-17] MEDS ORDERED: ALPRAZolam 0.25 MG (XANAX) TAB ONE (20:47)
[2019-11-17 20:54] LABS: BAND NEUTROPHILS 1 %; BASOPHILS % (MANUAL) 1 %; EOSINOPHILS % (MANUAL) 2 %; LYMPHOCYTES % (MANUAL) 12 %; MONOCYTES % (MANUAL) 8 %; NEUTROPHILS % (MANUAL) 76 %
[2019-11-17 20:55] LABS: ANISOCYTOSIS MODERATE
[2019-11-17 20:56] LABS: SCHISTOCYTES SLIGHT
[2019-11-17] MEDS: cefTRIAXone FOR IV USE 1,000 MG in WATER (STERILE) FOR INJECTION 10 ML IV SCH (20:57)
[2019-11-17] MEDS: meTOprolol TARTRATE 50 MG (LOPRESSOR) TAB PO SCH (20:58)
[2019-11-17] MEDS: ALPRAZolam 0.25 MG (XANAX) TAB PO PRN (20:58)
[2019-11-17] MEDS: inSUlin ASPART (NovoLOG) 1 UNIT/0.01 ML (CHARGE PER UNIT) SC SCH (21:02)
[2019-11-17 22:09] VITALS: BP 100/57
[2019-11-17] MEDS: RT-ALBUTEROL/IPRATROPIUM 3 ML (DUONEB) VIAL INH SCH (22:31)
--- NOTE | 2019-11-17 23:30 | NUR ---
pt requested kothari cath 16fr kothari inserted without difficulty 200cc cloudy return noted .. 2nd iv line started in right ac 20g bood infusing through this at this time. ng inserted in left nare. min return off dark brown return noted pt did have large soft bm . dr lozoya aware and order for kothari cath obtained from him
[2019-11-17 23:40] VITALS: BP 102/58
[2019-11-18] VITALS (7 sets, daily range): BP systolic 85–119; BP diastolic 49–71
--- NOTE | 2019-11-18 01:20 | NUR ---
chest xray has been completed and viewed ng tube was seen in correct placement by rad staff and this nurse. blood infusion completed
[2019-11-18] MEDS: RT-ALBUTEROL/IPRATROPIUM 3 ML (DUONEB) VIAL INH SCH ×6 (02:33→23:10)
[2019-11-18] MEDS ORDERED: LORazepam INJ 2 MG/ML (ATIVAN) VIAL ONE (02:35)
[2019-11-18 05:39] LABS: BASOPHILS % (AUTO) 0 % (0-10); EOSINOPHILS # (AUTO) 0.2 10^3/uL (0.0-0.3); EOSINOPHILS % (AUTO) 2 % (0-10); HEMATOCRIT 34 % (35-52); HEMOGLOBIN 9.8 G/DL (11.5-16.0); LYMPHOCYTES # (AUTO) 1.2 X 10^3 (1.0-4.0); LYMPHOCYTES % (AUTO) 17 % (12-44); MEAN CORPUSCULAR HEMOGLOBIN 29 PG (25-34); MEAN CORPUSCULAR HGB CONC 29 G/DL (32-36); MEAN CORPUSCULAR VOLUME 99 FL (80-99); MEAN PLATELET VOLUME 10.2 FL (7.4-10.4); MONOCYTES # (AUTO) 0.6 X 10^3 (0.0-1.0); MONOCYTES % (AUTO) 8 % (0-12); NEUTROPHILS # (AUTO) 5.1 X 10^3 (1.8-7.8); NEUTROPHILS % (AUTO) 72 % (42-75); PLATELET COUNT 204 10^3/uL (130-400); RED CELL DISTRIBUTION WIDTH 17.6 % (10.0-14.5)
[2019-11-18 06:00] LABS: ALBUMIN 3.2 GM/DL (3.2-4.5); BILIRUBIN,TOTAL 1.1 MG/DL (0.1-1.0); CALCIUM 8.7 MG/DL (8.5-10.1); CREATININE SERUM 1.57 MG/DL (0.60-1.30); POTASSIUM 4.7 MMOL/L (3.6-5.0); TOTAL PROTEIN 6.4 GM/DL (6.4-8.2)
[2019-11-18 06:22] LABS: EOSINOPHILS % (MANUAL) 1 %; LYMPHOCYTES % (MANUAL) 21 %; MONOCYTES % (MANUAL) 7 %; NEUTROPHILS % (MANUAL) 71 %
[2019-11-18] MEDS: inSUlin ASPART (NovoLOG) 1 UNIT/0.01 ML (CHARGE PER UNIT) SC SCH ×4 (06:42→20:20)
--- NOTE | 2019-11-18 07:14 | Diagnostic Imaging Report ---
CHEST 1 VIEW, AP/PA ONLY Indication: NG tube placement Comparison: 11/17/2019. Findings: Enteric tube has tip and sidehole in the proximal stomach. Stable cardiomegaly with TAVR and CABG. Visualized lungs are clear. Posterior lower lobes are poorly evaluated by portable radiography. No pleural effusion or pneumothorax. Impression: 1. Enteric tube has tip and sidehole in the proximal stomach. Dictated by: Dictated on workstation # [id number]
[2019-11-18] MEDS: AZITHROMYCIN INJECTION 250 MG in NS (IVPB) 250 ML IV SCH ×2 (07:56→10:45)
[2019-11-18] MEDS: meTOprolol TARTRATE 50 MG (LOPRESSOR) TAB PO SCH (07:56)
[2019-11-18] MEDS: ALPRAZolam 0.25 MG (XANAX) TAB PO PRN (07:56)
--- NOTE | 2019-11-18 07:57 | Pulmonary Consultation ---
History of Present Illness History of Present Illness Date Seen by Provider: Nov 18, 2019 Time Seen by Provider: 07:47 Date of Admission History of Present Illness 79yo morbidly obese, DM presented as direct admit from [facility] by Dr. Parkinson secondary to worsening abdominal distention, decreased appetite. CT scan is suggestive of ileus. Allergies and Home Medications Allergies Coded Allergies: No Known Drug Allergies (Unverified , 11/18/12) Home Medications Allopurinol 100 Mg Tablet, 100 MG PO DAILY, (Reported) Aspirin 81 Mg Tablet.dr, 81 MG PO DAILY, (Reported) Calcium Carbonate/Vitamin D3 1 Each Tablet, 1 TAB PO DAILY, (Reported) Dexlansoprazole 60 Mg Cap.drDavidbp, 60 MG PO DAILY PRN for ACID REFLUX, (Reported) Diltiazem HCl 240 Mg Cap.er.24h, 240 MG PO DAILY, (Reported) Docusate Sodium 100 Mg Capsule, 100 MG PO BID, (Reported) Ergocalciferol (Vitamin D2) 50,000 Unit Capsule, 50,000 UNITS PO THURSDAY, (Reported) Ferrous Sulfate 325 Mg Tablet.dr, 650 MG PO Q48H, (Reported) Furosemide 80 Mg Tablet, 80 MG PO BID, (Reported) Insulin Aspart 300 Units/3 Ml Solution, 11-17 SC AC, (Reported) Insulin Determir 1,000 Units/10 Ml Soln, 42 UNITS SC DAILY, (Reported) Insulin Determir 1,000 Units/10 Ml Soln, 58 UNITS SQ HS, (Reported) Metoprolol Tartrate 50 Mg Tablet, 50 MG PO BID, (Reported) [place] 3 Polyunsat Fatty Acids 1,000 Mg Cap, 1,000 MG PO DAILY, (Reported) Rivaroxaban 15 Mg Tablet, 15 MG PO 1700, (Reported) Rosuvastatin Calcium 20 Mg Tablet, 20 MG PO HS, (Reported) Past Htcgnui-Opbulz-Oazxxr Hx Past Med/Social Hx: Reviewed Nursing Past Med/Soc Hx Patient Social History Alcohol Use: Denies Use Recreational Drug Use: No Type Used: Cigarettes Former Smoker, Quit: Oct 19, 1949 2nd Hand Smoke Exposure: No Recent Foreign Travel: No Contact w/Someone Who Travel: No Recent Infectious Disease Expo: No Recent Hopitalizations: No Immunizations Up To Date Tetanus Booster (TDap): Unknown Date of Pneumonia Vaccine: Jun 12, 2015 Date of Influenza Vaccine: Sep 02, 2019 Seasonal Allergies Seasonal Allergies: Yes Past Medical History Surgeries: Yes Cardiac, CABG, Hysterectomy, Orthopedic Respiratory: Yes (home o2) Sleep Apnea, COPD Currently Using CPAP: Yes (AT NIGHT) Currently Using BIPAP: No Cardiac: Yes Atrial Fibrillation, Chronic Edema/Swelling, Coronary Artery Disease, High Cholesterol, Hypertension, Valvular Heart Disease Neurological: No : No Reproductive Disorders: No DIRECTOR LOAN History: Menopausal Genitourinary: Yes Renal Failure, UTI-Chronic Gastrointestinal: Yes Gastroesophageal Reflux Musculoskeletal: Yes (ANKLE FX, B/L KNEE PAIN R/T PAST FRACTURE, COMPUND FX IN FEMUR) Arthritis, Fractures Endocrine: Yes Diabetes, Insulin dep Cataract Hearing Impairment: Hard of Hearing Cancer: No Psychosocial: No Integumentary: No Blood Disorders: No Adverse Reaction/Blood Tranf: No Family Medical History Diabetes mellitus 19 MOTHER G8 BROTHER G8 BROTHER Emph FH: breast cancer 19 MOTHER FH: breast cancer 19 MOTHER FH: emphysema 19 MOTHER FH: emphysema 19 MOTHER Cancer Sepsis Event Evaluation Height, Weight, BMI Height: 5'6.00" Weight: 294lbs. 4.0oz. 133.403993xz; 45.05 BMI Method:Stated Exam Exam Vital Signs Date Time Temp Pulse Resp B/P (MAP) Pulse Ox O2 Delivery O2 Flow Rate FiO2 11/18/19 05:00 36.8 92 18 105/71 (82) 94 Nasal Cannula 0.50 11/18/19 01:00 36.4 98 20 102/58 94 11/17/19 23:42 94 Nasal Cannula 1.50 11/17/19 23:40 36.4 109 18 102/58 (73) 90 Room Air 11/17/19 22:09 36.6 88 18 100/57 82 11/17/19 22:00 36.6 11/17/19 22:00 36.6 11/17/19 20:00 Nasal Cannula 1.00 11/17/19 20:00 37.1 83 18 118/78 (91) 98 Room Air 11/17/19 19:17 Nasal Cannula 2.00 11/17/19 18:03 37.3 94 18 108/68 100 Nasal Cannula 2.00 I & O 11/18/19 07:00 Intake Total 370 ml Output Total 400 ml Balance -30 ml Height & Weight Height: 5'6.00" Weight: 294lbs. 4.0oz. 133.027200sf; 45.05 BMI Method:Stated General Appearance: No Apparent Distress, WD/WN, Obese HEENT: Normal ENT Inspection Neck: Normal Inspection, Non Tender Respiratory: Decreased Breath Sounds, Other (Cough) Cardiovascular: Irregularly Irregular Capillary Refill: Less Than 3 Seconds Results Lab Laboratory Tests 11/17/19 19:51 11/18/19 05:08 CHRIS BRADLEY DO Nov 18, 2019 07:57
[2019-11-18] MEDS ORDERED: RT-ALBUTEROL/IPRATROPIUM 3 ML (DUONEB) VIAL INH ONE (08:00)
--- NOTE | 2019-11-18 08:01 | Progress Note ---
Subjective Time Seen by a Provider: 07:56 Subjective/Events-last exam Patient's hemoglobin yesterday as outpatient was 7.4. CAT scan showed chest with pneumonia. Stomach had fluid and gas in it. Transverse colon dilated. Patient had many bowel movements during the night. This morning patient having many bowel movements Focused Exam Lactate Level 11/18/19 05:52: Lactic Acid Level 0.70 Lactic Acid Level Laboratory Tests Test 11/18/19 05:52 Lactic Acid Level 0.70 MMOL/L (0.50-2.00) Objective Exam Vital Signs Date Time Temp Pulse Resp B/P (MAP) Pulse Ox O2 Delivery O2 Flow Rate FiO2 11/18/19 05:00 36.8 92 18 105/71 (82) 94 Nasal Cannula 0.50 11/18/19 01:00 36.4 98 20 102/58 94 11/17/19 23:42 94 Nasal Cannula 1.50 11/17/19 23:40 36.4 109 18 102/58 (73) 90 Room Air 11/17/19 22:09 36.6 88 18 100/57 82 11/17/19 22:00 36.6 11/17/19 22:00 36.6 11/17/19 20:00 Nasal Cannula 1.00 11/17/19 20:00 37.1 83 18 118/78 (91) 98 Room Air 11/17/19 19:17 Nasal Cannula 2.00 11/17/19 18:03 37.3 94 18 108/68 100 Nasal Cannula 2.00 I & O 11/18/19 07:00 Intake Total 370 ml Output Total 400 ml Balance -30 ml Capillary Refill : Less Than 3 SecondsLess Than 3 Seconds General Appearance: No Apparent Distress, WD/WN HEENT: Normal ENT Inspection Neck: Normal Inspection Respiratory: No Accessory Muscle Use, No Respiratory Distress, Decreased Breath Sounds Cardiovascular: Irregularly Irregular Gastrointestinal: non tender, soft Results Lab Laboratory Tests 11/17/19 19:51 11/18/19 05:08 Laboratory Tests 11/17/19 19:51: White Blood Count 7.4, Red Blood Count 2.87L, Hemoglobin 8.4L, Hematocrit 29L, Mean Corpuscular Volume 101H, Mean Corpuscular Hemoglobin 29, Mean Corpuscular Hemoglobin Concent 29L, Red Cell Distribution Width 17.6H, Platelet Count 188, Mean Platelet Volume 10.7H, Neutrophils (%) (Auto) 82H, Lymphocytes (%) (Auto) 9L, Monocytes (%) (Auto) 7, Eosinophils (%) (Auto) 2, Basophils (%) (Auto) 0, Neutrophils # (Auto) 6.1, Lymphocytes # (Auto) 0.7L, Monocytes # (Auto) 0.5, Eosinophils # (Auto) 0.1, Basophils # (Auto) 0.0, Neutrophils % (Manual) 76, Lymphocytes % (Manual) 12, Monocytes % (Manual) 8, Eosinophils % (Manual) 2, Basophils % (Manual) 1, Band Neutrophils 1, Anisocytosis MODERATE, Macrocytosis SLIGHT, Schistocytes SLIGHT, Prothrombin Time 21.4H, INR Comment 1.8H, Activated Partial Thromboplast Time 31, Sodium Level 135, Potassium Level 4.5, Chloride Level 98, Carbon Dioxide Level 28, Anion Gap 9, Blood Urea Nitrogen 37H, Creatinine 1.38H, Estimat Glomerular Filtration Rate 37, BUN/Creatinine Ratio 27, Glucose Level 162H, Calcium Level 8.8, Corrected Calcium 9.3, Total Bilirubin 0.7, Aspartate Amino Transf (AST/SGOT) 16, Alanine Aminotransferase (ALT/SGPT) 10, Alkaline Phosphatase 86, Total Protein 6.6, Albumin 3.4 11/17/19 20:34: Glucometer 167H 11/18/19 05:08: White Blood Count 7.0, Red Blood Count 3.43L, Hemoglobin 9.8L, Hematocrit 34L, Mean Corpuscular Volume 99, Mean Corpuscular Hemoglobin 29, Mean Corpuscular Hemoglobin Concent 29L, Red Cell Distribution Width 17.6H, Platelet Count 204, Mean Platelet Volume 10.2, Neutrophils (%) (Auto) 72, Lymphocytes (%) (Auto) 17, Monocytes (%) (Auto) 8, Eosinophils (%) (Auto) 2, Basophils (%) (Auto) 0, Neutro phils # (Auto) 5.1, Lymphocytes # (Auto) 1.2, Monocytes # (Auto) 0.6, Eosinophils # (Auto) 0.2, Basophils # (Auto) 0.0, Neutrophils % (Manual) 71, Lymphocytes % (Manual) 21, Monocytes % (Manual) 7, Eosinophils % (Manual) 1, Sodium Level 135, Potassium Level 4.7, Chloride Level 99, Carbon Dioxide Level 29, Anion Gap 7, Blood Urea Nitrogen 38H, Creatinine 1.57H, Estimat Glomerular Filtration Rate 32, BUN/Creatinine Ratio 24, Glucose Level 155H, Calcium Level 8.7, Corrected Calcium 9.3, Total Bilirubin 1.1H, Aspartate Amino Transf (AST/SGOT) 13, Alanine Aminotransferase (ALT/SGPT) 9, Alkaline Phosphatase 81, Total Protein 6.4, Albumin 3.2 11/18/19 05:52: Lactic Acid Level 0.70 Assessment/Plan Assessment/Plan Assess & Plan/Chief Complaint Severe ileus. Renal insufficiency. Anemia. Diabetes. Coronary artery disease. Atrial fibrillation. Ascites. Anasarca. Dilated transverse colon. Stomach with fluid and gas. Obesity. Clinical Quality Measures Admission Status Admission Dx Renal insufficiency. Pneumonia. Severe ileus. Anasarca. Diabetes. Coronary artery disease. Hyperlipidemia. Hypertension. Dilatation of the transverse colon by gas. Marked distention of stomach by fluid and gas. Anasarca. Anemia DVT/VTE Risk/Contraindication: Risk Factor Score Per Nursin RFS Level Per Nursing on Admit: 4+=Very High Contraindications-Pharm: Other *list below* LILY ROJAS DO Nov 18, 2019 08:01
[2019-11-18 08:39] LABS: AMMONIA 39 UMOL/L (11-32); MAGNESIUM 1.7 MG/DL (1.6-2.4); PHOSPHORUS 3.4 MG/DL (2.3-4.7)
--- NOTE | 2019-11-18 10:14 | Consultation-Cardiology ---
HPI-Cardiology Cardiology Consultation: Date of Consultation 11/18/19 Time Seen by a Provider: 09:40 Date of Admission 11-17-2019 Attending Physician Lily Rojas DO Admitting Physician Lily Rojas DO Consulting Physician Emily Davis MD HPI: Chief Complaint: Abdominal distension Ms. Arias is 79 year old female admitted to [facility]. She is lethargic this morning, but does open her eyes when you call her name. She answers questions with simple yes/no answers, but frequently has to be re-awakened. Per review of chart and discussion with nurse she was admitted for abdominal pain and distention. She responds no when asked if she is having any pain or SOB. She moans with gentle palpation and pulls at the linens when they are moved for assessment. Nursing reports she has pulled out her NG tube, IV site, monitor and gown this morning. Review of Systems-Cardiology Review of Systems : No Other comments ROS to the extent it could be obtained is as per HPI UUO-Isnitn-Tscuqm Hx Patient Social History Marrital Status: Employed/Student: retired Alcohol Use: Denies Use Recreational Drug Use: No Type Used: Cigarettes 2nd Hand Smoke Exposure: No Recent Foreign Travel: No Recent Infectious Disease Expo: No Hospitalization with Isolation: Denies Physical Abuse Screen: No Sexual Abuse: No Immunizations Up To Date Tetanus Booster (TDap): Unknown Date of Pneumonia Vaccine: Jun 12, 2015 Date of Influenza Vaccine: Sep 02, 2019 Past Medical History PMH As described under Assessment. Family Medical History Family Medical History: She does not report any family h/o CAD. She reports a son who had cardiomyopathy. Family History: Diabetes mellitus 19 MOTHER G8 BROTHER G8 BROTHER Emph FH: breast cancer 19 MOTHER FH: breast cancer 19 MOTHER FH: emphysema 19 MOTHER FH: emphysema 19 MOTHER Allergies and Home Medications Allergies Coded Allergies: No Known Drug Allergies (Unverified , 11/18/12) Home Medications Allopurinol 100 Mg Tablet, 100 MG PO DAILY, (Reported) Aspirin 81 Mg Tablet.dr, 81 MG PO DAILY, (Reported) Calcium Carbonate/Vitamin D3 1 Each Tablet, 1 TAB PO DAILY, (Reported) Dexlansoprazole 60 Mg Cap.drDavidbp, 60 MG PO DAILY PRN for ACID REFLUX, (Reported) Diltiazem HCl 240 Mg Cap.er.24h, 240 MG PO DAILY, (Reported) Docusate Sodium 100 Mg Capsule, 100 MG PO BID, (Reported) Ergocalciferol (Vitamin D2) 50,000 Unit Capsule, 50,000 UNITS PO THURSDAY, (Reported) Ferrous Sulfate 325 Mg Tablet.dr, 650 MG PO Q48H, (Reported) Furosemide 80 Mg Tablet, 80 MG PO BID, (Reported) Insulin Aspart 300 Units/3 Ml Solution, 11-17 SC AC, (Reported) Insulin Determir 1,000 Units/10 Ml Soln, 42 UNITS SC DAILY, (Reported) Insulin Determir 1,000 Units/10 Ml Soln, 58 UNITS SQ HS, (Reported) Metoprolol Tartrate 50 Mg Tablet, 50 MG PO BID, (Reported) Yale 3 Polyunsat Fatty Acids 1,000 Mg Cap, 1,000 MG PO DAILY, (Reported) Rivaroxaban 15 Mg Tablet, 15 MG PO 1700, (Reported) Rosuvastatin Calcium 20 Mg Tablet, 20 MG PO HS, (Reported) Physical Exam-Cardiology Physical Exam Vital Signs/I&O 11/17/19 11/17/19 11/17/19 11/18/19 22:09 23:40 23:42 01:00 Temp 36.6 36.4 36.4 Pulse 88 109 98 Resp 18 18 20 B/P (MAP) 100/57 102/58 (73) 102/58 Pulse Ox 82 90 94 94 O2 Delivery Room Air Nasal Cannula O2 Flow Rate 1.50 11/18/19 11/18/19 11/18/19 05:00 07:52 08:00 Temp 36.8 36.3 Pulse 92 103 Resp 18 18 B/P (MAP) 105/71 (82) 119/57 (77) Pulse Ox 94 92 92 O2 Delivery Nasal Cannula Room Air Room Air O2 Flow Rate 0.50 11/18/19 00:00 Intake Total 100 ml Balance 100 ml Capillary Refill : Less Than 3 SecondsLess Than 3 Seconds Constitutional: well-developed, well-nourished Neck: No carotid bruit; carotid pulses are 2 + bilaterally Respiratory: other (good air entry) Cardiovascular: irregularly irregular, S1 and S2, systolic murmur Gastrointestinal: soft, distended, audible bowel sounds Extremities: other (RLE with soft brace in place; pitting edema to right foot; brace not removed) Skin: No rash on exposed areas, No ulcerations on exposed areas Data Review Labs Laboratory Tests 11/17/19 19:51: White Blood Count 7.4, Red Blood Count 2.87L, Hemoglobin 8.4L, Hematocrit 29L, Mean Corpuscular Volume 101H, Mean Corpuscular Hemoglobin 29, Mean Corpuscular Hemoglobin Concent 29L, Red Cell Distribution Width 17.6H, Platelet Count 188, Mean Platelet Volume 10.7H, Neutrophils (%) (Auto) 82H, Lymphocytes (%) (Auto) 9L, Monocytes (%) (Auto) 7, Eosinophils (%) (Auto) 2, Basophils (%) (Auto) 0, Neutrophils # (Auto) 6.1, Lymphocytes # (Auto) 0.7L, Monocytes # (Auto) 0.5, Eosinophils # (Auto) 0.1, Basophils # (Auto) 0.0, Neutrophils % (Manual) 76, Lymphocytes % (Manual) 12, Monocytes % (Manual) 8, Eosinophils % (Manual) 2, Basophils % (Manual) 1, Band Neutrophils 1, Anisocytosis MODERATE, Macrocytosis SLIGHT, Schistocytes SLIGHT, Prothrombin Time 21.4H, INR Comment 1.8H, Activated Partial Thromboplast Time 31, Sodium Level 135, Potassium Level 4.5, Chloride Level 98, Carbon Dioxide Level 28, Anion Gap 9, Blood Urea Nitrogen 37H, Creatinine 1.38H, Estimat Glomerular Filtration Rate 37, BUN/Creatinine Ratio 27, Glucose Level 162H, Calcium Level 8.8, Corrected Calcium 9.3, Total Bilirubin 0.7, Aspartate Amino Transf (AST/SGOT) 16, Alanine Aminotransferase (ALT/SGPT) 10, Alkaline Phosphatase 86, Total Protein 6.6, Albumin 3.4 11/17/19 20:34: Glucometer 167H 11/18/19 05:08: White Blood Count 7.0, Red Blood Count 3.43L, Hemoglobin 9.8L, Hematocrit 34L, Mean Corpuscular Volume 99, Mean Corpuscular Hemoglobin 29, Mean Corpuscular Hemoglobin Concent 29L, Red Cell Distribution Width 17.6H, Platelet Count 204, Mean Platelet Volume 10.2, Neutrophils (%) (Auto) 72, Lymphocytes (%) (Auto) 17, Monocytes (%) (Auto) 8, Eosinophils (%) (Auto) 2, Basophils (%) (Auto) 0, Neutrophils # (Auto) 5.1, Lymphocytes # (Auto) 1.2, Monocytes # (Auto) 0.6, Eosi nophils # (Auto) 0.2, Basophils # (Auto) 0.0, Neutrophils % (Manual) 71, Lymphocytes % (Manual) 21, Monocytes % (Manual) 7, Eosinophils % (Manual) 1, Sodium Level 135, Potassium Level 4.7, Chloride Level 99, Carbon Dioxide Level 29, Anion Gap 7, Blood Urea Nitrogen 38H, Creatinine 1.57H, Estimat Glomerular Filtration Rate 32, BUN/Creatinine Ratio 24, Glucose Level 155H, Calcium Level 8.7, Corrected Calcium 9.3, Total Bilirubin 1.1H, Aspartate Amino Transf (AST/SGOT) 13, Alanine Aminotransferase (ALT/SGPT) 9, Alkaline Phosphatase 81, Total Protein 6.4, Albumin 3.2 11/18/19 05:52: Lactic Acid Level 0.70 11/18/19 08:00: Phosphorus Level 3.4, Magnesium Level 1.7, Ammonia 39H, Troponin I < 0.028 Laboratory Tests 11/17/19 19:51 11/18/19 05:08 Radiology NAME: JEREMY ARIAS [facility] REC#: [id number] PT STATUS: ADM IN : 1940 PHYSICIAN: LILY ROJAS DO ADMIT DATE: 11/17/19/ Signed Date of Exam:11/18/19 CHEST 1 VIEW, AP/PA ONLY CHEST 1 VIEW, AP/PA ONLY Indication: NG tube placement Comparison: 11/17/2019. Findings: Enteric tube has tip and sidehole in the proximal stomach. Stable cardiomegaly with TAVR and CABG. Visualized lungs are clear. Posterior lower lobes are poorly evaluated by portable radiography. No pleural effusion or pneumothorax. Impression: 1. Enteric tube has tip and sidehole in the proximal stomach. Dictated by: Dictated on workstation # [id number] Dict: 11/18/19 07 Trans: 11/18/19 09 [facility] [id number] Interpreted by: RICK GENAO MD Electronically signed by: RICK GENAO MD 11/18/19 0908 A/P-Cardiology Assessment/Admission Diagnosis Abdominal pain/distension - management per medical services Confusion and lethargy H/O non-syncopal fall resulting in a right femora, tibia and fibula fracture on 10-01-2020 for which she was transferred to [facility] for repair Chronic systolic/diastolic CHF - clinically compensated Paroxysmal atrial fibrillation which now seems to have become chronic permanent atrial fibrillation Multivessel coronary artery disease for which the patient underwent coronary artery bypass surgery 07/14/2012. This consisted of left internal mammary artery graft to left anterior descending, saphenous vein graft to posterior descending and sequential saphenous vein to ramus intermedius and obtuse marginal. This was carried out at [facility] in [place], [place] by Dr. Juarez. Cardiac cath of 10-19-18 showed prairie band CAD consisting of long 80-90% prox and mid vessel stenosis of the LAD, 80-90% stenosis of the prox portion of the RI, and diffuse mod disease of the RCA. Patent left internal mammary artery graft to distal LAD. Patent saphenous vein graft to RI. Chronically occluded saphenous vein graft to RCA. MPI of 05-27-16 is indicative of basal inferior infarction with a mod amount of aguila-infarct ischemia. Inferolateral hypokinesis. LVEF approx 46% Maturity onset diabetes mellitus, insulin requiring. Aortic stenosis, for which he has undergone TAVR at [facility] in [place], [place], on 10/10/14, mod dilated LA, mod conc LVH, mod MAC, mild to mod MR, bioprosthetic AoV working adequately, PASP 50-55 mmHg. According to a card that she carries this is an Baird bovine transcatheter valve, 26 mm, model 9300 TFX, in the aortic position Echo of Jun 2019 showed concentric hypertrophy. LVEF 55-60%. LA mod dilated. Mild to mod calcified annulus with mild regurg. Mod TR. RVSP approx 53 mmHg. Known TAVR: adequate function, max gradient 26 mmHg, mean gradient 16 mmHg Chronic rivaroxaban anticoag for stroke prophylaxis Pulmonary HTN, with an estimated PASP of 75mmHg per echo of March 2014. Cardiac cath from July 25, 2014 showed moderate pulmonary HTN with mean pulmonary artery pressure of 33 mmHg and pulmonary vascular resistance of 5.4 Wood units. Echo of Jun 2019 showed PASP 50-55 mmHg Hypertension - somewhat low normal BP CKD stage III Hyperlipidemia currently on statin therapy - followed by Dr. Iggy Zhang with a body index of 41. Gastroesophageal reflux. Chronic right ankle swelling following ankle fracture several years ago. History of knee replacement surgery in 2000. History of surgery of the femur several years ago. History of knee replacement surgery in 1999. History of surgery on the femur several years ago following fracture. Carotid arterial disease, consisting of 60% stenosis of the right internal carotid and 50% stenosis of the left internal carotid per CT angiography of 05/12/2013. 60-79% bilat stenosis of carotids per u/s of Jun, Incidentally diagnosed 7 mm right thyroid nodule on a CT scan of the carotid. This is being followed by Dr. Rojas Sleep apnea syndrome - CPAP therapy Anemia of undetermined etiology - Dr Rojas managing Discussion and Recomendations Abdominal pain/distension - management per medical services Permanent a-fib - advise continuation of OAC with Xarelto for stroke prophylaxis Advise continuation of ASA d/t known h/o CAD Confusion and lethargy possibly r/t medications - mildly elevated ammonia level Monitor lab closely Continue home medications CCB for HR rate control Somewhat low normal BP - monitor We would like to thank medical services for this consult Further recs will be based on her hospital course Clinical Quality Measures DVT/VTE Risk/Contraindication: Risk Factor Score Per Nursin RFS Level Per Nursing on Admit: 4+=Very High Contraindications-Pharm: Other *list below* ASTRID STUART Nov 18, 2019 10:14
[2019-11-18 11:28] LABS: CLARITY,URINE TURBID; COLOR,URINE DARK YELLOW; GLUCOSE, URINE (UA) NEGATIVE (NEGATIVE); KETONES,URINE TRACE (NEGATIVE); LEUKOCYTE ESTERASE ,URINE 2+ (NEGATIVE); NITRITE,URINE NEGATIVE (NEGATIVE); PROTEIN,URINE 2+ (NEGATIVE)
--- NOTE | 2019-11-18 11:38 | Consultation - Surgery ---
SARAHY ANDERSON [facility] [place] 11/18/19 1138: History of Present Illness History of Present Illness Patient Consulted On(annamarie/time) 11/18/19 11:31 Date Seen by Provider: Nov 18, 2019 Time Seen by Provider: 10:45 Reason for Visit: abd distention & ascites History of Present Illness This is a 79 y/o F w/ hx of DMII, HTN w/ c/o abd distension. Reports this has been progressive over the past few months. Has hx of LE fracture in Sep, 2019 with surgical intervention; she has been taking hydrocodone for pain. She also reports she has been taking hydrocodone for chronic pain on and off prior to the surgery as well. Pt denies any N/V, abd pain, constipation, or diarrhea, SOB, recent unintentional wt loss, melena, hematochezia, or any other sx. Reports having BMs today and last night. Denies hx of ETOH abuse, smoking, drug use, hepatitis. FH of breast cancer in mother and liver cancer in brother secondary to cirrhosis. Pt does not regularly f/u with a PCP and is not uptodate on age appropriate screening exams. Allergies and Home Medications Allergies Coded Allergies: No Known Drug Allergies (Unverified , 11/18/12) Home Medications Acetaminophen 500 Mg Tablet, 1,000 MG PO Q6H PRN for PAIN-MILD (1-4), (Reported) Allopurinol 100 Mg Tablet, 100 MG PO DAILY, (Reported) Ammonium Lactate/Emu Oil 120 Ml Cream.ml., TP BID, (Reported) Apixaban 5 Mg Tablet, 5 MG PO BID, (Reported) Bumetanide 2 Mg Tablet, 4 MG PO 0800,1600, (Reported) Calcium Carbonate/Vitamin D3 1 Each Tablet, 1 TAB PO DAILY, (Reported) Chlorthalidone 25 Mg Tablet, 25 MG PO DAILY PRN for WEIGHT GAIN >3 LBS IN 24 HOURS, (Reported) Dexlansoprazole 60 Mg , 60 MG PO BID, (Reported) START DATE 11-16-19 END DATE 11-27-19 Dexlansoprazole 60 Mg , 60 MG PO DAILY PRN for ACID REFLUX, (Reported) Docusate Sodium 100 Mg Capsule, 100 MG PO BID, (Reported) Ferrous Sulfate 325 Mg Tablet, 325 MG PO Q48H@2100, (Reported) Insulin Glargine,Hum.rec.anlog 100 Unit/1 Ml Vial, 30 UNIT SQ HS, (Reported) Melatonin 5 Mg Tablet, 5 MG PO HS PRN for INSOMNIA, (Reported) Metoprolol Succinate 50 Mg Tab.er.24h, 50 MG PO BID, (Reported) Ondansetron 8 Mg Tab.rapdis, 8 MG PO TID, (Reported) Polyethylene Glycol 3350 17 Gm Powd.pack, 17 GM PO HS PRN for CONSTIPATION-2ND LINE, (Reported) Potassium Chloride 40 Meq/15 Ml Liquid, 40 MEQ PO DAILY, (Reported) Rosuvastatin Calcium 20 Mg Tablet, 20 MG PO HS, (Reported) Past Zuuigor-Aspcta-Iasyoa Hx Patient Social History Alcohol Use: Denies Use Recreational Drug Use: No Former Smoker, Quit: Oct 19, 1949 Type Used: Cigarettes 2nd Hand Smoke Exposure: No Recent Foreign Travel: No Contact w/Someone Who Travel: No Recent Infectious Disease Expo: No Recent Hopitalizations: No Physical Abuse Screen: No Sexual Abuse: No Immunizations Up To Date Tetanus Booster (TDap): Unknown Date of Pneumonia Vaccine: Jun 12, 2015 Date of Influenza Vaccine: Sep 02, 2019 Seasonal Allergies Seasonal Allergies: Yes Surgeries History of Surgeries: Yes Surgeries: Cardiac, CABG, Hysterectomy, Orthopedic Respiratory History of Respiratory Disorde: Yes (home o2) Respiratory Disorders: Sleep Apnea, COPD Cardiovascular History of Cardiac Disorders: Yes Cardiac Disorders: Atrial Fibrillation, Chronic Edema/Swelling, Coronary Artery Disease, High Cholesterol, Hypertension, Valvular Heart Disease Neurological History of Neurological Disord: No Reproductive System : No Hx Reproductive Disorders: No W[employer] G[employer] HELPER History: Menopausal Genitourinary History of Genitourinary Disor: Yes Genitourinary Disorders: Renal Failure, UTI-Chronic Gastrointestinal History of Gastrointestinal Di: Yes Gastrointestinal Disorders: Gastroesophageal Reflux Musculoskeletal History of Musculoskeletal Dis: Yes (ANKLE FX, B/L KNEE PAIN R/T PAST FRACTURE, COMPUND FX IN FEMUR) Musculoskeletal Disorders: Arthritis, Fractures Endocrine History of Endocrine Disorders: Yes Endocrine Disorders: Diabetes, Insulin dep HEENT HEENT Disorders: Cataract Hearing Impairment: Hard of Hearing Cancer History of Cancer: No Psychosocial History of Psychiatric Problem: No Integumentary History of Skin or Integumenta: No Blood Transfusions History of Blood Disorders: No Adverse Reaction to a Blood Tr: No Family Medical History Significant Family History: Cancer Family Medial History: Diabetes mellitus 19 MOTHER G8 BROTHER G8 BROTHER Emph FH: breast cancer 19 MOTHER FH: breast cancer 19 MOTHER FH: emphysema 19 MOTHER FH: emphysema 19 MOTHER Review of Systems-General Constitutional: No chills, No diaphoresis Respiratory: No cough, No dyspnea on exertion Cardiovascular: No chest pain, No edema Gastrointestinal: No abdominal pain, No constipation, No diarrhea, No dysphagia, No heartburn, No nausea, No vomiting; other (distension) Skin: No pruritus, No rash Physical Exam-General Problems Physical Exam Vital Signs Vital Signs - First Documented 11/17/19 18:03 Temp 37.3 Pulse 94 Resp 18 B/P (MAP) 108/68 Pulse Ox 100 O2 Delivery Nasal Cannula O2 Flow Rate 2.00 Capillary Refill : Less Than 3 SecondsLess Than 3 Seconds General Appearance: WD/WN, no apparent distress, other (somnolent) Neck: non-tender, normal inspection Respiratory: lungs clear, normal breath sounds, no accessory muscle use Cardiovascular: no edema; No JVD Gastrointestinal: non tender, no organomegaly, distended; No tenderness Neurologic/Psychiatric: alert, oriented x 3 Skin: normal color, warm/dry Lymphatic: no adenopathy Data Review Labs Laboratory Tests 11/17/19 19:51: White Blood Count 7.4, Red Blood Count 2.87L, Hemoglobin 8.4L, Hematocrit 29L, Mean Corpuscular Volume 101H, Mean Corpuscular Hemoglobin 29, Mean Corpuscular Hemoglobin Concent 29L, Red Cell Distribution Width 17.6H, Platelet Count 188, Mean Platelet Volume 10.7H, Neutrophils (%) (Auto) 82H, Lymphocytes (%) (Auto) 9L, Monocytes (%) (Auto) 7, Eosinophils (%) (Auto) 2, Basophils (%) (Auto) 0, Neutrophils # (Auto) 6.1, Lymphocytes # (Auto) 0.7L, Monocytes # (Auto) 0.5, Eosinophils # (Auto) 0.1, Basophils # (Auto) 0.0, Neutrophils % (Manual) 76, Lymphocytes % (Manual) 12, Monocytes % (Manual) 8, Eosinophils % (Manual) 2, Basophils % (Manual) 1, Band Neutrophils 1, Anisocytosis MODERATE, Macrocytosis SLIGHT, Schistocytes SLIGHT, Prothrombin Time 21.4H, INR Comment 1.8H, Activated Partial Thromboplast Time 31, Sodium Level 135, Potassium Level 4.5, Chloride Level 98, Carbon Dioxide Level 28, Anion Gap 9, Blood Urea Nitrogen 37H, Creatinine 1.38H, Estimat Glomerular Filtration Rate 37, BUN/Creatinine Ratio 27, Glucose Level 162H, Calcium Level 8.8, Corrected Calcium 9.3, Total Bilirubin 0.7, Aspartate Amino Transf (AST/SGOT) 16, Alanine Aminotransferase (ALT/SGPT) 10, Alkaline Phosphatase 86, Total Protein 6.6, Albumin 3.4 11/17/19 20:34: Glucometer 167H 11/18/19 05:08: White Blood Count 7.0, Red Blood Count 3.43L, Hemoglobin 9.8L, Hematocrit 34L, Mean Corpuscular Volume 99, Mean Corpuscular Hemoglobin 29, Mean Corpuscular Hemoglobin Concent 29L, Red Cell Distribution Width 17.6H, Platelet Count 204, Mean Platelet Volume 10.2, Neutrophils (%) (Auto) 72, Lymphocytes (%) (Auto) 17, Monocytes (%) (Auto) 8, Eosinophils (%) (Auto) 2, Basophils (%) (Auto) 0, Neutrophils # (Auto) 5.1, Lymphocytes # (Auto) 1.2, Monocytes # (Auto) 0.6, Eosinophils # (Auto) 0.2, Basophils # (Auto) 0.0, Neutrophils % (Manual) 71, Lymphocytes % (Manual) 21, Monocytes % (Manual) 7, Eosinophils % (Manual) 1, Sodium Level 135, Potassium Level 4.7, Chloride Level 99, Carbon Dioxide Level 29, Anion Gap 7, Blood Urea Nitrogen 38H, Creatinine 1.57H, Estimat Glomerular Filtration Rate 32, BUN/Creatinine Ratio 24, Glucose Level 155H, Calcium Level 8.7, Corrected Calcium 9.3, Total Bilirubin 1.1H, Aspartate Amino Transf (AST/SGOT) 13, Alanine Aminotransferase (ALT/SGPT) 9, Alkaline Phosphatase 81, Total Protein 6.4, Albumin 3.2 11/18/19 05:52: Lactic Acid Level 0.70 11/18/19 08:00: Phosphorus Level 3.4, Magnesium Level 1.7, Ammonia 39H, Troponin I < 0.028 11/18/19 11:19: Glucometer 153H 11/18/19 11:20: Assessment/Plan Assessment/Plan Assessment/Plan Nacrcotic induced ileus Stomach distended by fluid and gas w/ gas in transverse colon. Moderate amount of ascites as well as diffuse anasarca of the anterior abdominal wall Left lower lobe pneumonia Renal insufficiency Normocytic Anemia. Diabetes. Pt refusing NGT pt has signs of bowel function, start on a trial of clear liquid diet, monitor response Monitor Hgb and renal function Hyperammonemia likely 2/2 renal insufficiency Continue abx Will follow Clinical Quality Measures DVT/VTE Risk/Contraindication: Risk Factor Score Per Nursin RFS Level Per Nursing on Admit: 4+=Very High Contraindications-Pharm: Other *list below* MARKO CLEVELAND DO 11/20/191952: History of Present Illness History of Present Illness History of Present Illness Consult requested by Dr. Parkinson for abdominal distention. Patient is a 79 year old female who had recent left lower extremity fracture which patient could not undergo surgical intervention due to her heart she and caregiver at bedside states. She has been taking hydrocodone for pain. She has been having increasing abdominal distention. She is not having any pain at this time. She feels her abdomen has gone down. She states last night she began passing flatus and having bowel movements last night and today. She had a ct scan of abdomen and pelvis showin. The stomach is distended by fluid and gas. There is also a considerable amount of gas throughout the transverse colon. Consideration should be given to the insertion of a nasogastric tube to decompress the stomach and the bowel. 2. There is at least a moderate amount of ascites as well as diffuse anasarca of the anterior abdominal wall. 3. There is a small calculus within the gallbladder, but there is no clear evidence for acute cholecystitis. 4. There is left lower lobe pneumonia/atelectasis and small left pleural effusion. Paitent currently denies n/v fever sweats chills shortness of breath or chest pain. Allergies and Home Medications Allergies Coded Allergies: No Known Drug Allergies (Unverified , 11/18/12) Home Medications Acetaminophen 500 Mg Tablet, 1,000 MG PO Q6H PRN for PAIN-MILD (1-4), (Reported) Allopurinol 100 Mg Tablet, 100 MG PO DAILY, (Reported) Ammonium Lactate/Emu Oil 120 Ml Cream.ml., TP BID, (Reported) Apixaban 5 Mg Tablet, 5 MG PO BID, (Reported) Bumetanide 2 Mg Tablet, 4 MG PO 0800,1600, (Reported) Calcium Carbonate/Vitamin D3 1 Each Tablet, 1 TAB PO DAILY, (Reported) Chlorthalidone 25 Mg Tablet, 25 MG PO DAILY PRN for WEIGHT GAIN >3 LBS IN 24 HOURS, (Reported) Dexlansoprazole 60 Mg bp, 60 MG PO BID, (Reported) START DATE 11-16-19 END DATE 11-27-19 Dexlansoprazole 60 Mg bp, 60 MG PO DAILY PRN for ACID REFLUX, (Reported) Docusate Sodium 100 Mg Capsule, 100 MG PO BID, (Reported) Ferrous Sulfate 325 Mg Tablet, 325 MG PO Q48H@2100, (Reported) Insulin Glargine,Hum.rec.anlog 100 Unit/1 Ml Vial, 30 UNIT SQ HS, (Reported) Melatonin 5 Mg Tablet, 5 MG PO HS PRN for INSOMNIA, (Reported) Metoprolol Succinate 50 Mg Tab.er.24h, 50 MG PO BID, (Reported) Ondansetron 8 Mg Tab.rapdis, 8 MG PO TID, (Reported) Polyethylene Glycol 3350 17 Gm Powd.pack, 17 GM PO HS PRN for CONSTIPATION-2ND LINE, (Reported) Potassium Chloride 40 Meq/15 Ml Liquid, 40 MEQ PO DAILY, (Reported) Rosuvastatin Calcium 20 Mg Tablet, 20 MG PO HS, (Reported) Patient Home Medication List Home Medication List Reviewed: Yes Past Hygagjo-Aamayf-Mxebqc Hx Reviewed Nursing Assessment Reviewed/Agree w Nursing PMH: Yes Family Medical History Significant Family History: No Pertinent Family Hx Family Medial History: Diabetes mellitus 19 MOTHER G8 BROTHER G8 BROTHER Emph FH: breast cancer 19 MOTHER FH: breast cancer 19 MOTHER FH: emphysema 19 MOTHER FH: emphysema 19 MOTHER Review of Systems-General Constitutional: No chills, No diaphoresis EENTM: No hearing loss, No blurred vision Respiratory: No cough, No dyspnea on exertion Cardiovascular: No chest pain Gastrointestinal: No abdominal pain, No constipation, No dysphagia, No nausea, No vomiting; other (distension) Musculoskeletal: No back pain, No gout; other (right lower ext in brace/ pain) Skin: No change in color, No change in hair/nails, No pruritus, No rash Psychiatric/Neurological: Denies Anxiety, Denies Depressed Physical Exam-General Problems Physical Exam General Appearance: WD/WN, no apparent distress HEENT: PERRL/EOMI Neck: non-tender, normal inspection Respiratory: chest non-tender, no respiratory distress, no accessory muscle use Cardiovascular: regular rate, rhythm Gastrointestinal: non tender, distended; No tenderness Rectal: deferred Back: no CVA tenderness Extremities: other (right lower extremity in brace) Neurologic/Psychiatric: alert, normal mood/affect, oriented x 3 Skin: normal color, warm/dry Lymphatic: no adenopathy Assessment/Plan Assessment/Plan Assessment/Plan ileus - likely narcotic induced with stomach distended by fluid and gas w/ gas in transverse colon. Moderate amount of ascites as well as diffuse anasarca of the anterior abdominal wall - monitor Left lower lobe pneumonia- medical management Renal insufficiency Normocytic Anemia. Diabetes. Patient having stools and flatus, feel this is resolving. Continue with minimal amount of pain medication needed to relieve pains. Will follow. patient refused ng tube, but feel since passing flatus and having bm's okay to leave out at this time. Supervisory-Addendum Brief Verification & Attestation Participated in pt care: history, MDM, physical Personally performed: exam, history, MDM, supervision of care Care discussed with: Medical Student Procedures: n/a Results interpretation: Verified all documentation Verification and Attestation of Medical Student E/M Service A medical student performed and documented this service in my presence. I reviewed and verified all information documented by the medical student and made modifications to such information, when appropriate. I personally performed the physical exam and medical decision making. Marko Cleveland, Nov 18, 2019,19:59 SARAHY ANDERSON [facility] [place] Nov 18, 2019 11:38 MARKO CLEVELAND DO Nov 20, 2019 19:53
[2019-11-18 11:46] LABS: BACTERIA,URINE LARGE /HPF; BILIRUBIN,URINE 1+ (NEGATIVE); WBC,URINE TNTC /HPF
[2019-11-18] MEDS ORDERED: POLY17PO6 PO (11:57)
[2019-11-18] MEDS ORDERED: ONDA8TAB13 PO (11:57)
[2019-11-18] MEDS ORDERED: DEXL60CA PO ×2 (11:57)
[2019-11-18] MEDS ORDERED: POTA40LI3 PO (11:57)
[2019-11-18] MEDS ORDERED: AMMO120C3 TP (11:57)
[2019-11-18] MEDS ORDERED: MELA5TAB14 PO (11:57)
[2019-11-18] MEDS ORDERED: ACET-2267 PO (11:57)
[2019-11-18] MEDS ORDERED: INSU100V6 SQ (11:57)
[2019-11-18] MEDS ORDERED: CHLO25TA22 PO (11:57)
[2019-11-18] MEDS ORDERED: METO50TA7 PO (11:57)
[2019-11-18] MEDS ORDERED: DOCU-143 PO (11:57)
[2019-11-18] MEDS ORDERED: APIX5TAB PO (11:57)
[2019-11-18] MEDS ORDERED: BUME2TAB7 PO (11:57)
[2019-11-18] MEDS ORDERED: FERR325T18 PO (11:57)
--- NOTE | 2019-11-18 12:01 | NUR ---
UPDATED MED REC WITH MAR FROM [facility]. Addendum: 11/18/19 at 1202 by CHUNG COHN [facility] THE COMPLETE FAX DID COME HOWEVER ON THE NUMBERED PAGES OF THE MAR IT WAS MISSING PAGE 3. I CALLED THEM AND THEY VERBALLY TOLD ME THE THREE MEDICATIONS THAT WERE ON THE OMITTED PAGE. THE NURSE ALSO VERIFIED THE PATIENT IS NO LONGER TAKING SEVERAL MEDICATIONS SHE WAS TAKING AT HER PREVIOUS VISIT HERE IN SEPTEMBER.
[2019-11-18 12:03] LABS: ABG BASE EXCESS 1.3 MMOL/L (-2.5-2.5); ABG OXYGEN SATURATION 97 % (94-100); ABG PCO2 58 MMHG (35-45); ABG PO2 87 MMHG (79-93); ABG TCO2 29.3 MMOL/L (21.0-31.0)
[2019-11-18 12:05] LABS: ABG PH 7.29 (7.37-7.43)
[2019-11-18 12:06] LABS: ALLENS TEST POSITIVE; INSPIRED O2 1.5; PATIENT TEMP 36.2; VENTILATOR NO
[2019-11-18] MEDS: D5 1/2 NS 1000 ML IV SOLUTION 1,000 ML IV SCH (14:39)
[2019-11-18] MEDS ORDERED: NON-FORMULARY MEDICATION 1 EA EA (Melatonin 5 MG) PO PRN (14:45)
[2019-11-18] MEDS ORDERED: PANTOPRAZOLE 40 MG (PROTONIX) TAB PO PRN (14:45)
[2019-11-18] MEDS ORDERED: CHLORTHALIDONE 25 MG (HYGROTON) TABLET PO PRN (14:45)
[2019-11-18] MEDS ORDERED: polyethylene glycoL POWDER 17 GM (MIRALAX) PACK PO PRN (14:45)
[2019-11-18] MEDS ORDERED: MELATONIN 3 MG TABLET PO PRN (15:15)
[2019-11-18] MEDS: ACETAMINOPHEN 500 MG TAB (TYLENOL) PO PRN (15:31)
[2019-11-18] MEDS: BUMETANIDE 1 MG (BUMEX) TAB PO SCH (15:31)
--- NOTE | 2019-11-18 16:52 | Consultation-Cardiology ---
HPI-Cardiology Cardiology Consultation: Date of Consultation 11/18/19 Time Seen by a Provider: 16:00 Date of Admission Attending Physician Luis Parkinson DO Admitting Physician Luis Parkinson DO Consulting Physician ADALBERTO PATEL MD, MA, FACP, FACC, FSCAI, CCDS HPI: Chief Complaint: CC: Abdominal distension HPI Ms. Arias is 79 year old female admitted to [facility]. She is lethargic this morning, but does open her eyes when you call her name. She answers questions with simple yes/no answers, but frequently has to be re-awakened. Per review of chart and discussion with nurse she was admitted for abdominal pain and distention. She responds no when asked if she is having any pain or SOB. She moans with gentle palpation and pulls at the linens when they are moved for assessment. Nursing reports she has pulled out her NG tube, IV site, monitor and gown this morning. Review of Systems-Cardiology Review of Systems Constitutional: other (She is not able to provide a review of systems at this time (confused)) : No ILY-Xcxtlo-Shhxgt Hx Patient Social History Marrital Status: Employed/Student: retired Alcohol Use: Denies Use Recreational Drug Use: No Type Used: Cigarettes 2nd Hand Smoke Exposure: No Recent Foreign Travel: No Recent Infectious Disease Expo: No Hospitalization with Isolation: Denies Physical Abuse Screen: No Sexual Abuse: No Immunizations Up To Date Tetanus Booster (TDap): Unknown Date of Pneumonia Vaccine: Jun 12, 2015 Date of Influenza Vaccine: Sep 02, 2019 Past Medical History PMH As described under Assessment. Family Medical History Family Medical History: She does not report any family h/o CAD. She reports a son who had cardiomyopathy. Family History: Diabetes mellitus 19 MOTHER G8 BROTHER G8 BROTHER Emph FH: breast cancer 19 MOTHER FH: breast cancer 19 MOTHER FH: emphysema 19 MOTHER FH: emphysema 19 MOTHER Allergies and Home Medications Allergies Coded Allergies: No Known Drug Allergies (Unverified , 11/18/12) Home Medications Acetaminophen 500 Mg Tablet, 1,000 MG PO Q6H PRN for PAIN-MILD (1-4), (Reported) Allopurinol 100 Mg Tablet, 100 MG PO DAILY, (Reported) Ammonium Lactate/Emu Oil 120 Ml Cream.ml., TP BID, (Reported) Apixaban 5 Mg Tablet, 5 MG PO BID, (Reported) Bumetanide 2 Mg Tablet, 4 MG PO 0800,1600, (Reported) Calcium Carbonate/Vitamin D3 1 Each Tablet, 1 TAB PO DAILY, (Reported) Chlorthalidone 25 Mg Tablet, 25 MG PO DAILY PRN for WEIGHT GAIN >3 LBS IN 24 HOURS, (Reported) Dexlansoprazole 60 Mg , 60 MG PO BID, (Reported) START DATE 11-16-19 END DATE 11-27-19 Dexlansoprazole 60 Mg , 60 MG PO DAILY PRN for ACID REFLUX, (Reported) Docusate Sodium 100 Mg Capsule, 100 MG PO BID, (Reported) Ferrous Sulfate 325 Mg Tablet, 325 MG PO Q48H@2100, (Reported) Insulin Glargine,Hum.rec.anlog 100 Unit/1 Ml Vial, 30 UNIT SQ HS, (Reported) Melatonin 5 Mg Tablet, 5 MG PO HS PRN for INSOMNIA, (Reported) Metoprolol Succinate 50 Mg Tab.er.24h, 50 MG PO BID, (Reported) Ondansetron 8 Mg Tab.rapdis, 8 MG PO TID, (Reported) Polyethylene Glycol 3350 17 Gm Powd.pack, 17 GM PO HS PRN for CONSTIPATION-2ND LINE, (Reported) Potassium Chloride 40 Meq/15 Ml Liquid, 40 MEQ PO DAILY, (Reported) Rosuvastatin Calcium 20 Mg Tablet, 20 MG PO HS, (Reported) Patient Home Medication List Home Medication List Reviewed: Yes Physical Exam-Cardiology Physical Exam Vital Signs/I&O 11/18/19 11/18/19 11/18/19 11/18/19 05:00 07:52 08:00 08:00 Temp 36.8 36.3 Pulse 92 103 Resp 18 18 B/P (MAP) 105/71 (82) 119/57 (77) Pulse Ox 94 92 92 O2 Delivery Nasal Cannula Room Air Nasal Cannula Room Air O2 Flow Rate 0.50 2.00 11/18/19 11/18/19 11/18/19 10:29 12:00 15:58 Temp 36.3 Pulse 74 Resp 20 B/P (MAP) 92/60 (71) Pulse Ox 92 100 100 O2 Delivery Room Air Room Air Room Air 11/18/19 00:00 Intake Total 100 ml Balance 100 ml Capillary Refill : Less Than 3 SecondsLess Than 3 Seconds Constitutional: No AAO x 3; well-developed, well-nourished, other (confused) HEENT: PERRL, EOMI Neck: No carotid bruit; carotid pulses are 2 + bilaterally Respiratory: other (good air entry, basal coarse crackles) Cardiovascular: irregularly irregular, S1 and S2, systolic murmur Gastrointestinal: soft, distended, audible bowel sounds Extremities: other (RLE with soft brace in place; pitting edema to right foot; brace not removed) Neurologic/Psychiatric: No oriented x 3; other (confused; seems to move all limbs) Skin: No rash on exposed areas, No ulcerations on exposed areas Lymphatic: no adenopathy Data Review Labs Laboratory Tests 11/17/19 19:51: White Blood Count 7.4, Red Blood Count 2.87L, Hemoglobin 8.4L, Hematocrit 29L, Mean Corpuscular Volume 101H, Mean Corpuscular Hemoglobin 29, Mean Corpuscular Hemoglobin Concent 29L, Red Cell Distribution Width 17.6H, Platelet Count 188, Mean Platelet Volume 10.7H, Neutrophils (%) (Auto) 82H, Lymphocytes (%) (Auto) 9L, Monocytes (%) (Auto) 7, Eosinophils (%) (Auto) 2, Basophils (%) (Auto) 0, Neutrophils # (Auto) 6.1, Lymphocytes # (Auto) 0.7L, Monocytes # (Auto) 0.5, Eosinophils # (Auto) 0.1, Basophils # (Auto) 0.0, Neutrophils % (Manual) 76, Lymphocytes % (Manual) 12, Monocytes % (Manual) 8, Eosinophils % (Manual) 2, Bas ophils % (Manual) 1, Band Neutrophils 1, Anisocytosis MODERATE, Macrocytosis SLIGHT, Schistocytes SLIGHT, Prothrombin Time 21.4H, INR Comment 1.8H, Activated Partial Thromboplast Time 31, Sodium Level 135, Potassium Level 4.5, Chloride Level 98, Carbon Dioxide Level 28, Anion Gap 9, Blood Urea Nitrogen 37H, Creatinine 1.38H, Estimat Glomerular Filtration Rate 37, BUN/Creatinine Ratio 27, Glucose Level 162H, Calcium Level 8.8, Corrected Calcium 9.3, Total Bilirubin 0.7, Aspartate Amino Transf (AST/SGOT) 16, Alanine Aminotransferase (ALT/SGPT) 10, Alkaline Phosphatase 86, Total Protein 6.6, Albumin 3.4 11/17/19 20:34: Glucometer 167H 11/18/19 05:08: White Blood Count 7.0, Red Blood Count 3.43L, Hemoglobin 9.8L, Hematocrit 34L, Mean Corpuscular Volume 99, Mean Corpuscular Hemoglobin 29, Mean Corpuscular Hemoglobin Concent 29L, Red Cell Distribution Width 17.6H, Platelet Count 204, Mean Platelet Volume 10.2, Neutrophils (%) (Auto) 72, Lymphocytes (%) (Auto) 17, Monocytes (%) (Auto) 8, Eosinophils (%) (Auto) 2, Basophils (%) (Auto) 0, Neutrophils # (Auto) 5.1, Lymphocytes # (Auto) 1.2, Monocytes # (Auto) 0.6, Eosinophils # (Auto) 0.2, Basophils # (Auto) 0.0, Neutrophils % (Manual) 71, Lymphocytes % (Manual) 21, Monocytes % (Manual) 7, Eosinophils % (Manual) 1, Sodium Level 135, Potassium Level 4.7, Chloride Level 99, Carbon Dioxide Level 29, Anion Gap 7, Blood Urea Nitrogen 38H, Creatinine 1.57H, Estimat Glomerular Filtration Rate 32, BUN/Creatinine Ratio 24, Glucose Level 155H, Calcium Level 8.7, Corrected Calcium 9.3, Total Bilirubin 1.1H, Aspartate Amino Transf (AST/SGOT) 13, Alanine Aminotransferase (ALT/SGPT) 9, Alkaline Phosphatase 81, Total Protein 6.4, Albumin 3.2 11/18/19 05:52: Lactic Acid Level 0.70 11/18/19 08:00: Phosphorus Level 3.4, Magnesium Level 1.7, Ammonia 39H, Troponin I < 0.028 11/18/19 11:19: Glucometer 153H 11/18/19 11:20: Urine Color DARK YELLOW, Urine Clarity TURBID, Urine pH 5.0, Urine Specific [place] >=1.030, Urine Protein 2+H, Urine Glucose (UA) NEGATIVE, Urine Ketones TRACEH, Urine Nitrite NEGATIVE, Urine Bilirubin 1+H, Urine Urobilinogen 1.0, Urine Leukocyte Esterase 2+H, Urine RBC (Auto) 3+H, Urine RBC 10-25H, Urine WBC TNTCH, Urine Crystals NONE, Urine Bacteria LARGEH, Urine Casts NONE, Urine Mucus NEGATIVE, Urine Culture Indicated YES 11/18/19 11:56: Blood Gas Puncture Site LEFT BRACHIAL, Blood Gas Patient Temperature 36.2, Arterial Blood pH 7.29*L, Arterial Blood Partial Pressure CO2 58H, Arterial B lood Partial Pressure O2 87, Arterial Blood HCO3 27, Arterial Blood Total CO2 29.3, Arterial Blood Oxygen Saturation 97, Arterial Blood Base Excess 1.3, Jered Test POSITIVE, Blood Gas Ventilator Setting NO, Blood Gas Inspired Oxygen 1.5 11/18/19 12:06: Lab Scanned Report Transfusion Reaction Form 11/18/19 15:50: Glucometer 227H Laboratory Tests 11/17/19 19:51 11/18/19 05:08 A/P-Cardiology Assessment/Admission Diagnosis Abdominal pain/distension - management per Medical services Confusion and lethargy - management is by the Medical services H/o non-syncopal fall resulting in a right femora, tibia and fibula fracture on 10-01-2020 for which she was transferred to [facility] for repair Chronic systolic/diastolic CHF - clinically compensated Paroxysmal atrial fibrillation which now seems to have become chronic permanent atrial fibrillation Multivessel coronary artery disease for which the patient underwent coronary artery bypass surgery 07/14/2012. This consisted of left internal mammary artery graft to left anterior descending, saphenous vein graft to posterior descending and sequential saphenous vein to ramus intermedius and obtuse marginal. This was carried out at [facility] in [place], [place] by Dr. Juarez. Cardiac cath of 10-19-18 showed [place] CAD consisting of long 80-90% prox and mid vessel stenosis of the LAD, 80-90% stenosis of the prox portion of the RI, and diffuse mod disease of the RCA. Patent left internal mammary artery graft to distal LAD. Patent saphenous vein graft to RI. Chronically occluded saphenous vein graft to RCA. MPI of 16 is indicative of basal inferior infarction with a mod amount of aguila-infarct ischemia. Inferolateral hypokinesis. LVEF approx 46% Maturity onset diabetes mellitus, insulin requiring. Aortic stenosis, for which he has undergone TAVR at [facility] in [place], [place], on 10/10/14, mod dilated LA, mod conc LVH, mod MAC, mild to mod MR, bioprosthetic AoV working adequately, PASP 50-55 mmHg. According to a card that she carries this is an Baird bovine transcatheter valve, 26 mm, model 9300 TFX, in the aortic position Echo of Jun 2019 showed concentric hypertrophy. LVEF 55-60%. LA mod dilated. Mild to mod calcified annulus with mild regurg. Mod TR. RVSP approx 53 mmHg. Known TAVR: adequate function, max gradient 26 mmHg, mean gradient 16 mmHg Chronic rivaroxaban anticoag for stroke prophylaxis Pulmonary HTN, with an estimated PASP of 75mmHg per echo of March 2014. Cardiac cath from July 25, 2014 showed moderate pulmonary HTN with mean pulmonary artery pressure of 33 mmHg and pulmonary vascular resistance of 5.4 Wood units. Echo of Jun 2019 showed PASP 50-55 mmHg Hypertension - somewhat low normal BP CKD stage III Hyperlipidemia currently on statin therapy - followed by Dr. Parkinson Obesity with a body index of 41. Gastroesophageal reflux. Chronic right ankle swelling following ankle fracture several years ago. History of knee replacement surgery in 1999. History of surgery of the femur several years ago. History of knee replacement surgery in 1999. History of surgery on the femur several years ago following fracture. Carotid arterial disease, consisting of 60% stenosis of the right internal carotid and 50% stenosis of the left internal carotid per CT angiography of 05/12/2013. 60-79% bilat stenosis of carotids per u/s of Jun, Incidentally diagnosed 7 mm right thyroid nodule on a CT scan of the carotid. This is being followed by Dr. Parkinson Sleep apnea syndrome - CPAP therapy Anemia of undetermined etiology - Dr Parkinson managing Discussion and Recomendations Complex management due to multiple comorbidities (see above) Permanent a-fib - advise continuation of OAC with Xarelto for stroke prophylaxis Advise continuation of ASA d/t known h/o CAD Monitor lab closely Continue home medications CCB for HR rate control Somewhat low normal BP - monitor Dr Lagos covering Card svce over the weekend Clinical Quality Measures DVT/VTE Risk/Contraindication: Risk Factor Score Per Nursin RFS Level Per Nursing on Admit: 4+=Very High Contraindications-Pharm: Other *list below* ADALBERTO PATEL MD [facility] CCDS Nov 18, 2019 16:52
--- NOTE | 2019-11-18 16:57 | Diagnostic Imaging Report ---
REASON FOR EXAM: Abdominal distention. COMPARISON: 09/16/2020. TECHNIQUE: 3 views of the abdomen FINDINGS: There is continued marked gaseous distention of the colon. The previously placed nasogastric tube is no longer visualized and may have been removed or pulled back. No definite large collections of free intraperitoneal air is seen. The included osseous structures demonstrate no acute abnormalities. IMPRESSION: 1. Continued marked gaseous distention of multiple loops of colon, which may represent colitis. No large collections of free intraperitoneal air are seen. 2. The previously placed nasogastric tube is not visualized on this exam and may have been removed or pulled back. Dictated by: Dictated on workstation # [id number]
[2019-11-18] MEDS ORDERED: RIVAROXABAN 20 MG TABLET (XARELTO) PO SCH (17:00)
[2019-11-18] MEDS: NS IV 1000 ML 1,000 ML IV SCH (18:23)
--- NOTE | 2019-11-18 19:37 | NUR ---
DR. ROJAS NOTIFIED OF BP=99/61 P=78 PT. LETHARGIC. NEW ORDER'S NOTED. BOLUS STARTED.
[2019-11-18] MEDS ORDERED: NS IV ONE (19:45)
[2019-11-18] MEDS ORDERED: NON-FORMULARY MEDICATION 1 EA EA (Dexlansoprazole (Dexilant) 60 MG) PO SCH (21:00)
[2019-11-18] MEDS: meTOproloL SUCCINATE 50 MG (TOPROL XL) TAB PO SCH (21:00)
[2019-11-18] MEDS: ROSUVASTATIN 20 MG (CRESTOR) TABLET PO SCH (22:43)
[2019-11-18] MEDS: PANTOPRAZOLE 40 MG (PROTONIX) TAB PO SCH (22:43)
[2019-11-18] MEDS: DOCUSATE SODIUM 100 MG (COLACE) CAP PO SCH (22:43)
[2019-11-18] MEDS: cefTRIAXone FOR IV USE 1,000 MG in WATER (STERILE) FOR INJECTION 10 ML IV SCH (22:43)
[2019-11-18] MEDS: FERROUS SULF 325 MG (IRON) TAB PO SCH (22:43)
[2019-11-18] MEDS: APIXABAN 5 MG (ELIQUIS) TABLET PO SCH (22:43)
[2019-11-18] MEDS: ONDANSETRON 4 MG (ZOFRAN) ORAL DISSOLVE TAB PO SCH (22:44)
[2019-11-19] VITALS: BP 115/56
[2019-11-19] MEDS: RT-ALBUTEROL/IPRATROPIUM 3 ML (DUONEB) VIAL INH SCH ×6 (02:30→21:14)
[2019-11-19] MEDS: ACETAMINOPHEN 500 MG TAB (TYLENOL) PO PRN (03:50)
[2019-11-19] MEDS: ALPRAZolam 0.25 MG (XANAX) TAB PO PRN ×3 (03:50→16:58)
[2019-11-19 04:00] VITALS: BP 127/54
[2019-11-19] MEDS: inSUlin ASPART (NovoLOG) 1 UNIT/0.01 ML (CHARGE PER UNIT) SC SCH ×4 (05:27→21:30)
[2019-11-19 05:43] LABS: BASOPHILS % (AUTO) 0 % (0-10); EOSINOPHILS # (AUTO) 0.2 10^3/uL (0.0-0.3); EOSINOPHILS % (AUTO) 2 % (0-10); HEMATOCRIT 31 % (35-52); HEMOGLOBIN 9.2 G/DL (11.5-16.0); LYMPHOCYTES # (AUTO) 0.7 X 10^3 (1.0-4.0); LYMPHOCYTES % (AUTO) 9 % (12-44); MEAN CORPUSCULAR HEMOGLOBIN 30 PG (25-34); MEAN CORPUSCULAR HGB CONC 30 G/DL (32-36); MEAN CORPUSCULAR VOLUME 99 FL (80-99); MEAN PLATELET VOLUME 10.9 FL (7.4-10.4); MONOCYTES # (AUTO) 0.6 X 10^3 (0.0-1.0); MONOCYTES % (AUTO) 7 % (0-12); NEUTROPHILS % (AUTO) 82 % (42-75); PLATELET COUNT 200 10^3/uL (130-400); RED CELL DISTRIBUTION WIDTH 17.2 % (10.0-14.5); WHITE BLOOD COUNT 8.5 10^3/uL (4.3-11.0)
[2019-11-19 06:05] LABS: BILIRUBIN,TOTAL 0.7 MG/DL (0.1-1.0); CALCIUM 8.4 MG/DL (8.5-10.1); CREATININE SERUM 1.71 MG/DL (0.60-1.30); POTASSIUM 4.2 MMOL/L (3.6-5.0); TOTAL PROTEIN 5.9 GM/DL (6.4-8.2)
[2019-11-19] MEDS: KCL 20 MEQ TAB (K-DUR) PO SCH (06:51)
[2019-11-19 08:00] VITALS: BP 113/65
[2019-11-19] MEDS: BUMETANIDE 1 MG (BUMEX) TAB PO SCH ×2 (09:07→16:59)
[2019-11-19] MEDS: ASPIRIN 81 MG CHEW (CHILDREN'S ASA) PO SCH (09:47)
[2019-11-19] MEDS: ALLOPURINOL 100 MG (ZYLOPRIM) TAB PO SCH (09:47)
[2019-11-19] MEDS: meTOproloL SUCCINATE 50 MG (TOPROL XL) TAB PO SCH ×3 (09:47→22:40)
--- NOTE | 2019-11-19 09:47 | Diagnostic Imaging Report ---
INDICATION: Pneumonia. Abdominal distention. Comparison made with prior study from 11/18/2019. FINDINGS: When compared to prior examination, there are progressive regions of alveolar infiltrate present within the left upper lung. Background interstitial changes within the lungs are stable. The patient is status post sternotomy. There is stable enlargement of the cardiac silhouette. There has been previous transcatheter aortic valve replacement. No suspicious osseous abnormality is evident. IMPRESSION: Progressive alveolar infiltrates are demonstrated within the left upper lung. Dictated by: Dictated on workstation # [id number]
--- NOTE | 2019-11-19 09:47 | Diagnostic Imaging Report ---
INDICATION: Abdominal distention. TECHNIQUE: 3 supine view of the abdomen 9:25 AM CORRELATION STUDY: 11/18/2019 FINDINGS: There is rather pronounced gaseous distention throughout the gastrointestinal tract. Stomach is rather significantly distended. There is gaseous distention of small bowel. There is gas throughout the colon. Etiology is indeterminate. There does appear to be some gas at the distal colon. The overall severity of the distention appears increased from previous examination. IMPRESSION: 1. Extensive diffuse gaseous distention throughout the gastrointestinal tract. Findings do appear to be somewhat increased in severity from prior study. May reflect rather pronounced generalized ileus. Distal colonic obstruction would be difficult to exclude. Follow-up imaging is recommended. Dictated by: Dictated on workstation # [id number]
[2019-11-19] MEDS: DOCUSATE SODIUM 100 MG (COLACE) CAP PO SCH ×3 (09:48→22:40)
[2019-11-19] MEDS: ONDANSETRON 4 MG (ZOFRAN) ORAL DISSOLVE TAB PO SCH ×3 (09:48→22:30)
[2019-11-19] MEDS: CALCIUM CARB + VIT D 600 MG (CALCARB + D) TAB PO SCH (09:48)
[2019-11-19] MEDS: APIXABAN 5 MG (ELIQUIS) TABLET PO SCH ×3 (09:48→22:40)
[2019-11-19] MEDS: PANTOPRAZOLE 40 MG (PROTONIX) TAB PO SCH ×3 (09:48→22:40)
--- NOTE | 2019-11-19 11:11 | Progress Note ---
Subjective Date Seen by a Provider: Nov 19, 2019 Time Seen by a Provider: 10:30 Subjective/Events-last exam Patient seen with Dr. Guerrero. Patient reports doing she is better and would like to go home. Denies any abdominal pain as well as no N/V. she denies any fever/chills. Reports passing flatus. Tolerating diet. Focused Exam Lactate Level 11/18/19 05:52: Lactic Acid Level 0.70 Objective Exam Vital Signs Date Time Temp Pulse Resp B/P (MAP) Pulse Ox O2 Delivery O2 Flow Rate FiO2 11/19/19 08:05 Nasal Cannula 11/19/19 08:00 36.0 86 18 113/65 (81) 98 Nasal Cannula 0.50 11/19/19 04:00 36.4 79 20 127/54 (78) 98 Nasal Cannula 11/19/19 02:30 93 Nasal Cannula 1.00 11/19/19 00:00 36.4 83 18 115/56 (75) 98 Nasal Cannula 11/18/19 23:12 79 19 98 45.00 11/18/19 20:15 Nasal Cannula 11/18/19 20:15 96/61 (73) 11/18/19 20:00 36.0 75 15 85/49 (61) 84 Nasal Cannula 0.50 11/18/19 18:30 99 Nasal Cannula 1.00 11/18/19 17:11 36.5 60 14 110/52 (71) 97 Room Air 11/18/19 15:58 100 Room Air 11/18/19 12:00 36.3 74 20 92/60 (71) 100 Room Air I & O 11/19/19 07:00 Intake Total 1400 ml Output Total 375 ml Balance 1025 ml Capillary Refill : Less Than 3 SecondsLess Than 3 Seconds General Appearance: No Apparent Distress, WD/WN Neck: Full Range of Motion, Normal Inspection, Supple Respiratory: Normal Breath Sounds, No Accessory Muscle Use, No Respiratory Distress Cardiovascular: Regular Rate, Rhythm, No JVD Gastrointestinal: normal bowel sounds, non tender, soft Extremity: Normal Capillary Refill, Normal Inspection, Normal Range of Motion Neurologic/Psychiatric: Alert, Oriented x3 Skin: Normal Color, Warm/Dry Results Lab Laboratory Tests 11/18/19 11:19: Glucometer 153H 11/18/19 11:20: Urine Color DARK YELLOW, Urine Clarity TURBID, Urine pH 5.0, Urine Specific [place] >=1.030, Urine Protein 2+H, Urine Glucose (UA) NEGATIVE, Urine Ketones TRACEH, Urine Nitrite NEGATIVE, Urine Bilirubin 1+H, Urine Urobilinogen 1.0, Urine Leukocyte Esterase 2+H, Urine RBC (Auto) 3+H, Urine RBC 10-25H, Urine WBC TNTCH, Urine Crystals NONE, Urine Bacteria LARGEH, Urine Casts NONE, Urine Mucus NEGATIVE, Urine Culture Indicated YES 11/18/19 11:56: Blood Gas Puncture Site LEFT BRACHIAL, Blood Gas Patient Temperature 36.2, Arterial Blood pH 7.29*L, Arterial Blood Partial Pressure CO2 58H, Arterial Blood Partial Pressure O2 87, Arterial Blood HCO3 27, Arterial Blood Total CO2 29.3, Arterial Blood Oxygen Saturation 97, Arterial Blood Base Excess 1.3, Jered Test POSITIVE, Blood Gas Ventilator Setting NO, Blood Gas Inspired Oxygen 1.5 11/18/19 12:06: Lab Scanned Report Transfusion Reaction Form 11/18/19 15:50: Glucometer 227H 11/18/19 19:43: Glucometer 146H 11/19/19 05:23: White Blood Count 8.5, Red Blood Count 3.07L, Hemoglobin 9.2L, Hematocrit 31L, Mean Corpuscular Volume 99, Mean Corpuscular Hemoglobin 30, Mean Corpuscular Hemoglobin Concent 30L, Red Cell Distribution Width 17.2H, Platelet Count 200, Mean Platelet Volume 10.9H, Neutrophils (%) (Auto) 82H, Lymphocytes (%) (Auto) 9L, Monocytes (%) (Auto) 7, Eosinophils (%) (Auto) 2, Basophils (%) (Auto) 0, Neutrophils # (Auto) 7.0, Lymphocytes # (Auto) 0.7L, Monocytes # (Auto) 0.6, Eosinophils # (Auto) 0.2, Basophils # (Auto) 0.0, Sodium Level 133L, Potassium Level 4.2, Chloride Level 99, Carbon Dioxide Level 22, Anion Gap 12, Blood Urea Nitrogen 42H, Creatinine 1.71H, Estimat Glomerular Filtration Rate 29, BUN/Creatinine Ratio 25, Glucose Level 169H, Calcium Level 8.4L, Corrected Calcium 9.2, Total Bilirubin 0.7, Aspartate Amino Transf (AST/SGOT) 12, Alanine Aminotransferase (ALT/SGPT) 10, Alkaline Phosphatase 71, Total Protein 5.9L, Albumin 3.0L 11/19/19 05:24: Glucometer 181H Microbiology 11/18/19 Urine Culture - Preliminary, Resulted Enterococcus species Assessment/Plan Assessment/Plan Assess & Plan/Chief Complaint A 79 year old female with ileus, Left lower lobe pneumonia, Renal insufficiency, Normocytic Anemia, Diabetes. VSS Patient tolerating diet Abdominal x-ray showed to be worse this AM but patient clinically appears better. Will continue to monitor. Clinical Quality Measures DVT/VTE Risk/Contraindication: Risk Factor Score Per Nursin RFS Level Per Nursing on Admit: 4+=Very High Contraindications-Pharm: Other *list below* DAWN LOPES APRN Nov 19, 2019 11:11
[2019-11-19] MEDS: LORazepam INJ 2 MG/ML (ATIVAN) VIAL IVP PRN ×3 (11:18→21:30)
--- NOTE | 2019-11-19 11:21 | NUR ---
PT IS VERY CONFUSED ND WANTS TO GO HOME -- DR SKY IS AWARE AND DR CHAVEZ IS AWARE -- PT VOICED SHE WOULD CONTINUE TO YELL OUT I WANT TO GO HOME -- GIVEN IV PRN ATIVAN 1 MG FOR AGITATION
--- NOTE | 2019-11-19 11:57 | Progress Note ---
Subjective Date Seen by a Provider: Nov 19, 2019 Time Seen by a Provider: 11:52 Subjective/Events-last exam Fwup Ileus, UTI, pneumonia. Drowsy from ativan--has been agitated this morning wanting to go home. Denies abdominal pain. Some cough. Focused Exam Lactate Level 11/18/19 05:52: Lactic Acid Level 0.70 Objective Exam Vital Signs Date Time Temp Pulse Resp B/P (MAP) Pulse Ox O2 Delivery O2 Flow Rate FiO2 11/19/19 08:05 Nasal Cannula 11/19/19 08:00 36.0 86 18 113/65 (81) 98 Nasal Cannula 0.50 11/19/19 04:00 36.4 79 20 127/54 (78) 98 Nasal Cannula 11/19/19 02:30 93 Nasal Cannula 1.00 11/19/19 00:00 36.4 83 18 115/56 (75) 98 Nasal Cannula 11/18/19 23:12 79 19 98 45.00 11/18/19 20:15 Nasal Cannula 11/18/19 20:15 96/61 (73) 11/18/19 20:00 36.0 75 15 85/49 (61) 84 Nasal Cannula 0.50 11/18/19 18:30 99 Nasal Cannula 1.00 11/18/19 17:11 36.5 60 14 110/52 (71) 97 Room Air 11/18/19 15:58 100 Room Air 11/18/19 12:00 36.3 74 20 92/60 (71) 100 Room Air I & O 11/19/19 07:00 Intake Total 1400 ml Output Total 375 ml Balance 1025 ml Capillary Refill : Less Than 3 SecondsLess Than 3 Seconds General Appearance: No Apparent Distress (drowsy) Respiratory: Lungs Clear, Decreased Breath Sounds Cardiovascular: Regular Rate, Rhythm, Systolic Murmur Gastrointestinal: soft, abnormal bowel sounds, distended Extremity: Non Tender, No Calf Tenderness, Pedal Edema (2plus) Neurologic/Psychiatric: Alert, Oriented x3 Skin: Warm/Dry Results Lab Laboratory Tests 11/18/19 11:56: Blood Gas Puncture Site LEFT BRACHIAL, Blood Gas Patient Temperature 36.2, Arterial Blood pH 7.29*L, Arterial Blood Partial Pressure CO2 58H, Arterial Blood Partial Pressure O2 87, Arterial Blood HCO3 27, Arterial Blood Total CO2 29.3, Arterial Blood Oxygen Saturation 97, Arterial Blood Base Excess 1.3, Jered Test POSITIVE, Blood Gas Ventilator Setting NO, Blood Gas Inspired Oxygen 1.5 11/18/19 12:06: Lab Scanned Report Transfusion Reaction Form 11/18/19 15:50: Glucometer 227H 11/18/19 19:43: Glucometer 146H 11/19/19 05:23: White Blood Count 8.5, Red Blood Count 3.07L, Hemoglobin 9.2L, Hematocrit 31L, Mean Corpuscular Volume 99, Mean Corpuscular Hemoglobin 30, Mean Corpuscular Hemoglobin Concent 30L, Red Cell Distribution Width 17.2H, Platelet Count 200, Mean Platelet Volume 10.9H, Neutrophils (%) (Auto) 82H, Lymphocytes (%) (Auto) 9L, Monocytes (%) (Auto) 7, Eosinophils (%) (Auto) 2, Basophils (%) (Auto) 0, Neutrophils # (Auto) 7.0, Lymphocytes # (Auto) 0.7L, Monocytes # (Auto) 0.6, Eosinophils # (Auto) 0.2, Basophils # (Auto) 0.0, Sodium Level 133L, Potassium Level 4.2, Chloride Level 99, Carbon Dioxide Level 22, Anion Gap 12, Blood Urea Nitrogen 42H, Creatinine 1.71H, Estimat Glomerular Filtration Rate 29, BUN/Creatinine Ratio 25, Glucose Level 169H, Calcium Level 8.4L, Corrected Calcium 9.2, Total Bilirubin 0.7, Aspartate Amino Transf (AST/SGOT) 12, Alanine Aminotransferase (ALT/SGPT) 10, Alkaline Phosphatase 71, Total Protein 5.9L, Albumin 3.0L 11/19/19 05:24: Glucometer 181H 11/19/19 10:59: Glucometer 177H Microbiology 11/18/19 Urine Culture - Preliminary, Resulted Enterococcus species Assessment/Plan Assessment/Plan Assess & Plan/Chief Complaint 1. Ileus--patient denies pain, states is passing gas, abdomen distended with worsening x-ray, surgery managing 2. UTI--on rocephin 3. Pneumonia--on rocephin/zithromax 4. Acute Renal Failure--on IVFs and has UTI, will check tomorrow 5. Edema--lasix x1 Clinical Quality Measures DVT/VTE Risk/Contraindication: Risk Factor Score Per Nursin RFS Level Per Nursing on Admit: 4+=Very High Contraindications-Pharm: Other *list below* ANUSHA CHAVEZ DO Nov 19, 2019 11:56
[2019-11-19] MEDS ORDERED: FUROSEMIDE 40 MG/4 ML INJ (LASIX) IVP NR (12:00)
--- NOTE | 2019-11-19 12:10 | Cardiology Progress Note ---
Subjective Date Seen by Provider: Nov 19, 2019 Time Seen by Provider: 12:06 Subjective/Events-last exam Patient is laying down in bed, lethargic. No chest pain, no significant dyspnea. Review of Systems General: No Chills, No Night Sweats; Fatigue, Malaise; No Appetite, No Other HEENT: No Head Aches, No Visual Changes, No Eye Pain, No Ear Pain, No Dysphasia, No Sinus Congestion, No Post Nasal Drip, No Sore Throat, No Other Pulmonary: No Dyspnea, No Cough, No Pleuritic Chest Pain, No Other Cardiovascular: No: Chest Pain, Palpitations, Orthopnea, Paroxysmal Noc. Dyspnea, Edema, Lt Headedness, Other Focused Exam Lactate Level 11/18/19 05:52: Lactic Acid Level 0.70 Objective-Cardiology Exam Last Set of Vital Signs Vital Signs 11/19/19 11/19/19 08:00 08:05 Temp 36.0 Pulse 86 Resp 18 B/P (MAP) 113/65 (81) Pulse Ox 98 O2 Delivery Nasal Cannula O2 Flow Rate 0.50 Capillary Refill : Less Than 3 SecondsLess Than 3 Seconds I&O Intake and Output 11/19/19 00:00 Intake Total 970 ml Output Total 600 ml Balance 370 ml Intake Oral 700 ml Other 270 ml Output Urine Total 600 ml # Bowel Movements 1 General: Alert, Oriented X3, Cooperative HEENT: Atraumatic, PERRLA Neck: Supple, No JVD, No Thyromegaly Lungs: Clear to Auscultation, Normal Air Movement Heart: Regular Rate, Normal S1, Normal S2, No Murmurs Abdomen: Normal Bowel Sounds, Soft, No Tenderness, No Hepatosplenomegaly, No Masses Extremities: No Clubbing, No Cyanosis, No Edema, Normal Pulses, No Ten derness/Swelling Skin: No Rashes, No Breakdown, No Significant Lesion Neuro: Normal Speech, Normal Tone, Sensation Intact Psych/Mental Status: Mood NL Results Lab Laboratory Tests 11/19/19 05:23 A/P-Cardiology Admission Diagnosis Pneumonia UTI Coronary artery disease Hypertension Assessment/Plan Coronary artery disease, multivessel disease, history of CABG, last cardiac catheterization was done in October 2018 showing patent ARNDT to LAD and vein graft to the ramus intermedius, chronically occluded vein graft to the right coronary artery. Pneumonia, UTI, receiving antibiotic, managed by primary care team Aortic valve stenosis, history of TAVR done at [place] in [facility] in October 2014. Persistent atrial fibrillation maintained on oral anticoagulation Abdominal pain and distention, managed by medical team. Hypertension, continue to monitor blood pressure CKD stage III, continue to monitor renal function Hyperlipidemia currently on statin therapy - followed by Dr. Parkinson Obesity with a body index of 41. Gastroesophageal reflux. Chronic right ankle swelling following ankle fracture several years ago. History of knee replacement surgery in 1999. History of surgery of the femur several years ago. History of knee replacement surgery in 1999. History of surgery on the femur several years ago following fracture. Carotid arterial disease, consisting of 60% stenosis of the right internal carotid and 50% stenosis of the left internal carotid per CT angiography of 05/12/2013. 60-79% bilat stenosis of carotids per u/s of Jun, Incidentally diagnosed 7 mm right thyroid nodule on a CT scan of the carotid. This is being followed by Dr. Parkinson Sleep apnea syndrome - CPAP therapy Clinical Quality Measures DVT/VTE Risk/Contraindication: Risk Factor Score Per Nursin RFS Level Per Nursing on Admit: 4+=Very High Contraindications-Pharm: Other *list below* JOHN CHO MD Nov 19, 2019 12:10
[2019-11-19] MEDS ORDERED: PATIENT MAY USE OWN MEDS, ALL PO SCH (13:00)
--- NOTE | 2019-11-19 14:14 | NUR ---
PT HAS INCREASED CONFUSION AND CONTINUES TO YELL OUT THAT SHE WANTS TO GO HOME AND THEN CHANGED TO I WANT MY ROOM THIS IS THE WRONG FLOOR AND CURSING AT STAFF -- SHE REFUSED TO TAKE XANAX PRN -- AND THREW HER WATER AT STAFF -- SHE MISSED AND DID GET SOME ON HER AND ALL OVER THE FLOOR -- SHE REFUSED AT THIS TIME TO LET STAFF CHANGE HER -- HER SON WAS CALLED AND HE WILL BE TO FLOOR AND ROOM TO TALK TO PT -- STAVE PLANER TENDER IS AWARE
--- NOTE | 2019-11-19 14:42 | NUR ---
SON ON FLOOR AND IN TALKING WITH HIS MOTHER --
[2019-11-19 16:00] VITALS: BP_SYST 102; BP_SYST 164; BP_DIAS 66; BP_DIAS 82
--- NOTE | 2019-11-19 16:06 | NUR ---
PT GOT MORE CONFUSED AND CURSING AT HER SONS AND THE FAMILY LEFT -- VOICED TO USE IV ATIVAN IF WE NEEDED- PT VERY AGITATED AND PULLED HER GOWN OFF AND PULLED HER O2 OFF -- SHE REFUSED TO PUT EITHER BACK ON -- GAVE HER 2ND DOSE OF IV ATIVAN 1 MG PER PRN ORDERS -- PT VOICED WANTING TO LEAVE AND THAT SHE WANTED TO GO HOME -- TRIED TO REORIENTED HER TO PLACE AND REASON SHE WAS HERE -- PT MORE CONFUSED AND CURSING STAFF AND VOICED IF SHE HAD SOMETHING SHE WOULD THROW I AT US -- IV ATIVAN 1MG GIVEN PER PRN -- AND DR CHAVEZ WAS CALLED AND MESSAGE LEFT ABOUT NEED FOR ADDITIONAL ANXIETY MEDS PRN -- SHE SHAHID BACK SHE WOULD ADDRESS
[2019-11-19] MEDS ORDERED: FUROSEMIDE 40 MG/4 ML INJ (LASIX) IVP SCH (17:00)
--- NOTE | 2019-11-19 21:30 | NUR ---
pt yelling out and taking gown off, hitting at staff when they attempt to put clothes or cover her body with linens, refusing po meds, spits water and slaps at pills. IV Ativan given.
[2019-11-19] MEDS: FERROUS SULF 325 MG (IRON) TAB PO SCH (22:24)
[2019-11-19] MEDS: cefTRIAXone FOR IV USE 1,000 MG in WATER (STERILE) FOR INJECTION 10 ML IV SCH (22:24)
[2019-11-19] MEDS: ROSUVASTATIN 20 MG (CRESTOR) TABLET PO SCH ×2 (22:24→22:40)
[2019-11-19] MEDS: NS IV 1000 ML 1,000 ML IV SCH (22:31)
--- NOTE | 2019-11-19 22:40 | NUR ---
pt resting quietly, 2nd attempt at giving meds. pt turning head away and slapping at water glass, HS meds not given tonight.
[2019-11-20] VITALS: BP 109/56
[2019-11-20] MEDS: RT-ALBUTEROL/IPRATROPIUM 3 ML (DUONEB) VIAL INH SCH ×6 (02:17→21:37)
[2019-11-20 06:35] LABS: BASOPHILS % (AUTO) 0 % (0-10); EOSINOPHILS # (AUTO) 0.1 10^3/uL (0.0-0.3); EOSINOPHILS % (AUTO) 1 % (0-10); HEMATOCRIT 34 % (35-52); HEMOGLOBIN 10.3 G/DL (11.5-16.0); LYMPHOCYTES % (AUTO) 11 % (12-44); MEAN CORPUSCULAR HEMOGLOBIN 31 PG (25-34); MEAN CORPUSCULAR HGB CONC 31 G/DL (32-36); MEAN CORPUSCULAR VOLUME 99 FL (80-99); MEAN PLATELET VOLUME 10.4 FL (7.4-10.4); MONOCYTES # (AUTO) 0.8 X 10^3 (0.0-1.0); MONOCYTES % (AUTO) 9 % (0-12); NEUTROPHILS % (AUTO) 79 % (42-75); PLATELET COUNT 228 10^3/uL (130-400); RED CELL DISTRIBUTION WIDTH 17.4 % (10.0-14.5); WHITE BLOOD COUNT 8.8 10^3/uL (4.3-11.0)
[2019-11-20] MEDS: inSUlin ASPART (NovoLOG) 1 UNIT/0.01 ML (CHARGE PER UNIT) SC SCH ×4 (06:36→21:35)
[2019-11-20 06:55] LABS: ALBUMIN 3.2 GM/DL (3.2-4.5); BILIRUBIN,TOTAL 0.7 MG/DL (0.1-1.0); CALCIUM 8.6 MG/DL (8.5-10.1); CREATININE SERUM 2.06 MG/DL (0.60-1.30); MAGNESIUM 1.7 MG/DL (1.6-2.4); POTASSIUM 5.1 MMOL/L (3.6-5.0); TOTAL PROTEIN 6.4 GM/DL (6.4-8.2)
[2019-11-20] MEDS: KCL 20 MEQ TAB (K-DUR) PO SCH (07:00)
[2019-11-20 08:00] VITALS: BP 99/64
[2019-11-20] MEDS: BUMETANIDE 1 MG (BUMEX) TAB PO SCH ×2 (08:00→16:47)
[2019-11-20] MEDS: ASPIRIN 81 MG CHEW (CHILDREN'S ASA) PO SCH (09:00)
[2019-11-20] MEDS: ALLOPURINOL 100 MG (ZYLOPRIM) TAB PO SCH (09:00)
[2019-11-20] MEDS: DOCUSATE SODIUM 100 MG (COLACE) CAP PO SCH ×2 (09:00→21:34)
[2019-11-20] MEDS: APIXABAN 5 MG (ELIQUIS) TABLET PO SCH ×2 (09:00→21:34)
[2019-11-20] MEDS: ONDANSETRON 4 MG (ZOFRAN) ORAL DISSOLVE TAB PO SCH ×3 (09:00→21:35)
[2019-11-20] MEDS: meTOproloL SUCCINATE 50 MG (TOPROL XL) TAB PO SCH ×2 (09:00→21:35)
[2019-11-20] MEDS ORDERED: HYDROCHLOROTHIAZIDE 25 MG (HCTZ) TAB PO SCH (09:00)
[2019-11-20] MEDS: PANTOPRAZOLE 40 MG (PROTONIX) TAB PO SCH ×2 (09:00→21:34)
[2019-11-20] MEDS: CALCIUM CARB + VIT D 600 MG (CALCARB + D) TAB PO SCH (09:00)
--- NOTE | 2019-11-20 10:04 | Cardiology Progress Note ---
Subjective Date Seen by Provider: Nov 20, 2019 Time Seen by Provider: 10:02 Subjective/Events-last exam Patient is sleeping, received Ativan, was very agitated and combative, refusing medication Review of Systems General: Other (Unable to provide review of systems) Focused Exam Lactate Level 11/18/19 05:52: Lactic Acid Level 0.70 Objective-Cardiology Exam Last Set of Vital Signs Vital Signs 11/20/19 11/20/19 00:00 09:48 Temp 36.8 Pulse 124 Resp 24 B/P (MAP) 109/56 (73) Pulse Ox 95 O2 Delivery Nasal Cannula O2 Flow Rate 3.00 Capillary Refill : Less Than 3 SecondsLess Than 3 Seconds I&O Intake and Output 11/20/19 00:00 Intake Total 1960 ml Output Total 725 ml Balance 1235 ml Intake Oral 1960 ml Output Urine Total 725 ml General: Other (Sedated, received Ativan) HEENT: Atraumatic, PERRLA Neck: Supple, No JVD, No Thyromegaly Lungs: Clear to Auscultation, Normal Air Movement Heart: Regular Rate, Normal S1, Normal S2, No Murmurs Abdomen: Normal Bowel Sounds, Soft, No Tenderness, No Hepatosplenomegaly, No Masses Extremities: No Clubbing, No Cyanosis, No Edema, Normal Pulses, No Tenderness/Swelling Skin: No Rashes, No Breakdown, No Significant Lesion Psych/Mental Status: Other (Agitated and confused) Results Lab Laboratory Tests 11/20/19 06:25 A/P-Cardiology Admission Diagnosis Pneumonia UTI Coronary artery disease Hypertension Assessment/Plan Agitation, confusion, probably hypoxemia, combative and refusing all medication, refusing BiPAP, managed by primary care team. Persistent atrial fibrillation, tachycardia, refusing to take her medications. Coronary artery disease, multivessel disease, history of CABG, last cardiac catheterization was done in October 2018 showing patent ARNDT to LAD and vein graft to the ramus intermedius, chronically occluded vein graft to the right coronary artery. Pneumonia, UTI, receiving antibiotic, managed by primary care team Aortic valve stenosis, history of TAVR done at [place] in [facility] in October 2014. Abdominal pain and distention, managed by medical team. Hypertension, continue to monitor blood pressure CKD stage III, continue to monitor renal function Hyperlipidemia currently on statin therapy - followed by Dr. Gellender Obesity with a body index of 41. Gastroesophageal reflux. Chronic right ankle swelling following ankle fracture several years ago. History of knee replacement surgery in 2000. History of surgery of the femur several years ago. History of knee replacement surgery in 1999. History of surgery on the femur several years ago following fracture. Carotid arterial disease, consisting of 60% stenosis of the right internal carotid and 50% stenosis of the left internal carotid per CT angiography of 05/12/2013. 60-79% bilat stenosis of carotids per u/s of Jun, Incidentally diagnosed 7 mm right thyroid nodule on a CT scan of the carotid. This is being followed by Dr. Parkinson Sleep apnea syndrome - CPAP therapy Clinical Quality Measures DVT/VTE Risk/Contraindication: Risk Factor Score Per Nursin RFS Level Per Nursing on Admit: 4+=Very High Contraindications-Pharm: Other *list below* JOHN COH MD Nov 20, 2019 10:04
--- NOTE | 2019-11-20 10:06 | Progress Note ---
Subjective Date Seen by a Provider: Nov 20, 2019 Time Seen by a Provider: 09:40 Subjective/Events-last exam Patient seen with Dr. Guerrero. Patient lying in bed with gown off and sheets over her. Patient appears sedated and does not answer questions, just mumbles. RN reports patient has been non-compliant and not taking medications and refusing breathing treatments as well as trying to hit staff. Patient keeps telling RN that she just wants to go home. Focused Exam Lactate Level 11/18/19 05:52: Lactic Acid Level 0.70 Objective Exam Vital Signs Date Time Temp Pulse Resp B/P (MAP) Pulse Ox O2 Delivery O2 Flow Rate FiO2 11/20/19 09:48 95 Nasal Cannula 3.00 11/20/19 08:00 Nasal Cannula 2.00 11/20/19 02:17 Room Air 11/20/19 00:00 36.8 124 24 109/56 (73) 94 Nasal Cannula 0.50 11/19/19 20:15 Nasal Cannula 11/19/19 18:26 Room Air 11/19/19 16:00 36.2 68 15 102/66 (78) 83 Nasal Cannula 0.50 I & O 11/20/19 07:00 Intake Total 1260 ml Output Total 675 ml Balance 585 ml Capillary Refill : Less Than 3 SecondsLess Than 3 Seconds General Appearance: No Apparent Distress, WD/WN Neck: Normal Inspection, Supple Respiratory: Normal Breath Sounds, No Accessory Muscle Use, No Respiratory Distress Cardiovascular: Regular Rate, Rhythm, No Murmur Gastrointestinal: non tender, distended (mild) Extremity: Normal Capillary Refill, Swelling (bilat) Neurologic/Psychiatric: Other (sedated) Skin: Normal Color, Warm/Dry Results Lab Laboratory Tests 11/19/19 10:59: Glucometer 177H 11/19/19 15:52: Glucometer 179H 11/19/19 17:20: Ammonia 28 11/19/19 20:39: Glucometer 165H 11/20/19 06:25: White Blood Count 8.8, Red Blood Count 3.37L, Hemoglobin 10.3L, Hematocrit 34L, Mean Corpuscular Volume 99, Mean Corpuscular Hemoglobin 31, Mean Corpuscular He moglobin Concent 31L, Red Cell Distribution Width 17.4H, Platelet Count 228, Mean Platelet Volume 10.4, Neutrophils (%) (Auto) 79H, Lymphocytes (%) (Auto) 11L, Monocytes (%) (Auto) 9, Eosinophils (%) (Auto) 1, Basophils (%) (Auto) 0, Neutrophils # (Auto) 7.0, Lymphocytes # (Auto) 1.0, Monocytes # (Auto) 0.8, E osinophils # (Auto) 0.1, Basophils # (Auto) 0.0, Sodium Level 132L, Potassium Level 5.1H, Chloride Level 98, Carbon Dioxide Level 23, Anion Gap 11, Blood Urea Nitrogen 46H, Creatinine 2.06H, Estimat Glomerular Filtration Rate 23, BUN/Creatinine Ratio 22, Glucose Level 184H, Calcium Level 8.6, Corrected Calcium 9.2, Magnesium Level 1.7, Total Bilirubin 0.7, Aspartate Amino Transf (AST/SGOT) 16, Alanine Aminotransferase (ALT/SGPT) 10, Alkaline Phosphatase 75, Total Protein 6.4, Albumin 3.2, Triglycerides Level 101, Cholesterol Level 77, LDL Cholesterol Direct 34, VLDL Cholesterol 20, HDL Cholesterol 19L 11/20/19 06:29: Glucometer 182H Microbiology 11/18/19 Urine Culture - Preliminary, Resulted Enterococcus faecalis Assessment/Plan Assessment/Plan Assess & Plan/Chief Complaint A 79 year old female with ileus, Left lower lobe pneumonia, Renal insufficiency, Normocytic Anemia, Diabetes. VSS Patient being non-compliant and appears sedated Abdominal x-ray showed to be worse yesterday but patient clinically appeared better, however sedated this AM and unable to obtain KUB. Will proceed with placement of rectal tube for decompression. Will continue to monitor. Clinical Quality Measures DVT/VTE Risk/Contraindication: Risk Factor Score Per Nursin RFS Level Per Nursing on Admit: 4+=Very High Contraindications-Pharm: Other *list below* DAWN LOPES APRN Nov 20, 2019 10:06
[2019-11-20] MEDS ORDERED: meTOprolol 5 MG/5 ML (LOPRESSOR) VIAL IV NR (10:15)
--- NOTE | 2019-11-20 10:45 | Progress Note ---
Subjective Date Seen by a Provider: Nov 20, 2019 Time Seen by a Provider: 10:38 Subjective/Events-last exam Fwup Ileus, UTI, pneumonia. Patient has been very agitated and violent--hitting at staff, pulling off oxygen and at IV lines, pulled out NG tube, throwing water. Drowsy this morning from ativan. I tried to contact both daughter and son listed in chart as contact but no answer with either of them. Focused Exam Lactate Level 11/18/19 05:52: Lactic Acid Level 0.70 Objective Exam Vital Signs Date Time Temp Pulse Resp B/P (MAP) Pulse Ox O2 Delivery O2 Flow Rate FiO2 11/20/19 09:48 95 Nasal Cannula 3.00 11/20/19 08:00 Nasal Cannula 2.00 11/20/19 02:17 Room Air 11/20/19 00:00 36.8 124 24 109/56 (73) 94 Nasal Cannula 0.50 11/19/19 20:15 Nasal Cannula 11/19/19 18:26 Room Air 11/19/19 16:00 36.2 68 15 102/66 (78) 83 Nasal Cannula 0.50 I & O 11/20/19 07:00 Intake Total 1260 ml Output Total 675 ml Balance 585 ml Capillary Refill : Less Than 3 SecondsLess Than 3 Seconds General Appearance: Mild Distress (when aroused) Respiratory: Decreased Breath Sounds Cardiovascular: Regular Rate, Rhythm Gastrointestinal: abnormal bowel sounds, distended Neurologic/Psychiatric: Other (drowsy) Skin: Warm/Dry Results Lab Laboratory Tests 11/19/19 10:59: Glucometer 177H 11/19/19 15:52: Glucometer 179H 11/19/19 17:20: Ammonia 28 11/19/19 20:39: Glucometer 165H 11/20/19 06:25: White Blood Count 8.8, Red Blood Count 3.37L, Hemoglobin 10.3L, Hematocrit 34L, Mean Corpuscular Volume 99, Mean Corpuscular Hemoglobin 31, Mean Corpuscular Hemoglobin Concent 31L, Red Cell Distribution Width 17.4H, Platelet Count 228, Mean Platelet Volume 10.4, Neutrophils (%) (Auto) 79H, Lymphocytes (%) (Auto) 11L, Monocytes (%) (Auto) 9, Eosinophils (%) (Auto) 1, Basophils (%) (Auto) 0, Neutrophils # (Auto) 7.0, Lymphocytes # (Auto) 1.0, Monocytes # (Auto) 0.8, Eosinophils # (Auto) 0.1, Basophils # (Auto) 0.0, Sodium Level 132L, Potassium Level 5.1H, Chloride Level 98, Carbon Dioxide Level 23, Anion Gap 11, Blood Urea Nitrogen 46H, Creatinine 2.06H, Estimat Glomerular Filtration Rate 23, BUN/Creatinine Ratio 22, Glucose Level 184H, Calcium Level 8.6, Corrected Calcium 9.2, Magnesium Level 1.7, Total Bilirubin 0.7, Aspartate Amino Transf (AST/SGOT) 16, Alanine Aminotransferase (ALT/SGPT) 10, Alkaline Phosphatase 75, Total Protein 6.4, Albumin 3.2, Triglycerides Level 101, Cholesterol Level 77, LDL Cholesterol Direct 34, VLDL Cholesterol 20, HDL Cholesterol 19L 11/20/19 06:29: Glucometer 182H Microbiology 11/18/19 Urine Culture - Preliminary, Resulted Enterococcus faecalis Assessment/Plan Assessment/Plan Assess & Plan/Chief Complaint 1. Ileus--distended with hypoactive bowel sounds, surgery managing but difficult care as patient refuses and has pulled out NG tube and repeat imaging has not been able to be accomplished due to her aggressive behavior 2. UTI--Enterococcus is preliminary, change abx to meropenem due to worsening kidney function and worsening agitation 3. Pneumonia--change to meropenem 4. Acute Renal Failure--increase IVFs and recheck tomorrow 5. Agitation--using ativan prn and resting this morning Prognosis is very poor and guarded--tried to contact family to discuss as patient is a full code and treatment has been limited by her behavior Clinical Quality Measures DVT/VTE Risk/Contraindication: Risk Factor Score Per Nursin RFS Level Per Nursing on Admit: 4+=Very High Contraindications-Pharm: Other *list below* ANUSHA CHAVEZ DO Nov 20, 2019 10:45
[2019-11-20] MEDS: AZITHROMYCIN INJECTION 250 MG in NS (IVPB) 250 ML IV SCH (10:49)
[2019-11-20] MEDS: LORazepam INJ 2 MG/ML (ATIVAN) VIAL IVP PRN (11:22)
--- NOTE | 2019-11-20 11:22 | NUR ---
RECTAL GAS RELEASE TUBE INSERT PER DR SKY'S ORDERS -- PT WAS GIVEN IV ATIVAN 1MG PRIOR DUE TO HER CONTINUED AGITATION AND YELL OUT - SHE CONTINUES TO REMOVE HER GOWN AND PULLS OFF SHEET AND BLANKET -- AT TIMES SHE PULLS HER O2 OFF AND PULLS AT IV TUBING -- STAFF IS MONITORING HER
[2019-11-20] MEDS: MEROPENEM 500 MG in WATER (STERILE) FOR INJECTION 10 ML IV SCH ×2 (12:10→18:58)
[2019-11-20] MEDS: NS IV 1000 ML 1,000 ML IV SCH ×5 (14:34→20:25)
[2019-11-20 16:11] VITALS: BP 93/60
[2019-11-20] MEDS: ROSUVASTATIN 20 MG (CRESTOR) TABLET PO SCH (21:34)
[2019-11-20] MEDS: FERROUS SULF 325 MG (IRON) TAB PO SCH (21:34)
[2019-11-21] VITALS (11 sets, daily range): BP systolic 80–110; BP diastolic 36–80
[2019-11-21] MEDS: LORazepam INJ 2 MG/ML (ATIVAN) VIAL IVP PRN (00:15)
[2019-11-21] MEDS: RT-ALBUTEROL/IPRATROPIUM 3 ML (DUONEB) VIAL INH SCH ×2 (03:10→07:51)
[2019-11-21] MEDS: NS IV 1000 ML 1,000 ML IV SCH (03:16)
[2019-11-21] MEDS: MEROPENEM 500 MG in WATER (STERILE) FOR INJECTION 10 ML IV SCH (03:16)
[2019-11-21] MEDS ORDERED: fentaNYL INJECTION 100 MCG/2 ML AMP ONE (03:42)
[2019-11-21] MEDS ORDERED: fentaNYL INJECTION 100 MCG/2 ML AMP IVP STA (03:43)
[2019-11-21] MEDS ORDERED: LORazepam INJ 2 MG/ML (ATIVAN) VIAL IVP STA (03:43)
[2019-11-21] MEDS ORDERED: fentaNYL INJECTION 100 MCG/2 ML AMP IVP PRN (03:45)
[2019-11-21] MEDS ORDERED: NALOXONE 0.4 MG/ML 1 ML (NARCAN) VIAL ONE ×2 (03:53→03:59)
--- NOTE | 2019-11-21 03:56 | NUR ---
0339 CALL TO KATHY TO NOTIFY OF THE FOLLOWING: PT CONTINUES TO CALL OUT. PT HAS BEEN REPOSITIONED, [facility] C[facility] HAS BEEN COMPLETED, ALONG WITH ORAL CARE. UNABLE TO GIVE IV ATIVAN AT THIS TIME DUE TO MEDICATION ORDERED Q4H; ONLY 3 HOURS HAVE PASSED SINCE LAST DOSE. PT ALSO CONTINUES TO PULL AT HER LINES. HER MIDLINE IN THE RIGHT UPPER ARM HAS BEEN RE-DRESSED AND REINFORCED. KATHY RESPONDS, "GIVE HER 1MG ATIVAN X1 NOW AND 2MG HALDOL IM X1 NOW. DOES THE PT HAVE ANYTHING FOR PAIN? COULD HER BEHAVIOR BE DUE TO PAIN?" THIS RN RESPONDS, "SHE DOES HAVE A FRACTURED RIGHT LEG. WE HAVE NOTHING ON THE EMAR FOR PAIN AT THIS TIME." KATHY THEN STATES, "OK, INSTEAD OF THE 2MG HALDOL, LETS GIVE 25MCG OF FENTANYL X1 NOW THEN Q4H PRN FOR PAIN." THIS RN THEN READS BACK THE ORDER STATING, "GIVE 1MG ATIVAN X1 NOW AND GIVE 25MCG FENTANYL X1 NOW. THEN SHE CAN HAVE 25MCG Q4H PRN FOR PAIN." KATHY RESPONDS, "YES." 0350 25MCG FENTANYL GIVEN IV PUSH. RN REMAINS AT BEDSIDE. 0353 PT'S BREATHING BECOMES SHALLOW. THIS RN THEN GOES TO THE RUSSELL TO GRAB VITALS MACHINE. 0354 CALL TO DENTAL OFFICE RECEPTIONIST FOR ASSISTANCE. 02 SAT @ 88%. NC MOVED FROM NOSE TO MOUTH DUE TO PT BREATHING THROUGH MOUTH. 0354 DENTAL OFFICE RECEPTIONIST AT BEDSIDE WITHIN 30 SECONDS. THIS RN UPDATES DENTAL OFFICE RECEPTIONIST OF RECENT EVENTS. 0355 CHECK FOR PT RESPONSE. NO RESPONSE. PT PLACED ON NON-REBREATHER AT 10L. DENTAL OFFICE RECEPTIONIST CALLS FOR CODE TEAM. 0356 CODE CALLED 0357 HOUSE SUP AT BEDSIDE. 0.4MG NARCAN IV PUSH GIVEN 0358 O2 SAT AT 79%. PT ON NRB AT 10L. 0359 NO PULSE. COMPRESSIONS STARTED 040 HARJINDER AT BEDSIDE. 0402 1MG EPI GIVEN IV 0404 PULSE CHECK- PT HAS PULSE. 0407 1.2MG NARCAN GIVEN PER HARJINDER PER HARJINDER ORDER 041 KATHY NOTIFIED OF CODE. 0412 SUCCINYLCHOLINE 100MG GIVEN PER HARJINDER ORDER 041 SAMARA 50MG 0413 SAMARA 50MG 0415 NG TUBE PLACED 0416 SUCCESSFUL INTUBATION- 7.5- 24 @ LIP 0417 BILAT CHEST EXPANSION WITH POSITIVE CO2 CHANGE 0418 RADIOLOGY AT BEDSIDE. CHEST XRAY COMPLETED. 0420 CODE ENDED. PT LEAVES FLOOR VIA BED. 0422 PT ARRIVES TO ICU 6.
[2019-11-21] MEDS ORDERED: NALOXONE 2 MG/2 ML (NARCAN) SYR ONE (04:02)
--- NOTE | 2019-11-21 04:22 | NUR ---
Rama Nunes admitted to room CU6-1, with an admitting diagnosis of post code, on 11/17/19 from 4th floor Med/Surg, accompanied by hospital staff.RAMA NUNES introduced to surroundings, call light, bed controls, phone, TV, temperature control, lights, meal times, smoking policy, visitor policy, side rail policy, bathrooms and showers. Patient Rights given to patient in the handbook.RAMA NUNES unable to verbalize understanding because she is currently on ventilator.
--- NOTE | 2019-11-21 04:27 | NUR ---
DAUGHTER- PAOLA- NOTIFIED THAT PT HAS BEEN INTUBATED AND HAS BEEN TRANSFERRED TO ICU6 ON A VENTILATOR. PAOLA STATES, "OK. THANKS FOR LETTING ME KNOW." THIS RN THEN ASKS, "WILL YOU BE ABLE TO COME IN AND SPEAK WITH HER PROVIDER ABOUT HER PLAN OF CARE?" PAOLA RESPONDS, "WELL, I AM AT WORK RIGHT NOW. IF I HAVE TIME, I CAN TRY TO STOP BY IN THE MORNING." THIS RN STATES, "I AM SURE THE DOCTOR WILL WANT TO SPEAK WITH YOU ABOUT YOUR MOTHERS CHANGE IN CONDITION IF YOU COULD STOP BY TOMORROW. ADALBERTO WILL BE TAKING CARE OF HER IN ICU FOR THE REMAINDER OF THE SHIFT IF YOU HAVE ANY QUESTIONS." PAOLA STATES, "OK. THANK YOU FOR THE CALL."
[2019-11-21 04:35] LABS: BASOPHILS % (AUTO) 0 % (0-10); EOSINOPHILS # (AUTO) 0.2 10^3/uL (0.0-0.3); EOSINOPHILS % (AUTO) 2 % (0-10); HEMATOCRIT 37 % (35-52); HEMOGLOBIN 11.1 G/DL (11.5-16.0); LYMPHOCYTES # (AUTO) 3.4 X 10^3 (1.0-4.0); LYMPHOCYTES % (AUTO) 29 % (12-44); MEAN CORPUSCULAR HEMOGLOBIN 30 PG (25-34); MEAN CORPUSCULAR HGB CONC 30 G/DL (32-36); MEAN CORPUSCULAR VOLUME 101 FL (80-99); MEAN PLATELET VOLUME 10.7 FL (7.4-10.4); MONOCYTES # (AUTO) 0.8 X 10^3 (0.0-1.0); MONOCYTES % (AUTO) 6 % (0-12); NEUTROPHILS # (AUTO) 7.4 X 10^3 (1.8-7.8); NEUTROPHILS % (AUTO) 63 % (42-75); PLATELET COUNT 237 10^3/uL (130-400); RED CELL DISTRIBUTION WIDTH 17.4 % (10.0-14.5); WHITE BLOOD COUNT 11.7 10^3/uL (4.3-11.0)
--- NOTE | 2019-11-21 04:42 | Pulmonary Progress Note ---
Subjective Date Seen by a Provider: Nov 21, 2019 Time Seen by a Provider: 04:34 Subjective/Events-last exam Pt went into PEA while on 4th floor and chest compressions were done. She is intubated with size 7.5 ET tube per RT. Pt has been complaining of abdominal pain, and abdominal distention. Dr. Yao is concerned for possible abdominal perforation. Sepsis Event Evaluation Height, Weight, BMI Height: 5'6.00" Weight: 294lbs. 4.0oz. 133.823191mr; 45.05 BMI Method:Stated Focused Exam Lactate Level 11/18/19 05:52: Lactic Acid Level 0.70 Exam Exam Vital Signs Date Time Temp Pulse Resp B/P (MAP) Pulse Ox O2 Delivery O2 Flow Rate FiO2 11/21/19 03:10 Nasal Cannula 11/21/19 00:00 36.2 106 20 89/50 (63) 99 Nasal Cannula 3.00 11/20/19 21:38 96 Nasal Cannula 2.50 11/20/19 20:45 Nasal Cannula 11/20/19 18:36 95 Nasal Cannula 2.50 11/20/19 16:11 35.4 102 15 93/60 (71) 83 Nasal Cannula 2.00 11/20/19 15:03 95 Nasal Cannula 3.00 11/20/19 09:48 95 Nasal Cannula 3.00 11/20/19 08:06 Nasal Cannula 11/20/19 08:00 36.8 85 18 99/64 (76) 95 Nasal Cannula 2.00 I & O 11/21/19 07:00 Intake Total 1470 ml Output Total 370 ml Balance 1100 ml Height & Weight Height: 5'6.00" Weight: 294lbs. 4.0oz. 133.648146fa; 45.05 BMI Method:Stated General Appearance: Moderate Distress, Obese, Other (intubated ) HEENT: Normal ENT Inspection Neck: Supple Respiratory: Crackles, Decreased Breath Sounds, Other Cardiovascular: Regular Rate, Rhythm, No Murmur Capillary Refill: Less Than 3 Seconds Gastrointestinal: non tender, distended; No tenderness Extremity: Normal Capillary Refill, Swelling (bilat) Neurologic/Psychiatric: Other (sedated on vent) Skin: Normal Color, Warm/Dry Results Lab Laboratory Tests 11/19/19 05:23 11/20/19 06:25 Assessment/Plan Assessment/Plan Acute respiratory failure -Ct of Chest without IV contrast secondary to renal failure -Pt was intubated on 4th floor. -Check ABG Ileus abdominal vs obstruction r/o perforation -Ct of Abd/Pelvis with PO contrast -Pt has rectal tube in -Check occult stool and Cdiff toxin Hypotension -Give 2-3 liter LR boluses then run at 150 -Pt is morbidly obese. Will use more ideal body wt. UTI with enterococcus with sever sepsis -Repeat wick cultures and LA -Merrem currently Atelectasis r/o PNA -Check sputum culture -Repeat wick cultures -MRSA nasal swab ARF -IVF Hyponatremia -Monitor Prognosis is poor to guarded. Family has been notified. I discussed pt in detail with Dr. Yao and medical staff. Critical Care: Critically Ill Patient Time spent with patient (mins): 60 CHRIS BRADLEY DO Nov 21, 2019 04:42
--- NOTE | 2019-11-21 04:44 | Progress Note ---
Subjective Date Seen by a Provider: Nov 21, 2019 Time Seen by a Provider: 04:37 Subjective/Events-last exam Called due to worsening agitation despite ativan IV. Was given 1 dose of fentanyl and then went in to respiratory failure and PEA. Coded and intubated and transferred to ICU. Nurse has informed daughter of condition. Focused Exam Lactate Level 11/18/19 05:52: Lactic Acid Level 0.70 Objective Exam Vital Signs Date Time Temp Pulse Resp B/P (MAP) Pulse Ox O2 Delivery O2 Flow Rate FiO2 11/21/19 03:10 Nasal Cannula 11/21/19 00:00 36.2 106 20 89/50 (63) 99 Nasal Cannula 3.00 11/20/19 21:38 96 Nasal Cannula 2.50 11/20/19 20:45 Nasal Cannula 11/20/19 18:36 95 Nasal Cannula 2.50 11/20/19 16:11 35.4 102 15 93/60 (71) 83 Nasal Cannula 2.00 11/20/19 15:03 95 Nasal Cannula 3.00 11/20/19 09:48 95 Nasal Cannula 3.00 11/20/19 08:06 Nasal Cannula 11/20/19 08:00 36.8 85 18 99/64 (76) 95 Nasal Cannula 2.00 I & O 11/21/19 07:00 Intake Total 1470 ml Output Total 370 ml Balance 1100 ml Capillary Refill : Less Than 3 SecondsLess Than 3 Seconds General Appearance: Other (currently sedated and intubated) Respiratory: Lungs Clear, Decreased Breath Sounds Cardiovascular: Systolic Murmur, Tachycardia Gastrointestinal: abnormal bowel sounds, distended Extremity: Non Tender, No Calf Tenderness, No Pedal Edema Neurologic/Psychiatric: Other (sedated) Results Lab Laboratory Tests 11/20/19 06:25: White Blood Count 8.8, Red Blood Count 3.37L, Hemoglobin 10.3L, Hematocrit 34L, Mean Corpuscular Volume 99, Mean Corpuscular Hemoglobin 31, Mean Corpuscular Hemoglobin Concent 31L, Red Cell Distribution Width 17.4H, Platelet Count 228, Mean Platelet Volume 10.4, Neutrophils (%) (Auto) 79H, Lymphocytes (%) (Auto) 11L, Monocytes (%) (Auto) 9, Eosinophils (%) (Auto) 1, Basophils (%) (Auto) 0, Neutrophils # (Auto) 7.0, Lymphocytes # (Auto) 1.0, Monocytes # (Auto) 0.8, Eosinophils # (Auto) 0.1, Basophils # (Auto) 0.0, Sodium Level 132L, Potassium Level 5.1H, Chloride Level 98, Carbon Dioxide Level 23, Anion Gap 11, Blood Urea Nitrogen 46H, Creatinine 2.06H, Estimat Glomerular Filtration Rate 23, BUN/Creatinine Ratio 22, Glucose Level 184H, Calcium Level 8.6, Corrected Calcium 9.2, Magnesium Level 1.7, Total Bilirubin 0.7, Aspartate Amino Transf (A ST/SGOT) 16, Alanine Aminotransferase (ALT/SGPT) 10, Alkaline Phosphatase 75, Total Protein 6.4, Albumin 3.2, Triglycerides Level 101, Cholesterol Level 77, LDL Cholesterol Direct 34, VLDL Cholesterol 20, HDL Cholesterol 19L 11/20/19 06:29: Glucometer 182H 11/20/19 10:37: Glucometer 165H 11/20/19 15:49: Glucometer 180H 11/20/19 21:15: Glucometer 170H 11/21/19 04:15: White Blood Count 11.7H, Red Blood Count 3.67L, Hemoglobin 11.1L, Hematocrit 37, Mean Corpuscular Volume 101H, Mean Corpuscular Hemoglobin 30, Mean Corpuscular Hemoglobin Concent 30L, Red Cell Distribution Width 17.4H, Platelet Count 237, Mean Platelet Volume 10.7H, Neutrophils (%) (Auto) 63, Lymphocytes (%) (Auto) 29, Monocytes (%) (Auto) 6, Eosinophils (%) (Auto) 2, Basophils (%) (Auto) 0, Neutrophils # (Auto) 7.4, Lymphocytes # (Auto) 3.4, Monocytes # (Auto) 0.8, Eosinophils # (Auto) 0.2, Basophils # (Auto) 0.0 Microbiology 11/18/19 Urine Culture - Preliminary, Resulted Enterococcus faecalis Assessment/Plan Assessment/Plan Assess & Plan/Chief Complaint 1. Acute Respiratory Failure--S/P code, now sedated on ventilator, prognosis is poor 2. Ileus/Abdominal Distention--proceed with CT abdomen/pelvis with oral contrast 3. Hypotension--will start with a bolus and then IVFs 4. UTI with Enterococcus--repeat urine culture and await scan results Clinical Quality Measures DVT/VTE Risk/Contraindication: Risk Factor Score Per Nursin RFS Level Per Nursing on Admit: 4+=Very High Contraindications-Pharm: Other *list below* ANUSHA CHAVEZ DO Nov 21, 2019 04:44
[2019-11-21] MEDS ORDERED: LACTATED RINGERS 1,000 ML IV ONE ×3 (04:45→08:15)
[2019-11-21] MEDS ORDERED: LACTATED RINGERS 1,000 ML IV SCH ×2 (04:45→05:15)
[2019-11-21 04:50] LABS: ALBUMIN 3.3 GM/DL (3.2-4.5); BILIRUBIN,TOTAL 0.7 MG/DL (0.1-1.0); CALCIUM 8.7 MG/DL (8.5-10.1); CREATININE SERUM 2.14 MG/DL (0.60-1.30); PHOSPHORUS 5.5 MG/DL (2.3-4.7); POTASSIUM 4.9 MMOL/L (3.6-5.0); TOTAL PROTEIN 6.6 GM/DL (6.4-8.2)
[2019-11-21 05:05] LABS: ABG OXYGEN SATURATION 81 % (94-100); ABG PCO2 109 MMHG (35-45); ABG PH 6.99 (7.37-7.43); ABG PO2 58 MMHG (79-93); ABG TCO2 29.1 MMOL/L (21.0-31.0)
[2019-11-21 05:06] LABS: ALLENS TEST POSITIVE; INSPIRED O2 98%; PATIENT TEMP 36.2; VENTILATOR NO
[2019-11-21] MEDS ORDERED: LACTATED RINGERS 2,000 ML IV ONE (05:44)
[2019-11-21] MEDS ORDERED: DexMEDEtomidine 250 ML DRIP 250 ML IV ONE (05:45)
[2019-11-21] MEDS ORDERED: PROPOFOL DRIP (ICU) 100 ML IV SCH (06:00)
[2019-11-21 06:15] LABS: ABG BASE EXCESS -2.8 MMOL/L (-2.5-2.5); ABG OXYGEN SATURATION 101 % (94-100); ABG PCO2 38 MMHG (35-45); ABG PH 7.38 (7.37-7.43); ABG PO2 359 MMHG (79-93); ABG TCO2 22.9 MMOL/L (21.0-31.0)
[2019-11-21 06:16] LABS: ALLENS TEST POSITIVE; INSPIRED O2 100%; PATIENT TEMP 36.2; VENTILATOR NO
[2019-11-21] MEDS: KCL 20 MEQ TAB (K-DUR) PO SCH (06:17)
--- NOTE | 2019-11-21 07:22 | Diagnostic Imaging Report ---
EXAMINATION: Chest radiograph, portable AP view. DATE: 11/21/2019 4:29 AM hours. INDICATION: 79-year-old female, status post CODE BLUE. COMPARISON: November 19, 2019. FINDINGS: There are median sternotomy wires. There is valvular hardware. There are technical limitations of the exam relating to patient body habitus and difficulties with exposure. The nasogastric tube does appear to extend at least to the level of the stomach. The endotracheal tube tip is approximately 2.4 cm above the eva. Grossly unchanged cardiomegaly. There is no identified pneumothorax. There is no large pleural effusion. Lung volumes are somewhat low. There is no identified new focal airspace consolidation. There are mild bilateral predominantly interstitial appearing opacities. IMPRESSION: 1. Cardiomegaly with bilateral mild anomaly interstitial appearing opacities. 2. Support lines and tubes as above. Dictated by: Dictated on workstation # [id number]
--- NOTE | 2019-11-21 07:52 | Progress Note ---
Subjective Time Seen by a Provider: 07:50 Subjective/Events-last exam patient on a ventilator. Spoke to daughter. Family decide whether to extubate patient Focused Exam Lactate Level 11/21/19 04:15: Lactic Acid Level 2.08*H 11/21/19 06:45: Lactic Acid Level 2.31*H Lactic Acid Level Laboratory Tests Test 11/21/19 04:15 11/21/19 06:45 Lactic Acid Level 2.08 MMOL/L (0.50-2.00) *H 2.31 MMOL/L (0.50-2.00) *H Objective Exam Vital Signs Date Time Temp Pulse Resp B/P (MAP) Pulse Ox O2 Delivery O2 Flow Rate FiO2 11/21/19 06:18 112 17 110/65 (80) 99 Mechanical Ventilator 70.00 11/21/19 06:08 108 10 100 Mechanical Ventilator 70.00 11/21/19 06:04 129 27 89/73 (78) 100 Mechanical Ventilator 100.00 11/21/19 05:45 116 21 84/64 (71) 100 Mechanical Ventilator 100.00 11/21/19 05:30 109 29 90/75 (80) 100 Mechanical Ventilator 100.00 11/21/19 05:00 112 22 80/47 (58) 100 Mechanical Ventilator 100.00 11/21/19 04:45 128 21 93/74 (80) 100 Mechanical Ventilator 100.00 11/21/19 04:27 139 11/21/19 04:23 36.0 141 21 99/74 (82) 100 Mechanical Ventilator 100.00 11/21/19 04:16 100 11/21/19 03:10 Nasal Cannula 11/21/19 00:00 36.2 106 20 89/50 (63) 99 Nasal Cannula 3.00 11/20/19 21:38 96 Nasal Cannula 2.50 11/20/19 20:45 Nasal Cannula 11/20/19 18:36 95 Nasal Cannula 2.50 11/20/19 16:11 35.4 102 15 93/60 (71) 83 Nasal Cannula 2.00 11/20/19 15:03 95 Nasal Cannula 3.00 11/20/19 09:48 95 Nasal Cannula 3.00 11/20/19 08:06 Nasal Cannula 11/20/19 08:00 36.8 85 18 99/64 (76) 95 Nasal Cannula 2.00 I & O 2/17/20 07:00 Intake Total 1470 ml Output Total 370 ml Balance 1100 ml Capillary Refill : Less Than 3 SecondsLess Than 3 Seconds General Appearance: Other (on ventilator) Neck: Normal Inspection Respiratory: Other (on ventilator) Cardiovascular: No Murmur Gastrointestinal: non tender, soft Results Lab Laboratory Tests 11/21/19 04:15 Laboratory Tests 11/20/19 10:37: Glucometer 165H 11/20/19 15:49: Glucometer 180H 11/20/19 21:15: Glucometer 170H 11/21/19 04:15: White Blood Count 11.7H, Red Blood Count 3.67L, Hemoglobin 11.1L, Hematocrit 37, Mean Corpuscular Volume 101H, Mean Corpuscular Hemoglobin 30, Mean Corpuscular Hemoglobin Concent 30L, Red Cell Distribution Width 17.4H, Platelet Count 237, Mean Platelet Volume 10.7H, Neutrophils (%) (Auto) 63, Lymphocytes (%) (Auto) 29, Monocytes (%) (Auto) 6, Eosinophils (%) (Auto) 2, Basophils (%) (Auto) 0, Neutrophils # (Auto) 7.4, Lymphocytes # (Auto) 3.4, Monocytes # (Auto) 0.8, Eosinophils # (Auto) 0.2, Basophils # (Auto) 0.0, Blood Gas Puncture Site RIGHT RADIAL, Blood Gas Patient Temperature 36.2, Arterial Blood pH 6.99*L, Arterial Blood Partial Pressure CO2 109*H, Arterial Blood Partial Pressure O2 58L, Arterial Blood HCO3 26, Arterial Blood Total CO2 29.1, Arterial Blood Oxygen S aturation 81L, Arterial Blood Base Excess -5.0L, Jered Test POSITIVE, Blood Gas Ventilator Setting NO, Blood Gas Inspired Oxygen 98%, Sodium Level 132L, Potassium Level 4.9, Chloride Level 98, Carbon Dioxide Level 22, Anion Gap 12, Blood Urea Nitrogen 48H, Creatinine 2.14H, Estimat Glomerular Filtration Rate 22, BUN/Creatinine Ratio 22, Glucose Level 203H, Lactic Acid Level 2.08*H, Calcium Level 8.7, Corrected Calcium 9.3, Phosphorus Level 5.5H, Magnesium Level 2.0, Total Bilirubin 0.7, Aspartate Amino Transf (AST/SGOT) 20, Alanine Amino transferase (ALT/SGPT) 14, Alkaline Phosphatase 80, Total Protein 6.6, Albumin 3.3, Triglycerides Level 112 11/21/19 06:00: Blood Gas Puncture Site LEFT RADIAL, Blood Gas Patient Temperature 36.2, Arterial Blood pH 7.38, Arterial Blood Partial Pressure CO2 38, Arterial Blood Partial Pressure O2 359H, Arterial Blood HCO3 22L, Arterial Blood Total CO2 22.9, Arterial Blood Oxygen Saturation 101H, Arterial Blood Base Excess -2.8L, Jered Test POSITIVE, Blood Gas Ventilator Setting NO, Blood Gas Inspired Oxygen 100% 11/21/19 06:45: Lactic Acid Level 2.31*H Microbiology 11/18/19 Urine Culture - Preliminary, Resulted Enterococcus faecalis Assessment/Plan Assessment/Plan Assess & Plan/Chief Complaint Severe ileus. Renal insufficiency. Anemia. Diabetes. Coronary artery disease. Atrial fibrillation. Ascites. Anasarca. Dilated transverse colon. Stomach with fluid and gas. Obesity.. . 11/21/2019. Patient on ventilator. Family to discuss whether take her off ventilator Clinical Quality Measures Admission Status Admission Dx Renal insufficiency. Pneumonia. Severe ileus. Anasarca. Diabetes. Coronary artery disease. Hyperlipidemia. Hypertension. Dilatation of the transverse colon by gas. Marked distention of stomach by fluid and gas. Anasarca. Anemia DVT/VTE Risk/Contraindication: Risk Factor Score Per Nursin RFS Level Per Nursing on Admit: 4+=Very High Contraindications-Pharm: Other *list below* LILY ROJAS DO Nov 21, 2019 07:52
--- NOTE | 2019-11-21 08:00 | NUR ---
Pt's son Gerson who is dpoa and her daughter Lorenza are here and request that pt be made comfort care only. Lorenza is a RN and both are aware that this means pt will pass but will be comfortable until that happens.
[2019-11-21] MEDS: inSUlin ASPART (NovoLOG) 1 UNIT/0.01 ML (CHARGE PER UNIT) SC SCH (08:05)
[2019-11-21] MEDS ORDERED: NS IV 1000 ML 1,000 ML IV PRN (08:17)
[2019-11-21] MEDS ORDERED: LACTATED RINGERS 1,000 ML IV PRN (08:17)
[2019-11-21] MEDS ORDERED: BISACODYL 10 MG SUPP (DULCOLAX) PR PRN (08:30)
[2019-11-21] MEDS ORDERED: LORazepam ORAL CONCENTRATE 2 MG/ML 30 ML (ATIVAN) PO PRN (08:30)
[2019-11-21] MEDS ORDERED: ONDANSETRON 4 MG/2 ML (SDV) Z0FRAN IVP PRN (08:30)
[2019-11-21] MEDS ORDERED: ATROPINE 1% OPHTHALMIC SOLN 2 ML SL PRN (08:30)
[2019-11-21] MEDS ORDERED: PROMETHAZINE INJ 25 MG/ML (PHENERGAN) AMP IVP PRN (08:30)
[2019-11-21] MEDS ORDERED: morphine INJ 4 MG/ML 1 ML (VIAL/SYRINGE) IV PRN (08:30)
[2019-11-21] MEDS ORDERED: RT-ALBUTEROL/IPRATROPIUM 3 ML (DUONEB) VIAL INH PRN (08:30)
[2019-11-21] MEDS ORDERED: GLYCOPYRROLATE 0.2 MG/ML (ROBINUL) 2 ML VIAL IV PRN (08:30)
[2019-11-21] MEDS ORDERED: morphine (ROXINOL) 10 MG/0.5 ML oral conc 0.5 ML PO PRN (08:30)
[2019-11-21] MEDS ORDERED: SCOPOLAMINE 1.5 MG (TRANSDERM-SCOP) PATCH TOP SCH (08:30)
[2019-11-21] MEDS ORDERED: LORazepam INJ 2 MG/ML (ATIVAN) VIAL IVP PRN (08:30)
[2019-11-21] MEDS ORDERED: ARTIFICAL TEARS 0.4 ML UNIT DOSE (REFRESH PLUS) OU PRN (08:30)
[2019-11-21] MEDS ORDERED: ACETAMINOPHEN 650 MG SUPP (TYLENOL) PR PRN (08:30)
--- NOTE | 2019-11-21 08:34 | NUR ---
Pt extubated for comfort care with daughter and son and daughter in law at bedside.
[2019-11-21] MEDS ORDERED: NALOXONE 0.4 MG/ML 1 ML (NARCAN) VIAL IV ONE (08:45)
[2019-11-21] MEDS ORDERED: SUCCINYLCHOLINE INJ 100 MG/5 ML SYR INJ ONE (08:45)
[2019-11-21] MEDS ORDERED: CATHETER FLUSH 10 ML SYR IV ONE (08:45)
[2019-11-21] MEDS ORDERED: EPINEPHrine 0.1 MG/ML 10 ML (HOSPIRA) SYR IV ONE (08:45)
[2019-11-21] MEDS ORDERED: ROCURONIUM 10 MG/ML 5 ML SYRINGE IV ONE ×2 (08:45→10:50)
--- NOTE | 2019-11-21 08:50 | Progress Note - Surgery ---
[facility] 11/21/19 0850: Subjective Date Seen by a Provider: Nov 21, 2019 Time Seen by a Provider: 08:45 Subjective/Events-last exam pt lying in bed. Extubated. DNR status, per pt's and family wishes, she is now on comfort care. Review of Systems unable to perform, sedation Focused Exam Lactate Level 11/21/19 04:15: Lactic Acid Level 2.08*H 11/21/19 06:45: Lactic Acid Level 2.31*H Lactic Acid Level Laboratory Tests Test 11/21/19 06:45 Lactic Acid Level 2.31 MMOL/L (0.50-2.00) *H Objective Exam Vital Signs Date Time Temp Pulse Resp B/P (MAP) Pulse Ox O2 Delivery O2 Flow Rate FiO2 11/21/19 08:00 89 17 94/59 (71) 100 Mechanical Ventilator 70.00 11/21/19 07:55 36.2 11/21/19 07:51 87 22 100 70 11/21/19 07:30 36.07007 112 17 110/65 99 Mechanical Ventilator 3.00 11/21/19 07:00 104 12 104/80 (88) 93 Mechanical Ventilator 70.00 11/21/19 07:00 87 11/21/19 06:18 112 17 110/65 (80) 99 Mechanical Ventilator 70.00 11/21/19 06:08 108 10 100 Mechanical Ventilator 70.00 11/21/19 06:04 129 27 89/73 (78) 100 Mechanical Ventilator 100.00 11/21/19 05:45 116 21 84/64 (71) 100 Mechanical Ventilator 100.00 11/21/19 05:30 109 29 90/75 (80) 100 Mechanical Ventilator 100.00 11/21/19 05:00 112 22 80/47 (58) 100 Mechanical Ventilator 100.00 11/21/19 04:45 128 21 93/74 (80) 100 Mechanical Ventilator 100.00 11/21/19 04:27 139 11/21/19 04:23 36.0 141 21 99/74 (82) 100 Mechanical Ventilator 100.00 11/21/19 04:16 100 11/21/19 03:10 Nasal Cannula 11/21/19 00:00 36.2 106 20 89/50 (63) 99 Nasal Cannula 3.00 11/20/19 21:38 96 Nasal Cannula 2.50 11/20/19 20:45 Nasal Cannula 11/20/19 18:36 95 Nasal Cannula 2.50 11/20/19 16:11 35.4 102 15 93/60 (71) 83 Nasal Cannula 2.00 11/20/19 15:03 95 Nasal Cannula 3.00 11/20/19 09:48 95 Nasal Cannula 3.00 I & O 11/21/19 07:00 Intake Total 2470 ml Output Total 920 ml Balance 1550 ml Capillary Refill : Less Than 3 SecondsLess Than 3 Seconds General Appearance: Other (extubated, sedate) HEENT: Normal ENT Inspection Neck: Normal Inspection Respiratory: Other (on ventilator) Cardiovascular: Regular Rate, Rhythm, No Murmur Gastrointestinal: non tender, soft Extremity: Normal Capillary Refill, Swelling (bilat) Neurologic/Psychiatric: Other (sedated, recently extubated) Skin: Normal Color, Warm/Dry Results Lab Laboratory Tests 11/20/19 10:37: Glucometer 165H 11/20/19 15:49: Glucometer 180H 11/20/19 21:15: Glucometer 170H 11/21/19 04:15: White Blood Count 11.7H, Red Blood Count 3.67L, Hemoglobin 11.1L, Hematocrit 37, Mean Corpuscular Volume 101H, Mean Corpuscular Hemoglobin 30, Mean Corpuscular Hemoglobin Concent 30L, Red Cell Distribution Width 17.4H, Platelet Count 237, Mean Platelet Volume 10.7H, Neutrophils (%) (Auto) 63, Lymphocytes (%) (Auto) 29, Monocytes (%) (Auto) 6, Eosinophils (%) (Auto) 2, Basophils (%) (Auto) 0, Neutrophils # (Auto) 7.4, Lymphocytes # (Auto) 3.4, Monocytes # (Auto) 0.8, Eosinophils # (Auto) 0.2, Basophils # (Auto) 0.0, Blood Gas Puncture Site RIGHT RADIAL, Blood Gas Patient Temperature 36.2, Arterial Blood pH 6.99*L, Arterial Blood Partial Pressure CO2 109*H, Arterial Blood Partial Pressure O2 58L, Arterial Blood HCO3 26, Arterial Blood Total CO2 29.1, Arterial Blood Oxygen Saturation 81L, Arterial Blood Base Excess -5.0L, Jered Test POSITIVE, Blood Gas Ventilator Setting NO, Blood Gas Inspired Oxygen 98%, Sodium Level 132L, Potassium Level 4.9, Chloride Level 98, Carbon Dioxide Level 22, Anion Gap 12, Blood Urea Nitrogen 48H, Creatinine 2.14H, Estimat Glomerular Filtration Rate 22, BUN/Creatinine Ratio 22, Glucose Level 203H, Lactic Acid Level 2.08*H, Calcium Level 8.7, Corrected Calcium 9.3, Phosphorus Level 5.5H, Magnesium Level 2.0, Total Bilirubin 0.7, Aspartate Amino Transf (AST/SGOT) 20, Alanine Aminotransferase (ALT/SGPT) 14, Alkaline Phosphatase 80, Total Protein 6.6, Albumin 3.3, Triglycerides Level 112 11/21/19 06:00: Blood Gas Puncture Site LEFT RADIAL, Blood Gas Patient Temperature 36.2, Arterial Blood pH 7.38, Arterial Blood Partial Pressure CO2 38, Arterial Blood Partial Pressure O2 359H, Arterial Blood HCO3 22L, Arterial Blood Total CO2 22.9, Arterial Blood Oxygen Saturation 101H, Arterial Blood Base Excess -2.8L, Jered Test POSITIVE, Blood Gas Ventilator Setting NO, Blood Gas Inspired Oxygen 100% 11/21/19 06:45: Lactic Acid Level 2.31*H Microbiology 11/18/19 Urine Culture - Preliminary, Resulted Enterococcus faecalis Assessment/Plan Assessment/Plan Assessment/Plan ileus - likely narcotic induced Moderate amount of ascites bilateral interstitial lung opacities Renal insufficiency Anemia. Diabetes. Extubated Transitioned to comfort care Will sign off, please call if needed Clinical Quality Measures DVT/VTE Risk/Contraindication: Risk Factor Score Per Nursin RFS Level Per Nursing on Admit: 4+=Very High Contraindications-Pharm: Other *list below* MARKO CLEVELAND DO 11/21/191901: Subjective Subjective/Events-last exam Patient coded this morning. Has been extubated and patient family wanting her on comfort care. They state that she would not want all this being done. Objective Exam General Appearance: No Apparent Distress, Other (extubated, ) HEENT: Normal ENT Inspection Neck: Normal Inspection Respiratory: Chest Non Tender, No Accessory Muscle Use, No Respiratory Distress Cardiovascular: Regular Rate, Rhythm Gastrointestinal: soft, distended Extremity: Swelling (bilat) Neurologic/Psychiatric: Other (sedated, recently extubated) Skin: Normal Color, Warm/Dry Lymphatic: No Adenopathy Assessment/Plan Assessment/Plan Assessment/Plan ileus - likely narcotic induced Moderate amount of ascites bilateral interstitial lung opacities Renal insufficiency Anemia. Diabetes. s/p code was transferred to ICU intubated. Now made comfort care Extubated. Discussed with family. Will sign off, call if needed. Supervisory-Addendum Brief Verification & Attestation Participated in pt care: history, MDM, physical Personally performed: exam, history, MDM, supervision of care Care discussed with: Medical Student Procedures: n/a Results interpretation: Verified all documentation Verification and Attestation of Medical Student E/M Service A medical student performed and documented this service in my presence. I r eviewed and verified all information documented by the medical student and made modifications to such information, when appropriate. I personally performed the physical exam and medical decision making. Marko Cleveland, Nov 21, 2019,19:01 [facility] Nov 21, 2019 08:50 MARKO CLEVELAND DO Nov 21, 2019 19:02
--- NOTE | 2019-11-21 09:22 | NUR ---
Time of 921 absence of vital signs confirmed by Trey Rosen RN and Jina Shelley RN. Dr Flores and Dr Parkinson notified at time of .
--- NOTE | 2019-11-21 09:35 | NUR ---
comfort [facility] [place] notified of .
--- NOTE | 2019-11-21 09:36 | NUR ---
Pt is [employer] and anointed last week. Chaplain marcos w/ family.
--- NOTE | 2019-11-21 10:35 | NUR ---
MORTUARY HERE FOR BODY.
[2019-11-21] MEDS ORDERED: MIDAZOLAM 5 MG/5 ML (VERSED) VIAL IV ONE (10:50)
[2019-11-21] MEDS ORDERED: fentaNYL INJECTION 100 MCG/2 ML AMP INJ ONE (10:50)
--- NOTE | 2019-11-22 07:35 | Discharge Summary ---
Diagnosis/Chief Complaint Date of Admission Nov 17, 2019 at 17:15 Date of Discharge Nov 21, 2019 at 10:35 Discharge Time: 07:32 Discharge Diagnosis Acute respiratory failure. Hyponatremia. Anemia. Renal insufficiency. Diabetes. Coronary artery disease. UTI due to Enterococcus faecalis Salazar. Colitis. Pneumonia. Severe ileus. Anasarca. Hyperlipidemia. Hypertension history. Hypotension. Dilatation of the transverse colon. Marked distention of stomach by fluid and gas. Atrial fibrillation. Ascites. Morbid obesity Reason Hospital Visit is a resident of a care home. According to the nurse patient has distended. Patient also not able to eat. Patient sent out to the emergency room for chest x-ray and CAT scan of the abdomen and pelvis. CAT scan shows marked good distal systolic by fluid and gas and dilatation of the transverse colon by gas. Could be a severe ileus. Chest x-ray may show left lower lobe pneumonia. Patient anemic. Patient diabetic. Renal insufficiency. Patient refuses insertion of nasogastric tube which she needs to feel better Discharge Summary Consultations Surgery. Cardiology. Pulmonology Discharge Physical Examination Allergies: Coded Allergies: No Known Drug Allergies (Unverified , 11/18/12) Vitals & I&Os Vital Signs Date Time Temp Pulse Resp B/P (MAP) Pulse Ox O2 Delivery O2 Flow Rate FiO2 11/21/19 08:00 89 17 94/59 (71) 100 Mechanical Ventilator 70.00 11/21/19 07:55 36.2 11/21/19 07:51 70 Hospital Course Patient in hospital went into acute respiratory failure and . Family wanted patient to be extubated from ventilator Labs (last 24 hrs) Laboratory Tests 11/17/19 19:51: White Blood Count 7.4, Red Blood Count 2.87L, Hemoglobin 8.4L, Hematocrit 29L, Mean Corpuscular Volume 101H, Mean Corpuscular Hemoglobin 29, Mean Corpuscular Hemoglobin Concent 29L, Red Cell Distribution Width 17.6H, Platelet Count 188, Mean Platelet Volume 10.7H, Neutrophils (%) (Auto) 82H, Lymphocytes (%) (Auto) 9L, Monocytes (%) (Auto) 7, Eosinophils (%) (Auto) 2, Basophils (%) (Auto) 0, Neutrophils # (Auto) 6.1, Lymphocytes # (Auto) 0.7L, Monocytes # (Auto) 0.5, Eosinophils # (Auto) 0.1, Basophils # (Auto) 0.0, Neutrophils % (Manual) 76, Lymphocytes % (Manual) 12, Monocytes % (Manual) 8, Eosinophils % (Manual) 2, Basophils % (Manual) 1, Band Neutrophils 1, Anisocytosis MODERATE, Macrocytosis SLIGHT, Schistocytes SLIGHT, Prothrombin Time 21.4H, INR Comment 1.8H, Activated Partial Thromboplast Time 31, Sodium Level 135, Potassium Level 4.5, Chloride Level 98, Carbon Dioxide Level 28, Anion Gap 9, Blood Urea Nitrogen 37H, Creatinine 1.38H, Estimat Glomerular Filtration Rate 37, BUN/Creatinine Ratio 27, Glucose Level 162H, Calcium Level 8.8, Corrected Calcium 9.3, Total Bilirubin 0.7, Aspartate Amino Transf (AST/SGOT) 16, Alanine Aminotransferase (ALT/SGPT) 10, Alkaline Phosphatase 86, Total Protein 6.6, Albumin 3.4 11/17/19 20:34: Glucometer 167H 11/18/19 05:08: White Blood Count 7.0, Red Blood Count 3.43L, Hemoglobin 9.8L, Hematocrit 34L, Mean Corpuscular Volume 99, Mean Corpuscular Hemoglobin 29, Mean Corpuscular Hemoglobin Concent 29L, Red Cell Distribution Width 17.6H, Platelet Count 204, Mean Platelet Volume 10.2, Neutrophils (%) (Auto) 72, Lymphocytes (%) (Auto) 17, Monocytes (%) (Auto) 8, Eosinophils (%) (Auto) 2, Basophils (%) (Auto) 0, Neutrophils # (Auto) 5.1, Lymphocytes # (Auto) 1.2, Monocytes # (Auto) 0.6, Eosinophils # (Auto) 0.2, Basophils # (Auto) 0.0, Neutrophils % (Manual) 71, Lymphocytes % (Manual) 21, Monocytes % (Manual) 7, Eosinophils % (Manual) 1, Sodium Level 135, Potassium Level 4.7, Chloride Level 99, Carbon Dioxide Level 29, Anion Gap 7, Blood Urea Nitrogen 38H, Creatinine 1.57H, Estimat Glomerular Filtration Rate 32, BUN/Creatinine Ratio 24, Glucose Level 155H, Calcium Level 8.7, Corrected Calcium 9.3, Total Bilirubin 1.1H, Aspartate Amino Transf (AST/SGOT) 13, Alanine Aminotransferase (ALT/SGPT) 9, Alkaline Phosphatase 81, Total Protein 6.4, Albumin 3.2 11/18/19 05:52: Lactic Acid Level 0.70 11/18/19 08:00: Phosphorus Level 3.4, Magnesium Level 1.7, Ammonia 39H, Troponin I < 0.028 11/18/19 11:19: Glucometer 153H 11/18/19 11:20: Urine Color DARK YELLOW, Urine Clarity TURBID, Urine pH 5.0, Urine Specific [place] >=1.030, Urine Protein 2+H, Urine Glucose (UA) NEGATIVE, Urine Ketones TRACEH, Urine Nitrite NEGATIVE, Urine Bilirubin 1+H, Urine Urobilinogen 1.0, Urine Leukocyte Esterase 2+H, Urine RBC (Auto) 3+H, Urine RBC 10-25H, Urine WBC TNTCH, Urine Crystals NONE, Urine Bacteria LARGEH, Urine Casts NONE, Urine Mucus NEGATIVE, Urine Culture Indicated YES 11/18/19 11:56: Blood Gas Puncture Site LEFT BRACHIAL, Blood Gas Patient Temperature 36.2, Arterial Blood pH 7.29*L, Arterial Blood Partial Pressure CO2 58H, Arterial Blood Partial Pressure O2 87, Arterial Blood HCO3 27, Arterial Blood Total CO2 29.3, Arterial Blood Oxygen Saturation 97, Arterial Blood Base Excess 1.3, Jered Test POSITIVE, Blood Gas Ventilator Setting NO, Blood Gas Inspired Oxygen 1.5 11/18/19 12:06: Lab Scanned Report Transfusion Reaction Form 11/18/19 15:50: Glucometer 227H 11/18/19 19:43: Glucometer 146H 11/19/19 05:23: White Blood Count 8.5, Red Blood Count 3.07L, Hemoglobin 9.2L, Hematocrit 31L, Mean Corpuscular Volume 99, Mean Corpuscular Hemoglobin 30, Mean Corpuscular Hemoglobin Concent 30L, Red Cell Distribution Width 17.2H, Platelet Count 200, Mean Platelet Volume 10.9H, Neutrophils (%) (Auto) 82H, Lymphocytes (%) (Auto) 9L, Monocytes (%) (Auto) 7, Eosinophils (%) (Auto) 2, Basophils (%) (Auto) 0, Neutrophils # (Auto) 7.0, Lymphocytes # (Auto) 0.7L, Monocytes # (Auto) 0.6, Eosinophils # (Auto) 0.2, Basophils # (Auto) 0.0, Sodium Level 133L, Potassium Level 4.2, Chloride Level 99, Carbon Dioxide Level 22, Anion Gap 12, Blood Urea Nitrogen 42H, Creatinine 1.71H, Estimat Glomerular Filtration Rate 29, BUN/Creatinine Ratio 25, Glucose Level 169H, Calcium Level 8.4L, Corrected Calcium 9.2, Total Bilirubin 0.7, Aspartate Amino Transf (AST/SGOT) 12, Alanine Aminotransferase (ALT/SGPT) 10, Alkaline Phosphatase 71, Total Protein 5.9L, Albumin 3.0L 11/19/19 05:24: Glucometer 181H 11/19/19 10:59: Glucometer 177H 11/19/19 15:52: Glucometer 179H 11/19/19 17:20: Ammonia 28 11/19/19 20:39: Glucometer 165H 11/20/19 06:25: White Blood Count 8.8, Red Blood Count 3.37L, Hemoglobin 10.3L, Hematocrit 34L, Mean Corpuscular Volume 99, Mean Corpuscular Hemoglobin 31, Mean Corpuscular Hemoglobin Concent 31L, Red Cell Distribution Width 17.4H, Platelet Count 228, Mean Platelet Volume 10.4, Neutrophils (%) (Auto) 79H, Lymphocytes (%) (Auto) 11L, Monocytes (%) (Auto) 9, Eosinophils (%) (Auto) 1, Basophils (%) (Auto) 0, Neutrophils # (Auto) 7.0, Lymphocytes # (Auto) 1.0, Monocytes # (Auto) 0.8, Eosinophils # (Auto) 0.1, Basophils # (Auto) 0.0, Sodium Level 132L, Potassium Level 5.1H, Chloride Level 98, Carbon Dioxide Level 23, Anion Gap 11, Blood Urea Nitrogen 46H, Creatinine 2.06H, Estimat Glomerular Filtration Rate 23, BUN/Creatinine Ratio 22, Glucose Level 184H, Calcium Level 8.6, Corrected Calcium 9.2, Magnesium Level 1.7, Total Bilirubin 0.7, Aspartate Amino Transf (AST/SGOT) 16, Alanine Aminotransferase (ALT/SGPT) 10, Alkaline Phosphatase 75, Total Protein 6.4, Albumin 3.2, Triglycerides Level 101, Cholesterol Level 77, LDL Cholesterol Direct 34, VLDL Cholesterol 20, HDL Cholesterol 19L 11/20/19 06:29: Glucometer 182H 11/20/19 10:37: Glucometer 165H 11/20/19 15:49: Glucometer 180H 11/20/19 21:15: Glucometer 170H 11/21/19 04:15: White Blood Count 11.7H, Red Blood Count 3.67L, Hemoglobin 11.1L, Hematocrit 37, Mean Corpuscular Volume 101H, Mean Corpuscular Hemoglobin 30, Mean Corpuscular Hemoglobin Concent 30L, Red Cell Distribution Width 17.4H, Platelet Count 237, Mean Platelet Volume 10.7H, Neutrophils (%) (Auto) 63, Lymphocytes (%) (Auto) 29, Monocytes (%) (Auto) 6, Eosinophils (%) (Auto) 2, Basophils (%) (Auto) 0, Neutrophils # (Auto) 7.4, Lymphocytes # (Auto) 3.4, Monocytes # (Auto) 0.8, Eosinophils # (Auto) 0.2, Basophils # (Auto) 0.0, Blood Gas Puncture Site RIGHT RADIAL, Blood Gas Patient Temperature 36.2, Arterial Blood pH 6.99*L, Arterial Blood Partial Pressure CO2 109*H, Arterial Blood Partial Pressure O2 58L, Arterial Blood HCO3 26, Arterial Blood Total CO2 29.1, Arterial Blood Oxygen Saturation 81L, Arterial Blood Base Excess -5.0L, Jered Test POSITIVE, Blood Gas Ventilator Setting NO, Blood Gas Inspired Oxygen 98%, Sodium Level 132L, Potassium Level 4.9, Chloride Level 98, Carbon Dioxide Level 22, Anion Gap 12, Blood Urea Nitrogen 48H, Creatinine 2.14H, Estimat Glomerular Filtration Rate 22, BUN/Creatinine Ratio 22, Glucose Level 203H, Lactic Acid Level 2.08*H, Calcium Level 8.7, Corrected Calcium 9.3, Phosphorus Level 5.5H, Magnesium Level 2.0, Total Bilirubin 0.7, Aspartate Amino Transf (AST/SGOT) 20, Alanine Aminotransferase (ALT/SGPT) 14, Alkaline Phosphatase 80, Total Protein 6.6, Albumin 3.3, Triglycerides Level 112 11/21/19 06:00: Blood Gas Puncture Site LEFT RADIAL, Blood Gas Patient Temperature 36.2, Arterial Blood pH 7.38, Arterial Blood Partial Pressure CO2 38, Arterial Blood Partial Pressure O2 359H, Arterial Blood HCO3 22L, Arterial Blood Total CO2 22.9, Arterial Blood Oxygen Saturation 101H, Arterial Blood Base Excess -2.8L, Jered Test POSITIVE, Blood Gas Ventilator Setting NO, Blood Gas Inspired Oxygen 100% 11/21/19 06:45: Lactic Acid Level 2.31*H Microbiology 11/21/19 MRSA Screen - Final, Complete MRSA not isolated 11/18/19 Urine Culture - Final, Complete Enterococcus faecalis Laboratory Tests 11/17/19 19:51 11/18/19 05:08 11/19/19 05:23 11/20/19 06:25 11/21/19 04:15 Pending Labs Microbiology Date/Time Source Procedure Growth Status 11/21/19 05:25 Nasal MRSA Screen - Final MRSA not isolated Complete 11/21/19 04:45 Sputum Endotracheal Gram Stain - Final Resulted 11/21/19 04:45 Sputum Endotracheal Sputum Culture Pending Resulted 11/18/19 11:20 Urine Indwelling Cath (Management Professor) Urine Culture - Final Enterococcus faecalis Complete Laboratory Tests 11/17/19 19:51: White Blood Count 7.4, Red Blood Count 2.87, Hemoglobin 8.4, Hematocrit 29, Mean Corpuscular Volume 101, Mean Corpuscular Hemoglobin 29, Mean Corpuscular Hemoglobin Concent 29, Red Cell Distribution Width 17.6, Platelet Count 188, Mean Platelet Volume 10.7, Neutrophils (%) (Auto) 82, Lymphocytes (%) (Auto) 9, Monocytes (%) (Auto) 7, Eosinophils (%) (Auto) 2, Basophils (%) (Auto) 0, Neutrophils # (Auto) 6.1, Lymphocytes # (Auto) 0.7, Monocytes # (Auto) 0.5, Eos inophils # (Auto) 0.1, Basophils # (Auto) 0.0, Neutrophils % (Manual) 76, Lymphocytes % (Manual) 12, Monocytes % (Manual) 8, Eosinophils % (Manual) 2, Basophils % (Manual) 1, Band Neutrophils 1, Anisocytosis MODERATE, Macrocytosis SLIGHT, Schistocytes SLIGHT, Prothrombin Time 21.4, INR Comment 1.8, Activated Partial Thromboplast Time 31, Sodium Level 135, Potassium Level 4.5, Chloride Level 98, Carbon Dioxide Level 28, Anion Gap 9, Blood Urea Nitrogen 37, Creatinine 1.38, Estimat Glomerular Filtration Rate 37, BUN/Creatinine Ratio 27, Glucose Level 162, Calcium Level 8.8, Corrected Calcium 9.3, Total Bilirubin 0.7, Aspartate Amino Transf (AST/SGOT) 16, Alanine Aminotransferase (ALT/SGPT) 10, Alkaline Phosphatase 86, Total Protein 6.6, Albumin 3.4 11/17/19 20:34: Glucometer 167 11/18/19 05:08: White Blood Count 7.0, Red Blood Count 3.43, Hemoglobin 9.8, Hematocrit 34, Mean Corpuscular Volume 99, Mean Corpuscular Hemoglobin 29, Mean Corpuscular He moglobin Concent 29, Red Cell Distribution Width 17.6, Platelet Count 204, Mean Platelet Volume 10.2, Neutrophils (%) (Auto) 72, Lymphocytes (%) (Auto) 17, Monocytes (%) (Auto) 8, Eosinophils (%) (Auto) 2, Basophils (%) (Auto) 0, Neutrophils # (Auto) 5.1, Lymphocytes # (Auto) 1.2, Monocytes # (Auto) 0.6, Eosinophils # (Auto) 0.2, Basophils # (Auto) 0.0, Neutrophils % (Manual) 71, Lymphocytes % (Manual) 21, Monocytes % (Manual) 7, Eosinophils % (Manual) 1, Sodium Level 135, Potassium Level 4.7, Chloride Level 99, Carbon Dioxide Level 29, Anion Gap 7, Blood Urea Nitrogen 38, Creatinine 1.57, Estimat Glomerular Filtration Rate 32, BUN/Creatinine Ratio 24, Glucose Level 155, Calcium Level 8.7, Corrected Calcium 9.3, Total Bilirubin 1.1, Aspartate Amino Transf (AST/SGOT) 13, Alanine Aminotransferase (ALT/SGPT) 9, Alkaline Phosphatase 81, Total Protein 6.4, Albumin 3.2 11/18/19 05:52: Lactic Acid Level 0.70 11/18/19 08:00: Phosphorus Level 3.4, Magnesium Level 1.7, Ammonia 39, Troponin I < 0.028 11/18/19 11:19: Glucometer 153 11/18/19 11:20: Urine Color DARK YELLOW, Urine Clarity TURBID, Urine pH 5.0, Urine Specific [place] >=1.030, Urine Protein 2+, Urine Glucose (UA) NEGATIVE, Urine Ketones TRACE, Urine Nitrite NEGATIVE, Urine Bilirubin 1+, Urine Urobilinogen 1.0, Urine Leukocyte Esterase 2+, Urine RBC (Auto) 3+, Urine RBC 10-25, Urine WBC TNTC, Urine Crystals NONE, Urine Bacteria LARGE, Urine Casts NONE, Urine Mucus NEGATIVE, Urine Culture Indicated YES 11/18/19 11:56: Blood Gas Puncture Site LEFT BRACHIAL, Blood Gas Patient Temperature 36.2, Arterial Blood pH 7.29, Arterial Blood Partial Pressure CO2 58, Arterial Blood Partial Pressure O2 87, Arterial Blood HCO3 27, Arterial Blood Total CO2 29.3, Arterial Blood Oxygen Saturation 97, Arterial Blood Base Excess 1.3, Jered Test POSITIVE, Blood Gas Ventilator Setting NO, Blood Gas Inspired Oxygen 1.5 11/18/19 12:06: Lab Scanned Report Transfusion Reaction Form 11/18/19 15:50: Glucometer 227 11/18/19 19:43: Glucometer 146 11/19/19 05:23: White Blood Count 8.5, Red Blood Count 3.07, Hemoglobin 9.2, Hematocrit 31, Mean Corpuscular Volume 99, Mean Corpuscular Hemoglobin 30, Mean Corpuscular Hemoglobin Concent 30, Red Cell Distribution Width 17.2, Platelet Count 200, Mean Platelet Volume 10.9, Neutrophils (%) (Auto) 82, Lymphocytes (%) (Auto) 9, Monocytes (%) (Auto) 7, Eosinophils (%) (Auto) 2, Basophils (%) (Auto) 0, Neutrophils # (Auto) 7.0, Lymphocytes # (Auto) 0.7, Monocytes # (Auto) 0.6, Eosinophils # (Auto) 0.2, Basophils # (Auto) 0.0, Sodium Level 133, Potassium Level 4.2, Chloride Level 99, Carbon Dioxide Level 22, Anion Gap 12, Blood Urea Nitrogen 42, Creatinine 1.71, Estimat Glomerular Filtration Rate 29, BUN/Creatinine Ratio 25, Glucose Level 169, Calcium Level 8.4, Corrected Calcium 9.2, Total Bilirubin 0.7, Aspartate Amino Transf (AST/SGOT) 12, Alanine Aminotransferase (ALT/SGPT) 10, Alkaline Phosphatase 71, Total Protein 5.9, Albumin 3.0 11/19/19 05:24: Glucometer 181 11/19/19 10:59: Glucometer 177 11/19/19 15:52: Glucometer 179 11/19/19 17:20: Ammonia 28 11/19/19 20:39: Glucometer 165 11/20/19 06:25: White Blood Count 8.8, Red Blood Count 3.37, Hemoglobin 10.3, Hematocrit 34, Mean Corpuscular Volume 99, Mean Corpuscular Hemoglobin 31, Mean Corpuscular Hemoglobin Concent 31, Red Cell Distribution Width 17.4, Platelet Count 228, Mean Platelet Volume 10.4, Neutrophils (%) (Auto) 79, Lymphocytes (%) (Auto) 11, Monocytes (%) (Auto) 9, Eosinophils (%) (Auto) 1, Basophils (%) (Auto) 0, Neutrophils # (Auto) 7.0, Lymphocytes # (Auto) 1.0, Monocytes # (Auto) 0.8, Eosinophils # (Auto) 0.1, Basophils # (Auto) 0.0, Sodium Level 132, Potassium Level 5.1, Chloride Level 98, Carbon Dioxide Level 23, Anion Gap 11, Blood Urea Nitrogen 46, Creatinine 2.06, Estimat Glomerular Filtration Rate 23, BUN/Creatinine Ratio 22, Glucose Level 184, Calcium Level 8.6, Corrected Calcium 9.2, Magnesium Level 1.7, Total Bilirubin 0.7, Aspartate Amino Transf (AST/SGOT) 16, Alanine Aminotransferase (ALT/SGPT) 10, Alkaline Phosphatase 75, Total Protein 6.4, Albumin 3.2, Triglycerides Level 101, Cholesterol Level 77, LDL Cholesterol Direct 34, VLDL Cholesterol 20, HDL Cholesterol 19 11/20/19 06:29: Glucometer 182 11/20/19 10:37: Glucometer 165 11/20/19 15:49: Glucometer 180 11/20/19 21:15: Glucometer 170 11/21/19 04:15: White Blood Count 11.7, Red Blood Count 3.67, Hemoglobin 11.1, Hematocrit 37, Mean Corpuscular Volume 101, Mean Corpuscular Hemoglobin 30, Mean Corpuscular Hemoglobin Concent 30, Red Cell Distribution Width 17.4, Platelet Count 237, Mean Platelet Volume 10.7, Neutrophils (%) (Auto) 63, Lymphocytes (%) (Auto) 29, Monocytes (%) (Auto) 6, Eosinophils (%) (Auto) 2, Basophils (%) (Auto) 0, Neutrophils # (Auto) 7.4, Lymphocytes # (Auto) 3.4, Monocytes # (Auto) 0.8, Eosinophils # (Auto) 0.2, Basophils # (Auto) 0.0, Blood Gas Puncture Site RIGHT RADIAL, Blood Gas Patient Temperature 36.2, Arterial Blood pH 6.99, Arterial Blood Partial Pressure CO2 109, Arterial Blood Partial Pressure O2 58, Arterial Blood HCO3 26, Arterial Blood Total CO2 29.1, Arterial Blood Oxygen Saturation 81, Arterial Blood Base Excess -5.0, Jered Test POSITIVE, Blood Gas Ventilator Setting NO, Blood Gas Inspired Oxygen 98%, Sodium Level 132, Potassium Level 4.9, Chloride Level 98, Carbon Dioxide Level 22, Anion Gap 12, Blood Urea Nitrogen 48, Creatinine 2.14, Estimat Glomerular Filtration Rate 22, BUN/Creatinine Ratio 22, Glucose Level 203, Lactic Acid Level 2.08, Calcium Level 8.7, Corrected Calcium 9.3, Phosphorus Level 5.5, Magnesium Level 2.0, Total Bilirubin 0.7, Aspartate Amino Transf (AST/SGOT) 20, Alanine Aminotransferase (ALT/SGPT) 14, Alkaline Phosphatase 80, Total Protein 6.6, Al bumin 3.3, Triglycerides Level 112 11/21/19 06:00: Blood Gas Puncture Site LEFT RADIAL, Blood Gas Patient Temperature 36.2, Arterial Blood pH 7.38, Arterial Blood Partial Pressure CO2 38, Arterial Blood Partial Pressure O2 359, Arterial Blood HCO3 22, Arterial Blood Total CO2 22.9, Arterial Blood Oxygen Saturation 101, Arterial Blood Base Excess -2.8, Jered Test POSITIVE, Blood Gas Ventilator Setting NO, Blood Gas Inspired Oxygen 100% 11/21/19 06:45: Lactic Acid Level 2.31 Discharge Home Medications: Active Scripts Active Reported Chlorthalidone 25 Mg Tablet 25 Mg PO DAILY PRN Miralax (Polyethylene Glycol 3350) 17 Gm Powd.pack 17 Gm PO HS PRN Melatonin 5 Mg Tablet 5 Mg PO HS PRN Dexilant (Dexlansoprazole) 60 Mg bp 60 Mg PO DAILY PRN Tylenol Extra Strength (Acetaminophen) 500 Mg Tablet 1,000 Mg PO Q6H PRN Ferrous Sulfate 325 Mg Tablet 325 Mg PO Q48H@2100 Colace (Docusate Sodium) 100 Mg Capsule 100 Mg PO BID Lantus (Insulin Glargine,Hum.rec.anlog) 100 Unit/1 Ml Vial 30 Unit SQ HS Dexilant (Dexlansoprazole) 60 Mg bp 60 Mg PO BID START DATE 11-16-19 END DATE 11-27-19 Ondansetron Odt (Ondansetron) 8 Mg Tab.rapdis 8 Mg PO TID Emu-Lac Hydrating Cream (Ammonium Lactate/Emu Oil) 120 Ml Cream.ml. TP BID Potassium Chloride 40 Meq/15 Ml Liquid 40 Meq PO DAILY Metoprolol Succinate 50 Mg Tab.er.24h 50 Mg PO BID Bumetanide 2 Mg Tablet 4 Mg PO 0800,1600 Eliquis (Apixaban) 5 Mg Tablet 5 Mg PO BID Allopurinol 100 Mg Tablet 100 Mg PO DAILY Rosuvastatin Calcium 20 Mg Tablet 20 Mg PO HS Calcium 600 + Vit D 200 Tablet (Calcium Carbonate/Vitamin D3) 1 Each Tablet 1 Tab PO DAILY Instructions to patient/family Please see electronic discharge instructions given to patient. Clinical Quality Measures DVT/VTE Risk/Contraindication: Risk Factor Score Per Nursin RFS Level Per Nursing on Admit: 4+=Very High Contraindications-Pharm: Other *list below* LILY ROJAS DO Nov 22, 2019 07:35
[2019-11-24] MEDS ORDERED: SCOPOLAMINE PATCH REMOVAL TP SCH (08:29)
== END 2019-11-21 10:35 | disposition expired | DRG 208 ==
LOC: 4TH 17:15 → ICU 11-21 04:22
PROVIDERS: ADMIT Family Medicine; ATTEND Family Medicine
PROC: 0D9670Z Drainage of Stomach with Drainage Device, Via Natural or Artificial Opening (ICD-10-PCS; 2019-11-17)
PROC: 5A1935Z Respiratory Ventilation, Less than 24 Consecutive Hours (ICD-10-PCS; principal; 2019-11-21)
PROC: 0BH17EZ Insertion of Endotracheal Airway into Trachea, Via Natural or Artificial Opening (ICD-10-PCS; 2019-11-21)
DX: J18.9 Pneumonia, unspecified organism (principal); K56.7 Ileus, unspecified; N39.0 Urinary tract infection, site not specified; R60.1 Generalized edema; I13.0 Hypertensive heart and chronic kidney disease with heart failure and stage 1 through stage 4 chronic kidney disease, or unspecified chronic kidney disease; I50.43 Acute on chronic combined systolic (congestive) and diastolic (congestive) heart failure; J96.00 Acute respiratory failure, unspecified whether with hypoxia or hypercapnia; Z66 Do not resuscitate; Z51.5 Encounter for palliative care; N18.3 Chronic kidney disease, stage 3 (moderate); I25.810 Atherosclerosis of coronary artery bypass graft(s) without angina pectoris; I48.0 Paroxysmal atrial fibrillation; E66.01 Morbid (severe) obesity due to excess calories; Z68.42 Body mass index [BMI] 45.0-49.9, adult; E87.1 Hypo-osmolality and hyponatremia; I25.10 Atherosclerotic heart disease of native coronary artery without angina pectoris; K52.9 Noninfective gastroenteritis and colitis, unspecified; E78.5 Hyperlipidemia, unspecified; I08.1 Rheumatic disorders of both mitral and tricuspid valves; K21.9 Gastro-esophageal reflux disease without esophagitis; M19.91 Primary osteoarthritis, unspecified site; E11.9 Type 2 diabetes mellitus without complications; Z79.4 Long term (current) use of insulin; I27.20 Pulmonary hypertension, unspecified; M25.471 Effusion, right ankle; S82.891S Other fracture of right lower leg, sequela; I65.23 Occlusion and stenosis of bilateral carotid arteries; D64.9 Anemia, unspecified; Z87.891 Personal history of nicotine dependence; T40.605A Adverse effect of unspecified narcotics, initial encounter
CPT/HCPCS: 36415; 36600; 71045; 74018; 76937; 80053; 80061; 81000; 82140; 82805; 82962; 83605; 83735; 84100; 84478; 84484; 85007; 85025; 85027; 85610; 85730; 86850; 86900; 86901; 86920; 87040; 87070; 87077; 87081; 87088; 87186; 87205; 94002; 94640; 94660; 94760; 94799

== ENCOUNTER → 2019-11-17 | Outpatient (CLI) | payer MEDICARE, MEDICAID ==
[~2019-11-17] MED LIST changes: +ACET-2267 PO; +AMMO120C3 TP; +APIX5TAB PO; +BUME2TAB7 PO; +CHLO25TA22 PO; -DILT240C PO; +DILT240C91 PO; +DOCU-143 PO; +FERR325T18 PO; +MELA5TAB14 PO; +METO50TA7 PO; +ONDA8TAB13 PO; +POLY17PO6 PO; +POTA40LI3 PO
--- NOTE | 2019-11-17 13:42 | Diagnostic Imaging Report ---
CHEST 1 VIEW, AP/PA ONLY Indication: Abdominal distention and trouble eating. Comparison: 10/01/2019 Findings: Cardiomegaly is unchanged. Stable low lung volumes with asymmetric elevation of the left hemidiaphragm. No airspace consolidations. Posterior lower lobes are poorly evaluated by portable radiography. No pleural effusion or pneumothorax. No features of free intraperitoneal air under the diaphragms. Stable sternotomy wires. Impression: 1. No acute cardiopulmonary process by portable radiography. 2. No pneumoperitoneum. Dictated by: Dictated on workstation # [id number]
--- NOTE | 2019-11-17 14:15 | Diagnostic Imaging Report ---
PROCEDURE: CT abdomen and pelvis without contrast. TECHNIQUE: Multiple contiguous axial images were obtained through the abdomen and pelvis without the use of intravenous contrast. Auto Exposure Controls were utilized during the CT exam to meet ALARA standards for radiation dose reduction. INDICATION: Abdominal pain and distention. COMPARISON: There are no prior studies available for comparison. FINDINGS: There is marked distention of the stomach by fluid and gas. There is also considerable dilatation of the transverse colon by gas, and there is some gas in the remainder of the colon and the small bowel as well. This appearance may be secondary to a severe ileus. There is no evidence for a bowel obstruction at this time. Also, there is a moderate amount of free fluid in the pelvis, and there does appear to be diffuse anasarca of the subcutaneous fat of the abdomen, particularly on the left. A small amount of ascites is also seen about the liver and the spleen. The liver and spleen are generally unremarkable as is the pancreas, the adrenals, the kidneys, the aorta, and the inferior vena cava. There does appear to be some fluid about the gallbladder, and the gallbladder is difficult to assess. There may be a small calculus within the gallbladder. The urinary bladder is grossly unremarkable. The uterus is surgically absent. The appendix was not well visualized. The bone windows show no sign of a fracture or of a destructive lesion. There is mild atelectasis/infiltrate and a small left pleural effusion. The right lung base is generally clear. The bone windows show no sign of a fracture or of a destructive lesion. IMPRESSION: 1. The stomach is distended by fluid and gas. There is also a considerable amount of gas throughout the transverse colon. Consideration should be given to the insertion of a nasogastric tube to decompress the stomach and the bowel. 2. There is at least a moderate amount of ascites as well as diffuse anasarca of the anterior abdominal wall. 3. There is a small calculus within the gallbladder, but there is no clear evidence for acute cholecystitis. 4. There is left lower lobe pneumonia/atelectasis and small left pleural effusion. 5. These results were discussed with Dr. Parkinson. Dictated by: Dictated on workstation # [id number]
== END ==
LOC: RAD 12:45
PROVIDERS: ATTEND Family Medicine
DX: R18.8 Other ascites (principal); R14.0 Abdominal distension (gaseous); J18.9 Pneumonia, unspecified organism; J98.11 Atelectasis; J90 Pleural effusion, not elsewhere classified; K80.20 Calculus of gallbladder without cholecystitis without obstruction
CPT/HCPCS: 71045; 74176